=== PATIENT | male | born 1955 | race Caucasian/White ===

== ENCOUNTER 2023-03-28 07:31 | Outpatient (OUT) | payer MEDICARE, OTHER, SELFPAY ==
[2023-03-28 08:01] LABS: Basophils Absolute Auto 0.2 10^3/uL (0.0-0.1); Basophils Percent Auto 1.6 % (0.2-2.0); Eosinophils Absolute Auto 0.5 10^3/uL (0.0-0.7); Eosinophils Percent Auto 5.4 % (0.9-7.0); Hematocrit 43.1 % (42.0-54.0); Hemoglobin 14.4 g/dL (14.0-18.0); Immature Granulocytes Abs Auto 0.14 10^3/uL (0.00-0.03); Immature Granulocytes Pct Auto 1.5 % (0.0-0.5); Lymphocytes Absolute Auto 2.5 10^3/uL (1.2-3.8); Lymphocytes Percent Auto 26.8 % (20.5-60.0); Mean Corpuscular HGB Conc 33.4 g/dL (29.9-35.2); Mean Corpuscular Hemoglobin 29.8 pg (25.9-34.0); Mean Platelet Volume 9.2 fL (9.5-13.5); Monocytes Percent Auto 10.4 % (1.7-12.0); Neutrophils Absolute Auto 5.1 10^3/uL (1.4-6.5); Neutrophils Percent Auto 54.3 % (43.0-75.0); Platelet Count 283 10^3/uL (150-450); Red Blood Count 4.84 10^6/uL (4.70-6.10); Red Cell Distribution Width 12.6 % (11.0-15.0); White Blood Count 9.5 10^3/uL (4.0-11.0)
[2023-03-28 08:12] LABS: Bilirubin Urine NEGATIVE (NEGATIVE); Blood Urine NEGATIVE (NEGATIVE); Clarity Urine CLEAR (CLEAR); Color Urine YELLOW (YELLOW); Glucose Urine UA NEGATIVE (NEGATIVE); Ketones Urine NEGATIVE (NEGATIVE); Leukocyte Esterase Urine NEGATIVE (NEGATIVE); Nitrite Urine NEGATIVE (NEGATIVE); Protein Urine NEGATIVE (NEG/TRACE); Specific Gravity Urine 1.025 (1.005-1.025); Urobilinogen Urine 0.2 EU/dL (0.2-1.0)
[2023-03-28 08:19] LABS: Estimated Average Glucose 120 mg/dL; Glycohemoglobin A1C 5.8 % (4.5-6.2)
[2023-03-28 08:20] LABS: Alanine Aminotransferase 36 U/L (16-63); Albumin Level 3.8 g/dL (3.4-5.0); Alkaline Phosphatase 62 U/L (46-116); Anion Gap 13.5; Aspartate Amino Transferase 19 U/L (15-37); BUN Creatinine Ratio 17.8; Bilirubin Total 0.4 mg/dL (0.2-1.0); Calcium 9.1 mg/dL (8.5-10.1); Carbon Dioxide 28.8 mmol/L (21.0-32.0); Chloride 103 mmol/L (98-107); Chol HDL Ratio 3.6; Cholesterol 135 mg/dL (<=200); Estimated GFR (African America >60 (>=60); Estimated GFR (Non-African Ame >60 (>=60); Globulin 3.8 g/dL; Glucose 112 mg/dL (74-106); HDL Cholesterol 38 mg/dL (40-60); Potassium 4.3 mmol/L (3.5-5.1); Sodium 141 mmol/L (136-145); Total Protein 7.6 g/dL (6.4-8.2); Triglycerides 142 mg/dL (<=150); Uric Acid 8.3 mg/dL (3.5-7.2); VLDL CHOLESTEROL 28.4 mg/dL
[2023-03-28 08:23] LABS: Microalbumin Urine Random 6.5 mg/dL (<=30.0)
[2023-03-28 08:37] LABS: Bacteria Urine TRACE #/HPF (NONE SEEN); Crystals Seen? None Seen #/HPF (None Seen); Mucus Urine NONE SEEN (NONE SEEN); RBC Urine 0-2 #/HPF (0-2); Squamous Epithelial Cell Urine RARE #/LPF (NONE/RARE); WBC Urine 0-2 #/HPF (NONE SEEN)
[2023-03-28 08:38] LABS: Cast Seen? NONE SEEN #/LPF (NONE SEEN); Urine Culture Indicated NO
== END 2023-03-28 07:32 | disposition home or self-care (01) ==
LOC: LAB 07:36
PROVIDERS: PCP Nurse Practitioner; Visit Provider Nurse Practitioner
DX: M10.9 Gout, unspecified (principal); R73.03 Prediabetes; E78.5 Hyperlipidemia, unspecified
CPT/HCPCS: 36415; 80053; 80061; 81001; 82043; 83036; 84550; 85025

== ENCOUNTER 2023-04-26 12:24 | Outpatient (OUT) | payer MEDICARE, OTHER, SELFPAY ==
[2023-04-26 13:29] LABS: Prostate Specific Antigen Dx 1.11 ng/mL (<=4.00)
== END 2023-04-26 12:25 | disposition home or self-care (01) ==
LOC: LAB 12:27
PROVIDERS: PCP Nurse Practitioner; Visit Provider Radiology Radiation Oncology
DX: Z85.46 Personal history of malignant neoplasm of prostate (principal)
CPT/HCPCS: 36415; 84153

== ENCOUNTER 2023-08-29 09:50 | Outpatient (OUT) | payer MEDICARE, OTHER, SELFPAY ==
--- NOTE | 2023-08-29 10:00 | CA_ITS ---
Patient Name: MARK ALARCON MR#: [id number] : 1955 Exam Date: 08/29/2023 Ordering Doctor: DR LESLIE CARRANZA M.D. ECHOCARDIOGRAM REPORT PROCEDURE: CA ECHO DOPPLER COMPLETE INDICATIONS: Hypertension COMPARISON: None. DESCRIPTION: COMPLETE ECHOCARDIOGRAM Real-time transthoracic echocardiography with 2D, M-mode, spectral and color flow Doppler performed. QUALITY: Technical quality was good. 68 , 227#, BSA 2.16 m2 LEFT VENTRICLE: Normal chamber size. Thickened septal wall. Mild concentric hypertrophy. Normal systolic function. LV EF: Normal left ventricular ejection fraction, (>55%). DIASTOLIC: Diastolic function is indeterminate. ATRIAL SEPTUM: Visually appears intact. LEFT ATRIUM: Normal chamber size. RIGHT ATRIUM: Normal chamber size. RIGHT VENTRICLE: Normal chamber size. Normal right ventricular systolic function. TRICUSPID VALVE: Normal mobility and thickness. No stenosis with no regurgitation. Unable to assess right-sided pressures due to lack of measurable tricuspid regurgitation. MITRAL VALVE: Normal mobility and thickness. No evidence of mitral valve stenosis. There is no mitral annular calcification. Trivial mitral regurgitation. AORTIC VALVE: Normal trileaflet appearance. No visible sclerosis. Normal leaflet mobility. No evidence of aortic valve stenosis. No aortic regurgitation. AORTIC ROOT: Normal diameter and appearance. PULMONIC VALVE: Normal thickness and mobility. No stenosis. Trivial regurgitation. PERICARDIUM: No evidence of pericardial effusion. IVC: Collapses with inspirations. PLEURA: CONCLUSION: 1. Left ventricle exhibits mild concentric hypertrophy with normal systolic function. LVEF is estimated at 60 to 65%. 2. Normal right ventricular size and systolic function. 3. No significant valvular dysfunction. 4. Unable to assess right-sided pressures due to lack of measurable tricuspid regurgitation. Adult Echocardiography Procedure Report Left Ventricle LVEDD (3.7 - 5.6 cm): 4.20 cm LVESD (2.2 - 4.0 cm): 3.11 cm LVIVS thickness (0.6 - 1.2 cm): 1.33 cm LVPW thickness (0.5 - 1.0 cm): 0.95 cm e': 0.06 m/s E - e': 7.73 LVOT Max Gradient: 2.75 mm[Hg] LVOT Area (cm2): 0.83 m/s Peak Velocity (LVOT): 0.83 m/s Mean Velocity (LVOT): 0.59 m/s LVOT Diameter 2.34 cm Left Atrium LA Volume Index (2D A2C): 22.29 ml/m2 Left Atrium Systolic Dimension: 3.30 cm Mitral Valve MV E to A Ratio: 0.62, 0.59 Mitral Valve A-Wave Peak Velocity: 0.79 m/s Mitral Valve E-Wave Peak Velocity: 0.48 m/s Right Ventricle Aorta AO Root Diam: 4.00 cm Ascending Ao Diam: 2.95 cm Aortic Valve AoV Area (Peak Zeke): 3.58 cm2, 3.58 cm2 AoV Area (VTI): 4.54 cm2, 4.54 cm2 Peak Velocity(Antegrade Flow): 0.99 m/s Peak Gradient(Antegrade Flow): 3.94 mm[Hg] Mean Velocity(Antegrade Flow): 0.71 m/s Mean Gradient(Antegrade Flow): 2.26 mm[Hg] Velocity Time Integral: 18.05 cm Tricuspid Valve Pulmonic Valve Peak Velocity: 0.82 m/s Peak Gradient: 2.60 mm[Hg], 2.72 mm[Hg] Right Atrium Right Atrium Systolic Pressure: 55.11 ml, 55.11 ml Dictated by: Rickey Stubbs M.D. on 08/29/2023 at 16:50 Approved by: Rickey Stubbs M.D. on 08/29/2023 at 16:53
--- OUTSIDE RECORDS SUMMARY | 2023-08-29 10:07 | XMS_ITS | CCD ---
Author Name Unknown Address [address] [place] [address] Organization [facility] Care Team Providers Care Game Programmer Name Role Phone No, Physician Primary Care Provider Unavailabl e NO, PHYSICIAN Primary Care Unavailable BREE LESLIE Attending Unavailabl e BREE LESLIE Admitting Unavailabl e SELF, REFERRED Primary Care Unavailable SELF, REFERRED Referring Unavailable MUKUND SCHULER Admitting Unavailable MUKUND SCHULER Attending Unavailable AichholEllen daniels CNP Primary Care Provider Imtiaz Freed Jr. Unavailable NICK BARRERAA Edward Primary Care Physician AicEllen munguia CNP Primary Care Provider Imtiaz Freed Jr. Unavailable YUNI NORTH Attending Unavailable CLAIRE ELLEN SIERRA Primary Care Unavailable CHAI PALMA Referring Unavailable AichholEllen daniels CNP Primary Care Provider Imtiaz Freed Jr. Unavailable DR NESTOR CATALAN Admitting Unavailable KAPLAN ., DR BAEZ Attending Unavailable AICHHOLZ, ROAD ROLLER OPERATOR ELLEN Primary Care Unavailable KAPLAN ., DR BAEZ Consulting Unavailable AICHHOLZ, ROAD ROLLER OPERATOR ELLEN Admitting Unavailable AICHHOLZ, ROAD ROLLER OPERATOR ELLEN Attending Unavailable AICHHOLZ, ROAD ROLLER OPERATOR ELLEN Primary Care Unavailable AICHHOLZ, ROAD ROLLER OPERATOR ELLEN Consulting Unavailable KAPLAN ., DR BAEZ Admitting Unavailable KAPLAN ., DR BAEZ Attending Unavailable AICHHOLZ, ROAD ROLLER OPERATOR ELLEN Primary Care Unavailable KAPLAN ., DR BAEZ Consulting Unavailable SREE FRASER Consulting Unavailable BRAD FOSS Consulting Unavailable NILL ., DR SALTER Admitting Unavailable NILL ., DR SALTER Attending Unavailable AICHHOLZ, ROAD ROLLER OPERATOR ELLEN Primary Care Unavailable NILL ., DR SALTER Consulting Unavailable UMA VILLA Consulting Unavailable VIDYA LUNDBERG Consulting Unavailable KAPLAN ., DR BAEZ Admitting Unavailable KAPLAN ., DR BAEZ Attending Unavailable AICHHOLZ, ROAD ROLLER OPERATOR ELLEN Primary Care Unavailable KAPLAN ., DR BAEZ Consulting Unavailable ELISA PENA Consulting Unavailable KAPLAN ., DR BAEZ Admitting Unavailable KAPLAN ., DR BAEZ Attending Unavailable AICHHOLZ, ROAD ROLLER OPERATOR ELLEN Primary Care Unavailable KAPLAN ., DR BAEZ Consulting Unavailable COLTON, DR CHAI Gilman Consulting Unavailable AICHHOLZ, ROAD ROLLER OPERATOR ELLEN Admitting Unavailable AICHHOLZ, ROAD ROLLER OPERATOR ELLEN Attending Unavailable AICHHOLZ, ROAD ROLLER OPERATOR ELLEN Primary Care Unavailable AICHHOLZ, ROAD ROLLER OPERATOR ELLEN Consulting Unavailable KAPLAN ., DR BAEZ Admitting Unavailable KAPLAN ., DR BAEZ Attending Unavailable AICHHOLZ, ROAD ROLLER OPERATOR ELLEN Primary Care Unavailable KAPLAN ., DR BAEZ Consulting Unavailable ZIEBER, DR JAMIE Veras Consulting Unavailable KAPLAN ., DR BAEZ Admitting Unavailable KAPLAN ., DR BAEZ Attending Unavailable AICHHOLZ, ROAD ROLLER OPERATOR ELLEN Primary Care Unavailable KAPLAN ., DR BAZE Consulting Unavailable KAPLAN ., DR BAEZ Admitting Unavailable KAPLAN ., DR BAEZ Attending Unavailable AICHHOLZ, ROAD ROLLER OPERATOR ELLEN Primary Care Unavailable KAPLAN ., DR BAEZ Consulting Unavailable AICHHOLZ, ROAD ROLLER OPERATOR ELLEN Admitting Unavailable AICHHOLZ, ROAD ROLLER OPERATOR ELLEN Attending Unavailable AICHHOLZ, ROAD ROLLER OPERATOR ELLEN Primary Care Unavailable AICHHOLZ, ROAD ROLLER OPERATOR ELLEN Consulting Unavailable KAPLAN ., DR BAEZ Admitting Unavailable KAPLAN ., DR BAEZ Attending Unavailable AICHHOLZ, ROAD ROLLER OPERATOR ELLEN Primary Care Unavailable KAPLAN ., DR BAEZ Consulting Unavailable ZIEBER, DR JAMIE Veras Consulting Unavailable AICHHOLZ, ROAD ROLLER OPERATOR ELLEN Admitting Unavailable AICHHOLZ, ROAD ROLLER OPERATOR ELLEN Attending Unavailable AICHHOLZ, ROAD ROLLER OPERATOR ELLEN Primary Care Unavailable AICHHOLZ, ROAD ROLLER OPERATOR ELLEN Consulting Unavailable GANGA, MUKUND Admitting Unavailable GANGAMUKUND Attending Unavailable AICHHOLZ, ROAD ROLLER OPERATOR ELLEN Primary Care Unavailable GANGA, MUKUND Consulting Unavailable AICHHOLZ, ROAD ROLLER OPERATOR ELLEN Admitting Unavailable AICHHOLZ, ROAD ROLLER OPERATOR ELLEN Attending Unavailable AICHHOLZ, ROAD ROLLER OPERATOR ELLEN Primary Care Unavailable AICHHOLZ, ROAD ROLLER OPERATOR ELLEN Consulting Unavailable NILL ., DR SALTER Admitting Unavailable NILL ., DR SALTER Attending Unavailable AICHHOLZ, ROAD ROLLER OPERATOR ELLEN Primary Care Unavailable NILL ., DR SALTER Consulting Unavailable KAPLAN ., DR BAEZ Admitting Unavailable KAPLAN ., DR BAEZ Attending Unavailable AICHHOLZ, ROAD ROLLER OPERATOR ELLEN Primary Care Unavailable KAPLAN ., DR BAEZ Consulting Unavailable PENA, ELISA Consulting Unavailable KAPLAN ., DR BAEZ Admitting Unavailable KAPLAN ., DR BAEZ Attending Unavailable AICHHOLZ, ROAD ROLLER OPERATOR ELLEN Primary Care Unavailable KAPLAN ., DR BAEZ Consulting Unavailable KAPLAN ., DR BAEZ Admitting Unavailable KAPLAN ., DR BAEZ Attending Unavailable AICHHOLZ, ROAD ROLLER OPERATOR ELLEN Primary Care Unavailable KAPLAN ., DR BAEZ Consulting Unavailable WEST, DR CHAI Gilman Consulting Unavailable TOBIAS, DELORIS LORENZO Consulting Unava ilable GEMBUS, SREE Consulting Unavailable KAPLAN ., DR BAEZ Admitting Unavailable KAPLAN ., DR BAEZ Attending Unavailable AICHHOLZ, ROAD ROLLER OPERATOR ELLEN Primary Care Unavailable KAPLAN ., DR BAEZ Consulting Unavailable AICHHOLZ, ROAD ROLLER OPERATOR ELLEN Admitting Unavailable AICHHOLZ, ROAD ROLLER OPERATOR ELLEN Attending Unavailable AICHHOLZ, ROAD ROLLER OPERATOR ELLEN Primary Care Unavailable WEST, DR CHAI Gilman Consulting Unavailable AICHHOLZ, ROAD ROLLER OPERATOR ELLEN Consulting Unavailable MUKUND SCHULER Attending Unavailable Nestor MCKENZIE Attending Unavailable Nestor MCKENZIE Referring Unavailable AICHHOLZ, ELLEN SIERRA Primary Care Unavailable Nestor MCKENZIE Attending Unavailable Nestor MCKENZIE Referring Unavailable AICHHOLZ, ELLEN SIERRA Primary Care Unavailable Nestor KAPLAN Attending Unavailable KAE SANDERS Attending Unavailab Nestor Moura Attending Unavailable Nestor KAPLAN Attending Unavailable KAE SANDERS Attending Unavailab le Medications Current Medications Medication Drug Class(es) Dates Sig (Normalized) Sig (Original) aspirin 81 mg chewable tablet (15 sources) Platelet Aggregation Inhibitor, Nonsteroidal Anti-inflammatory Drug Start: 02-13-2022 aspirin 81 mg Chew Tab 81 mg = 1 tab(s), Chewed, Daily, Refills(s) 0 Start Date: 02/13/22 Status: Ordered take 1 tablet by mouth once ita y aspirin, enteric coated (ASPIRIN, ENTERIC COATED) 81 mg EC tablet aspirin 81 mg tablet,delayed release TAKE 1 TABLET BY MOUTH EVERY DAY 0 Active Comment on above: aspirin 81 mg tablet ,delayed release TAKE 1 TABLET BY MOUTH EVERY DAY atorvastatin 80 mg oral tablet (15 sources) HMG-CoA Reductase Inhibitor Start: 02-14-20 take 1 tablet by mouth once daily atorvastatin 80 mg Tab 80 mg = 1 tab(s), Oral, Daily, Refills(s) 0 Start Date: 02/13/22 Status: Ordered Start: 09-24-2020 take 1 tablet by asha once daily at bedtime atorvastatin (LIPITOR) 20 mg tablet Take 20 mg by mouth daily at bedtime. 0 09/24/2020 Active Comment on above: Take 20 mg by mouth daily at bedtime. carvedilol 6.25 mg oral tablet (15 sources) alpha-Adrenergic Alistair, beta-Adrenergic Alistair Start: 02-21-2022 take 1 tablet by mouth twice daily carvedilol 6.25 mg Tab 6.25 mg = 1 tab(s), Oral, BID, Refills(s) 0 Start Date: 02/21/22 Status: Ordered Comment on above: carvedilol 6.25 mg t ablet TAKE 1 TABLET BY MOUTH TWICE A DAY sertraline 50 mg oral tablet (12 sources) Serotonin Reuptake Inhibitor Start: 02-13-2022 take 1 tablet by mouth once daily sertraline 50 mg Tab 50 mg = 1 tab(s), Oral, Daily, Refills(s) 0 Start Date: 02/13/22 Status: Ordered Comment on above: Take 50 mg by mouth once daily. Completed/Discontinued Medications Medication Drug Class(es) Dates Sig (Normalized) Sig (Original) allopurinol 100 mg oral tablet (15 sources) Xanthine Oxidase Inhibitor Start: 03-04-2020 take 1 tablet by mouth once daily allopurinol 100 mg Tab 100 mg = 1 tab(s), Oral, Daily, TAKE 1 TABLET BY MOUTH EVERY DAY Start Date: 03/04/20 Status: Ordered Comment on above: Take 100 mg by mouth once daily. potassium citrate 15 meq extended release oral tablet (3 sources) Start: 03-03-2023 take 2 tablets by mouth every twelve hours Potassium Citrate 15 mEq TbER Take 2 tablets by mouth every 12 hours. 0 03/03/2023 Active Start: 10-31-2022 take 2 tablets by mo [facility] twice daily potassium citrate 15 mEq oral tablet, extended release 30 mEq = 2 tab(s), Oral, BID, # 120 tab(s), Refills(s) 11, [id number], cm, 10/31/22 8:58:00 EDT, Height/Length Dosing, 99, kg, 10/31/22 8:58:00 EDT, Weight Dosing Start Date: 10/31/22 Status: Ordered Comment on above: Take 2 tablets by [facility] every 12 hours. tamsulosin hydrochloride 0.4 mg oral capsule (13 sources) alpha-Adrenergic Alistair Start: 03-25-2021 tamsulosin (FLOMAX) 0.4 mg 0.4 mg once daily. 0 03/25/2021 Active Start: 03-25-2021 take 1 capsule by [facility] twice daily tamsulosin 0.4 mg Cap 0.4 mg = 1 cap(s), Oral, BID, # 60 cap(s), Refills(s) 11, [id number] 173, cm, 07/11/21 10:47:00 EST, Height/Length Dosing, 104.1, kg, 07/11/21 10:47:00 EST, Weight Dosing Start Date: 08/19/21 Status: Ordered Comment on above: 0.4 mg twice daily. 0.4 mg once daily. Problems Active Problems Problem Classification Problem Date Documented Da te Episodic/Chronic Calculus of urinary tract (18 sources) Kidney stone; Translations: [Calculus of kidney] Onset: 04-24-2022 Episodic Cancer of prostate (20 sources) Malignant tumor of prostate; Translations: [Malignant neoplasm of prostate] Onset: 10-27-2021 Chronic Cancer of prostate (3 sources) History of malignant neoplasm of prostate; Translations: [Personal history of malignant neoplasm of prostate] Onset: 04-08-2022 Episodic Coronary atherosclerosis and other heart disease (20 sources) Coronary arteriosclerosis; Translations: [Coronary atherosclerosis] Onset: 04-28-2021 02-13-2022 Chronic Diabetes mellitus without complication (6 sources) Prediabetes; Translations: [Prediabetes] Onset: 07-18-2022 02-13-2022 Episodic Disorders of lipid metabolism (15 sources) Hyperlipidemia; Translations: [Hyperlipidemia, unspecified] Onset: 03-12-2021 02-13-2022 Chronic Diverticulosis and diverticulitis (6 sources) Diverticula of intestine; Translations: [Diverticulosis of large intestine without perforation or abscess without bleeding] Onset: 03-20-2022 Chronic Essential hypertension (15 sources) Hypertensive disorder; Translations: [Essential hypertension] Onset: 03-12-2021 03-04-2020 Chronic Genitourinary symptoms and ill-defined conditions (4 sources) Encounter for fitting and adjustment of urinary device; Translations: [END FITTING AND ADJUST URINARY DEVICE] Onset: 07-31-2022 Chronic Genitourinary symptoms and ill-defined conditions (7 sources) Retention of urine; Translations: [Abnormal urinary product] Onset: 07-18-2022 03-24-2021 Episodic Gout and other crystal arthropathies (6 sources) Gout; Translations: [Gout, unspecified] Onset: 07-18-2022 03-04-2020 Chronic Hyperplasia of prostate (9 sources) Benign prostatic hypertrophy with outflow obstruction; Translations: [Benign prostatic hyperplasia with lower urinary tract symptoms] Onset: 04-24-2022 05-18-2020 Chronic Other and unspecified benign neoplasm (1 source) Benign neoplasm of colon; Translations: [Benign neoplasm of colon, unspecified] Onset: 03-28-2022 Episodic Other and unspecified benign neoplasm (1 source) Adenomatous polyp of colon 03-28-2022 Episodic Other and unspecified benign neoplasm (4 sources) History of polyp of colon 02-27-2022 Episodic Other diseases of bladder and urethra (1 source) Other specified disorders of bladder; Translations: [OTHER SPECIFIED DISORDERS BLADDER] Onset: 08-01-2022 Chronic Other gastrointestinal disorders (1 source) Other specified diseases of intestine; Translations: [Mass of colon] Onset: 04-25-2022 Episodic Other gastrointestinal disorders (1 source) Mass of colon; Translations: [Other specified diseases of intestine] 04-25-2022 Episodic Other injuries and conditions due to external causes (4 sources) History of fall 02-27-2022 Episodic Other non-epithelial cancer of skin (5 sources) History of malignant basal cell neoplasm of skin 02-13-2022 Episodic Other nutritional; endocrine; and metabolic disorders (5 sources) Body mass index 30+ - obesity 02-21-2022 Chronic Other nutritional; endocrine; and metabolic disorders (4 sources) Obese class I; Translations: [Obesity, unspecified] Onset: 11-03-2022 Chronic Other nutritional; endocrine; and metabolic disorders (4 sources) Unintentional weight loss 02-27-2022 Episodic Other screening for suspected conditions (not mental disorders or infectious disease) (16 sources) Abnormal renal function; Translations: [Raised prostate specific antigen] Onset: 02-08-2022 02-13-2022 Episodic Residual codes; unclassified (14 sources) Obstructive sleep apnea syndrome; Translations: [Obstructive sleep apnea (adult) (pediatric)] Onset: 02-07-2021 02-13-2022 Chronic Residual codes; unclassified (1 source) Obstructive sleep apnea (adult) (pediatric); Translations: [OBSTRUCTIVE SLEEP APNEA] Onset: 07-18-2022 Chronic Residual codes; unclassified (1 source) Sleep apnea, unspecified; Translations: [SLEEP APNEA UNSPECIFIED] Onset: 06-04-2022 Chronic Unclassified (1 source) COVID-19; Translations: [COVID-19] Unclassified (4 sources) CONTACT W/AND (SUSP) EXPOS COVID-19; Translations: [CONTACT W/AND (SUSP) EXPOS COVID-19] Onset: 02-23-2022 Unclassified (1 source) ESOPHAGITIS UNSPEC WITHOUT BLEEDING; Translations: [ESOPHAGITIS UNSPEC WITHOUT BLEEDING] Onset: 03-20-2022 Past or Other Problems Problem Classification Problem Date Documented Date Episodic/Chronic Gastritis and duodenitis (1 source) Other gastritis without bleeding; Translations: [OTHER GASTRITIS WITHOUT BLEEDING] Onset: 03-20-2022 Episodic Other aftercare (1 source) [facility] (current) use of anticoagulants; Translations: [FOOD PRODUCTION ASSOCIATE CURRNT USE ANTICOAGULANTS] Onset: 07-18-2022 Episodic Other aftercare (1 source) remote computer terminal operator (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) use of aspirin; Translations: [CARE HOME 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] Onset: 07-18-2022 Episodic Other aftercare (1 source) Other adjunct faculty for medical terminology (current) drug therapy; Translations: [OTH FOOD PRODUCTION ASSOCIATE CURRENT DRUG THERAPY] Onset: 07-18-2022 Episodic Other and unspecified benign neoplasm (1 source) Personal history of colonic polyps; Translations: [PERSONAL HISTORY OF COLONIC POLYPS] Onset: 03-20-2022 Episodic Other and unspecified benign neoplasm (1 source) Benign neoplasm of sigmoid colon; Translations: [BENIGN NEOPLASM OF SIGMOID COLON] Onset: 03-20-2022 Episodic Other diseases of kidney and ureters (1 source) Crossing vessel and stricture of ureter without hydronephrosis; Translations: [CROSSING VES STRICT URETER W/O HN] Onset: 06-04-2022 Episodic Other diseases of kidney and ureters (1 source) Disorder of kidney and ureter, unspecified; Translations: [DISORDER KIDNEY AND URETER UNS] Onset: 03-14-2022 Episodic Other hematologic conditions (5 sources) Elevated erythrocyte sedimentation rate; Translations: [ELEVATED ERYTHROCYTE SED RATE] Onset: 02-16-2022 Episodic Other nutritional; endocrine; and metabolic disorders (5 sources) Abnormal weight loss; Translations: [ABNORMAL WEIGHT LOSS] Onset: 02-09-2022 Episodic Other nutritional; endocrine; and metabolic disorders (1 source) Anorexia; Translations: [ANOREXIA] Onset: 03-20-2022 Episodic Screening and history of mental health and substance abuse codes (1 source) Personal history of nicotine dependence; Translations: [PERSONAL HISTORY OF NICOTINE DEPEND] Onset: 06-04-2022 Episodic Unclassified (1 source) CONTACT W/AND (SUSP) EXPOS COVID-19; Translations: [CONTACT W/AND (SUSP) EXPOS COVID-19] Onset: 02-22-2022 Urinary tract infections (4 sources) Urinary tract infection, site not specified; Translations: [UTI SITE NOT SPECIFIED] Onset: 12-15-2021 Episodic Results Test Name Value Interpretation Reference Range Facility Consultation Noteon 06-12-20 Consultation Note [id number]#1.00TIFF [facility] 06-12-2023 Lab Reports [id number]#1.00TIFF [facility] 05-15-2023 Forms [id number]#1.00TIFF [facility] CNOVon 05-03-2023 CNOV Office Visit (RADTSA ) ----- MARK DOUGLAS ([id number]) 1955 M Date Time Provider Department 05/03/23 2:30 PM Nestor MCKENZIE During your visit today, we recorded the following information about you: Temperature Pulse Respiration Blood pressure 97.6 degrees 78/minute 16/minute 131/70 Weight 104.3 kg Nafisa Chacon LPN 05/03/2023 2:23 PM Signed AUA= 1 Nestor Mckenzie MD 05/08/2023 3:15 PM Signed Radiation Oncology - Follow Up Note PATIENT NAME: Mark Douglas PATIENT DIAGNOSIS: Prostate adenocarcinoma, initial PSA 5.4, biopsy Geraldine score 3 + 4 = 7 (grade group 2), clinical stage T1c, N0, M0, stage IIB [T1-T2, N0, M0, PSA <20, GG 2] (AJCC 8th ed.), s/p TRUS Random biopsy. RADIATION SUMMARY:Prostate brachytherapy 03/10/2021, I-125, 145 Brennan, 85 sources, 32.30 mCi INTERVAL HISTORY: Doing well no new problems or concerns. 04/27/22:Patient's earlier this year. Patient has had a 40 pound weight loss although this is stabilized and starting to gain weight again. He does have family around for support. Otherwise feeling fairly good. 10/27/21:Patient doing well denies significant new problems. Urinary function good without obstructive complaints. 04/21/22: Still with obstructive issues. Self cathetize twice daily. Patient feels however this is improving for him. He has restarted Flomax which he thinks is helping and he has less residual with self cath. PSA HISTORY: PSA (ng/mL) Date Value 10/26/2021 0.41 01/11/2021 1.80 PSA. (no units) Date Value 04/26/2023 1.11 10/13/2022 1.03 04/06/2022 1.60 04/18/2021 1.96 ALLERGIES No Known Allergies Potassium Citrate 15 mEq TbER Take 2 tablets by mouth every 12 hours. sertraline (ZOLOFT) 50 mg tablet Take 50 mg by mouth once daily. carvedilol (COREG) 6.25 mg tablet carvedilol 6.25 mg tablet TAKE 1 TABLET BY MOUTH TWICE A DAY aspirin, enteric coated (ASPIRIN, ENTERIC COATED) 81 mg EC tablet aspirin 81 mg tablet,delayed release TAKE 1 TABLET BY MOUTH EVERY DAY tamsulosin (FLOMAX) 0.4 mg 0.4 mg once daily. atorvastatin (LIPITOR) 20 mg tablet Take 20 mg by mouth daily at bedtime. allopurinol (ZYLOPRIM) 100 mg tablet Take 100 mg by mouth once daily. REVIEW OF SYSTEMS: See HPI - Total AUA Score: 1 Bowel movement frequency: 1-2/day Bowel movement quality: normal Blood per rectum: none PHYSICAL EXAM: BP 131/70 Pulse 78 Temp 36.4 ?C (97.6 ?F) Resp 16 Wt 104.3 kg (230 lb) SpO2 95% BMI 34.97 kg/m? KPS: 100 General appearance: Alert and oriented. No acute distress. Rectal exam def Extremities: No deformities, edema, skin discoloration, clubbing or cyanosis. ASSESSMENT/PLAN: Prostate adenocarcinoma, initial PSA 5.4, biopsy Corunna score 3 + 4 = 7 (grade group 2), clinical stage T1c, N0, M0, stage IIB [T1-T2, N0, M0, PSA <20, GG 2] (AJCC 8th ed.), status post prostate brachytherapy 03/10/2021 Overall doing well. PSA stable. Recommend continued PSA surveillance. Plan to see patient back in 6 months. Patient has continued urologic follow-up with Dr. Kaplan. Signed by: Nestor Mckenzie MD cc: Ellen Barrera, ROAD ROLLER OPERATOR (Dr) [address] [place] [address] Referring Provider: Nestor MCKENZIE [[id number]] Allergies As of Date: 05/03/2023 (No Known Allergies) Date Reviewed: 05/03/2023 Reviewed by: Nafisa Chacon LPN - Fully Assessed Reason for Visit: Prostate Cancer [590] Primary Visit Diagnosis:Prostate cancer (HCC) [C61] Order(s):PSA (OUTSIDE) [4203853] Order #: [id number] PSA/PROSTSPECAG DIAG [SQPSA] Order #: [id number] FUTURE Prescriptions as of 05/08/2023 - Potassium Citrate 15 mEq TbER Take 2 tablets by mouth every 12 hours. - sertraline (ZOLOFT) 50 mg tablet Take 50 mg by mouth once daily. - carvedilol (COREG) 6.25 mg tablet carvedilol 6.25 mg tablet TAKE 1 TABLET BY MOUTH TWICE A DAY - aspirin, enteric coated (ASPIRIN, ENTERIC COATED) 81 mg EC tablet aspirin 81 mg tablet,delayed release TAKE 1 TABLET BY MOUTH EVERY DAY - tamsulosin (FLOMAX) 0.4 mg 0.4 mg once daily. - atorvastatin (LIPITOR) 20 mg tablet Take 20 mg by mouth daily at bedtime. - allopurinol (ZYLOPRIM) 100 mg tablet Take 100 mg by mouth once daily. Problem List As Of Date 05/03/2023 Noted Resolved Prostate cancer (HCC) [C61] 10/27/2021 Obstructive sleep apnea [G47.33] 02/07/2021 Hyperlipidemia, unspecified [E78.5] 03/12/2021 Essential (primary) hypertension [I10] 03/12/2021 Athscl heart disease of [place] coronary artery *04/28/2021 Obesity, Class I, BMI 30-34.9 [E66.9] 11/03/2022 Visit Notes: >> Nafisa Chacon LPN Maria De Jesus May 03, 2023 2:12 PM Status: Signed AUA= 1 Disposition: Return in about 6 months (around 11/01/2023). Follow-up and Disposition History for Encounter Date Provider Department Center 05/03/2023 [id number], G PH (more content not included)... Normal [facility] Kimmy 04-25-2023 KAUSHAL Telephone (RADTSA) ----- MARK DOUGLAS ([id number]) 1955 M Date Time Provider Department 11/1/23 Nestor MCKENZIE During your visit today, we recorded the following information about you: Nafisa Chacon LPN 04/25/2023 10:39 AM Signed Please sign pended PSA order for upcoming appt. Fax order to [facility] per patient request. Nafisa Chacon RN Allergies As of Date: 04/25/2023 (No Known Allergies) Date Reviewed: 10/26/2022 Reviewed by: Elisa Frederick RN - Fully Assessed Reason for Visit: Orders [681] Primary Visit Diagnosis:History of prostate cancer [Z85.46] Order(s):PSA/PROSTSPECAG DIAG [SQPSA] Order #: [id number] FUTURE Prescriptions as of 04/25/2023 - sertraline (ZOLOFT) 50 mg tablet Take 50 mg by mouth once daily. - carvedilol (COREG) 6.25 mg tablet carvedilol 6.25 mg tablet TAKE 1 TABLET BY MOUTH TWICE A DAY - aspirin, enteric coated (ASPIRIN, ENTERIC COATED) 81 mg EC tablet aspirin 81 mg tablet,delayed release TAKE 1 TABLET BY MOUTH EVERY DAY - tamsulosin (FLOMAX) 0.4 mg 0.4 mg once daily. - atorvastatin (LIPITOR) 20 mg tablet Take 20 mg by mouth daily at bedtime. - allopurinol (ZYLOPRIM) 100 mg tablet Take 100 mg by mouth once daily. Problem List As Of Date 04/25/2023 Noted Resolved Prostate cancer (HCC) [C61] 10/27/2021 Obstructive sleep apnea [G47.33] 02/07/2021 Hyperlipidemia, unspecified [E78.5] 03/12/2021 Essential (primary) hypertension [I10] 03/12/2021 Athscl heart disease of [place] coronary artery *04/28/2021 Obesity, Class I, BMI 30-34.9 [E66.9] 11/03/2022 Encounter Status:Closed by Nestor MCKENZIE on 04/25/23 [facility] 36on 11-27-2022 36 Okay from cardiology standpoint. Just need to make sure if he has SL nitroglycerin that he does not take both the same day. Normal [facility] 36 Ellen Barrera CNP (patient's PCP) called wanting to make sure it was ok from a cardiac standpoint that she start him on something for ED, like Cialis or Viagra. Please advise. Thanks. Normal [facility] Ambulatory Visit Summaryon 0 10-31-2022 Ambulatory Visit Summary MARK DOUGLAS :1955 Visit Date:10/31/2022 Ambulatory Visit Instructions Your Diagnosis Prostate cancer Kidney stones Hypocitraturia BPH with urinary obstruction Tests Performed Urnls Dip Stick Auto w/o Microscopy POC [id number] KUB -- Results Pending -- Please visit your patient portal for your results or contact your primary care physician. Your Care Team Attending Physician - JERI SANDERS PA-C Primary Care Physician - ELLEN BARRERA CNP This Is Your Medications List potassium citrate (potassium citrate 15 mEq oral tablet, extended release) Contact prescribing physician if questions or concerns allopurinol (allopurinol 100 mg Tab) aspirin (aspirin 81 mg Chew Tab) atorvastatin (atorvastatin 80 mg Tab) carvedilol (carvedilol 6.25 mg Tab) sertraline (sertraline 50 mg Tab) [Image Removed: STOP]Stop taking these medications tamsulosin (tamsulosin 0.4 mg Cap) Procedures Performed Cystoscopic removal of ureteric stent (07/31/2022), Cystoscopic laser lithotripsy of ureteric calculus (07/13/2022), ESWL of kidney (05/25/2022), Colonoscopy (03/15/2022), EGD - Esophagogastroduodenoscop y (03/15/2022), Catheterization of left heart (2020), Transrectal biopsy of prostate using ultrasound (US) guidance (03/15/2020), Colonoscopy (10/17/2013), Appendectomy, Fracture of bone of right hand, Repair of tendon of hand, Repair of umbilical hernia. Discharge Vitals Heart Rate (Peripheral) 68 Respiratory Rate 16 Blood Pressure 132/76 Height 173 cm Height 68 in Weight 99 kg Weight 217.8 lb BMI 33.08 What to do next Scheduled Follow-Up Appointments Sunday 10:00 AM EST With: JERI SANDERS PA-C Where: [facility] Pratibha Normal [facility] Patient Educationon 11-01-19 Patient Education Urology Kidney Stones Kidney stones are rock-like masses that form inside of the kidneys. Kidneys are organs that make pee (urine). A kidney stone may move into other parts of the urinary tract, including: ? The tubes that connect the kidneys to the bladder (ureters). ? The bladder. ? The tube that carries urine out of the body (urethra). Kidney stones can cause very bad pain and can block the flow of pee. The stone usually leaves your body (passes) through your pee. You may need to have a doctor take out the stone. What are the causes? Kidney stones may be caused by: ? A condition in which certain glands make too much parathyroid hormone (primary hyperparathyroidism). ? A buildup of a type of crystals in the bladder made of a chemical called uric acid. The body makes uric acid when you eat certain foods. ? Narrowing (stricture) of one or both of the ureters. ? A kidney blockage that you were born with. ? Past surgery on the kidney or the ureters, such as gastric bypass surgery. What increases the risk? You are more likely to develop this condition if: ? You have had a kidney stone in the past. ? You have a family history of kidney stones. ? You do not drink enough water. ? You eat a diet that is high in protein, salt (sodium), or sugar. ? You are overweight or very overweight (obese). What are the signs or symptoms? Symptoms of a kidney stone may include: ? Pain in the side of the belly, right below the ribs (flank pain). Pain usually spreads (radiates) to the groin. ? Needing to pee often or right away (urgently). ? Pain when going pee (urinating). ? Blood in your pee (hematuria). ? Feeling like you may vomit (nauseous). ? Vomiting. ? Fever and chills. How is this treated? Treatment depends on the size, location, and makeup of the kidney stones. The stones will often pass out of the body through peeing. You may need to: ? Drink more fluid to help pass the stone. In some cases, you may be given fluids through an IV tube put into one of your veins at the hospital. ? Take medicine for pain. ? Make changes in your diet to help keep kidney stones from coming back. Sometimes, medical procedures are needed to remove a kidney stone. This may involve: ? A procedure to break up kidney stones using a beam of light (laser) or shock waves. ? Surgery to remove the kidney stones. Follow these instructions at home: Medicines ? Take muyk-kvm-mykwxwj and prescription medicines only as told by your doctor. ? Ask your doctor if the medicine prescribed to you requires you to avoid driving or using heavy machinery. Eating and drinking ? Drink enough fluid to keep your pee pale yellow. You may be told to drink at least 8?10 glasses of water each day. This will help you pass the stone. ? If told by your doctor, change your diet. This may include: ? Limiting how much salt you eat. ? Eating more fruits and vegetables. ? Limiting how much meat, poultry, fish, and eggs you eat. ? Follow instructions from your doctor about eating or drinking restrictions. General instructions ? Collect pee samples as told by your doctor. You may need to collect a pee sample: ? 24 hours after a stone comes out. ? 8?12 weeks after a stone comes out, and every 6?12 months after that. ? Strain your pee every time you pee (urinate), for as long as told. Use the strainer that your doctor recommends. ? Do not throw out the stone. Keep it so that it can be tested by your doctor. ? Keep all follow-up visits as told by your doctor. This is important. You may need follow-up tests. How is this prevented? To prevent another kidney stone: ? Drink enough fluid to keep your pee pale yellow. This is the best way to prevent kidney stones. ? Eat healthy foods. ? Avoid certain foods as told by your doctor. You may be told to eat less protein. ? Stay at a healthy weight. Where to find more information ? National Kidney Foundation (NKF): www.kidney.org ? [employer] (UCF): www.urologyhealth.org Contact a doctor if: ? You have pain that gets worse or does not get better with medicine. Get help right away if: ? You have a fever or chills. ? You get very bad pain. ? You get new pain in your belly (abdomen). ? You pass out (faint). ? You cannot pee. Summary ? Kidney stones are rock-like masses that form inside of the kidneys. ? Kidney stones can cause very bad pain and can block the flow of pee. ? The stones will often pass out of the body through peeing. ? Drink enough fluid to keep your pee pale yellow. This information is not intended to replace advice given to you by your health care provider. Make sure you discuss any questions you have with your health care provider. Document Revised: 02/13/2022 Document Reviewed: 02/13/2022 [employer] Patient Education ? 2022 [employer]. Chaim Chiu [facility] Urology Office/Clinic Noteon 10-31-2022 Urology Office/Clinic Note Chief Complaint 6m PSA/Metabolic Work up HPI Staff PRW pt here today to review metabolic work up & PSA. S/P Lt ESWL/Lt stent placement done 05/25/22 & LT Holmium Laser & Lt stent change & Lt Stent Removal done 07/31/22 Metabolic Work Up done 09/15/22 & KUB done 09/13/22 DX: Prostate Cancer, Kidney Stone & BPH. S/P Brachytherapy 03/10/21 *Flomax 0.4mg QD therapy. PSA done 10/13/22- 1.03 IPSS 2 Denies all urinary complaints at this time. Denies flank pain. Denies any concerns at this time. History of Present Illness staff HPI reviewed and agree. Review of Systems PHQ Score Initial Depression Screen Score: 0 no fever, chills, malaise, myalgia. no rash/lesions. no chest pain, palpitations, or SOB. no abdominal pain, nausea, vomiting. no unilateral calf swelling, redness, pain Physical Exam Vitals & Measurements HR: 68(Peripheral) RR: 16 BP: 132/76 HT: 68 in HT: 173 cm WT: 99 kg WT: 217.8 lb BMI: 33.08 General: nontoxic, NAD Mouth: moist mucosa Lungs: normal respiratory effort Cardio: regular rate, good distal perfusion Abdomen: nondistended, no suprapubic distention or tenderness, no CVA tenderness Neurologic: Grossly normal Skin: No rashes or suspicious lesions Assessment/Plan UA completed in office today shows no microhematuria or signs of infection. 1. Prostate cancer (C61: Malignant neoplasm of prostate) S/p Brachytherapy 03-10-2021, G7 (3+4) x2 dx'd Mar 2020 last Lupron 11/16/2020 (postponed brachy initially due to insurance issues, had a couple doses of ADT while waiting for brachy). most recent PSA done PSA done 10/13/22- 1.03 which is down a bit from last time repeat PSA in 6 mos Ordered: potassium citrate, 30 mEq = 2 tab(s), Oral, BID, # 120 tab(s), Refills(s) 11, Pharmacy: [id number], 173, cm, 10/31/22 8:58:00 EDT, Height/Length Dosing, 99, kg, 10/31/22 8:58:00 EDT, Weight Dosing E&M of Est. Patient Moderate 30-39 Min 13024 Urnls Dip Stick Auto w/o Microscopy POC 15931 2. Kidney stones (N20.0: Calculus of kidney) S/P Lt ESWL/Lt stent placement done 05/25/22 & LT Holmium Laser & Lt stent change & Lt Stent Removal done 07/31/22 - 1.5cm stone metabolic work-up shows low volume (1.7L), mildly elevated serum uric acid (7.4) & mildly elevated urine 24h sodium (128) which both should normalize w increased fluids, markedly decreased 24h urine citric acid (138) recommended increase fluids, goal of double what he's ingesting now. avoid dark daisy, coffee, tea. discussed starting potassium citrate, risks/benefits/side effects. pt amenable. current KUB 09/13/22 negative. repeat KUB in 6 mos Ordered: potassium citrate, 30 mEq = 2 tab(s), Oral, BID, # 120 tab(s), Refills(s) 11, Pharmacy: [facility] #[id number], 173, cm, 10/31/22 8:58:00 EDT, Height/Length Dosing, 99, kg, 10/31/22 8:58:00 EDT, Weight Dosing E&M of Est. Patient Moderate 30-39 Min 21807 XR Abdomen 1 View 3. 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 started supplement. repeat metabolic work-up in 6 mos Ordered: potassium citrate, 30 mEq = 2 tab(s), Oral, BID, # 120 tab(s), Refills(s) 11, [id number], 173, cm, 10/31/22 8:58:00 EDT, Height/Length Dosing, 99, kg, 10/31/22 8:58:00 EDT, Weight Dosing E&M of Est. Patient Moderate 30-39 Min 31486 4. BPH with urinary obstruction (N40.1: Benign prostatic hyperplasia with lower urinary tract symptoms) IPSS 2 QOL 0 currently on Flomax. has been on for many years. noticed he missed a few doses recently and didn't notice any worsening LUTS. discussed pros/cons of trying to stop it. pt would like to try. will dc med now. if sx markedly worsen he will resume it and contact office to let me know. Ordered: potassium citrate, 30 mEq = 2 tab(s), Oral, BID, # 120 tab(s), Refills(s) 11, [id number], 173, cm, 10/31/22 8:58:00 EDT, Height/Length Dosing, 99, kg, 10/31/22 8:58:00 EDT, Weight Dosing E&M of Est. Patient Moderate 30-39 Min 02862 Orders: cephalexin, 500 mg = 1 cap(s), Oral, Daily, # 30 cap(s), Refills(s) 0, Pharmacy: [facility] #[id number], 173, cm, 04/24/22 12:06:00 EDT, Height/Length Dosing, 104, kg, 04/24/22 12:06:00 EDT, Weight Dosing f/u 6 mos w repeat metabolic workup, KUB, and PSA. Follow-up With When Contact Information JERI SANDERS PA-C, URL Within 6 months [address] [address] Business (1) Additional Instructions: Patient Education Kidney Stones, Wuku-vw-Xsor Problem List/Past Medical History Ongoing Abnormal kidney function BMI 30.0-30.9,adult BPH with urinary obstruction CAD (coronary artery disease) Diverticulosis of large intestine Elevated PSA Gout History of basal cell carcinoma Hyperlipidemia Hypertension Kidney stones HUNTER (obstructive sleep apnea) Personal history of colonic polyps Personal history of fall Pre-diabetes Prostate cancer Urinary retention Weight loss, unintentional Historical No qualifying data Procedure/Surgic (more content not included)... Normal [facility] Comment on above: Result Comment: Elec tronically Signed By: JERI SANDERS PA-C\Date and Time Signed: 10/31/22 09:50 EDT CNOVon 10-26-2022 CNOV Office Visit (RADTSA ) ----- MARK DOUGLAS ([id number]) 1955 M Date Time Provider Department 10/26/22 10:30 AM Nestor MCKENZIE During your visit today, we recorded the following information about you: Temperature Pulse Respiration Blood pressure 97.4 degrees 63/minute 18/minute 144/86 Weight 98.9 kg G Mark Mckenzie MD 11/03/2022 9:40 AM Signed Radiation Oncology - Follow Up Note PATIENT NAME: Mark Douglas PATIENT DIAGNOSIS: Prostate adenocarcinoma, initial PSA 5.4, biopsy Corunna score 3 + 4 = 7 (grade group 2), clinical stage T1c, N0, M0, stage IIB [T1-T2, N0, M0, PSA <20, GG 2] (AJCC 8th ed.), s/p TRUS Random biopsy. RADIATION SUMMARY:Prostate brachytherapy 03/10/2021, I-125, 145 Brennan, 85 sources, 32.30 mCi INTERVAL HISTORY: Doing well no new problems or concerns. 04/27/22:Patient's earlier this year. Patient has had a 40 pound weight loss although this is stabilized and starting to gain weight again. He does have family around for support. Otherwise feeling fairly good. 10/27/21:Patient doing well denies significant new problems. Urinary function good without obstructive complaints. 04/21/22: Still with obstructive issues. Self cathetize twice daily. Patient feels however this is improving for him. He has restarted Flomax which he thinks is helping and he has less residual with self cath. PSA HISTORY: PSA (ng/mL) Date Value 10/26/2021 0.41 01/11/2021 1.80 PSA. (no units) Date Value 10/13/2022 1.03 04/06/2022 1.60 04/18/2021 1.96 ALLERGIES No Known Allergies sertraline (ZOLOFT) 50 mg tablet Take 50 mg by mouth once daily. carvedilol (COREG) 6.25 mg tablet carvedilol 6.25 mg tablet TAKE 1 TABLET BY MOUTH TWICE A DAY aspirin, enteric coated (ASPIRIN, ENTERIC COATED) 81 mg EC tablet aspirin 81 mg tablet,delayed release TAKE 1 TABLET BY MOUTH EVERY DAY tamsulosin (FLOMAX) 0.4 mg 0.4 mg once daily. atorvastatin (LIPITOR) 20 mg tablet Take 20 mg by mouth daily at bedtime. allopurinol (ZYLOPRIM) 100 mg tablet Take 100 mg by mouth once daily. REVIEW OF SYSTEMS: See HPI - Total AUA Score: 2 Bowel movement frequency: 1-2/day Bowel movement quality: normal Blood per rectum: none PHYSICAL EXAM: BP 144/86 Pulse 63 Temp 36.3 ?C (97.4 ?F) Resp 18 Wt 98.9 kg (218 lb) SpO2 97% BMI 33.15 kg/m? KPS: 100 General appearance: Alert and oriented. No acute distress. Abdomen: Normal abdominal exam, Abdomen soft, non-tender. No masses, organomegaly. Rectal exam def Extremities: No deformities, edema, skin discoloration, clubbing or cyanosis. Lymph Nodes: No cervical lymphadenopathy, No supraclavicular lymphadenopathy, No axillary lymphadenopathy. Skin: Skin color, texture, turgor normal, no suspicious rashes or lesions. ASSESSMENT/PLAN: Prostate adenocarcinoma, initial PSA 5.4, biopsy Corunna score 3 + 4 = 7 (grade group 2), clinical stage T1c, N0, M0, stage IIB [T1-T2, N0, M0, PSA <20, GG 2] (AJCC 8th ed.), status post prostate brachytherapy 03/10/2021 Overall doing well. PSA declining and low. He has continued close follow-up and surveillance with Dr. Kaplan. Plan to see patient back in 6 months for further postradiation follow-up. Signed by: Nestor Mckenzie MD cc: Ellen Barrera, ROAD ROLLER OPERATOR ([facility]) [address] [place] [address] Elisa Frederick RN 10/26/2022 11:38 AM Addendum AUA 2 Elisa Frederick RN Referring Provider: Nestor MCKENZIE [[id number]] Allergies As of Date: 10/26/2022 (No Known Allergies) Date Reviewed: 10/26/2022 Reviewed by: Elisa Frederick RN - Fully Assessed Reason for Visit: Prostate Cancer [590] Primary Visit Diagnosis:History of prostate cancer [Z85.46] Other Visit Diagnosis:Obesity, Class I, BMI 30-34.9 [E66.9] Order(s):PSA (OUTSIDE) [[id number]] Order #: [id number] Prescriptions as of 11/03/2022 - sertraline (ZOLOFT) 50 mg tablet Take 50 mg by mouth once daily. - carvedilol (COREG) 6.25 mg tablet carvedilol 6.25 mg tablet TAKE 1 TABLET BY MOUTH TWICE A DAY - aspirin, enteric coated (ASPIRIN, ENTERIC COATED) 81 mg EC tablet aspirin 81 mg tablet,delayed release TAKE 1 TABLET BY MOUTH EVERY DAY - tamsulosin (FLOMAX) 0.4 mg 0.4 mg once daily. - atorvastatin (LIPITOR) 20 mg tablet Take 20 mg by mouth daily at bedtime. - allopurinol (ZYLOPRIM) 100 mg tablet Take 100 mg by mouth once daily. Problem List As Of Date 10/26/2022 Noted Resolved Prostate cancer (HCC) [C61] 10/27/2021 Obstructive sleep apnea [G47.33] 02/07/2021 Hyperlipidemia, unspecified [E78.5] 03/12/2021 Essential (primary) hypertension [I10] 03/12/2021 Athscl heart disease of [place] coronary artery *04/28/2021 Visit Notes: >> Elisa Frederick RN [facility] October 26, 2022 10:45 AM Status: Addendum AUA 2 Elisa Frederick RN Disposition: Return in about 6 months (around 04/28/2023). (more content not included)... Normal [facility] Reportson 10-16-2022 Lab Reports [id number]:12 7 Normal [facility] Reportson 10-09-2022 Lab Reports [id number]:12 7 Normal [facility] RAD - MISCon 09-19-2022 RAD - MISC [id number]:12 7 Normal [facility] CITRATE URINE 24HRon 023 Citric Acid, U, 24hr 138 mg/24 hr Critically low 320-1240 [facility] Comment on above: Result Comment: This test was developed and its performance characteristics determined by [employer]. It has not been cleared or approved by the Food and Drug Administration. Performed By: #### C [id number] #### [facility] [address] [place] [address] Dr. Aaron Gloria Citric Acid, Urine 80 mg/L Normal Undefined [facility] Comment on above: Performed By: #### C ALC24U #### [facility] [address] [place] [address] Dr. Aaron Gloria OXALATE 24HR URINEon 023 Oxalates, Urine 19 mg/L Normal Undefined [facility] Comment on above: Performed By: #### O X24HR #### [facility] [address] [place] [address] Dr. Aaron Gloria Oxalates, Urine 24hr 33 mg/24 hr Normal 7-44 [facility] Comment on above: Performed By: #### O X24HR #### [facility] [address] [place] [address] Dr. Aaron Gloria MAGNESIUM 24HR URINEon 09-16 Magnesium 24hr Urine 122.5 mg/24 hr Normal 12.0-293.0 [facility] Comment on above: Performed By: #### M AG24 #### [facility] [address] [address] [address] Aaron Gloria Magnesium UR 7.1 mg/dL Normal Not Estab. [facility] Comment on above: Performed By: #### M AG24 #### [facility] [address] [address] [address] Aaron Gloria PHOSPHORUS 24HR URINEon 08-24 Phosphorus, Urine 66.7 mg/dL Normal Not Estab. [facility] Comment on above: Performed By: #### M AG24 #### [facility] [address] [address] [address] Aaron Glorai Phosphorus, Urine 24hr 1151 mg/24 hr Normal 390-1425 [facility] Comment on above: Performed By: #### M AG24 #### [facility] [address] [place] [address] Dr. Aaron Gloria PTH INTACTon 09-16-2022 PTH, Intact 35 pg/mL Normal 15-65 [facility] Comment on above: Performed By: #### P THINT #### [facility] [address] [place] [address] Dr. Aaron Gloria URIC ACID 24 HR URINEon 08-24 Uric Acid, Urine 39.5 mg/dL Normal Not Estab. [facility] Comment on above: Performed By: #### U ZELDA 24 #### [facility] [address] [place] [address] Dr. Aaron Gloria Uric Acid, Urine 24hr 681.4 mg/24 hr Normal 182.4-936.8 [facility] Comment on above: Performed By: #### U ZELDA 24 #### [facility] [address] [address] [address] Aaron Gloria BUNon 09-15-2022 Urea nitrogen [Mass/Vol] 18.0 mg/dL Normal 7.0-18.0 [facility] Comment on above: Performed By: #### U ZELDA 24 #### [facility] [address] [place] [address] Dr. Aaron Gloria CALCIUMon 03-24-2023 Calcium [Mass/Vol] 9.0 mg/dL Normal 8.5-10.1 [facility] Comment on above: Performed By: #### C BC #### [facility] [address] [place] [address] Dr. Aaron Gloria CALCIUM 24 HR URINEon 2022 CALC, 24 HR UR 131.1 mg/24 hr Normal 100.0-300.0 [facility] Comment on above: Performed By: #### C ALC24U #### [facility] [address] [place] [address] Dr. Aaron Gloria UR CALCIUM 7.6 mg/dL Normal 5.1-21.0 [facility] Comment on above: Performed By: #### C ALC24U #### [facility] [address] [place] [address] Dr. Aaron Gloria UR TOT VOL 1725 ml/24 HR Normal [facility] Comment on above: Performed By: #### C ALC24U #### [facility] [address] [place] [address] Dr. Aaron Gloria Performed By: #### M AG24 #### [facility] [address] [place] [address] Dr. Aaron Gloria CHLORIDEon 09-15-2022 Chloride [Moles/Vol] 104 mmol/L Normal 98-107 [facility] Comment on above: Performed By: #### U ZELDA 24 #### [facility] [address] [place] [address] Dr. Aaron Gloria CO2on 09-15-2022 CO2 [Moles/Vol] 26.9 mmol/L Normal 21.0-32.0 [facility] Comment on above: Performed By: #### U ZELDA 24 #### [facility] [address] [place] [address] Dr. Aaron Gloria CREA 24 HR URINEon CREA, 24 HR UR 1749.67 mg/24 hr Normal 1,000.00- 2,0 00.00 [facility] Comment on above: Performed By: #### M AG24 #### [facility] [address] [address] [address] Aaron Gloria URINE CREAT 101.43 mg/dL Normal 20.00-300.00 [facility] Comment on above: Performed By: #### M AG24 #### [facility] [address] [place] [address] Dr. Aaron Gloria CREATININEon 09-15-2022 Creatinine [Mass/Vol] 1.08 mg/dL Normal 0.70-1.30 [facility] Comment on above: Performed By: #### U ZELDA 24 #### [facility] [address] [place] [address] Dr. Aaron Gloria EGFR-AF ARGENTINE >60 Normal >=60 [facility] Comment on above: Performed By: #### U ZELDA 24 #### [facility] [address] [place] [address] Dr. Aaron Gloria EGFR-NON AF ARGENTINE >60 Normal >=60 [facility] Comment on above: Performed By: #### U ZELDA 24 #### [facility] [address] [place] [address] Dr. Aaron Gloria NAon 09-15-2022 Sodium [Moles/Vol] 138 mmol/L Normal 136-145 [facility] Comment on above: Performed By: #### C BC #### [facility] [address] [place] [address] Dr. Aaron Gloria POTASSIUMon 09-15-2022 Potassium [Moles/Vol] 4.4 mmol/L Normal 3.5-5.1 [facility] Comment on above: Performed By: #### U ZELDA 24 #### [facility] [address] [place] [address] Dr. Aaron Gloria SODIUM 24 HR URINEon 023 NA, 24 HR UR 217 mmol/24 hr Normal 40-220 [facility] Comment on above: Performed By: #### M AG24 #### [facility] [address] [place] [address] Dr. Aaron Gloria Sodium (U) [Moles/Vol] 126 mmol/L Critically high 30-90 [facility] Comment on above: Performed By: #### M AG24 #### [facility] [address] [address] [address] Aaron Gloria URIC ACID SERUMon 09-15-2022 Urate [Mass/Vol] 7.4 mg/dL Critically high 3.5-7.2 [facility] Comment on above: Performed By: #### C BC #### [facility] [address] [place] [address] Dr. Aaron Gloria LIPID PROFILEon 09-13-2022 CHOL-HDL RATIO NORM SEE BELOW Normal [facility] Comment on above: Result Comment: 3.3 - 4.4 LOW RISK 4.4 - 7.1 AVERAGE RISK 7.1 - 11.0 MODERATE RISK >11.0 HIGH RISK Performed By: #### C ALC24U #### [facility] [address] [place] [address] Dr. Aaron Gloria Cholesterol [Mass/Vol] 149 mg/dL Normal <=200 [facility] Comment on above: Performed By: #### C ALC24U #### [facility] [address] [place] [address] Dr. Aaron Gloria Cholesterol in HDL [Mass/Vol] 44 mg/dL Normal 40-60 [facility] Comment on above: Performed By: #### C ALC24U #### [facility] [address] [place] [address] Dr. Aaron Gloria Cholesterol in LDL [Mass/Vol] 71.8 mg/dL Normal [facility] Comment on above: Performed By: #### C ALC24U #### [facility] [address] [address] [address] Aaron Gloria Cholesterol.total/C holesterol in HDL [Mass ratio] 3.4 {ratio} Normal [facility] Comment on above: Performed By: #### C ALC24U #### [facility] [address] [place] [address] Dr. Aaron Gloria HDL NORMAL > or = 60 mg/dl - LO W CARDIOVASCULAR RISK <40 mg/dl - HIGH CARDIOVASCULAR RISK Normal [facility] Comment on above: Performed By: #### C [id number] #### [facility] [address] [address] [address] Aaron Gloria LDL CALC NORMAL SEE BELOW Normal [facility] Comment on above: Result Comment: <100 mg/dl OPTIMAL 100 - 129 mg/dl NEAR OR ABOVE OPTIMAL 130 - 159 mg/dl BORDERLINE HIGH 160 - 189 mg/dl HIGH >190 mg/dl VERY HIGH Performed By: #### C [id number] #### [facility] [address] [address] [address] Aaron Gloria Triglyceride [Mass/Vol] 166 mg/dL Critically high <=150 [facility] Comment on above: Performed By: #### C [id number] #### [facility] [address] [address] [address] Aaron Gloria VLDL CALC 33.2 mg/dL Normal [facility] Comment on above: Performed By: #### C [id number] #### [facility] [address] [place] [address] Dr. Aaron Gloria PROF 14(COMP METB)on 023 Albumin [Mass/Vol] 3.8 g/dL Normal 3.4-5.0 [facility] Comment on above: Performed By: #### C [id number] #### [facility] [address] [place] [address] Dr. Aaron Gloria Albumin/Globulin [Mass ratio] 1.0 {ratio} Normal [facility] Comment on above: Performed By: #### C ALC24U #### [facility] [address] [address] [address] Aaron Gloria ALP [Catalytic activity/Vol] 65 U/L Normal 46-116 [facility] Comment on above: Performed By: #### C ALC24U #### [facility] [address] [address] [address] Aaron Gloria ALT [Catalytic activity/Vol] 26 U/L Normal 16-63 [facility] Comment on above: Performed By: #### C [id number] #### [facility] [address] [place] [address] Dr. Aaron Gloria Anion gap [Moles/Vol] 14.0 mmol/L Normal [facility] Comment on above: Performed By: #### C ALC24U #### [facility] [address] [address] [address] Aaron Gloria AST [Catalytic activity/Vol] 16 U/L Normal 15-37 [facility] Comment on above: Performed By: #### C ALC24U #### [facility] [address] [address] [address] Aaron Gloria Bilirubin [Mass/Vol] 0.4 mg/dL Normal 0.2-1.0 [facility] Comment on above: Performed By: #### C ALC24U #### [facility] [address] [address] [address] Aaron Gloria Calcium [Mass/Vol] 9.0 mg/dL Normal 8.5-10.1 [facility] Comment on above: Performed By: #### C ALC24U #### [facility] [address] [address] [address] Aaron Gloria Chloride [Moles/Vol] 104 mmol/L Normal 98-107 [facility] Comment on above: Performed By: #### C ALC24U #### [facility] [address] [address] [address] Aaron Gloria CO2 [Moles/Vol] 27.1 mmol/L Normal 21.0-32.0 [facility] Comment on above: Performed By: #### C ALC24U #### [facility] [address] [address] [address] Aaron Gloria Creatinine [Mass/Vol] 1.08 mg/dL Normal 0.70-1.30 [facility] Comment on above: Performed By: #### C ALC24U #### [facility] [address] [address] [address] Aaorn Gloria EGFR-AF ARGENTINE >60 Normal >=60 [facility] Comment on above: Performed By: #### C ALC24U #### [facility] [address] [place] [address] Dr. Aaron Gloria EGFR-NON AF ARGENTINE >60 Normal >=60 [facility] Comment on above: Performed By: #### C ALC24U #### [facility] [address] [address] [address] Aaron Gloria Globulin (S) [Mass/Vol] 3.7 g/dL Normal [facility] Comment on above: Performed By: #### C ALC24U #### [facility] [address] [address] [address] Aaron Gloria Glucose [Mass/Vol] 121 mg/dL Critically high 74-106 [facility] Comment on above: Performed By: #### C ALC24U #### [facility] [address] [place] [address] Dr. Aaron Gloria Potassium [Moles/Vol] 4.1 mmol/L Normal 3.5-5.1 [facility] Comment on above: Performed By: #### C ALC24U #### [facility] [address] [place] [address] Dr. Aaron Gloria Protein [Mass/Vol] 7.5 g/dL Normal 6.4-8.2 [facility] Comment on above: Performed By: #### C ALC24U #### [facility] [address] [place] [address] Dr. Aaron Gloria Sodium [Moles/Vol] 141 mmol/L Normal 136-145 [facility] Comment on above: Performed By: #### C [id number] #### [facility] [address] [place] [address] Dr. Aaron Gloria Urea nitrogen [Mass/Vol] 17.0 mg/dL Normal 7.0-18.0 [facility] Comment on above: Performed By: #### C ALC24U #### [facility] [address] [place] [address] Dr. Aaron Gloria Urea nitrogen/Creatinine [Mass ratio] 15.7 mg/mg Normal [facility] Comment on above: Performed By: #### C ALC24U #### [facility] [address] [place] [address] Dr. Aaron Gloria XR KUB 1 VIEWon 09-13-2022 XR KUB 1 VIEW EXAMINATION: XR KUB 1 VIEW HISTORY: Kidney stone COMPARISON: No relevant comparison available. FINDINGS: KIDNEY/URETER - RIGHT: No visible renal or ureteral calcifications. KIDNEY/URETER - LEFT: No visible renal or ureteral calcifications. PELVIS: No visible ureteral stones. BOWEL: No abnormal dilation or deviation. BONES: No acute abnormality. OTHER: Prior radioactive seeding of the prostate. IMPRESSION: 1. No visible urinary tract calculi. 2. Left ureteral stent has been removed. Electronically authenticated by: JAMIE TAN Date: 2022-09-13 09:06 Normal [facility] Operative Reporton Operative Report [id number]:12 7 Normal [facility] Office Visiton 08-15-2022 Follow-up visit [id number] Harman Douglas 1955 M Date Provider Department Center 08/15/2022 MUKUND NUNEZ [facility] Family History Problem Relation Age of Onset Heart attack Mother 37 Coronary artery disease Mother Coronary artery disease Father 65 Coronary artery disease Brother Family Status - Relation Status Age at Mother Father Brother Level of Service:53215 [place] OFFICE/OUTPATIENT ESTABLISHED LOW MDM 20-29 MIN Reason for Visit and Comments: Coronary Artery Disease [187] Hypertension [048220] Hyperlipidemia [182] Normal [facility] RAD - MISCon 08-08-2022 RAD - MISC [id number]:12 7 Normal [facility] Consent for Procedure/Surger yon 07-31-2022 Consent for Procedure/Surgery [id number]:12 7 Normal [facility] XR KUB 1 VIEWon 07-25-2022 XR KUB 1 VIEW EXAMINATION: XR KUB 1 VIEW HISTORY: Kidney stone COMPARISON: XR KUB 05/25/2022 FINDINGS: KIDNEY/URETER - RIGHT: No visible renal or ureteral calcifications. KIDNEY/URETER - LEFT: Left ureteral stent and interval removal of large calcification. Small 2 mm calcification projecting over lower pole of kidney. PELVIS: No visible ureteral stones. Prior radioactive seeding of the prostate. BOWEL: No abnormal dilation or deviation. BONES: No acute abnormality. OTHER: Negative. No abnormal gaseous collections. IMPRESSION: 1. Left ureteral stent placement and removal of previously seen large calcification. Electronically authenticated by: JAMIE TAN Date: 2022-07-25 08:21 Normal [facility] Reminderson 07-20-2022 Reminders - From: Padma Dunlap To: LAYO Church PA - Results; Sent: 07/20/2022 12:53:49 EST Show up: 07/26/2022 12:53:00 EST Subject: Reminder Message Reminder Message Please Remember to:_ PATIENT RELATED REMINDER:_ ( ) Call Patient ( ) Ask Patient to ( ) Call Relative ( ) Schedule Patient ( X ) Follow up on Results Pt will be having KUB [facility] sometime between 07/20/2022 and 07/27/2022 ( ) Other: PROVIDER RELATED REMINDER:_ ( ) [employer] ( ) Call Pharmacy ( ) Call Lab ( ) Other: Special Instructions:_ Comments:_ Normal [facility] CALCULI, URINARYon 3 2,8 Dihydroxyadenine Normal [facility] Comment on above: Performed By: #### P THINT #### [facility] [address] [place] [address] Dr. Aaron Gloria Ammonium Acid Urate Normal [facility] Comment on above: Performed By: #### P THINT #### [facility] [address] [address] [address] Aaron Gloria Bilirubin Ql (U) Normal [facility] Comment on above: Performed By: #### P THINT #### [facility] [address] [address] [address] Aaron Gloria Ca Oxalate Dihydrate Normal [facility] Comment on above: Performed By: #### P THINT #### [facility] [address] [place] [address] Dr. Aaron Gloria CaHPO4 (Brushite) Normal [facility] Comment on above: Performed By: #### P THINT #### [facility] [address] [address] [address] Aaron Gloria Calcium Bilirubinate Normal [facility] Comment on above: Performed By: #### P THINT #### [facility] [address] [address] [address] Aaron Gloria Calcium Carbonate [facility] Comment on above: Performed By: #### P THINT #### [facility] [address] [address] [address] Aaron Gloria Calcium Oxalate Monohydrate 60 % [facility] Comment on above: Performed By: #### P THINT #### [facility] [address] [address] [address] Aaron Gloria Calcium Palmitate [facility] Comment on above: Performed By: #### P THINT #### [facility] [address] [address] [address] Aaron Gloria Calcium Phosphate [facility] Comment on above: Performed By: #### P THINT #### [facility] [address] [address] [address] Aaron Gloria Calcium Stearate [facility] Comment on above: Performed By: #### P THINT #### [facility] [address] [address] [address] Aaron Gloria Carbonate Apatite [facility] Comment on above: Performed By: #### P THINT #### [facility] [address] [address] [address] Aaron Gloria Cellular Material [facility] Comment on above: Performed By: #### P THINT #### [facility] [address] [address] [address] Aaron Gloria Cholesterol [facility] Comment on above: Performed By: #### P THINT #### [facility] [address] [address] [address] Aaron Gloria Color (U) Brown [facility] Comment on above: Performed By: #### P THINT #### [facility] [address] [address] [address] Aaron Gloria Comment [facility] Comment on above: Performed By: #### P THINT #### [facility] [address] [place] [address] Dr. Aaron Gloria Comment Comment Normal [facility] Comment on above: Result Comment: Calc ulus received wet. Wet calculi must be dried before analysis, which delays reporting of results. Leaving calculi wet (such as water, saline, blood, urine) may lead to changes in composition. Performed By: #### P THINT #### [facility] [address] [address] [address] Aaron Gloria Comment: Comment Normal [facility] Comment on above: Result Comment: Zurdo castellanos questions regarding Calculi Analysis [facility] at: [phone]. Performed By: #### P THINT #### [facility] [address] [place] [address] Dr. Aaron Gloria Composition Comment Normal [facility] Comment on above: Result Comment: Perc entage (Represents the % composition) Performed By: #### P THINT #### [facility] [address] [place] [address] Dr. Aaron Gloria Cystine [facility] Comment on above: Performed By: #### P THINT #### [facility] [address] [place] [address] Dr. Aaron Gloria Disclaimer: Comment Normal [facility] Comment on above: Result Comment: This test was developed and its performance characteristics determined by [facility]. It has not been cleared or approved by the Food and Drug Administration. Performed By: #### P THINT #### [facility] [address] [place] [address] Dr. Aaron Gloria Dried Blood Normal [facility] Comment on above: Performed By: #### P THINT #### [facility] [address] [place] [address] Dr. Aaron Gloria Drug or Metabolite Normal [facility] Comment on above: Performed By: #### P THINT #### [facility] [address] [place] [address] Dr. [address] Hydro[address] [facility] Comment on above: Performed By: #### P THINT #### [facility] [address] [address] [address] Aaron Gloria Mg NH4 PO4 (Struvite) [facility] Comment on above: Performed By: #### P THINT #### [facility] [address] [address] [address] Aaron Gloria MgHPO4 (Newberyite) Normal [facility] Comment on above: Performed By: #### P THINT #### [facility] [address] [address] [address] Aaron Gloria Other component(s) Normal [facility] Comment on above: Performed By: #### P THINT #### [facility] [address] [address] [address] Aaron Gloria PDF . Normal [facility] Comment on above: Performed By: #### P THINT #### [facility] [address] [address] [address] Aaron Gloria Photo Comment [facility] Comment on above: Result Comment: Phot ograph will follow under a separate cover Performed By: #### P THINT #### [facility] [address] [address] [address] Aaron Gloria Please note: Comment [facility] Comment on above: Result Comment: Calc jeffery report will follow via computer, mail or safety and skill based pay manager delivery. Performed By: #### P THINT #### [facility] [address] [address] [address] Aaron Gloria Size 3x4 Normal [facility] Comment on above: Result Comment: Mult iple pieces received. Dimensions of the largest piece reported. Performed By: #### P THINT #### [facility] [address] [address] [address] Aaron Gloria Sodium Acid Urate Normal [facility] Comment on above: Performed By: #### P THINT #### [facility] [address] [address] [address] Aaron Gloria Source Comment Normal [facility] Comment on above: Result Comment: Left Ureter Performed By: #### P THINT #### [facility] [address] [address] [address] Aaron Gloria Triamterene Normal [facility] Comment on above: Performed By: #### P THINT #### [facility] [address] [place] [address] Dr. Aaron Gloria Uric Acid 40 % [facility] Comment on above: Performed By: #### P THINT #### [facility] [address] [place] [address] Dr. Aaron Gloria Uric Acid Dihydrate Normal [facility] Comment on above: Performed By: #### P THINT #### [facility] [address] [address] [address] Aaron Gloria Weight 44 mg [facility] Comment on above: Performed By: #### P THINT #### [facility] [address] [place] [address] Dr. Aaron Gloria Xanthine [facility] Comment on above: Performed By: #### P THINT #### [facility] [address] [place] [address] Dr. Aaron Gloria Operative Reporton Operative Report [id number]:12 7 Normal [facility] Lab Reportson 07-13-2022 Lab Reports [id number]:12 7 Normal [facility] Covid-19 PCR (CVDTBH)on 06-25 SARS-CoV-2 (COVID-19) RNA LAKISHA+probe Ql (Unsp spec) Not detected Normal NOT DETECTED [facility] Comment on above: Result Comment: This test is not yet approved or cleared by the [place] FDA. When there are no FDA-approved or cleared tests available, and other criteria are met, FDA can make tests available under an emergency access mechanism called an Emergency Use Authorization (EUA). The EUA for this test is supported by the [place] of Health and Human Service's (HHS's) declaration that circumstances exist to justify the emergency use of in vitro diagnostics for the detection and/or diagnosis of the virus that causes COVID-19. This EUA will remain in effect (meaning this test can be used) for the duration of the COVID-19 declaration justifying emergency of IVDs, unless it is terminated or revoked by FDA (after which the test may no longer be used). When diagnostic testing is negative, the possibility of a false negative should be considered in the context of a patient's recent exposures and the presence of clinical signs and symptoms consistent with SARS-CoV-2. Performed By: #### C VDTB #### [facility] [address] [place] [address] Dr. Aaron Gloria Lab Reportson 07-10-2022 Lab Reports [id number]:12 7 Normal [facility] CBC AUTO DIFFon 07-03-2022 BASO # 0.1 103/ul Normal 0.0-0.1 [facility] Comment on above: Performed By: #### P THINT #### [facility] [address] [place] [address] Dr. Aaron Gloria Basophils/100 WBC (Bld) 1.2 % Normal 0.2-2.0 [facility] Comment on above: Performed By: #### P THINT #### [facility] [address] [place] [address] Dr. Aaron Gloria EO # 0.2 103/ul Normal 0.0-0.7 [facility] Comment on above: Performed By: #### P THINT #### [facility] [address] [place] [address] Dr. Aaron Gloria Eosinophils/100 WBC (Bld) 1.7 % Normal 0.9-7.0 [facility] Comment on above: Performed By: #### P THINT #### [facility] [address] [place] [address] Dr. Aaron Gloria Erythrocyte distribution width (RBC) [Ratio] 13.5 % Normal 11.0-15.0 [facility] Comment on above: Performed By: #### P THINT #### [facility] [address] [address] [address] Aaron Gloria Hematocrit (Bld) [Volume fraction] 39.7 % Critically low 42.0-54.0 [facility] Comment on above: Performed By: #### P THINT #### [facility] [address] [address] [address] Aaron Gloria Hemoglobin (Bld) [Mass/Vol] 13.8 g/dL Critically low 14.0-18.0 [facility] Comment on above: Performed By: #### P THINT #### [facility] [address] [address] [address] Aaron Gloria IG # 0.22 10e3/ul Critically high 0.00-0.03 [facility] Comment on above: Performed By: #### P THINT #### [facility] [address] [place] [address] Dr. Aaron Gloria IG % 1.9 % Critically high 0.0-0.[address] [facility] Comment on above: Performed By: #### P THINT #### [facility] [address] [place] [address] Dr. Aaron Gloria LYMPH # 2.8 103/ul Normal 1.2-3.8 [facility] Comment on above: Performed By: #### P THINT #### [facility] [address] [place] [address] Dr. Aaron Gloria Lymphocytes/100 WBC (Bld) 24.4 % Normal 20.5-60.0 [facility] Comment on above: Performed By: #### P THINT #### [facility] [address] [place] [address] Dr. Aaron Gloria MANUAL DIFF REQ NO Normal [facility] Comment on above: Performed By: #### P THINT #### [facility] [address] [place] [address] Dr. Aaron Gloria MCH (RBC) [Entitic mass] 28.4 pg Normal 25.9-34.0 [facility] Comment on above: Performed By: #### P THINT #### [facility] [address] [address] [address] Aaron Gloria MCHC (RBC) [Mass/Vol] 34.8 g/dL Normal 29.9-35.2 [facility] Comment on above: Performed By: #### P THINT #### [facility] [address] [address] [address] Aaron Gloria MCV (RBC) [Entitic vol] 81.7 fL Normal 80.0-94.0 [facility] Comment on above: Performed By: #### P THINT #### [facility] [address] [address] [address] Aaron Gloria MONO # 0.7 103/ul Normal 0.3-0.8 [facility] Comment on above: Performed By: #### P THINT #### [facility] [address] [place] [address] Dr. Aaron Gloria Monocytes/100 WBC (Bld) 6.2 % Normal 1.7-12.0 [facility] Comment on above: Performed By: #### P THINT #### [facility] [address] [address] [address] Aaron Gloria NEUT # 7.5 103/ul Critically high 1.4-6.[address] [facility] Comment on above: Performed By: #### P THINT #### [facility] [address] [place] [address] Dr. Aaron Gloria Neutrophils/100 WBC (Bld) 64.6 % Normal 43.0-75.0 [facility] Comment on above: Performed By: #### P THINT #### [facility] [address] [address] [address] Aaron Gloria Platelet mean volume (Bld) [Entitic vol] 8.4 fL Critically low 9.5-13.5 [facility] Comment on above: Performed By: #### P THINT #### [facility] [address] [address] [address] Aaron Gloria PLT 565 103/ul Critically high 150-450 [facility] Comment on above: Performed By: #### P THINT #### [facility] [address] [place] [address] Dr. Aaron Gloria RBC 4.86 106/ul Normal 4.70-6.10 [facility] Comment on above: Performed By: #### P THINT #### [facility] [address] [place] [address] Dr. Aaron Gloria WBC 11.6 103/ul Critically high 4.0-11.0 [facility] Comment on above: Performed By: #### P THINT #### [facility] [address] [place] [address] Dr. Aaron Gloria PROF CHEM 8 (BAS METB)on Anion gap [Moles/Vol] 10.8 mmol/L Normal [facility] Comment on above: Performed By: #### C BC #### [facility] [address] [place] [address] Dr. Aaron Gloria Calcium [Mass/Vol] 9.5 mg/dL Normal 8.5-10.1 [facility] Comment on above: Performed By: #### C BC #### [facility] [address] [place] [address] Dr. Aaron Gloria Chloride [Moles/Vol] 102 mmol/L Normal 98-107 [facility] Comment on above: Performed By: #### C BC #### [facility] [address] [place] [address] Dr. Aaron Gloria CO2 [Moles/Vol] 30.9 mmol/L Normal 21.0-32.0 [facility] Comment on above: Performed By: #### C BC #### [facility] [address] [place] [address] Dr. Aaron Gloria Creatinine [Mass/Vol] 1.26 mg/dL Normal 0.70-1.30 [facility] Comment on above: Performed By: #### C BC #### [facility] [address] [place] [address] Dr. Aaron Gloria EGFR-AF ARGENTINE >60 Normal >=60 [facility] Comment on above: Performed By: #### C BC #### [facility] [address] [address] [address] Aaron Gloria EGFR-NON AF ARGENTINE 57 mL/min/1.73m2 Critically low >=60 [facility] Comment on above: Performed By: #### C BC #### [facility] [address] [address] [address] Aaron Gloria Glucose [Mass/Vol] 116 mg/dL Critically high 74-106 [facility] Comment on above: Performed By: #### C BC #### [facility] [address] [address] [address] Aaron Gloria Potassium [Moles/Vol] 4.7 mmol/L Normal 3.5-5.1 [facility] Comment on above: Performed By: #### C BC #### [facility] [address] [address] [address] Aaron Gloria Sodium [Moles/Vol] 139 mmol/L Normal 136-145 [facility] Comment on above: Performed By: #### C BC #### [facility] [address] [address] [address] Aaron Gloria Urea nitrogen [Mass/Vol] 14.0 mg/dL Normal 7.0-18.0 [facility] Comment on above: Performed By: #### C BC #### [facility] [address] [address] [address] Aaron Gloria Urea nitrogen/Creatinine [Mass ratio] 11.1 mg/mg Normal [facility] Comment on above: Performed By: #### C BC #### [facility] [address] [address] [address] Aaron Gloria PROTIMEon 07-03-2022 INR Coag (PPP) [Relative time] 1.01 {INR} Normal [facility] Comment on above: Performed By: #### U ZELDA 24 #### [facility] [address] [address] [address] Aaron Gloria INR GUIDELINES SEE BELOW Normal [facility] Comment on above: Result Comment: JIGAR RED INR: 2.0 - 3.0 CONDITIONS NOT LISTED BELOW 2.5 - 3.5 FOR PROSTHETIC HEART VALVE REPLACEMENT 2.5 - 3.5 RECURRENT THROMBOSIS Performed By: #### U ZELDA 24 #### [facility] [address] [address] [address] Aaron Gloria PT Coag (PPP) [Time] 10.9 s Normal 9.0-11.6 [facility] Comment on above: Performed By: #### U ZELDA 24 #### [facility] [address] [address] [address] Aaron Gloria PTTon 07-03-2022 aPTT Coag (Bld) [Time] 28.5 s Normal 22.3-36.2 [facility] Comment on above: Performed By: #### U ZELDA 24 #### [facility] [address] [address] [address] Aaron Gloria Consent for Procedure/Surger yon 06-14-2022 Consent for Procedure/Surgery [id number] Normal [facility] XR KUB 1 VIEWon 05-25-2022 XR KUB 1 VIEW EXAMINATION: XR KUB 1 VIEW HISTORY: Urolithiasis COMPARISON: 04/06/2022 FINDINGS: KIDNEY/URETER - RIGHT: No visible renal or ureteral calcifications. KIDNEY/URETER - LEFT: r no change in position of a left-sided calcification which measures 2.3 x 1.3 cm likely now within the ureter PELVIS: No visible ureteral calcifications. Any visible calcifications favor phleboliths. BOWEL: No abnormal dilation or deviation. BONES: No acute abnormality. OTHER: Prostate brachytherapy seeds. No abnormal gaseous collections. IMPRESSION: Previously identified left nephrolith is likely within the left ureter Electronically authenticated by: CHAI BRAMBILA Date: 2022-05-25 08:22 Normal [facility] Covid-19 PCR (CVDTBH)on 04-26 SARS-CoV-2 (COVID-19) RNA LAKISHA+probe Ql (Unsp spec) Not detected Normal NOT DETECTED [facility] Comment on above: Result Comment: This test is not yet approved or cleared by the [place] FDA. When there are no FDA-approved or cleared tests available, and other criteria are met, FDA can make tests available under an emergency access mechanism called an Emergency Use Authorization (EUA). The EUA for this test is supported by the [place] of Health and Human Service's (HHS's) declaration that circumstances exist to justify the emergency use of in vitro diagnostics for the detection and/or diagnosis of the virus that causes COVID-19. This EUA will remain in effect (meaning this test can be used) for the duration of the COVID-19 declaration justifying emergency of IVDs, unless it is terminated or revoked by FDA (after which the test may no longer be used). When diagnostic testing is negative, the possibility of a false negative should be considered in the context of a patient's recent exposures and the presence of clinical signs and symptoms consistent with SARS-CoV-2. Performed By: #### C [id number] #### [facility] [address] [place] [address] Dr. Aaron Gloria CBC AUTO DIFFon 05-15-2022 BASO # 0.1 103/ul Normal 0.0-0.1 [facility] Comment on above: Performed By: #### C BC #### [facility] [address] [place] [address] Dr. Aaron Gloria Basophils/100 WBC (Bld) 1.3 % Normal 0.2-2.0 [facility] Comment on above: Performed By: #### C BC #### [facility] [address] [place] [address] Dr. Aaron Gloria EO # 0.3 103/ul Normal 0.0-0.7 [facility] Comment on above: Performed By: #### C BC #### [facility] [address] [place] [address] Dr. Aaron Gloria Eosinophils/100 WBC (Bld) 3.0 % Normal 0.9-7.0 [facility] Comment on above: Performed By: #### C BC #### [facility] [address] [place] [address] Dr. Aaron Gloria Erythrocyte distribution width (RBC) [Ratio] 14.6 % Normal 11.0-15.0 [facility] Comment on above: Performed By: #### C BC #### [facility] [address] [place] [address] Dr. Aaron Gloria Hematocrit (Bld) [Volume fraction] 41.3 % Critically low 42.0-54.0 [facility] Comment on above: Performed By: #### C BC #### [facility] [address] [place] [address] Dr. Aaron Gloria Hemoglobin (Bld) [Mass/Vol] 13.7 g/dL Critically low 14.0-18.0 [facility] Comment on above: Performed By: #### C BC #### [facility] [address] [place] [address] Dr. Aaron Gloria IG # 0.16 10e3/ul Critically high 0.00-0.03 [facility] Comment on above: Performed By: #### C BC #### [facility] [address] [place] [address] Dr. Aaron Gloria IG % 1.5 % Critically high 0.0-0.[address] [facility] Comment on above: Performed By: #### C BC #### [facility] [address] [place] [address] Dr. Aaron Gloria LYMPH # 2.3 103/ul Normal 1.2-3.8 [facility] Comment on above: Performed By: #### C BC #### [facility] [address] [place] [address] Dr. Aaron Gloria Lymphocytes/100 WBC (Bld) 21.7 % Normal 20.5-60.0 [facility] Comment on above: Performed By: #### C BC #### [facility] [address] [place] [address] Dr. Aaron Gloria MANUAL DIFF REQ NO Normal [facility] Comment on above: Performed By: #### C BC #### [facility] [address] [place] [address] Dr. Aaron Gloria MCH (RBC) [Entitic mass] 28.0 pg Normal 25.9-34.0 [facility] Comment on above: Performed By: #### C BC #### [facility] [address] [place] [address] Dr. Aaron Gloria MCHC (RBC) [Mass/Vol] 33.2 g/dL Normal 29.9-35.2 [facility] Comment on above: Performed By: #### C BC #### [facility] [address] [address] [address] Aaron Gloria MCV (RBC) [Entitic vol] 84.3 fL Normal 80.0-94.0 [facility] Comment on above: Performed By: #### C BC #### [facility] [address] [place] [address] Dr. Aaron Gloria MONO # 0.9 103/ul Critically high 0.3-0.8 [facility] Comment on above: Performed By: #### C BC #### [facility] [address] [place] [address] Dr. Aaron Gloria Monocytes/100 WBC (Bld) 8.4 % Normal 1.7-12.0 [facility] Comment on above: Performed By: #### C BC #### [facility] [address] [place] [address] Dr. Aaron Gloria NEUT # 6.7 103/ul Critically high 1.4-6.5 [facility] Comment on above: Performed By: #### C BC #### [facility] [address] [place] [address] Dr. Aaron Gloria Neutrophils/100 WBC (Bld) 64.1 % Normal 43.0-75.0 [facility] Comment on above: Performed By: #### C BC #### [facility] [address] [place] [address] Dr. Aaron Gloria Platelet mean volume (Bld) [Entitic vol] 9.2 fL Critically low 9.5-13.5 [facility] Comment on above: Performed By: #### C BC #### [facility] [address] [place] [address] Dr. Aaron Gloria PLT 423 103/ul Normal 150-450 [facility] Comment on above: Performed By: #### C BC #### [facility] [address] [place] [address] Dr. Aaron Gloria RBC 4.90 106/ul Normal 4.70-6.10 [facility] Comment on above: Performed By: #### C BC #### [facility] [address] [place] [address] Dr. Aaron Gloria WBC 10.4 103/ul Normal 4.0-11.0 [facility] Comment on above: Performed By: #### C BC #### [facility] [address] [place] [address] Dr. Aaron Gloria PROF CHEM 8 (BAS METB)on Anion gap [Moles/Vol] 11.3 mmol/L Normal [facility] Comment on above: Performed By: #### B MP #### [facility] [address] [place] [address] Dr. Aaron Gloria Calcium [Mass/Vol] 9.2 mg/dL Normal 8.5-10.1 [facility] Comment on above: Performed By: #### B MP #### [facility] [address] [place] [address] Dr. Aaron Gloria Chloride [Moles/Vol] 104 mmol/L Normal 98-107 [facility] Comment on above: Performed By: #### B MP #### [facility] [address] [place] [address] Dr. Aaron Gloria CO2 [Moles/Vol] 27.9 mmol/L Normal 21.0-32.0 [facility] Comment on above: Performed By: #### B MP #### [facility] [address] [place] [address] Dr. Aaron Gloria Creatinine [Mass/Vol] 1.31 mg/dL Critically high 0.70-1.30 [facility] Comment on above: Performed By: #### B MP #### [facility] [address] [place] [address] Dr. Aaron Gloria EGFR-AF ARGENTINE >60 Normal >=60 [facility] Comment on above: Performed By: #### B MP #### [facility] [address] [place] [address] Dr. Aaron Gloria EGFR-NON AF ARGENTINE 55 mL/min/1.73m2 Critically low >=60 [facility] Comment on above: Performed By: #### B MP #### [facility] [address] [address] [address] Aaron Gloria Glucose [Mass/Vol] 111 mg/dL Critically high 74-106 [facility] Comment on above: Performed By: #### B MP #### [facility] [address] [address] [address] Aaron Gloria Potassium [Moles/Vol] 4.2 mmol/L Normal 3.5-5.1 [facility] Comment on above: Performed By: #### B MP #### [facility] [address] [address] [address] Aaron Gloria Sodium [Moles/Vol] 139 mmol/L Normal 136-145 [facility] Comment on above: Performed By: #### B MP #### [facility] [address] [address] [address] Aaron Gloria Urea nitrogen [Mass/Vol] 15.0 mg/dL Normal 7.0-18.0 [facility] Comment on above: Performed By: #### B MP #### [facility] [address] [address] [address] Aaron Gloria Urea nitrogen/Creatinine [Mass ratio] 11.5 mg/mg Normal [facility] Comment on above: Performed By: #### B MP #### [facility] [address] [address] [address] Aaron Gloria PROTIMEon 05-15-2022 INR Coag (PPP) [Relative time] 1.03 {INR} Normal [facility] Comment on above: Performed By: #### M AG24 #### [facility] [address] [address] [address] Aaron Gloria INR GUIDELINES SEE BELOW Normal [facility] Comment on above: Result Comment: JIGAR RED INR: 2.0 - 3.0 CONDITIONS NOT LISTED BELOW 2.5 - 3.5 FOR PROSTHETIC HEART VALVE REPLACEMENT 2.5 - 3.5 RECURRENT THROMBOSIS Performed By: #### M AG24 #### [facility] [id number] Aaron Gloria PT Coag (PPP) [Time] 11.1 s Normal 9.0-11.6 [facility] Comment on above: Performed By: #### M AG24 #### [facility] [id number] Aaron Gloria PTTon 05-15-2022 aPTT Coag (Bld) [Time] 27.5 s Normal 22.3-36.2 [facility] Comment on above: Performed By: #### M AG24 #### [facility] [address] [address] [address] Aaron Gloria SURGICAL PATHOLOGYon Case Report Surgical Pathology R eport Case: [id number] Authorizing Provider: Chai Palma MD Collected: 04/25/2022 03:25 PM Ordering Location: Procedures Received: 04/25/2022 04:06 PM Pathologist: Sree Shanks MD Specimen: SIGMOID COLON POLYP [facility] FINAL DIAGNOSIS Sigmoid colon, polypectomy: - Tubular adenoma. [facility] Gross Description A. SIGMOID COLON CLIFTON YP Received in formalin is an irregular segment of simeon-red polypoid tissue measuring 1.8 x 1.5 x 0.9 cm. A stalk is present measuring 0.6 cm in length. The specimen is bisected. Totally submitted in one cassette. [place] [address] FFS 04/25/2022 9:02 PM [facility] Performing Lab Diagnostic interpret ation performed at [facility], [address] [place] [address] CLIA# [id number] Customs Compliance Specialist: Brain Blank M.D. [facility] ANES POSTPROC EVALon ANES POSTPROC EVAL HNO ID: [id number] Author: Eric Jameson MD Service: ? Author Type: Physician Type: Anesthesia Postprocedure Evaluation Filed: 04/25/2022 4:30 PM Note Text: POST ANESTHESIA EVALUATION NOTE : 1955 Procedure Summary Date: 04/25/22 Room / Location: Procedures Anesthesia Start: 1517 Anesthesia Stop: 1549 Procedure: COLONOSCOPY SCREENING Diagnosis: Mass of colon (Therapy of known colon adenoma) Scheduled Providers: Chai Palma MD; Eric Jameson MD; Lima Green, ANNA; Yuni North APRN.[employer] MANUFACTURING ENGINEER Responsible Provider: Eric Jameson MD Anesthesia Type: MAC ASA Status: 2 Anesthesia Type: MAC Last Vitals Vitals Value Taken Time BP 154/91 04/25/22 1610 Temp 36.1 ?C (97 ?F) 04/25/22 1548 HR SpO2 70 04/25/22 1548 Resp 14 04/25/22 1616 SpO2 99 % 04/25/22 1616 Vitals shown include unvalidated device data. Post Anesthesia Patient Status Patient Evaluation: PACU. PACU/ICU Patient Condition: stable. Anticipated Disposition: phase 2 then home. Neurological Status: aware and responsive. Pulmonary Status: breathing comfortably on room air Airway Control: returned to baseline unsupported. Cardiovascular Status: stable. Pain Management: clinically adequate - multimodal analgesia pain management approach Postoperative Hydration: acceptable. Intraoperative Events: no significant anesthesia events Recommendation: continue current plan of care. Anesthesia Observations No Documentation SIGNATURE: Eric Jameson MD PATIENT NAME: Mark Douglas DATE: April 25, 2022 TIME: 4:29 PM CSN: [id number] [facility] ANES PRE-OPon 04-25-2022 ANES PRE-OP HNO ID: [id number] Author: Eric Jameson MD Service: ? Author Type: Physician Type: Anesthesia Preprocedure Evaluation Filed: 04/25/2022 2:28 PM Note Text: ANESTHESIOLOGY DAY OF SURGERY NOTE : 1955 Procedure Information Date/Time: 04/25/22 1445 Scheduled providers: Chai Palma MD; Eric Jameson MD; Lima Green RN; Yuni North APRN.[employer] MANUFACTURING ENGINEER Procedure: COLONOSCOPY SCREENING Location: Procedures Estimated body mass index is 32.69 kg/m? as calculated from the following: Height as of 04/14/22: 172.7 cm (5' 8 ). Weight as of this encounter: 97.5 kg (215 lb). 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 Tracheostomy tube not present Mallampati: II. TM distance: >3 FB. Neck ROM: full ROM without neurological symptoms. Mouth opening: adequate. Short neck: no. Thick neck: no DENTAL Normal dental observations. Dental findings: teeth intact. Additional exam findings: no II - ANESTHESIA PLAN ASA Score: 2 Anesthetic Plan: MAC NPO Status: adequate Monitoring plan: Standard ASA. Postoperative analgesic plan: parenteral or oral opioids and multimodal analgesia. Informed Consent Anesthetic risks, benefits, alternatives, personnel and consent discussed: yes. Patient / Responsible Libertarian agrees to proceed: yes Patient / Surrogate agrees to blood products: blood products not planned DNR status not reviewed with patient and/or family prior to surgery. Significant changes in the patient condition since the History and Physical, not otherwise documented in primary service progress note: no. Potential Anesthesia issues that may suggest increased risk of complications or contraindication to planned procedure: none. Vitals Value Taken Time BP 119/75 04/25/22 1427 Pulse 82 04/25/22 1427 Resp 18 04/25/22 1427 Temp 36.9 ?C (98.4 ?F) 04/25/22 1427 SpO2 98 % 04/25/22 1427 Outpatient Medications as of 04/25/2022 Medication Sig - sertraline (ZOLOFT) 50 mg tablet Take 50 mg by mouth once daily. - carvedilol (COREG) 6.25 mg tablet carvedilol 6.25 mg tablet TAKE 1 TABLET BY MOUTH TWICE A DAY - aspirin, enteric coated (ASPIRIN, ENTERIC COATED) 81 mg EC tablet aspirin 81 mg tablet,delayed release TAKE 1 TABLET BY MOUTH EVERY DAY - tamsulosin (FLOMAX) 0.4 mg 0.4 mg twice daily. - atorvastatin (LIPITOR) 20 mg tablet Take 20 mg by mouth daily at bedtime. - allopurinol (ZYLOPRIM) 100 mg tablet Take 100 mg by mouth once daily. No current facility-administered medications on file as of 04/25/2022. I have interviewed and examined the patient. I have reviewed the medical record and/or the pre-anesthesia evaluation, pertinent labs, and test results. This contains updated information obtained within 48 hours of Surgery/Procedure. SIGNATURE: Eric Jameson MD PATIENT NAME: Mark Douglas DATE: April 25, 2022 TIME: 2:27 PM CSN: [id number] Normal [facility] COLONOSCOPY SCREENINGon [facility] Colonoscopyon 04-25-2022 Colonoscopy [facility] Gastrointestinal Endoscopy Patient Name: Mark Douglas Procedure Date: 04/25/2022 3:13 PM Date of : 1955 Admit Type: Outpatient Age: 66 Room: [address] [place] [address] Gender: Male Note Status: Finalized Attending MD: Chai Palma MD Procedure: Colonoscopy Indications: Therapeutic procedure for known colon adenoma Providers: Chai Palma MD Patient Profile: This is a 66 year old male. Refer to note in patient chart for documentation of history and physical. Last Colonoscopy: within the past 3 months. Referring Physician: Chai Palma MD (Referring MD) Medicines: Monitored Anesthesia Care Complications: No immediate complications. Requesting Provider: Procedure: Pre-Anesthesia Assessment: - Prior to the procedure, a History and Physical was performed, and patient medications and allergies were reviewed. The patient is competent. The risks and benefits of the procedure and the sedation options and risks were discussed with the patient. All questions were answered and informed consent was obtained. Patient identification and proposed procedure were verified by the physician and the nurse in the pre-procedure area in the endoscopy suite. Mental Status Examination: alert and oriented. Airway Examination: normal oropharyngeal airway and neck mobility. ASA Grade Assessment: II - A patient with mild systemic disease. After reviewing the risks and benefits, the patient was deemed in satisfactory condition to undergo the procedure. The anesthesia plan was to use monitored anesthesia care (MAC). Immediately prior to administration of medications, the patient was re-assessed for adequacy to receive sedatives. The heart rate, respiratory rate, oxygen saturations, blood pressure, adequacy of pulmonary ventilation, and response to care were monitored throughout the procedure. The physical status of the patient was re-assessed after the procedure. After I obtained informed consent, the scope was passed under direct vision. Throughout the procedure, the patient's blood pressure, pulse, and oxygen saturations were monitored continuously. The Colonoscope was introduced through the anus and advanced to the sigmoid colon to examine a mass. This was the intended extent. The colonoscopy was performed without difficulty. The patient tolerated the procedure well. The quality of the bowel preparation was good. The rectum was photographed. Moderate Sedation: MAC anesthesia was administered by the anesthesia team. Total Procedure Duration: 0 hours 19 minutes 36 seconds Findings: The perianal and digital rectal examinations were normal. A 30 mm polyp was found in the sigmoid colon. The polyp was pedunculated. The polyp was removed with a hot snare. Resection and retrieval were complete. Area was tattooed with an injection of Spot (carbon black). This was at 45 cm The exam was otherwise without abnormality on direct and retroflexion views. Impression: - One 30 mm polyp in the sigmoid colon, removed with a hot snare. Resected and retrieved. Tattooed. - The examination was otherwise normal on direct and retroflexion views. Recommendation: - Discharge patient to home. - Resume previous diet. - Continue present medications. - Await pathology results. - Repeat colonoscopy in 1 year for surveillance. - Patient has a contact number available for emergencies. The signs and symptoms of potential delayed complications were discussed with the patient. Return to normal activities tomorrow. Written discharge instructions were provided to the patient. Procedure Code(s): --- Professional --- 42721, 52, Colonoscopy, flexible; with removal of tumor(s), polyp(s), or other lesion(s) by snare technique 11664, 52, Colonoscopy, flexible; with directed submucosal injection(s), any substance CPT copyright 2020 [employer]. All rights reserved. The codes documented in this report are preliminary and upon tin tie machine operator automatic review may be revised to meet current compliance requirements. Attending Participation: I personally performed the entire procedure. Scope In: 3:22:00 PM Scope Out: 3:41:36 PM MD Chai Sargent MD 04/25/2022 3:45:50 PM This report has been signed electronically by Chai Palma MD Number of Addenda: 0 Note Initiated On: 04/25/2022 3:13 PM Estimated Blood Loss: Estimated blood loss was minimal. Normal [facility] HISTORY PHYSICALon HISTORY PHYSICAL HNO ID: [id number] Author: Chai Palma MD Service: Colorectal Author Type: Physician Type: HANDP Filed: 04/25/2022 2:45 PM Note Text: COLORECTAL SURGERY April 13, 2022 Mark Douglas 66 year old This consult was requested by Dr. Lujan and my final recommendations will be communicated to the requesting health care provider by way of the shared medical record for internal providers or letter via the [employer] for external providers. Chief Complaint: colon mass History of Present Illness: Mark Douglas is a 66 year old male presents today for evaluation of colon mass. Colonoscopy 03/15/22 - Dr. Lujan - Severe diverticulosis throughout the entire colon, more severe in the left descending and sigmoid colon. - At approximately 45 cm, there was noted to be a 3 mm polypoid mass around the fold with multiple large diverticula around the area. Multiple biopsies were obtained. Pathology Final Diagnosis SIGMOID COLON POLYP MASS, BIOPSY: TUBULOVILLOUS ADENOMA CT C/A/P 02/13/22 - [facility] LUNGS: No visible pulmonary disease LIVER: No enlargement, atrophy, abnormal density, or significant focal lesion BOWEL/MESENTERY: Extensive colonic diverticulosis. Mild thickening of the sigmoid colon wall likely related to underlying diverticulosis. No evidence of acute diverticulitis. Nonobstructive bowel gas pattern. RETROPERITONEUM: No mass or adenopathy. 66-year-old male underwent a colonoscopy and found to have a sigmoid colon mass. Biopsy showed tubulovillous adenoma. He is here for further management PAST MEDICAL HISTORY PAST MEDICAL HISTORY Diagnosis Date Gout of multiple sites Hypercholesteremia PAST SURGICAL HISTORY PAST SURGICAL HISTORY Procedure Laterality Date APPENDECTOMY PAST SURGICAL HISTORY OF Right Finger surgery REPAIR UMBILICAL JOE,5+Y/O,REDUC CURRENT MEDICATIONS Current Outpatient Medications Medication Sig Dispense Refill carvedilol (COREG) 6.25 mg tablet carvedilol 6.25 mg tablet TAKE 1 TABLET BY MOUTH TWICE A DAY aspirin, enteric coated (ASPIRIN, ENTERIC COATED) 81 mg EC tablet aspirin 81 mg tablet,delayed release TAKE 1 TABLET BY MOUTH EVERY DAY tamsulosin (FLOMAX) 0.4 mg 0.4 mg twice daily. atorvastatin (LIPITOR) 20 mg tablet Take 20 mg by mouth daily at bedtime. allopurinol (ZYLOPRIM) 100 mg tablet Take 100 mg by mouth once daily. No current facility-administered medications for this visit. ALLERGIES ALLERGIES No Known Allergies FAMILY HISTORY FAMILY HISTORY Problem Relation Age of Onset Prostate Cancer Brother Lung Cancer Brother SOCIAL HISTORY Social History Tobacco Use Smoking status: Never Smokeless tobacco: Never Substance Use Topics Alcohol use: Yes Comment: Social Drug use: Never Physical Exam: BP 142/65 (BP Site: Left Arm, BP Position: Sitting, BP Cuff Size: Regular Adult) Pulse 64 SpO2 97% General Appearance: Well appearing, alert, in no acute distress, well-hydrated, well nourished. 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 I will plan for repeat colonoscopy to allow me to tattoo the lesion and also assess if I can perform EMR to remove it. If it is not endoscopically resectable but I will plan for laparoscopic segmental colectomy. CT abdomen/pelvis report from the outside hospital does not note the mass. Of note he has a history of prostate cancer treated with brachytherapy Medical Decision Making: Data Reviewed: Tests AND Documents Reviewed/ordered: Review of prior notes from Dr. Lujan Review of Pathology Review of Procedures / Tests: Colonoscopy Additional testing or imaging to be ordered: Colonoscopy Imaging review: CT Abdomen/pelvis Risk of morbidity, mortality and/or complications of treatment plan: high Chai Palma MD Colorectal Surgery Above clinic note reviewed. No changes. Cardiac: regular rate Resp: unlabored respirations Proceed with colonoscopy Chai Palma MD April 25, 2022 2:45 PM [facility] SURGICAL PATHOLOGYon 022 CASE REPORT [facility] Comment on above: Order Comment: Speci men Type: TISSUE SPECIMEN Ordering Facility: [facility] Address: [address] [place], [place] [id number] Result Comment: Surg [facility] Pathology Report Case: [id number] Authorizing Provider: Chai Palma MD Collected: 04/25/2022 03:25 PM Ordering Location: Procedures Received: 04/25/2022 04:06 PM Pathologist: Sree Shanks MD Specimen: SIGMOID COLON POLYP Performed By: #### S #### [facility] CLIA [id number] [facility] [place] [place] [address] [place] FINAL DIAGNOSIS Normal [facility] Comment on above: Order Comment: Speci men Type: TISSUE SPECIMEN Ordering Facility: [facility] Address: [address] [address] Result Comment: Sigm oid colon, polypectomy: - Tubular adenoma. Performed By: #### S #### [facility] CLIA [id number] [address] [place] [address] OF [facility] FINAL PERFORMING LAB Normal [facility] Comment on above: Order Comment: Speci men Type: TISSUE SPECIMEN Ordering Facility: [facility] Address: [address] [address] Result Comment: Diag nostic interpretation performed at [facility], [address] [place] [address] CLIA# [id number] Customs Compliance Specialist: Brain Blank M.D. Performed By: #### S #### [facility] CLIA [id number] [address] [place] [address] GROSS DESCRIPTION Normal [facility] Comment on above: Order Comment: Speci men Type: TISSUE SPECIMEN Ordering Facility: [facility] Address: [address] [place] [address] Result Comment: A. S IGMOID COLON POLYP Received in formalin is an irregular segment of simeon-red polypoid tissue measuring 1.8 x 1.5 x 0.9 cm. A stalk is present measuring 0.6 cm in length. The specimen is bisected. Totally submitted in one cassette. Gross examination performed at [facility], [address] [place] [address] FFS 04/25/2022 9:02 PM Performed By: #### S #### [facility] CLIA [id number] [address] [place] [address] OF [place]ZZY XR KUB 1 VIEWon 04-06-2022 XR KUB 1 VIEW EXAMINATION: XR KUB 1 VIEW HISTORY: Kidney stone COMPARISON: No relevant comparison available. FINDINGS: KIDNEY/URETER - RIGHT: No visible renal or ureteral calcifications. KIDNEY/URETER - LEFT: 2 cm left lower pole nephrolith PELVIS: No visible ureteral calcifications. Any visible calcifications favor phleboliths. BOWEL: No abnormal dilation or deviation. BONES: Degenerative changes OTHER: Negative. No abnormal gaseous collections. IMPRESSION: 2 cm left nephrolith Electronically authenticated by: CHAI BRAMBILA Date: 2022-04-06 19:12 Normal [facility] CRPon 03-13-2022 CRP [Mass/Vol] mg/L Normal <=1.0 [facility] Comment on above: Performed By: #### U ZELDA 24 #### [facility] [address] [address] [address] Aaron Gloria PROF CHEM 8 (BAS METB)on Anion gap [Moles/Vol] 11.9 mmol/L Normal [facility] Comment on above: Performed By: #### P THINT #### [facility] [address] [address] [address] aAron Gloria Calcium [Mass/Vol] 8.9 mg/dL Normal 8.5-10.1 [facility] Comment on above: Performed By: #### P THINT #### [facility] [address] [address] [address] Aaron Gloria Chloride [Moles/Vol] 103 mmol/L Normal 98-107 [facility] Comment on above: Performed By: #### P THINT #### [facility] [address] [address] [address] Aaron Gloria CO2 [Moles/Vol] 28.1 mmol/L Normal 21.0-32.0 [facility] Comment on above: Performed By: #### P THINT #### [facility] [address] [address] [address] Aaron Gloria Creatinine [Mass/Vol] 0.95 mg/dL Normal 0.70-1.30 [facility] Comment on above: Performed By: #### P THINT #### [facility] [address] [address] [address] Aaron Gloria EGFR-AF ARGENTINE >60 Normal >=60 [facility] Comment on above: Performed By: #### P THINT #### [facility] [address] [place] [address] Dr. Aaron Gloria EGFR-NON AF ARGENTINE >60 Normal >=60 [facility] Comment on above: Performed By: #### P THINT #### [facility] [address] [address] [address] Aaron Gloria Glucose [Mass/Vol] 117 mg/dL Critically high 74-106 [facility] Comment on above: Performed By: #### P THINT #### [facility] [address] [address] [address] Aaron Gloria Potassium [Moles/Vol] 4.0 mmol/L Normal 3.5-5.1 [facility] Comment on above: Performed By: #### P THINT #### [facility] [address] [place] [address] Dr. Aaron Gloria Sodium [Moles/Vol] 139 mmol/L Normal 136-145 [facility] Comment on above: Performed By: #### P THINT #### [facility] [address] [place] [address] Dr. Aaron Gloria Urea nitrogen [Mass/Vol] 9.0 mg/dL Normal 7.0-18.0 [facility] Comment on above: Performed By: #### P THINT #### [facility] [address] [place] [address] Dr. Aaron Gloria Urea nitrogen/Creatinine [Mass ratio] 9.5 mg/mg Normal [facility] Comment on above: Performed By: #### P THINT #### [facility] [address] [place] [address] Dr. Aaron Gloria SED RATE [facility] 2021 SED RATE 12 mm/hr Normal <=20 [facility] Comment on above: Performed By: #### S EDR #### [facility] [address] [place] [address] Dr. Aaron Gloria [facility]on 02-23 SARS-CoV-2 (COVID-19) RNA LAKISHA+probe Ql (Unsp spec) Not detected Normal NOT DETECTED [facility] Comment on above: Result Comment: This test is not yet approved or cleared by the [place] FDA. When there are no FDA-approved or cleared tests available, and other criteria are met, FDA can make tests available under an emergency access mechanism called an Emergency Use Authorization (EUA). The EUA for this test is supported by the [place] of Health and Human Service's (HHS's) declaration that circumstances exist to justify the emergency use of in vitro diagnostics for the detection and/or diagnosis of the virus that causes COVID-19. This EUA will remain in effect (meaning this test can be used) for the duration of the COVID-19 declaration justifying emergency of IVDs, unless it is terminated or revoked by FDA (after which the test may no longer be used). When diagnostic testing is negative, the possibility of a false negative should be considered in the context of a patient's recent exposures and the presence of clinical signs and symptoms consistent with SARS-CoV-2. Performed By: #### P THINT #### [facility] [address] [place] [address] Dr. Aaron Gloria Covid-19 PCR ([facility]on 01-25 SARS-CoV-2 (COVID-19) RNA LAKISHA+probe Ql (Unsp spec) Not detected Normal NOT DETECTED [facility] Comment on above: Result Comment: This test is not yet approved or cleared by the [place] FDA. When there are no FDA-approved or cleared tests available, and other criteria are met, FDA can make tests available under an emergency access mechanism called an Emergency Use Authorization (EUA). The EUA for this test is supported by the [place] of Health and Human Service's (HHS's) declaration that circumstances exist to justify the emergency use of in vitro diagnostics for the detection and/or diagnosis of the virus that causes COVID-19. This EUA will remain in effect (meaning this test can be used) for the duration of the COVID-19 declaration justifying emergency of IVDs, unless it is terminated or revoked by FDA (after which the test may no longer be used). When diagnostic testing is negative, the possibility of a false negative should be considered in the context of a patient's recent exposures and the presence of clinical signs and symptoms consistent with SARS-CoV-2. Performed By: #### C BC #### [facility] [address] [address] [address] CHEST W CONon 02-14-2022 CT CHEST W CON EXAMINATION: CT ABD/ PELV W CON, CT CHEST W CON HISTORY: Abnormal weight loss COMPARISON: No relevant comparison available. TECHNIQUE: Axial, Coronal, and Sagittal CT images were obtained without and with IV contrast. Dose reduction techniques were achieved by using automated exposure control and/or adjustment of mA and/or kV according to patient size and/or use of iterative reconstruction technique. FINDINGS: LUNGS: No visible pulmonary disease. PLEURA: No mass or effusion. VASCULATURE: No visible pulmonary arterial thrombus or attenuation. RAFFY: Small bilateral calcified hilar lymph nodes MEDIASTINUM: No mass or adenopathy. CARDIAC: No enlargement, pericardial thickening, or pericardial effusion. CHEST WALL: No mass or axillary adenopathy. LIVER: No enlargement, atrophy, abnormal density, or significant focal lesion. BILIARY: No dilatation or calcification. PANCREAS: No lesion, fluid collection, ductal dilatation, or atrophy. SPLEEN: No enlargement or focal lesion. ADRENALS: No mass or enlargement. KIDNEYS: Asymmetric enhancement of the left kidney with minimal perinephric stranding. Mild hydronephrosis with thickening of the renal pelvis and proximal ureteral wall. Nonobstructing lower pole 1.4 cm nephrolith axial image 46 BOWEL/MESENTERY: Extensive colonic diverticulosis. Mild thickening of the sigmoid colon wall likely related to underlying diverticulosis. No evidence of acute diverticulitis. Nonobstructive bowel gas pattern. AORTA/VASCULAR: No aortic aneurysm. Mild atherosclerosis. RETROPERITONEUM: No mass or adenopathy. ABDOMINAL WALL: Small right apical hernia containing fat without strangulation BONES: No bony lesion or fracture. OTHER: Prostate radiation seed implants. Enlarged prostate gland. Thickening of the urinary bladder wall measures up to 8 mm. IMPRESSION: Asymmetric decreased enhancement of the left renal cortex with inflammatory changes of the collecting system. Consider pyeloureteronephritis. Thickened urinary bladder wall, consider cystitis Extensive colonic diverticulosis without evidence of acute diverticulitis Electronically authenticated by: CHAI BRAMBILA Date: 2022-02-14 12:30 Normal [facility] THYROID ANTIBODIESon 022 Thyroglobulin Antibody <1.0 Normal 0.0-0.9 [facility] Comment on above: Result Comment: Thyr oglobulin Antibody measured by Kendra Nia Methodology Performed By: #### C [id number] #### [facility] [address] [place] [address] Dr. Aaron Gloria Thyroid Peroxidase (TPO) Ab <8 Normal 0-34 [facility] Comment on above: Performed By: #### C [id number] #### [facility] [address] [place] [address] Dr. Aaron Gloria Covid-19 PCR ([facility])on 01-23 SARS-CoV-2 (COVID-19) RNA LAKISHA+probe Ql (Unsp spec) Not detected Normal NOT DETECTED [facility] Comment on above: Result Comment: This test is not yet approved or cleared by the [place] FDA. When there are no FDA-approved or cleared tests available, and other criteria are met, FDA can make tests available under an emergency access mechanism called an Emergency Use Authorization (EUA). The EUA for this test is supported by the [employer] of Health and Human Service's (HHS's) declaration that circumstances exist to justify the emergency use of in vitro diagnostics for the detection and/or diagnosis of the virus that causes COVID-19. This EUA will remain in effect (meaning this test can be used) for the duration of the COVID-19 declaration justifying emergency of IVDs, unless it is terminated or revoked by FDA (after which the test may no longer be used). When diagnostic testing is negative, the possibility of a false negative should be considered in the context of a patient's recent exposures and the presence of clinical signs and symptoms consistent with SARS-CoV-2. Performed By: #### U ZELDA 24 #### [facility] [address] [place] [address] Dr. Aaron Gloria CBC AUTO DIFFon 02-08-2022 BASO # 0.1 103/ul Normal 0.0-0.1 [facility] Comment on above: Performed By: #### P THINT #### [facility] [address] [place] [address] Dr. Aaron Gloria Basophils/100 WBC (Bld) 0.7 % Normal 0.2-2.0 [facility] Comment on above: Performed By: #### P THINT #### [facility] [address] [address] [address] Aaron Gloria EO # 0.3 103/ul Normal 0.0-0.7 [facility] Comment on above: Performed By: #### P THINT #### [facility] [address] [address] [address] Aaron Gloria Eosinophils/100 WBC (Bld) 1.9 % Normal 0.9-7.0 [facility] Comment on above: Performed By: #### P THINT #### [facility] [address] [place] [address] Dr. Aaron Gloria Erythrocyte distribution width (RBC) [Ratio] 12.9 % Normal 11.0-15.0 [facility] Comment on above: Performed By: #### P THINT #### [facility] [address] [place] [address] Dr. Aaron Gloria Hematocrit (Bld) [Volume fraction] 39.7 % Critically low 42.0-54.0 [facility] Comment on above: Performed By: #### P THINT #### [facility] [address] [place] [address] Dr. Aaron Gloria Hemoglobin (Bld) [Mass/Vol] 13.1 g/dL Critically low 14.0-18.0 [facility] Comment on above: Performed By: #### P THINT #### [facility] [address] [place] [address] Dr. Aaron Gloria IG # 0.14 10e3/ul Critically high 0.00-0.03 [facility] Comment on above: Performed By: #### P THINT #### [facility] [address] [place] [address] Dr. Aaron Gloria IG % 1.1 % Critically high 0.0-0.[address] [facility] Comment on above: Performed By: #### P THINT #### [facility] [address] [place] [address] Dr. Aaron Gloria LYMPH # 1.5 103/ul Normal 1.2-3.8 [facility] Comment on above: Performed By: #### P THINT #### [facility] [address] [address] [address] Aaron Gloria Lymphocytes/100 WBC (Bld) 11.8 % Critically low 20.5-60.0 [facility] Comment on above: Performed By: #### P THINT #### [facility] [address] [address] [address] Aaron Gloria MANUAL DIFF REQ NO Normal [facility] Comment on above: Performed By: #### P THINT #### [facility] [address] [address] [address] Aaron Gloria MCH (RBC) [Entitic mass] 28.5 pg Normal 25.9-34.0 [facility] Comment on above: Performed By: #### P THINT #### [facility] [address] [place] [address] Dr. Aaron Gloria MCHC (RBC) [Mass/Vol] 33.0 g/dL Normal 29.9-35.2 [facility] Comment on above: Performed By: #### P THINT #### [facility] [address] [address] [address] Aaron Gloria MCV (RBC) [Entitic vol] 86.3 fL Normal 80.0-94.0 [facility] Comment on above: Performed By: #### P THINT #### [facility] [address] [address] [address] Aaron Gloria MONO # 1.4 103/ul Critically high 0.3-0.[address] [facility] Comment on above: Performed By: #### P THINT #### [facility] [address] [address] [address] Aaron Gloria Monocytes/100 WBC (Bld) 10.5 % Normal 1.7-12.0 [facility] Comment on above: Performed By: #### P THINT #### [facility] [address] [address] [address] Aaron Gloria NEUT # 9.6 103/ul Critically high 1.4-6.[address] [facility] Comment on above: Performed By: #### P THINT #### [facility] [address] [address] [address] Aaron Gloria Neutrophils/100 WBC (Bld) 74.0 % Normal 43.0-75.0 [facility] Comment on above: Performed By: #### P THINT #### [facility] [address] [address] [address] Aaron Gloria Platelet mean volume (Bld) [Entitic vol] 9.7 fL Normal 9.5-13.5 [facility] Comment on above: Performed By: #### P THINT #### [facility] [address] [address] [address] Aaron Gloria PLT 496 103/ul Critically high 150-[address] [facility] Comment on above: Performed By: #### P THINT #### [facility] [address] [address] [address] Aaron Gloria RBC 4.60 106/ul Critically low 4.70-6.[address] [facility] Comment on above: Performed By: #### P THINT #### [facility] [address] [address] [address] Aaron Gloria WBC 13.0 103/ul Critically high 4.0-11.0 [facility] Comment on above: Performed By: #### P THINT #### [facility] [address] [address] [address] Aaron Gloria CRPon 02-08-2022 CRP [Mass/Vol] mg/L Critically high <=1.0 [facility] Comment on above: Performed By: #### P THINT #### [facility] [address] [address] [address] Aaron Gloria FREE T3on 02-08-2022 FREE T3 1.72 pg/mlL Critically low 2.18-3.[address] [facility] Comment on above: Performed By: #### P THINT #### [facility] [address] [address] [address] Aaron Gloira FREE T4on 02-08-2022 Free T4 [Mass/Vol] 1.59 ng/dL Critically high 0.76-1.46 [facility] Comment on above: Performed By: #### M AG24 #### [facility] [address] [place] [address] Dr. Aaron Gloria PROF 14(COMP METB)on 022 Albumin [Mass/Vol] 3.0 g/dL Critically low 3.4-5.0 [facility] Comment on above: Performed By: #### M AG24 #### [facility] [address] [place] [address] Dr. Aaron Gloria Albumin/Globulin [Mass ratio] 0.6 {ratio} Normal [facility] Comment on above: Performed By: #### M AG24 #### [facility] [address] [place] [address] Dr. Aaron Gloria ALP [Catalytic activity/Vol] 117 U/L Critically high 46-116 [facility] Comment on above: Performed By: #### M AG24 #### [facility] [address] [place] [address] Dr. Aaron Gloria ALT [Catalytic activity/Vol] 23 U/L Normal 16-63 [facility] Comment on above: Performed By: #### M AG24 #### [facility] [address] [place] [address] Dr. Aaron Gloria Anion gap [Moles/Vol] 12.9 mmol/L Normal [facility] Comment on above: Performed By: #### M AG24 #### [facility] [address] [place] [address] Dr. Aaron Gloria AST [Catalytic activity/Vol] 23 U/L Normal 15-37 [facility] Comment on above: Performed By: #### M AG24 #### [facility] [address] [place] [address] Dr. Aaron Gloria Bilirubin [Mass/Vol] 0.9 mg/dL Normal 0.2-1.0 [facility] Comment on above: Performed By: #### M AG24 #### [facility] [address] [place] [address] Dr. Aaron Gloria Calcium [Mass/Vol] 9.5 mg/dL Normal 8.5-10.1 [facility] Comment on above: Performed By: #### M AG24 #### [facility] [address] [place] [address] Dr. Aaron Gloria Chloride [Moles/Vol] 99 mmol/L Normal 98-107 [facility] Comment on above: Performed By: #### M AG24 #### [facility] [address] [address] [address] Aaron Gloria CO2 [Moles/Vol] 28.2 mmol/L Normal 21.0-32.0 [facility] Comment on above: Performed By: #### M AG24 #### [facility] [address] [place] [address] Dr. Aaron Gloria Creatinine [Mass/Vol] 1.65 mg/dL Critically high 0.70-1.30 [facility] Comment on above: Performed By: #### M AG24 #### [facility] [address] [place] [address] Dr. Aaron Gloria EGFR-AF ARGENTINE 51 mL/min/1.73m2 Critically low >=60 [facility] Comment on above: Performed By: #### M AG24 #### [facility] [address] [place] [address] Dr. Aaron Gloria EGFR-NON AF ARGENTINE 42 mL/min/1.73m2 Critically low >=60 [facility] Comment on above: Performed By: #### M AG24 #### [facility] [address] [place] [address] Dr. Aaron Gloria Globulin (S) [Mass/Vol] 5.0 g/dL Normal [facility] Comment on above: Performed By: #### M AG24 #### [facility] [address] [place] [address] Dr. Aaron Gloria Glucose [Mass/Vol] 123 mg/dL Critically high 74-106 [facility] Comment on above: Performed By: #### M AG24 #### [facility] [address] [place] [address] Dr. Aaron Gloria Potassium [Moles/Vol] 4.1 mmol/L Normal 3.5-5.1 [facility] Comment on above: Performed By: #### M AG24 #### [facility] [address] [address] [address] Aaron Gloria Protein [Mass/Vol] 8.0 g/dL Normal 6.4-8.2 [facility] Comment on above: Performed By: #### M AG24 #### [facility] [address] [address] [address] Aaron Gloria Sodium [Moles/Vol] 136 mmol/L Normal 136-145 [facility] Comment on above: Performed By: #### M AG24 #### [facility] [address] [place] [address] Dr. Aaron Gloria Urea nitrogen [Mass/Vol] 17.0 mg/dL Normal 7.0-18.0 [facility] Comment on above: Performed By: #### M AG24 #### [facility] [address] [place] [address] Dr. Aaron Gloria Urea nitrogen/Creatinine [Mass ratio] 10.3 mg/mg Normal [facility] Comment on above: Performed By: #### M AG24 #### [facility] [address] [place] [address] Dr. Aaron Gloria SED RATE [facility] 2021 SED RATE 96 mm/hr Critically high <=20 [facility] Comment on above: Performed By: #### C BC #### [facility] [address] [place] [address] Dr. Aaron Gloria TSHon 02-08-2022 TSH 1.004 uIU/mL Normal 0.358-3.740 [facility] Comment on above: Performed By: #### P THINT #### [facility] [address] [place] [address] Dr. Aaron Gloria UA RANDOM W/MICROSCOPICon BACTERIA NONE SEEN Normal NONE SEEN [facility] Comment on above: Performed By: #### C BC #### [facility] [address] [place] [address] Dr. Aaron Gloria Bilirubin Ql (U) SMALL Abnormal NEGATIVE [facility] Comment on above: Performed By: #### C BC #### [facility] [address] [place] [address] Dr. Aaron Gloria CAST NONE SEEN Normal NONE SEEN [facility] Comment on above: Performed By: #### C BC #### [facility] [address] [place] [address] Dr. Aaron Gloria Clarity (U) TURBID Abnormal CLEAR [facility] Comment on above: Performed By: #### C BC #### [facility] [address] [place] [address] Dr. Aaron Gloria Color (U) YELLOW Normal YELLOW [facility] Comment on above: Performed By: #### C BC #### [facility] [address] [place] [address] Dr. Aaron Gloria Crystals LM Nom (Urine sed) NONE SEEN Normal NONE SEEN [facility] Comment on above: Performed By: #### C BC #### [facility] [address] [place] [address] Dr. Aaron Gloria Epithelial cells LM Ql (Urine sed) RARE Normal NONE SEEN /RARE [facility] Comment on above: Performed By: #### C BC #### [facility] [address] [place] [address] Dr. Aaron Gloria Glucose Ql (U) Negative Normal NEGATIVE [facility] Comment on above: Performed By: #### C BC #### [facility] [address] [place] [address] Dr. Aaron Gloria Hemoglobin Ql (U) Negative Normal NEGATIVE [facility] Comment on above: Performed By: #### C BC #### [facility] [address] [place] [address] Dr. Aaron Gloria Ketones Ql (U) Negative Normal NEGATIVE [facility] Comment on above: Performed By: #### C BC #### [facility] [address] [place] [address] Dr. Aaron Gloria LEUKOCYTES Negative Normal NEGATIVE [facility] Comment on above: Performed By: #### C BC #### [facility] [address] [place] [address] Dr. Aaron Gloria MUCOUS NONE SEEN Normal NONE SEEN [facility] Comment on above: Performed By: #### C BC #### [facility] [address] [place] [address] Dr. Aaron Gloria Nitrite Ql (U) Negative Normal NEGATIVE [facility] Comment on above: Performed By: #### C BC #### [facility] [address] [place] [address] Dr. Aaron Gloria pH (U) 6.0 [pH] Normal 5-9 [facility] Comment on above: Performed By: #### C BC #### [facility] [address] [place] [address] Dr. Aaron Gloria RBC NONE SEEN Abnormal 0-2 [facility] Comment on above: Performed By: #### C BC #### [facility] [address] [place] [address] Dr. Aaron Gloria SPEC GRAVITY 1.020 Normal 1.005-<=1.02 5 [facility] Comment on above: Performed By: #### C BC #### [facility] [address] [place] [address] Dr. Aaron Gloria UA PROTEIN 30 mg/dl Abnormal NEGATIVE/ TRACE [facility] Comment on above: Performed By: #### C BC #### [facility] [address] [place] [address] Dr. Aaron Gloria Urobilinogen Qn (U) 2.0 {Cain'U}/dL Abnormal 0.2 - 1. 0 [facility] Comment on above: Performed By: #### C BC #### [facility] [address] [place] [address] Dr. Aaron Gloria WBC NONE SEEN Normal NONE SEEN [facility] Comment on above: Performed By: #### C BC #### [facility] [address] [place] [address] Dr. Aaron Gloria CBC AUTO DIFFon 12-15-2021 BASO # 0.1 103/ul Normal 0.0-0.1 [facility] Comment on above: Performed By: #### U ZELDA 24 #### [facility] [address] [address] [address] Aaron Gloria Basophils/100 WBC (Bld) 0.8 % Normal 0.2-2.0 [facility] Comment on above: Performed By: #### U ZELDA 24 #### [facility] [address] [address] [address] Aaron Gloria EO # 0.3 103/ul Normal 0.0-0.7 [facility] Comment on above: Performed By: #### U ZELDA 24 #### [facility] [address] [place] [address] Dr. Aaron Gloria Eosinophils/100 WBC (Bld) 3.1 % Normal 0.9-7.0 [facility] Comment on above: Performed By: #### U ZELDA 24 #### [facility] [address] [place] [address] Dr. Aaron Gloria Erythrocyte distribution width (RBC) [Ratio] 13.2 % Normal 11.0-15.0 [facility] Comment on above: Performed By: #### U ZELDA 24 #### [facility] [address] [place] [address] Dr. Aaron Gloria Hematocrit (Bld) [Volume fraction] 45.6 % Normal 42.0-54.0 [facility] Comment on above: Performed By: #### U ZELDA 24 #### [facility] [address] [place] [address] Dr. Aaron Gloria Hemoglobin (Bld) [Mass/Vol] 15.2 g/dL Normal 14.0-18.0 [facility] Comment on above: Performed By: #### U ZELDA 24 #### [facility] [address] [place] [address] Dr. Aaron Gloria IG # 0.05 10e3/ul Critically high 0.00-0.03 [facility] Comment on above: Performed By: #### U ZELDA 24 #### [facility] [address] [place] [address] Dr. Aaron Gloria IG % 0.5 % Normal 0.0-0.5 [facility] Comment on above: Performed By: #### U ZELDA 24 #### [facility] [address] [address] [address] Aaron Gloria LYMPH # 2.3 103/ul Normal 1.2-3.8 [facility] Comment on above: Performed By: #### U ZELDA 24 #### [facility] [address] [address] [address] Aaron Gloria Lymphocytes/100 WBC (Bld) 25.2 % Normal 20.5-60.0 [facility] Comment on above: Performed By: #### U ZELDA 24 #### [facility] [address] [place] [address] Dr. Aaron Gloria MANUAL DIFF REQ NO Normal [facility] Comment on above: Performed By: #### U ZELDA 24 #### [facility] [address] [place] [address] Dr. Aaron Gloria MCH (RBC) [Entitic mass] 29.1 pg Normal 25.9-34.0 [facility] Comment on above: Performed By: #### U ZELDA 24 #### [facility] [address] [place] [address] Dr. Aaron Gloria MCHC (RBC) [Mass/Vol] 33.3 g/dL Normal 29.9-35.2 [facility] Comment on above: Performed By: #### U ZELDA 24 #### [facility] [address] [place] [address] Dr. Aaron Gloria MCV (RBC) [Entitic vol] 87.2 fL Normal 80.0-94.0 [facility] Comment on above: Performed By: #### U ZELDA 24 #### [facility] [address] [place] [address] Dr. Aaron Gloria MONO # 0.8 103/ul Normal 0.3-0.8 [facility] Comment on above: Performed By: #### U ZELDA 24 #### [facility] [address] [place] [address] Dr. Aaron Glorai Monocytes/100 WBC (Bld) 8.4 % Normal 1.7-12.0 [facility] Comment on above: Performed By: #### U ZELDA 24 #### [facility] [address] [place] [address] Dr. Aaron Gloria NEUT # 5.7 103/ul Normal 1.4-6.5 [facility] Comment on above: Performed By: #### U ZELDA 24 #### [facility] [address] [place] [address] Dr. Aaron Gloria Neutrophils/100 WBC (Bld) 62.0 % Normal 43.0-75.0 [facility] Comment on above: Performed By: #### U ZELDA 24 #### [facility] [address] [place] [address] Dr. Aaron Gloria Platelet mean volume (Bld) [Entitic vol] 9.0 fL Critically low 9.5-13.5 [facility] Comment on above: Performed By: #### U ZELDA 24 #### [facility] [address] [place] [address] Dr. Aaron Gloria PLT 303 103/ul Normal 150-450 [facility] Comment on above: Performed By: #### U ZELDA 24 #### [facility] [address] [place] [address] Dr. Aaron Gloria RBC 5.23 106/ul Normal 4.70-6.10 [facility] Comment on above: Performed By: #### U ZELDA 24 #### [facility] [address] [place] [address] Dr. Aaron Gloria WBC 9.1 103/ul Normal 4.0-11.0 [facility] Comment on above: Performed By: #### U ZELDA 24 #### [facility] [address] [place] [address] Dr. Aaron Gloria CULTURE URINEon 12-15-2021 CULTURE URINE Culture Observations : HEAVY GROWTH OF MIXED SKIN KERWIN. NO POTENTIAL PATHOGENS SEEN. Culture Observations: PLEASE RESUBMIT CLEAN CATCH MID-STREAM URINE IF CLINICALLY INDICATED. Normal [facility] Comment on above: Performed By: #### C [id number] #### [facility] [address] [place] [address] Dr. Aaron Gloria GLYCOHEMOGLOBIN A1Con 2021 ADA RECOMMENDATION SEE BELOW Normal [facility] Comment on above: Result Comment: ADA RECOMMENDED LIMIT 4.0 - 6.0 ADA THERAPEUTIC TARGET < 7.0 ACTION SUGGESTED > 7.0 Performed By: #### P THINT #### [facility] [address] [address] [address] Aaron Gloria Glucose [Mass/Vol] 134 mg/dL Normal [facility] Comment on above: Performed By: #### P THINT #### [facility] [address] [address] [address] Aaron Gloria HbA1c (Bld) [Mass fraction] 6.3 % Critically high 4.5-6.2 [facility] Comment on above: Performed By: #### P THINT #### [facility] [address] [place] [address] Dr. Aaron Gloria LIPID PROFILEon 12-15-2021 CHOL-HDL RATIO NORM SEE BELOW Normal [facility] Comment on above: Result Comment: 3.3 - 4.4 LOW RISK 4.4 - 7.1 AVERAGE RISK 7.1 - 11.0 MODERATE RISK >11.0 HIGH RISK Performed By: #### M AG24 #### [facility] [address] [place] [address] Dr. Aaron Gloria Cholesterol [Mass/Vol] 152 mg/dL Normal <=200 [facility] Comment on above: Performed By: #### M AG24 #### [facility] [address] [address] [address] Aaron Gloria Cholesterol in HDL [Mass/Vol] 35 mg/dL Critically low 40-60 [facility] Comment on above: Performed By: #### M AG24 #### [facility] [address] [address] [address] Aaron Gloria Cholesterol in LDL [Mass/Vol] 83.0 mg/dL Normal [facility] Comment on above: Performed By: #### M AG24 #### [facility] [address] [place] [address] Dr. Aaron Gloria Cholesterol.total/C holesterol in HDL [Mass ratio] 4.3 {ratio} Normal [facility] Comment on above: Performed By: #### M AG24 #### [facility] [address] [address] [address] Aaron Gloria HDL NORMAL > or = 60 mg/dl - LO W CARDIOVASCULAR RISK <40 mg/dl - HIGH CARDIOVASCULAR RISK Normal [facility] Comment on above: Performed By: #### M AG24 #### [facility] [address] [place] [address] Dr. Aaron Gloria LDL CALC NORMAL SEE BELOW Normal [facility] Comment on above: Result Comment: <100 mg/dl OPTIMAL 100 - 129 mg/dl NEAR OR ABOVE OPTIMAL 130 - 159 mg/dl BORDERLINE HIGH 160 - 189 mg/dl HIGH >190 mg/dl VERY HIGH Performed By: #### M AG24 #### [facility] [address] [place] [address] Dr. Aaron Gloria Triglyceride [Mass/Vol] 170 mg/dL Critically high <=150 [facility] Comment on above: Performed By: #### M AG24 #### [facility] [address] [place] [address] Dr. Aaron Gloria VLDL CALC 34.0 mg/dL Normal [facility] Comment on above: Performed By: #### M AG24 #### [facility] [address] [place] [address] Dr. Aaron Gloria PROF 14(COMP METB)on 022 Albumin [Mass/Vol] 4.1 g/dL Normal 3.4-5.0 [facility] Comment on above: Performed By: #### C [id number] #### [facility] [address] [place] [address] Dr. Aaron Gloria Albumin/Globulin [Mass ratio] 1.1 {ratio} Normal [facility] Comment on above: Performed By: #### C [id number] #### [facility] [address] [place] [address] Dr. Aaron Gloria ALP [Catalytic activity/Vol] 61 U/L Normal 46-116 [facility] Comment on above: Performed By: #### C ALC24U #### [facility] [address] [address] [address] Aaron Gloria ALT [Catalytic activity/Vol] 46 U/L Normal 16-63 [facility] Comment on above: Performed By: #### C ALC24U #### [facility] [address] [place] [address] Dr. Aaron Gloria Anion gap [Moles/Vol] 13.2 mmol/L Normal [facility] Comment on above: Performed By: #### C ALC24U #### [facility] [address] [place] [address] Dr. Aaron Gloria AST [Catalytic activity/Vol] 26 U/L Normal 15-37 [facility] Comment on above: Performed By: #### C ALC24U #### [facility] [address] [place] [address] Dr. Aaron Gloria Bilirubin [Mass/Vol] 0.4 mg/dL Normal 0.2-1.0 [facility] Comment on above: Performed By: #### C ALC24U #### [facility] [address] [place] [address] Dr. Aaron Gloria Calcium [Mass/Vol] 9.0 mg/dL Normal 8.5-10.1 [facility] Comment on above: Performed By: #### C [id number] #### [facility] [address] [place] [address] Dr. Aaron Gloria Chloride [Moles/Vol] 105 mmol/L Normal 98-107 [facility] Comment on above: Performed By: #### C ALC24U #### [facility] [address] [place] [address] Dr. Aaron Gloria CO2 [Moles/Vol] 28.0 mmol/L Normal 21.0-32.0 [facility] Comment on above: Performed By: #### C ALC24U #### [facility] [address] [place] [address] Dr. Aaron Gloria Creatinine [Mass/Vol] 1.04 mg/dL Normal 0.70-1.30 [facility] Comment on above: Performed By: #### C ALC24U #### [facility] [address] [place] [address] Dr. Aaron Gloria EGFR-AF ARGENTINE >60 Normal >=60 [facility] Comment on above: Performed By: #### C ALC24U #### [facility] [address] [place] [address] Dr. Aaron Gloria EGFR-NON AF ARGENTINE >60 Normal >=60 [facility] Comment on above: Performed By: #### C ALC24U #### [facility] [address] [address] [address] Aaron Gloria Globulin (S) [Mass/Vol] 3.6 g/dL Normal [facility] Comment on above: Performed By: #### C ALC24U #### [facility] [address] [place] [address] Dr. Aaron Gloria Glucose [Mass/Vol] 124 mg/dL Critically high 74-106 [facility] Comment on above: Performed By: #### C ALC24U #### [facility] [address] [place] [address] Dr. Aaron Gloria Potassium [Moles/Vol] 4.2 mmol/L Normal 3.5-5.1 [facility] Comment on above: Performed By: #### C ALC24U #### [facility] [address] [place] [address] Dr. Aaron Gloria Protein [Mass/Vol] 7.7 g/dL Normal 6.4-8.2 [facility] Comment on above: Performed By: #### C ALC24U #### [facility] [address] [place] [address] Dr. Aaron Gloria Sodium [Moles/Vol] 142 mmol/L Normal 136-145 [facility] Comment on above: Performed By: #### C ALC24U #### [facility] [address] [place] [address] Dr. Aaron Gloria Urea nitrogen [Mass/Vol] 9.0 mg/dL Normal 7.0-18.0 [facility] Comment on above: Performed By: #### C ALC24U #### [facility] [address] [place] [address] Dr. Aaron Gloria Urea nitrogen/Creatinine [Mass ratio] 8.7 mg/mg Normal [facility] Comment on above: Performed By: #### C [id number] #### [facility] [address] [place] [address] Dr. Aaron Gloria UA RANDOM W/MICROSCOPICon BACTERIA TRACE Abnormal NONE SEEN [facility] Comment on above: Performed By: #### M AG24 #### [facility] [address] [place] [address] Dr. Aaron Gloria Bilirubin Ql (U) Negative Normal NEGATIVE [facility] Comment on above: Performed By: #### M AG24 #### [facility] [address] [place] [address] Dr. Aaron Gloria CAST NONE SEEN Normal NONE SEEN [facility] Comment on above: Performed By: #### M AG24 #### [facility] [address] [place] [address] Dr. Aaron Gloria Clarity (U) CLEAR Normal CLEAR [facility] Comment on above: Performed By: #### M AG24 #### [facility] [address] [place] [address] Dr. Aaron Gloria Color (U) LT. YELLOW Normal YELLOW [facility] Comment on above: Performed By: #### M AG24 #### [facility] [address] [place] [address] Dr. Aaron Gloria Crystals LM Nom (Urine sed) NONE SEEN Normal NONE SEEN [facility] Comment on above: Performed By: #### M AG24 #### [facility] [address] [place] [address] Dr. Aaron Gloria Epithelial cells LM Ql (Urine sed) RARE Normal NONE SEEN /RARE [facility] Comment on above: Performed By: #### M AG24 #### [facility] [address] [place] [address] Dr. Aaron Gloria Glucose Ql (U) Negative Normal NEGATIVE [facility] Comment on above: Performed By: #### M AG24 #### [facility] [address] [place] [address] Dr. Aaron Gloria Hemoglobin Ql (U) Negative Normal NEGATIVE [facility] Comment on above: Performed By: #### M AG24 #### [facility] [address] [place] [address] Dr. Aaron Gloria Ketones Ql (U) Negative Normal NEGATIVE [facility] Comment on above: Performed By: #### M AG24 #### [facility] [address] [place] [address] Dr. Aaron Gloria LEUKOCYTES Negative Normal NEGATIVE [facility] Comment on above: Performed By: #### M AG24 #### [facility] [address] [place] [address] Dr. Aaron Gloria MUCOUS NONE SEEN Normal NONE SEEN [facility] Comment on above: Performed By: #### M AG24 #### [facility] [address] [place] [address] Dr. Aaron Gloria Nitrite Ql (U) Positive Abnormal NEGATIVE [facility] Comment on above: Performed By: #### M AG24 #### [facility] [address] [place] [address] Dr. Aaron Gloria pH (U) 6.0 [pH] Normal 5-9 [facility] Comment on above: Performed By: #### M AG24 #### [facility] [address] [place] [address] Dr. Aaron Gloria RBC 0-2 Normal 0-2 [facility] Comment on above: Performed By: #### M AG24 #### [facility] [address] [place] [address] Dr. Aaron Gloria SPEC GRAVITY 1.030 Abnormal 1.005-<=1.02 5 [facility] Comment on above: Performed By: #### M AG24 #### [facility] [address] [place] [address] Dr. Aaron Gloria UA PROTEIN TRACE Normal NEGATIVE/ TRACE [facility] Comment on above: Performed By: #### M AG24 #### [facility] [address] [place] [address] Dr. Aaron Gloria Urobilinogen Qn (U) 0.2 {Cain'U}/dL Normal 0.2 - 1. 0 [facility] Comment on above: Performed By: #### M AG24 #### [facility] [address] [place], [place] [address] Dr. Aaron Gloria WBC 5-10 Abnormal NONE SEEN [facility] Comment on above: Performed By: #### M AG24 #### [facility] [address] [place], [place] [address] Dr. Aaron Gloria URIC ACID SERUMon 12-15-2021 Urate [Mass/Vol] 6.7 mg/dL Normal 3.5-7.2 [facility] Comment on above: Performed By: #### M AG24 #### [facility] [address] [place], [place] [address] Dr. Aaron Gloria Cardiovascular Lab Reporton 04-29-2021 Cardiovascular Lab Report [facility] Patient Name: [facility] MR #: [id number] Physician: Jes Hoang, Department of M.D. Medicine Service Date: 04/28/2021 Division of Birthdate: 1955 Cardiology Room #: Adult Cardiovascular Services [place] [address] Cardiovascular Laboratory Report FINAL IMPRESSIONS: 1. [id number] 2-vessel coronary artery disease. 2. Normal global left ventricular systolic function by noninvasive imaging. 3. [id number] systemic hypertension. RECOMMENDATIONS: 1. Aggressive cardiovascular risk factor modification. 2. Optimization medical management; aspirin, high-intensity statin therapy, and beta-alistair are recommended. 3. Will increase his Lipitor to 80 mg a day and add Coreg 6.25 mg b.i.d. 4. A fasting lipid profile and liver function tests should be checked in 6-8 weeks. 5. Follow up with Ellen Barrera CNP in the next 3-4 weeks. 6. Follow up with Cardiology as needed. PROCEDURES: Ultrasound-guided access of the left radial artery, bilateral selective coronary angiography via left radial approach. METHODS: After risks, benefits, and alternatives were explained, written informed consent was obtained. The patient was prepped and draped in usual sterile fashion over the left wrist and left groin. Using 1% lidocaine solution, local infiltration anesthesia was achieved. Using a modified Seldinger technique, a micropuncture kit, and on the ultrasound guidance, access to the left radial artery was obtained. A 6-Mongolian glide sheath was inserted without difficulty. Bilateral selective coronary angiography was performed using 3DRC and JL4 catheters. After reviewing the images, it was elected to conclude the procedure. All catheters were removed. The radial sheath was removed with application of a TR band per protocol achieving optimal hemostasis. Overall, the patient tolerated the procedure well. There were no overt complications. He was to be transferred to the holding area in stable condition. FINDINGS: Hemodynamics: AO is 155/87. LEFT VENTRICULOGRAPHY: This was not performed. Ejection fraction is normal by noninvasive imaging. CORONARY ARTERIES: Left main coronary artery: This arises from the left coronary cusp. It is a short vessel that rapidly bifurcates into the left anterior descending and left circumflex coronary artery. It is free of significant stenosis. Left anterior descending coronary artery: This shows diffuse tapering in the proximal to midportion of the vessel. There is lumen reduction distally. No focal stenosis is seen. Left circumflex coronary artery: This shows an ostial 40% stenosis and is otherwise nonobstructive. Right coronary artery: This shows a proximal 40% stenosis. It is a dominant vessel giving rise to the posterior descending and posterolateral branches. INDICATIONS: Abnormal stress test. Electronically Signed by: Jes Hoang M.D. 05/10/2021 09:07 A Jes Hoang M.D. Date Dict: 04/28/2021/12:03 P/Jes Hoang M.D. Date Trans: 04/29/2021 05:18 A/tarsha [id number] Normal [facility] COVID-19/INFLUENZA A,B BOAZ Morrissey 06-17-2020 COVID-19/INFLUENZA A,B MOLECULAR SARS-COV-2 (SWAPNA): Detected INFLUENZA A (SWAPNA): Not Detected INFLUENZA B (SWAPNA): Not Detected Normal Not Detected [facility] Comment on above: Order Comment: This test was performed under the FDA's Emergency Use Authorization (EUA). Testing was performed using the Ratna maurisio SARS-CoV-2 AND Influenza A/B Nucleic Acid Test on the maurisio Swapna System. This test has not been approved for use in asymptomatic patients and its performance in this patient population has not been evaluated. Negative results do not rule out the presence of SARS-CoV-2, influenza A, and/or influenza B. Fact sheets for the EUA can be found at the following links: For Healthcare Providers: https://www.fda.gov/media/506186/download For Patients: https://www.fda.gov/media/734917/download Performed By: #### L [id number] #### [facility] [place] [address] Laura Pichardo M.D. [id number] COVID-19/Influenza A,B [facility] 06-17-2020 Influenza A Not Detected Not [facility] Influ[facility] B Not Detected Not Detected [facility] Interpretation and review of laboratory results Abnormal [facility] SARS-CoV-2 Detected Abnormal Not Detected [facility] This test was perfor med under the FDA's Emergency Use Authorization (EUA). Testing was performed using the Ratna maurisio SARS-CoV-2 & Influenza A/B Nucleic Acid Test on the maurisio Swapna System. This test has not been approved for use in asymptomatic patients and its performance in this patient population has not been evaluated. Negative results do not rule out the presence of SARS-CoV-2, influenza A, and/or influenza B. Fact sheets for the EUA can be found at the following links: For Healthcare Providers: https://www.fda.gov/media /559003/download For Patients: https://www.fda.gov/media /170990/download [facility] Vital Signs Date Time Vital Sign Value Performing Clinician Facility 05-03-2023 14:11050 Body temperature 97.59 [degF] SOPHIA Mckenzie MD Work Phone: [facility] 05-03-2023 14:11050 Body weight 104.33 kg SOPHIA Mckenzie MD Work Phone: [facility] 05-03-2023 14:11-0500 Diastolic blood pressure 70 mm[Hg] SOPHIA Mckenzie MD Work Phone: [facility] 05-03-2023 14:11-0500 Heart rate 78 /min SOPHIA Mckenzie MD Work Phone: [facility] 05-03-2023 14:11-0500 Respiratory rate 16 /min SOPHIA Mckenzie MD Work Phone: [facility] 05-03-2023 14:11-0500 SaO2% (BldA) [Mass fraction] 95 % SOPHIA Mckenzie MD Work Phone: [facility] 05-03-2023 14:11-0500 Systolic blood pressure 131 mm[Hg] SOPHIA Mckenzie MD Work Phone: [facility] 10-31-2022 08:56-0400 Blood Pressure Location JERI SANDERS [facility] 10-31-2022 08:56-0400 Diastolic blood pressure 76 mm[Hg] JERI MARILYN [facility] 10-31-2022 08:56-0400 Heart rate 68 /min JERI MARILYN [facility] 10-31-2022 08:56-0400 Respiratory rate 16 /min JERI MARILYN [facility] 10-31-2022 08:56-0400 Systolic blood pressure 132 mm[Hg] JERI MARILYN [facility] 10-26-2022 10:43-0400 Body temperature 97.39 [degF] SOPHIA Mckenzie MD Work Phone: [facility] 10-26-2022 10:43-0400 Body weight 98.88 kg SOPHIA Mckenzie MD Work Phone: [facility] 10-26-2022 10:43-0400 Diastolic blood pressure 86 mm[Hg] SOPHIA Mckenzie MD Work Phone: [facility] 10-26-2022 10:43-0400 Heart rate 63 /min SOPHIA Mckenzie MD Work Phone: [facility] 10-26-2022 10:43-0400 Respiratory rate 18 /min SOPHIA Mckenzie MD Work Phone: [facility] 10-26-2022 10:43-0400 SaO2% (BldA) [Mass fraction] 97 % SOPHIA Mckenzie MD Work Phone: [facility] 10-26-2022 10:43-0400 Systolic blood pressure 144 mm[Hg] SOPHIA Mckenzie MD Work Phone: [facility] 04-27-2022 10:20-0400 Body temperature 96.91 [degF] SOPHIA Mckenzie MD Work Phone: [facility] 04-27-2022 10:20-0400 Body weight 97.52 kg SOPHIA Mckenzie MD Work Phone: [facility] 04-27-2022 10:20-0400 Diastolic blood pressure 78 mm[Hg] SOPHIA Mckenzie MD Work Phone: [facility] 04-27-2022 10:20-0400 Heart rate 63 /min SOPHIA Mckenzie MD Work Phone: [facility] 04-27-2022 10:20-0400 Respiratory rate 16 /min SOPHIA Mckenzie MD Work Phone: [facility] 04-27-2022 10:20-0400 SaO2% (BldA) [Mass fraction] 99 % SOPHIA Mckenzie MD Work Phone: [facility] 04-27-2022 10:20-0400 Systolic blood pressure 130 mm[Hg] SOPHIA Mckenzie MD Work Phone: [facility] 04-25-2022 16:10-0400 Diastolic blood pressure 91 mm[Hg] Chai Palma MD Work Phone: [facility] 04-25-2022 16:10-0400 Heart rate 72 /min Chai Palma MD Work Phone: [facility] 04-25-2022 16:10-0400 Respiratory rate 21 /min Chai Palma MD Work Phone: [facility] 04-25-2022 16:10-0400 SaO2% (BldA) [Mass fraction] 99 % Chai Palma MD Work Phone: [facility] 04-25-2022 16:10-0400 Systolic blood pressure 154 mm[Hg] Chai Palma MD Work Phone: [facility] 04-25-2022 15:48-0400 Body temperature 97 [degF] Chai Palma MD Work Phone: [facility] 04-25-2022 14:27-0400 Body weight 97.52 kg Chai Palma MD Work Phone: [facility] 04-24-2022 12:04-0400 Blood Pressure Location Nestor KAPLAN [facility] 04-24-2022 12:04-0400 Diastolic blood pressure 78 mm[Hg] Nestor KAPLAN [facility] 04-24-2022 12:04-0400 Heart rate 76 /min Nestor KAPLAN [facility] 04-24-2022 12:04-0400 Respiratory rate 16 /min Nestor KAPLAN [facility] 04-24-2022 12:04-0400 Systolic blood pressure 136 mm[Hg] Nestor KAPLAN [facility] 04-14-2022 13:57-0400 Body height 172.7 cm Pac 2 Work Phone: [facility] 04-14-2022 13:57-0400 Body temperature 97 [degF] Pacc 2 Work Phone: [facility] 04-14-2022 13:57-0400 Body weight 96.62 kg Pacc 2 Work Phone: [facility] 04-14-2022 13:57-0400 Diastolic blood pressure 68 mm[Hg] Pacc 2 Work Phone: [facility] 04-14-2022 13:57-0400 Heart rate 77 /min Pacc 2 Work Phone: [facility] 04-14-2022 13:57-0400 Respiratory rate 16 /min Pacc 2 Work Phone: [facility] 04-14-2022 13:57-0400 SaO2% (BldA) [Mass fraction] 98 % Pacc 2 Work Phone: [facility] 04-14-2022 13:57-0400 Systolic blood pressure 120 mm[Hg] Pacc 2 Work Phone: [facility] 02-21-2022 14:19-0400 Blood Pressure Location Gaetano LUJNA [facility] [place] 02-21-2022 14:19-0400 Diastolic blood pressure 66 mm[Hg] Gaetano LUJAN [facility] [place] 02-21-2022 14:19-0400 Heart rate 72 /min Gaetano LUJAN [facility] [place] 02-21-2022 14:19-0400 Respiratory rate 16 /min Gaetano LUJAN [facility] [place] 02-21-2022 14:19-0400 Systolic blood pressure 118 mm[Hg] Gaetano LUJAN [facility] [place] 10-27-2021 10:35-0400 Body temperature 97.7 [degF] SOPHIA Mckenzie MD Work Phone: [facility] 10-27-2021 10:35-0400 Body weight 109.77 kg SOPHIA Mckenzie MD Work Phone: [facility] 10-27-2021 10:35-0400 Diastolic blood pressure 90 mm[Hg] SOPHIA Mckenzie MD Work Phone: [facility] 10-27-2021 10:35-0400 Heart rate 71 /min SOPHIA Mckenzie MD Work Phone: [facility] 10-27-2021 10:35-0400 Respiratory rate 20 /min SOPHIA Mckenzie MD Work Phone: [facility] 10-27-2021 10:35-0400 SaO2% (BldA) [Mass fraction] 96 % SOPHIA Mckenzie MD Work Phone: [facility] 10-27-2021 10:35-0400 Systolic blood pressure 151 mm[Hg] SOPHIA Mckenzie MD Work Phone: [facility] 06-17-2020 17:20-0500 BMI (Body Mass Index) 34.19 kg/m2 [facility] 06-17-2020 17:20-0500 Body Temperature 98.91 [degF] [facility] 06-17-2020 17:20-0500 Body weight 102 kg [facility] 06-17-2020 17:20-0500 BP Diastolic 84 mm[Hg] [facility] 06-17-2020 17:20-0500 BP Systolic 147 mm[Hg] [facility] 06-17-2020 17:20-0500 Height 172.7 cm [facility] 06-17-2020 17:20-0500 Pulse (Heart Rate) 85 /min [facility] 06-17-2020 17:20-0500 Pulse Oximetry 94 % [facility] 06-17-2020 17:20-0500 Respiratory Rate 16 /min [facility] Encounters Encounter Date Encounter Type Care Provider Facility Start: 06-12-2023 ambulatory PA-C JERI SANDERS Facility:[facility] Start: 06-12-2023 End: 06-12-2023 Patient encounter procedure JERI SANDERS [facility] Start: 05-03-2023 End: 05-03-2023 ambulatory Nestor MCKENZIE Facility:[facility] Start: 05-03-2023 End: 05-03-2023 Patient encounter procedure Nestor Mckenzie MD Work Phone: Radiation Oncology Comment on above: Prostate cancer (HCC ) (Primary Dx) Start: 04-25-2023 Telephone encounter Nestor Mckenzie MD Work Phone: Radiation Oncology Comment on above: Orders Start: 10-31-2022 End: 11-01-2022 ambulatory KAE SANDERS Facility:[facility] Start: 10-31-2022 End: 10-31-2022 Patient encounter procedure JERI SANDERS [facility] Start: 10-26-2022 End: 10-26-2022 ambulatory Nestor MCKENZIE Facility:[facility] Start: 10-26-2022 End: 10-26-2022 Patient encounter procedure Nestor Mckenzie MD Work Phone: Radiation Oncology Comment on above: History of prostate cancer (Primary Dx); Obesity, Class I, BMI 30-34.9 Start: 10-16-2022 ambulatory Nestor Layne ty:LAYO Mckinnon Start: 10-13-2022 End: 10-14-[address] NESTOR KAPLAN . Facility:[facility] Start: 09-15-2022 End: 09-16-[address] NESTOR KAPLAN . Facility:[facility] Start: 09-13-2022 End: 09-14-[address] NESTOR KAPLAN . Facility:[facility] Start: 08-15-2022 End: 08-15-2022 ambulatory [facility] Start: 07-31-2022 End: 08-01-[address] NETSOR KALPAN . Facility:[facility] Start: 07-25-2022 End: 07-26-[address] NESTOR KAPLAN . Facility:[facility] Start: 07-15-2022 Encounter for preprocedural laboratory examination DR NESTOR KAPLAN . [facility] Start: 07-13-2022 End: 07-14-[address] NESTOR KAPLAN . Facility:[facility] Start: 07-10-2022 End: 07-11-[address] NESTOR KAPLAN . Facility:[facility] Start: 07-10-2022 End: 07-11-2022 Encounter for preprocedural laboratory examination DR NESTOR KAPLAN . Facility:[facility] Start: 07-03-2022 End: 07-04-[address] NESTOR KAPLAN . Facility:[facility] Start: 05-25-2022 End: 05-25-[address] NESTOR KAPLAN . Facility:[facility] Start: 05-22-2022 End: 05-23-[address] NESTOR KAPLAN . Facility: Start: 05-17-2022 Encounter for other preprocedural examination DR NESTOR KAPLAN . [facility] Start: 05-17-2022 Encounter for preprocedural cardiovascular examination DR NESTOR KAPLAN . [facility] Start: 05-15-2022 End: 05-16-[address] NESTOR KAPLAN . Facility: Start: 04-27-2022 End: 04-27-2022 Patient encounter procedure Nestor Mckenzie MD Work Phone: Radiation Oncology Comment on above: Malignant neoplasm o f prostate (HCC) (Primary Dx) Start: 04-25-2022 ambulatory [facility] ty:[facility] Start: 04-25-2022 End: 04-25-2022 Subsequent hospital visit by physician Chai Palma MD Work Phone: Procedures Comment on above: Mass of colon [K63.8 9] Start: 04-24-2022 End: 04-24-2022 Patient encounter procedure Nestor KAPLAN [facility] Start: 04-18-2022 Telephone encounter Chai paula MD Work Phone: Colorectal Surgery Comment on above: Medical Aide - O ther Start: 04-14-2022 End: 04-14-2022 Admission to establishment [facility] [place] 2 Work Phone: [facility] Start: 04-14-2022 End: 04-14-20[facility] Work Phone: Pre Anest[facility] Comment on above: Preop examination (P rimary Dx); Essential (primary) hypertension; Hyperlipidemia, unspecified hyperlipidemia type; Athscl heart disease of [place] coronary artery w/o ang pctrs; Obstructive sleep apnea; Prostate cancer (HCC) Start: 04-14-2022 End: 04-14-2022 [facility] Work Phone: Pre Anesthesia Start: 04-14-2022 Telephone encounter Chai paula MD Work Phone: Colorectal Surgery Comment on above: Medical Aide - O ther Start: 04-06-2022 End: 04-07-[address] NESTOR KAPLAN . Facility:[facility] Start: 03-28-2022 End: 03-28-2022 Patient encounter procedure Gaetano LUJAN General Surgery [facility] Start: 03-15-2022 End: 03-15-[address] GAETANO LUJAN . Facility:[facility] Start: 03-13-2022 End: 03-14-2022 ambulatory RODRICK BARRERA Facility:[facility] Start: 03-09-2022 End: 03-10-[address] GAETANO LUJAN . Facility:[facility] Start: 02-22-2022 End: 02-22-2022 ambulatory RODRICK BARRERA Facility:[facility] Start: 02-21-2022 End: 02-21-2022 Patient encounter procedure Gaetano LUJAN General Surgery [place]/S[facility] [place] Start: 02-13-2022 End: 02-14-2022 ambulatory RODRICK ROMEROA DIAKeriMARILU Facility:[facility] Start: 02-09-2022 End: 02-09-[address] ROLLER OPERATOR ELLEN CLAIRE Facility:[facility] Start: 02-08-2022 End: 02-09-[address] ROLLER OPERATOR ELLEN WANGHOLZ Facility:[facility] Start: 12-15-2021 End: 12-16-[address] ROLLER OPERATOR ELLEN BARRERA Facility:[facility] Start: 10-27-2021 End: 10-27-2021 ambulatory Sindy Regan JAYLON.ROAD ROLLER OPERATOR Work Phone: Hematology/Oncology Comment on above: Malignant neoplasm o f prostate (HCC) (Primary Dx); Prostate cancer (HCC) Start: 10-27-2021 End: 10-27-2021 Patient encounter procedure Sindy Jass IYER.ROAD ROLLER OPERATOR Work Phone: [facility] Comment on above: Malignant neoplasm o f prostate (HCC) (Primary Dx) Start: 04-19-2021 End: 04-24-2021 ambulatory REFERRED SELF Facility:[facility] Start: 06-17-2020 End: 06-17-2020 Emergency department patient visit PHYSICIAN NO [facility] Start: 06-17-2020 End: 06-17-2020 Emergency department patient visit Bree Elisha Leslie Work Phone: [facility] Emergency Department Comment on above: COVID-19 (Primary Dx ) Procedures Date Procedure Procedure Detail Performing Clinician Start: 04-26-2023 PSA screening [facility] Provider Start: 10-13-2022 End: 10-13-2022 PSA screening [facility] Provider Comment on above: Performed By: #### PTHINT #### [facility] [address] [place] [address] Dr. Aaorn Gloria Start: 07-31-2022 Cystoscopic removal of ureteric stent JERI SANDERS Start: 07-13-2022 Cystoscopic laser lithotripsy of ureteric calculus JERI SANDERS Start: 05-25-2022 Extracorporeal shockwave lithotripsy of calculus of kidney JERI SANDERS Start: 04-25-2022 Level iv surg pathology gross&microscopic exam Chai Palma MD Work Phone: Start: 04-25-2022 Colonoscopy flx dx w/collj spec when pfrmd Chai Palma MD Work Phone: Start: 04-25-2022 Colonoscopy SOPHIA Mckenzie MD Work Phone: Start: 04-06-2022 End: 04-06-2022 PSA screening [facility] Provider Comment on above: Performed By: #### [id number] #### [facility] [address] [address] [address] Aaron Gloria Start: 03-15-2022 Colonoscopy Gaetano LE Start: 03-15-2022 Esophagogastroduodenoscopy Gaetano LUJAN Start: 10-27-2021 Adult depression screening assessment Sindy Regan APRN.CNP Work Phone: Start: 03-10-2021 Brachytherapy JERIFELICIA DIAZRY Start: 06-25-2020 Catheterization of left heart Gaetano ELIAS Start: 06-17-2020 COVID-19/INFLUENZA A,B MOLECULAR Bree C [place] [facility] Work Phone: Start: 03-15-2020 Transrectal biopsy of prostate using ultrasound guidance Gaetano LUJAN Start: 10-17-2013 Colonoscopy Gaetano LUJAN Appendectomy Gaetano LUJAN Fracture of bone of right hand Gaetano LUJAN Repair of tendon of hand John hael LE Repair of umbilical hernia M maria victoria LE Plan of Treatment Date Care Activity Detail Author Start: 04-26-2028 Prostate Cancer Screening Discussion Prostate Cancer Screening Discussion [facility] Start: 10-14-2027 PROSTATE CANCER SCREENING DISCUSSION PROSTATE CANCER SCREENING DISCUSSION [facility] Start: 04-06-2027 PROSTATE CANCER SCREENING DISCUSSION PROSTATE CANCER SCREENING DISCUSSION [facility] Start: 10-26-2026 PROSTATE CANCER SCREENING DISCUSSION PROSTATE CANCER SCREENING DISCUSSION [facility] Start: 11-01-2023 End: 01-31-2024 Prostate specific Ag [Mass/volume] in Serum or Plasma PSA/PROSTSPECAG DIAG Lab Routine Prostate cancer (HCC) Expected: 11/01/2023, Expires: 01/31/2024 [facility] Work Phone: Comment on above: Expected: 11/01/2023 , Expires: 01/31/2024 Start: 04-25-2023 Colonoscopy COLONOSCOPY [facility] Start: 04-25-2023 COLORECTAL CANCER SCREENING COLORECTAL CANCER SCREENING [facility] Start: 04-25-2023 End: 07-25-2023 Prostate specific Ag [Mass/volume] in Serum or Plasma PSA/PROSTSPECAG DIAG Lab Routine History of prostate cancer Expected: 04/25/2023, Expires: 07/25/2023 [facility] Work Phone: Comment on above: Expected: 04/25/2023 , Expires: 07/25/2023 Start: 04-14-2023 BP CONTROLLED (<130/80) BP CONTROLLE D (<130/80) [facility] Start: 02-23-2023 Covid-19 Vaccine ( season) Covid-19 Vaccine ( season) [facility] Start: 02-23-2023 Covid-19 Vaccine ( season) Covid-19 Vaccine ( season) [facility] Start: 02-23-2023 Influenza vaccination C [facility] Start: 10-27-2022 Adult depression screening assessment DEPRESSION SCREENING [facility] Start: 10-25-2022 End: 12-25-2022 Prostate specific Ag [Mass/volume] in Serum or Plasma PSA/PROSTSPECAG DIAG Lab Routine Malignant neoplasm of prostate (HCC) Expected: 10/25/2022, Expires: 12/25/2022 [facility] Work Phone: Comment on above: Expected: 10/25/2022 , Expires: 12/25/2022 Start: 06-25-2022 ADVANCE DIRECTIVE DISCUSSION ADVANCE DIRECTIVE DISCUSSION [facility] Start: 06-25-2022 DEPRESSION ASSESSMENT DEPRESSION ASS ESSMENT [facility] Start: 02-23-2022 Influenza vaccination C [facility] Start: 06-25-2021 ADVANCE DIRECTIVE DISCUSSION ADVANCE DIRECTIVE DISCUSSION [facility] Start: 06-25-2021 DEPRESSION ASSESSMENT DEPRESSION ASS ESSMENT [facility] Start: 11-24-2020 COVID-19 VACCINE (3 - Booster) COVID-19 VACCINE (3 - Booster) [facility] Start: 09-25-2020 Pneumococcal Vaccine : 65+ (1 - PCV) Pneumococcal Vaccine: 65+ (1 - PCV) [facility] Start: 09-25-2020 PNEUMOCOCCAL: 65+ (1 - PCV) PNEUMOCOCCAL: 65+ (1 - PCV) [facility] Start: 09-25-2020 PNEUMOVAX AGE 65 AND OVER WITH 5YR LOOKBACK (#1) PNEUMOVAX AGE 65 AND OVER WITH 5YR LOOKBACK (#1) [facility] Start: 2015 RSV Vaccine (1 - 1-d ose 60+ series) RSV Vaccine (1 - 1-dose 60+ series) [facility] Start: 09-25-2005 SHINGRIX VACCINE (1 of 2) SHINGRIX VACCINE (1 of 2) [facility] Start: 09-25-2000 COLOGUARD (FIT-DNA) COLOGUARD (FIT-D NA) [facility] Start: 09-25-2000 Colonoscopy COLONOSCOPY [facility] Start: 09-25-2000 COLORECTAL CANCER SCREENING COLORECTAL CANCER SCREENING [facility] Start: 09-25-[address] COLONOGRAPHY [facility] Start: 09-25-2000 DIABETES SCREEN DIABETES SCREEN [facility] Start: 09-25-2000 Diabetes Screening Diabetes Screenin g [facility] Start: 09-25-2000 FECAL OCCULT BLOOD FECAL OCCULT BLOO D [facility] Start: 09-25-2000 SIGMOIDOSCOPY SIGMOIDOSCOPY [facility] Start: 09-25-1990 Lipid 1996 panel - S earlene or Plasma Lipid Screening [facility] Start: 09-25-1990 LIPID SCREEN LIPID SCREEN [facility] Start: 09-25-1974 Urine microalbumin profile [facility] Start: 09-25-1973 ANNUAL PCP TEAM 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 RICKEY DISEASE VISIT ANNUAL PCP TEAM CHRONIC DISEASE VISIT [facility] Start: 09-25-1973 BP CONTROLLED (<130/80) BP CONTROLLE D (<130/80) [facility] Start: 09-25-1973 Hepatitis B surface antibody level LDL CHOLESTEROL [facility] Start: 09-25-1973 HEPATITIS C SCREENING HEPATITIS C SC REENING [facility] Start: 09-25-1960 COVID-19 VACCINE (#1) COVID-19 VACCI NE (#1) [facility] Start: 09-25-1960 COVID-19 VACCINE (1) COVID-19 VACCIN E (1) [facility] Start: 03-27-1956 COVID-19 VACCINE (#1) COVID-19 VACCI NE (#1) [facility] Start: 1955 ABDOMINAL AORTIC ANEURYSM SCREENING ABDOMINAL AORTIC ANEURYSM SCREENING [facility] Immunizations Immunization Date Immunization Notes Care Provider Fa cility 09-29-2020 SARS-CoV-2 (COVID-19 ) mRNA-1273 vaccine Gaetano NILLeah [facility] 09-28-2020 SARS-CoV-2 (COVID-19 ) mRNA BNT-162b2 vax JERI SANDERS [facility] 09-07-2020 SARS-CoV-2 (COVID-19 ) mRNA-1273 vaccine Gaetano LE [facility] 09-06-2020 SARS-CoV-2 (COVID-19 ) mRNA BNT-162b2 vax JERI SANDESR [facility] Payers Date Payer Category Payer Medicare MEDICARE MEDICAR E A AND B [id number] 2020-Present [phone] [place] [address] Medicare [id number] 2020 Medicare MEDICARE MEDICAR E A AND B [id number] 2020-Present [phone] [place] [address] Medicare [id number] 2020 Unknown [employer] [place] [employer] [place]IC[place] SUPPLE[place] [id number] 2020-Present [phone] [address] [place] [address] Indemnity [id number] 2020 Unknown [employer] [place] [employer] [place] MEDIC[place] SUPPLE[place] [id number] 2020-Present [phone] [address] [place] [address] Indemnity [id number] 2020 Unknown [id number] 1959 Medicare [id number] 1959 Unknown [id number] 1955 Unknown [id number] 2.16.840.1.818631.3.579.2.90 2 1955 Unknown [id number] 2.16.840.1.747433.3.579.2.64 7 1955 Unknown [id number] 2.16.840.1.787460.3.579.2.59 3 1955 Unknown [id number] 2.16.840.1.740795.3.579.2.59 3 1955 Unknown [id number] 2.16.840.1.034813.3.579.2.59 3 1955 Unknown [id number] 2.16.840.1.245183.3.579.2.59 3 1955 Unknown [id number] 2.16.840.1.722192.3.579.2.59 3 1955 Unknown [id number] 2.16.840.1.721695.3.579.2.59 3 1955 Unknown [id number] 2.16.840.1.897262.3.579.2.59 3 1955 Unknown [id number] 2.16.840.1.429878.3.579.2.59 3 1955 Unknown [id number] 2.16.840.1.785028.3.579.2.59 3 1955 Unknown [id number] 2.16.840.1.556952.3.579.2.59 3 1955 Unknown [id number] 2.16.840.1.546330.3.579.2.59 3 1955 Unknown [id number] 2.16.840.1.602448.3.579.2.59 3 1955 Unknown [id number] 2.16.840.1.883692.3.579.2.59 3 1955 Unknown [id number] 2.16.840.1.849963.3.579.2.59 3 1955 Unknown [id number] 2.16.840.1.147311.3.579.2.59 3 1955 Unknown [id number] 2.16.840.1.892298.3.579.2.59 3 1955 Unknown [id number] 2.16.840.1.598995.3.579.2.59 3 1955 Unknown [id number] 2.16.840.1.013664.3.579.2.59 3 1955 Unknown [id number] 2.16.840.1.476089.3.579.2.59 3 1955 Unknown [id number] 2.16.840.1.138888.3.579.2.59 3 1955 Unknown [id number] 2.16.840.1.868071.3.579.2.59 3 1955 Unknown [id number] 2.16.840.1.873629.3.579.2.72 7 1955 Unknown [id number] 2.16.840.1.576550.3.579.2.72 7 1955 Unknown [id number] 2.16.840.1.749592.3.579.2.72 7 1955 Unknown [id number] 2.16.840.1.546842.3.579.2.72 7 1955 Unknown [id number] 2.16.840.1.356906.3.579.2.72 7 Unknown [employer]ERCIAL [employer]ME RCIAL MISCELLANEOUS [id number] Effective for all dates [id number]. [id number] Unknown [id number] Social History Date Type Detail Facility Start: 06-17-2020 End: 01-11-2021 Tobacco smoking status NHIS Never smoker [facility] Start: 06-17-2020 End: 04-14-2022 Tobacco use and exposure Never used [facility] Start: 06-17-2020 Alcohol intake Lifetime non-d minna (finding) [facility] Start: 06-17-2020 History SDOH Alcohol Frequency 1 [facility] Start: 1955 Sex Assigned At Not on file [facility] Start: 10-16-2021 End: 04-27-2022 Exposure to SARS-CoV-2 (event) Not sure [facility] Start: 01-11-2021 End: 05-03-2023 Alcohol intake Current drinker of alcohol (finding) [facility] Start: 01-11-2021 History SDOH Alcohol Comment Social [facility] Start: 02-21-2022 End: 04-24-2022 Tobacco smoking status Occasional tobacco smoker (finding) [facility] Tobacco smoking status Former sm okeless tobacco user, quit more than 30 days ago [facility] Start: 04-27-2022 End: 10-26-2022 Sex Assigned At Male [facility] Start: 04-14-2022 End: 10-31-2022 Tobacco smoking status NHIS Ex-smoker [facility] Start: 06-25-2011 End: 06-25-2015 History of tobacco use Current smoker [facility] Start: 06-25-2011 End: 06-25-2015 History of tobacco use Cigar Smoker [facility] Start: 04-14-2022 Alcohol Comment Very rare [facility] Start: 04-27-2022 End: 10-26-2022 History of Social function [facility] Functional Status Date Assessment Result Facility 10-31-2022 Functional Status N/A [facility] 04-24-2022 Functional Status N/A [facility] 02-21-2022 Functional Status N/A [facility] Clinical Notes 10-27-2021 to 05-03-2023 Nestor Mckenzie MD - 05/03/2023 2:30 PM Nafisa Abrams FARM OPERATIONS TECHNICAL DIRECTOR - 05/03/2023 2:12 PM ESTTelephone Encounter - Nafisa Chacon FARM OPERATIONS TECHNICAL DIRECTOR - 04/25/2023 10:38 AM Elis Frederick RN - 10/26/2022 10:45 AM EDT Note Date & Type Note Facility 05-03-2023 Note HNO ID: [id number] Author: Nestor Mckenzie MD Service: ? Author Type: Physician Type: Progress Notes Filed: 05/08/2023 3:15 PM Note Text: Radiation Oncology - Follow Up Note PATIENT NAME: Mark Douglas PATIENT DIAGNOSIS: Prostate adenocarcinoma, initial PSA 5.4, biopsy Geraldine score 3 + 4 = 7 (grade group 2), clinical stage T1c, N0, M0, stage IIB [T1-T2, N0, M0, PSA <20, GG 2] (AJCC 8th ed.), s/p TRUS Random biopsy. RADIATION SUMMARY:Prostate brachytherapy 03/10/2021, I-125, 145 Brennan, 85 sources, 32.30 mCi INTERVAL HISTORY: Doing well no new problems or concerns. 04/27/22:Patient's earlier this year. Patient has had a 40 pound weight loss although this is stabilized and starting to gain weight again. He does have family around for support. Otherwise feeling fairly good. 10/27/21:Patient doing well denies significant new problems. Urinary function good without obstructive complaints. 04/21/22: Still with obstructive issues. Self cathetize twice daily. Patient feels however this is improving for him. He has restarted Flomax which he thinks is helping and he has less residual with self cath. PSA HISTORY: PSA (ng/mL) Date Value 10/26/2021 0.41 01/11/2021 1.80 PSA. (no units) Date Value 04/26/2023 1.11 10/13/2022 1.03 04/06/2022 1.60 04/18/2021 1.96 ALLERGIES No Known Allergies Potassium Citrate 15 mEq TbER Take 2 tablets by mouth every 12 hours. sertraline (ZOLOFT) 50 mg tablet Take 50 mg by mouth once daily. carvedilol (COREG) 6.25 mg tablet carvedilol 6.25 mg tablet TAKE 1 TABLET BY MOUTH TWICE A DAY aspirin, enteric coated (ASPIRIN, ENTERIC COATED) 81 mg EC tablet aspirin 81 mg tablet,delayed release TAKE 1 TABLET BY MOUTH EVERY DAY tamsulosin (FLOMAX) 0.4 mg 0.4 mg once daily. atorvastatin (LIPITOR) 20 mg tablet Take 20 mg by mouth daily at bedtime. allopurinol (ZYLOPRIM) 100 mg tablet Take 100 mg by mouth once daily. REVIEW OF SYSTEMS: See HPI - Total AUA Score: 1 Bowel movement frequency: 1-2/day Bowel movement quality: normal Blood per rectum: none PHYSICAL EXAM: BP 131/70 Pulse 78 Temp 36.4 ?C (97.6 ?F) Resp 16 Wt 104.3 kg (230 lb) SpO2 95% BMI 34.97 kg/m? KPS: 100 General appearance: Alert and oriented. No acute distress. Rectal exam def Extremities: No deformities, edema, skin discoloration, clubbing or cyanosis. ASSESSMENT/PLAN: Prostate adenocarcinoma, initial PSA 5.4, biopsy Geraldine score 3 + 4 = 7 (grade group 2), clinical stage T1c, N0, M0, stage IIB [T1-T2, N0, M0, PSA <20, GG 2] (AJCC 8th ed.), status post prostate brachytherapy 03/10/2021 Overall doing well. PSA stable. Recommend continued PSA surveillance. Plan to see patient back in 6 months. Patient has continued urologic follow-up with Dr. Kaplan. Signed by: Nestor Mckenzie MD cc: Ellen Barrera, ROAD ROLLER OPERATOR ([facility]) [address] [place] [address] [facility] 05-03-2023 History of Presen t illness Narrative Radiation Oncology - Follow Up Note PATIENT NAME: Mark Douglas PATIENT DIAGNOSIS: Prostate adenocarcinoma, initial PSA 5.4, biopsy Geraldine score 3 + 4 = 7 (grade group 2), clinical stage T1c, N0, M0, stage IIB [T1-T2, N0, M0, PSA <20, GG 2] (AJCC 8th ed.), s/p TRUS Random biopsy. RADIATION SUMMARY:Prostate brachytherapy 03/10/2021, I-125, 145 Brennan, 85 sources, 32.30 mCi INTERVAL HISTORY: Doing well no new problems or concerns. 04/27/22:Patient's earlier this year. Patient has had a 40 pound weight loss although this is stabilized and starting to gain weight again. He does have family around for support. Otherwise feeling fairly good. 10/27/21:Patient doing well denies significant new problems. Urinary function good without obstructive complaints. 04/21/22: Still with obstructive issues. Self cathetize twice daily. Patient feels however this is improving for him. He has restarted Flomax which he thinks is helping and he has less residual with self cath. PSA HISTORY: PSA (ng/mL) Date Value 10/26/2021 0.41 01/11/2021 1.80 PSA. (no units) Date Value 04/26/2023 1.11 10/13/2022 1.03 04/06/2022 1.60 04/18/2021 1.96 ALLERGIES No Known Allergies Potassium Citrate 15 mEq TbER Take 2 tablets by mouth every 12 hours. sertraline (ZOLOFT) 50 mg tablet Take 50 mg by mouth once daily. carvedilol (COREG) 6.25 mg tablet carvedilol 6.25 mg tablet TAKE 1 TABLET BY MOUTH TWICE A DAY aspirin, enteric coated (ASPIRIN, ENTERIC COATED) 81 mg EC tablet aspirin 81 mg tablet,delayed release TAKE 1 TABLET BY MOUTH EVERY DAY tamsulosin (FLOMAX) 0.4 mg 0.4 mg once daily. atorvastatin (LIPITOR) 20 mg tablet Take 20 mg by mouth daily at bedtime. allopurinol (ZYLOPRIM) 100 mg tablet Take 100 mg by mouth once daily. REVIEW OF SYSTEMS: See HPI - Total AUA Score: 1 Bowel movement frequency: 1-2/day Bowel movement quality: normal Blood per rectum: none PHYSICAL EXAM: BP 131/70 Pulse 78 Temp 36.4 C (97.6 F) Resp 16 Wt 104.3 kg (230 lb) SpO2 95% BMI 34.97 kg/m KPS: 100 General appearance: Alert and oriented. No acute distress. Rectal exam def Extremities: No deformities, edema, skin discoloration, clubbing or cyanosis. ASSESSMENT/PLAN: Prostate adenocarcinoma, initial PSA 5.4, biopsy Geraldine score 3 + 4 = 7 (grade group 2), clinical stage T1c, N0, M0, stage IIB [T1-T2, N0, M0, PSA <20, GG 2] (AJCC 8th ed.), status post prostate brachytherapy 03/10/2021 Overall doing well. PSA stable. Recommend continued PSA surveillance. Plan to see patient back in 6 months. Patient has continued urologic follow-up with Dr. Kaplan. Signed by: Nestor Mckenzie MD cc: Ellen Barrera, ROAD ROLLER OPERATOR ([facility]) [address] [place] [address] documented in this encounter [facility] 05-03-2023 Nurse Note AUA= 1 documented in this encounter [facility] 04-25-2023 Miscellaneous Notes Please sign pended PSA order for upcoming appt. Fax order to [facility] per patient request. Nafisa Chacon RN documented in this encounter [facility] 10-31-2022 Hospital Discharg e instructions Patient Education 10/31/2022 09:50:06 Kidney Stones, Ovkx-uh-Xnrf Kidney Stones Kidney stones are rock-like masses that form inside of the kidneys. Kidneys are organs that make pee (urine). A kidney stone may move into other parts of the urinary tract, including: The tubes that connect the kidneys to the bladder (ureters). The bladder. The tube that carries urine out of the body (urethra). Kidney stones can cause very bad pain and can block the flow of pee. The stone usually leaves your body (passes) through your pee. You may need to have a doctor take out the stone. What are the causes? Kidney stones may be caused by: A condition in which certain glands make too much parathyroid hormone (primary hyperparathyroidism). A buildup of a type of crystals in the bladder made of a chemical called uric acid. The body makes uric acid when you eat certain foods. Narrowing (stricture) of one or both of the ureters. A kidney blockage that you were born with. Past surgery on the kidney or the ureters, such as gastric bypass surgery. What increases the risk? You are more likely to develop this condition if: You have had a kidney stone in the past. You have a family history of kidney stones. You do not drink enough water. You eat a diet that is high in protein, salt (sodium), or sugar. You are overweight or very overweight (obese). What are the signs or symptoms? Symptoms of a kidney stone may include: Pain in the side of the belly, right below the ribs (flank pain). Pain usually spreads (radiates) to the groin. Needing to pee often or right away (urgently). Pain when going pee (urinating). Blood in your pee (hematuria). Feeling like you may vomit (nauseous). Vomiting. Fever and chills. How is this treated? Treatment depends on the size, location, and makeup of the kidney stones. The stones will often pass out of the body through peeing. You may need to: Drink more fluid to help pass the stone. In some cases, you may be given fluids through an IV tube put into one of your veins at the hospital. Take medicine for pain. Make changes in your diet to help keep kidney stones from coming back. Sometimes, medical procedures are needed to remove a kidney stone. This may involve: A procedure to break up kidney stones using a beam of light (laser) or shock waves. Surgery to remove the kidney stones. Follow these instructions at home: Medicines Take rrzw-xvo-ingqxlw and prescription medicines only as told by your doctor. Ask your doctor if the medicine prescribed to you requires you to avoid driving or using heavy machinery. Eating and drinking Drink enough fluid to keep your pee pale yellow. You may be told to drink at least 8 10 glasses of water each day. This will help you pass the stone. If told by your doctor, change your diet. This may include: ?Limiting how much salt you eat. ?Eating more fruits and vegetables. ?Limiting how much meat, poultry, fish, and eggs you eat. Follow instructions from your doctor about eating or drinking restrictions. General instructions Collect pee samples as told by your doctor. You may need to collect a pee sample: ?24 hours after a stone comes out. ?8 12 weeks after a stone comes out, and every 6 12 months after that. Strain your pee every time you pee (urinate), for as long as told. Use the strainer that your doctor recommends. Do not throw out the stone. Keep it so that it can be tested by your doctor. Keep all follow-up visits as told by your doctor. This is important. You may need follow-up tests. How is this prevented? To prevent another kidney stone: Drink enough fluid to keep your pee pale yellow. This is the best way to prevent kidney stones. Eat healthy foods. Avoid certain foods as told by your doctor. You may be told to eat less protein. Stay at a healthy weight. Where to find more information National Kidney Foundation (NKF): www.kidney.org [facility] [facility] (UCF): www.urologyhealth.org Contact a doctor if: You have pain that gets worse or does not get better with medicine. Get help right away if: You have a fever or chills. You get very bad pain. You get new pain in your belly (abdomen). You pass out (faint). You cannot pee. Summary Kidney stones are rock-like masses that form inside of the kidneys. Kidney stones can cause very bad pain and can block the flow of pee. The stones will often pass out of the body through peeing. Drink enough fluid to keep your pee pale yellow. This information is not intended to replace advice given to you by your health care provider. Make sure you discuss any questions you have with your health care provider. Document Revised: 02/13/2022 Document Reviewed: 02/13/2022 [employer] Patient Education 2022 [employer]. Follow Up Care 10/11/2022 10:56:16 With:JERI SANDERS PA-C, URL Address: [address] [place] [place] [address] Business (1) When:6 months [facility] 10-31-2022 Hospital Discharg e instructions Follow Up Care 10/31/2022 09:35:35 With:JERI SANDERS PA-C, URL Address: [address] [place] [address] [phone] When: Unknown [facility] 10-26-2022 Note HNO ID: [id number] Author: Nestor Mckenzie MD Service: ? Author Type: Physician Type: Progress Notes Filed: 11/03/2022 9:40 AM Note Text: Radiation Oncology - Follow Up Note PATIENT NAME: Mark Douglas PATIENT DIAGNOSIS: Prostate adenocarcinoma, initial PSA 5.4, biopsy Geraldine score 3 + 4 = 7 (grade group 2), clinical stage T1c, N0, M0, stage IIB [T1-T2, N0, M0, PSA <20, GG 2] (AJCC 8th ed.), s/p TRUS Random biopsy. RADIATION SUMMARY:Prostate brachytherapy 03/10/2021, I-125, 145 Brennan, 85 sources, 32.30 mCi INTERVAL HISTORY: Doing well no new problems or concerns. 04/27/22:Patient's earlier this year. Patient has had a 40 pound weight loss although this is stabilized and starting to gain weight again. He does have family around for support. Otherwise feeling fairly good. 10/27/21:Patient doing well denies significant new problems. Urinary function good without obstructive complaints. 04/21/22: Still with obstructive issues. Self cathetize twice daily. Patient feels however this is improving for him. He has restarted Flomax which he thinks is helping and he has less residual with self cath. PSA HISTORY: PSA (ng/mL) Date Value 10/26/2021 0.41 01/11/2021 1.80 PSA. (no units) Date Value 10/13/2022 1.03 04/06/2022 1.60 04/18/2021 1.96 ALLERGIES No Known Allergies sertraline (ZOLOFT) 50 mg tablet Take 50 mg by mouth once daily. carvedilol (COREG) 6.25 mg tablet carvedilol 6.25 mg tablet TAKE 1 TABLET BY MOUTH TWICE A DAY aspirin, enteric coated (ASPIRIN, ENTERIC COATED) 81 mg EC tablet aspirin 81 mg tablet,delayed release TAKE 1 TABLET BY MOUTH EVERY DAY tamsulosin (FLOMAX) 0.4 mg 0.4 mg once daily. atorvastatin (LIPITOR) 20 mg tablet Take 20 mg by mouth daily at bedtime. allopurinol (ZYLOPRIM) 100 mg tablet Take 100 mg by mouth once daily. REVIEW OF SYSTEMS: See HPI - Total AUA Score: 2 Bowel movement frequency: 1-2/day Bowel movement quality: normal Blood per rectum: none PHYSICAL EXAM: BP 144/86 Pulse 63 Temp 36.3 ?C (97.4 ?F) Resp 18 Wt 98.9 kg (218 lb) SpO2 97% BMI 33.15 kg/m? KPS: 100 General appearance: Alert and oriented. No acute distress. Abdomen: Normal abdominal exam, Abdomen soft, non-tender. No masses, organomegaly. Rectal exam def Extremities: No deformities, edema, skin discoloration, clubbing or cyanosis. Lymph Nodes: No cervical lymphadenopathy, No supraclavicular lymphadenopathy, No axillary lymphadenopathy. Skin: Skin color, texture, turgor normal, no suspicious rashes or lesions. ASSESSMENT/PLAN: Prostate adenocarcinoma, initial PSA 5.4, biopsy Geraldine score 3 + 4 = 7 (grade group 2), clinical stage T1c, N0, M0, stage IIB [T1-T2, N0, M0, PSA <20, GG 2] (AJCC 8th ed.), status post prostate brachytherapy 03/10/2021 Overall doing well. PSA declining and low. He has continued close follow-up and surveillance with Dr. Kaplan. Plan to see patient back in 6 months for further postradiation follow-up. Signed by: Nestor Mckenzie MD cc: Ellen Barrera, ROAD ROLLER OPERATOR ([facility]) [address] [place] [address] [facility] 10-26-2022 Nurse Note AUA 2 Elisa Frederick RN documented in this encounter [facility] 10-26-2022 History of Presen t illness Narrative Radiation Oncology - Follow Up Note PATIENT NAME: Mark Douglas PATIENT DIAGNOSIS: Prostate adenocarcinoma, initial PSA 5.4, biopsy Geraldine score 3 + 4 = 7 (grade group 2), clinical stage T1c, N0, M0, stage IIB [T1-T2, N0, M0, PSA <20, GG 2] (AJCC 8th ed.), s/p TRUS Random biopsy. RADIATION SUMMARY:Prostate brachytherapy 03/10/2021, I-125, 145 Brennan, 85 sources, 32.30 mCi INTERVAL HISTORY: Doing well no new problems or concerns. 04/27/22:Patient's earlier this year. Patient has had a 40 pound weight loss although this is stabilized and starting to gain weight again. He does have family around for support. Otherwise feeling fairly good. 10/27/21:Patient doing well denies significant new problems. Urinary function good without obstructive complaints. 04/21/22: Still with obstructive issues. Self cathetize twice daily. Patient feels however this is improving for him. He has restarted Flomax which he thinks is helping and he has less residual with self cath. PSA HISTORY: PSA (ng/mL) Date Value 10/26/2021 0.41 01/11/2021 1.80 PSA. (no units) Date Value 10/13/2022 1.03 04/06/2022 1.60 04/18/2021 1.96 ALLERGIES No Known Allergies sertraline (ZOLOFT) 50 mg tablet Take 50 mg by mouth once daily. carvedilol (COREG) 6.25 mg tablet carvedilol 6.25 mg tablet TAKE 1 TABLET BY MOUTH TWICE A DAY aspirin, enteric coated (ASPIRIN, ENTERIC COATED) 81 mg EC tablet aspirin 81 mg tablet,delayed release TAKE 1 TABLET BY MOUTH EVERY DAY tamsulosin (FLOMAX) 0.4 mg 0.4 mg once daily. atorvastatin (LIPITOR) 20 mg tablet Take 20 mg by mouth daily at bedtime. allopurinol (ZYLOPRIM) 100 mg tablet Take 100 mg by mouth once daily. REVIEW OF SYSTEMS: See HPI - Total AUA Score: 2 Bowel movement frequency: 1-2/day Bowel movement quality: normal Blood per rectum: none PHYSICAL EXAM: BP 144/86 Pulse 63 Temp 36.3 C (97.4 F) Resp 18 Wt 98.9 kg (218 lb) SpO2 97% BMI 33.15 kg/m KPS: 100 General appearance: Alert and oriented. No acute distress. Abdomen: Normal abdominal exam, Abdomen soft, non-tender. No masses, organomegaly. Rectal exam def Extremities: No deformities, edema, skin discoloration, clubbing or cyanosis. Lymph Nodes: No cervical lymphadenopathy, No supraclavicular lymphadenopathy, No axillary lymphadenopathy. Skin: Skin color, texture, turgor normal, no suspicious rashes or lesions. ASSESSMENT/PLAN: Prostate adenocarcinoma, initial PSA 5.4, biopsy Geraldine score 3 + 4 = 7 (grade group 2), clinical stage T1c, N0, M0, stage IIB [T1-T2, N0, M0, PSA <20, GG 2] (AJCC 8th ed.), status post prostate brachytherapy 03/10/2021 Overall doing well. PSA declining and low. He has continued close follow-up and surveillance with Dr. Kaplan. Plan to see patient back in 6 months for further postradiation follow-up. Signed by: Nestor Mckenzie MD cc: Ellen Barrera, ROAD ROLLER OPERATOR ([facility]) [address] [place] [address] documented in this encounter [facility] 08-15-2022 Note Patient here for 1 y ear follow up CAD, hypertension, and hyperlipidemia. Had labs in Jun 2022, and lipid panel in November 2021. His this past Feb 2022. Denies chest pain and SOB. Says he feels good. Review of Systems HENT: Positive for hearing loss. All other systems reviewed and are negative. [facility] 08-15-2022 Note Cardiovascular Medic [facility] SUBJECTIVE Chief Complaint Patient presents with Coronary Artery Disease Hypertension Hyperlipidemia Mark Douglas is a 66 y.o. male here for follow-up. HPI PMHx: HUNTER (just received CPAP machine), basal cell skin carcinoma, pre-diabetes, HLD, family hx CAD, prostate CA, elevated BP readings 08/15/2022 He denies any changes since last seen. Unfortunately he lost his last fall. He had a hard time after this, lost weight and he has since gained some back now that he is eating better. He recently adopted his 12 year old granddaughter. He is staying active and eating heart healthy diet. Patient Active Problem List Diagnosis [place] heart disease of [place] coronary artery w/o ang pctrs Carcinoma of prostate (CMS/HCC) Essential (primary) hypertension Gout Hyperlipidemia, unspecified Obstructive sleep apnea Prostate cancer (CMS/HCC) Past Medical History: Diagnosis Date CAD (coronary artery disease) Gout Hyperlipidemia Hypertension HUNTER (obstructive sleep apnea) Prostate cancer (CMS/HCC) Family History Problem Relation Name Age of Onset Heart attack Mother 37 Coronary artery disease Mother Coronary artery disease Father 65 Coronary artery disease Brother Social History Tobacco Use Smoking status: Former Types: Cigarettes Smokeless tobacco: Never Substance Use Topics Alcohol use: Yes Comment: occasional No Known Allergies Review of Systems Constitutional: Negative for chills, fever and malaise/fatigue. Cardiovascular: Negative for chest pain, dyspnea on exertion, irregular heartbeat, leg swelling, near-syncope, orthopnea, palpitations, paroxysmal nocturnal dyspnea and syncope. OBJECTIVE Visit Vitals BP 135/75 (BP Location: Left arm, Patient Position: Sitting) Pulse 61 Ht 1.727 m (5' 8 ) Wt 96.6 kg (213 lb) SpO2 96% BMI 32.39 kg/m??? Smoking Status Former BSA 2.15 m??? Medications: Current Outpatient Medications: allopurinol (Zyloprim) 100 mg tablet, Take 100 mg by mouth in the morning., Disp: , Rfl: aspirin 81 mg EC tablet, Take 81 mg by mouth in the morning., Disp: , Rfl: atorvastatin (Lipitor) 80 mg tablet, Take 1 tablet by mouth at bedtime., Disp: , Rfl: carvedilol (Coreg) 6.25 mg tablet, Take 6.25 mg by mouth in the morning and at bedtime., Disp: , Rfl: sertraline (Zoloft) 50 mg tablet, Take 50 mg by mouth in the morning., Disp: , Rfl: tamsulosin (Flomax) 0.4 mg 24 hr capsule, 0.4 mg in the morning., Disp: , Rfl: Physical Exam Constitutional: Appearance: Normal appearance. HENT: Head: Normocephalic and atraumatic. Right Ear: External ear normal. Left Ear: External ear normal. Eyes: Extraocular Movements: Extraocular movements intact. Pupils: Pupils are equal, round, and reactive to light. Neck: Vascular: No carotid bruit. Cardiovascular: Rate and Rhythm: Normal rate and regular rhythm. Pulses: Normal pulses. Heart sounds: Normal heart sounds. Pulmonary: Effort: Pulmonary effort is normal. Breath sounds: Normal breath sounds. Abdominal: General: Bowel sounds are normal. Palpations: Abdomen is soft. Musculoskeletal: General: Normal range of motion. Cervical back: Neck supple. Right lower leg: No edema. Left lower leg: No edema. Skin: General: Skin is warm and dry. Neurological: General: No focal deficit present. Mental Status: He is alert and oriented to person, place, and time. Psychiatric: Mood and Affect: Mood normal. Behavior: Behavior normal. Thought Content: Thought content normal. Judgment: Judgment normal. Labs/Testing/Procedures: Legacy Encounter on 04/28/2021 Component Date Value Ref Range Status Ventricular Rate 04/28/2021 80 BPM Final Atrial Rate 04/28/2021 80 BPM Final [place] Interval 04/28/2021 162 ms Final QRS DURATION 04/28/2021 90 ms Final QT Interval 04/28/2021 384 ms Final QTC CALCULATION(BAZETT) 04/28/2021 442 ms Final P Riparius 04/28/2021 30 degrees Final R-Riparius 04/28/2021 17 degrees Final T Wave Riparius 04/28/2021 64 degrees Final Diagnosis 04/28/2021 Final Value:Normal sinus rhythm Normal ECG No previous ECGs available Confirmed by Brad Bynum ([id number]) on 04/28/2021 1:08:42 PM Lab 02/08/2022 Hgb 13.1, plt 496 Cr. 1.65, BUN 17, K 4.1, GFR 42, ALT 23, AST 23 TSH: 1.004 Labs (12/15/2021) Hgb 15.2, plt 303 Cr 1.04, BUN 9, K 4.2, Na + 142, GFR >60, ALT 46, AST 26 Chol: 152, HDL 35, trig 170, LDL 83 HgbA1c: 6.3 Labs 07/06/2021: AST and ALT are normal Cholesterol 146, HDL 52, triglycerides 119, LDL 70 Service Date: 04/28/2021 Cardiovascular Laboratory Report FINAL IMPRESSIONS: 1. Fjbl-ed-[id number] 2-vessel coronary artery disease. 2. Normal global left ventricular systolic function by noninvasive imaging. 3. Bftaizxt-bk-[id number] systemic hypertension. RECOMMENDATIONS: 1. Aggressive cardiovascular risk factor modification. 2. Optimization medical management; aspirin, high-intens (more content not included)... [facility] 07-13-2022 Note OP Note OPERATION DATE: 07/13/2022 PREOPERATIVE DIAGNOSIS: Left ureteral calculus, status post left stent placement. POSTOPERATIVE DIAGNOSIS: Left ureteral calculus, status post left stent placement. PROCEDURE: 1. Cystoscopy. 2. Left stent change to 6-Mongolian variable length. 3. Left ureteroscopy. 4. Holmium laser lithotripsy of large left ureteral calculus. 5. Stone basket extraction. 6. Left pyeloscopy. 7. Holmium laser lithotripsy of left renal calculi. ANESTHESIA: General by LMA by Dr. Fraser. COMPLICATIONS: None. INDICATIONS: Mark Douglas is a 66-year-old gentleman with a nearly 2 cm left proximal ureteral calculus for which he was stented several weeks ago. He has ureteral stricture just distal to the stone. He now presents for definitive ureteroscopy, laser and possible stent change or removal. He has signed an informed consent for these procedures, after all the risks were explained to him. PROCEDURE: Patient was brought to the operating room and placed on the operating room table in the supine position. SCDs were placed on his lower extremities and turned on and functioning during the entire case. Timeout was done by all parties in the room. We all agreed upon the patient's identifications and the planned procedures for the patient. General anesthesia was administered via LMA by Dr. Fraser. He was then repositioned into the modified dorsolithotomy position. All pressure points were satisfactorily padded. Genitalia were sterilely prepped and draped in the usual fashion. I started by passing a 22-Mongolian Olympus cystoscope per urethra and into the bladder. The stent was non-encrusted. I then passed the flexible grasping forceps and grasped the end of the stent and brought it out the urethral meatus. I then slid a Glidewire up the stent, into the left kidney, and removed the old stent. I then passed a Navigator 05/07 ureteral access sheath over the wire and up the left ureter to the L5 level. The wire and stylette were then removed. I then passed a flexible Olympus ureteroscope through the sheath and into the ureter and got right up to the stone at L3. I then passed a 270 angstrom holmium laser fiber through the scope and made contact with the stone. I then began doing laser lithotripsy; first at 10 garrett continuously, then up to 15 garrett continuously in the dust mode. The stone was extremely hard. At 15 garrett, I was finally able to start fragmenting and dusting. I was using the laser for a solid hour on this stone. It was very large, but also very hard, and it required multiple pulses. Once we began dusting and fragmenting, a large couple pieces went up in to the kidney. I use the Zero-Tip Nitinol basket and engaged pieces and extracted them down, and these were sent for stone analysis. When the ureter was free of all stone, I then did pyeloscopy and continued lasering in the kidney. There was an incredible amount of laser dust that was created. Eventually, fluoroscopically, we could not appreciate any stone. Endoscopically, there were hundreds of tiny little gravel fragments. I went into several of the calices, chasing stone pieces and dusting them. After using over 18,300 joules of energy, we then began to get a little bit of bleeding and our visibility began to subside. Fortunately, there was no significant stone piece remaining. The scope was then removed. I then passed a Glidewire through the sheath, into the kidney and removed the access sheath. I then passed the cystoscope over the wire and into the bladder, and then slid a 6-Mongolian variable length stent, over the wire, up in to the kidney. The wire was removed, and there were good curls in the kidney and in the bladder. I then used the grasping forceps and grasped a large fragment that was in the base of the bladder, and this was extracted and sent for analysis. The bladder was drained of its contents and the scope was then removed. He was then transferred to a [facility] bed and wheeled to PACU in stable condition. [facility] 05-25-2022 Note OP Note OPERATION DATE: 05/25/2022 PREOPERATIVE DIAGNOSIS: Large left ureteral calculus. POSTOPERATIVE DIAGNOSIS: Large left ureteral calculus. PROCEDURE: 1. Left ESWL. 2. Cystoscopy. 3. Left retrograde pyelogram. 4. Rigid left ureteral dilation. 5. Left ureteroscopy. 6. Placement of 7-Mongolian variable length left ureteral stent. ANESTHESIA: General by LMA FINDINGS: 1. Severe distal left ureteral J-hooking. 2. L4 ureteral stricture. 3. L3 dilated ureter with stone in it. COMPLICATIONS: None. INDICATIONS: Mr. Douglas is a 66-year-old gentleman with a 16 mm left ureteral calculus at the L3 level. He now presents for left ESWL with possible ureteroscopic stone manipulation and stent placement. He has signed and informed consent for these procedures after all the risks were explained to him in great detail. Some of these include bleeding, perinephric hematoma, infection and anesthesia to name a few. PROCEDURE: Patient was brought to the operating room and placed on the operating room table in the supine position. SCDs were placed on his lower extremities and turned on and functioning during the entire case. Timeout was done by all parties in the room. We all agreed upon the patient's identification and the planned procedures for this patient. General anesthesia was then administered via LMA. We then brought the treatment head to his left flank. While using fluoroscopy, we easily identified this large stone that was located at the L3 level on the left. We lined it up into the cross hairs and began applying shocks at power level 2.0 and increased to a maximum of power level 4.0. Intermittent fluoroscopy showed that the stone immediately fractured the distal tip off. This happened within the first 300 shocks. We continued applying shocks to the entire stone. We applied a total of 3000 shocks. We saw internal fragmentation, but there was no spreading out effect. At the end of 3000 shocks, since we had no streaming effect of any of the stony material and I knew he was still potentially obstructed, I decided to do ureteroscopy. He was then repositioned into the modified dorsolithotomy position. All pressure points were satisfactorily padded. Genitalia were sterilely prepped and draped in the usual fashion. I started by passing a 22-Mongolian Olympus cystoscope per urethra and into the bladder. The prostatic urethra was long and obstructing. Cano endoscopy in the bladder showed no evidence of any stones or tumors. I then passed an 8-Mongolian cone tip catheter and did a left retrograde pyelogram. This showed the large filling defect at the L3 level. Contrast did go through the stone also, due to the fractures. The kidney illuminated much more proximally with the contrast. I then passed a Glidewire through the scope and attempted to get it up the left ureter, but due to severe J-hooking of the distal left ureter, I had difficulty. I used a curved tip guide wire and then I used an 8-Mongolian ureteral dilator and still could not get the wire up. I then removed the cystoscope and then passed a semi-rigid ureteroscope through the urethra, into the bladder, and I was able to get the scope into the ureter and up beyond the J-hooking. Through the scope, I then passed a Glidewire and got that up into the kidney and then removed the scope. I then passed a Dornier 10/12-Mongolian ureteral access sheath over the wire and got it right up to the L5 level. The wire and stylette were then removed. I then passed a Dornier disposable flexible ureteroscope through the sheath and got into the ureter. As I ascended up the ureter at the L4 level, I arrived at a stricture. I could see proximally, but I could not get the scope through this stricture safely. Therefore, I was unable to do laser lithotripsy. I then passed a Glidewire through the scope and got it up into the kidney and removed the scope. I then removed the access sheath. I then backloaded the cystoscope over the wire and passed it into the bladder. I then slid a 7-Mongolian variable length ureteral stent over the wire, up into the kidney. The wire was removed and there were good curls in the kidney and in the bladder. The bladder was drained of its contents and the scope was then removed. He was then transferred to a [facility] bed and wheeled to PACU in stable condition. [facility] 04-27-2022 Nurse Note AUA= 3 documented in this encounter [facility] 04-27-2022 History of Presen t illness Narrative Radiation Oncology - Follow Up Note PATIENT NAME: Mark Douglas PATIENT DIAGNOSIS: Prostate adenocarcinoma, initial PSA 5.4, biopsy Geraldine score 3 + 4 = 7 (grade group 2), clinical stage T1c, N0, M0, stage IIB [T1-T2, N0, M0, PSA <20, GG 2] (AJCC 8th ed.), s/p TRUS Random biopsy. RADIATION SUMMARY:Prostate brachytherapy 03/10/2021, I-125, 145 Brennan, 85 sources, 32.30 mCi INTERVAL HISTORY: Patient's earlier this year. Patient has had a 40 pound weight loss although this is stabilized and starting to gain weight again. He does have family around for support. Otherwise feeling fairly good. 10/27/21:Patient doing well denies significant new problems. Urinary function good without obstructive complaints. 04/21/22: Still with obstructive issues. Self cathetize twice daily. Patient feels however this is improving for him. He has restarted Flomax which he thinks is helping and he has less residual with self cath. PSA HISTORY: PSA (ng/mL) Date Value 10/26/2021 0.41 01/11/2021 1.80 PSA. (no units) Date Value 04/06/2022 1.60 04/18/2021 1.96 ALLERGIES No Known Allergies sertraline (ZOLOFT) 50 mg tablet Take 50 mg by mouth once daily. carvedilol (COREG) 6.25 mg tablet carvedilol 6.25 mg tablet TAKE 1 TABLET BY MOUTH TWICE A DAY aspirin, enteric coated (ASPIRIN, ENTERIC COATED) 81 mg EC tablet aspirin 81 mg tablet,delayed release TAKE 1 TABLET BY MOUTH EVERY DAY tamsulosin (FLOMAX) 0.4 mg 0.4 mg twice daily. atorvastatin (LIPITOR) 20 mg tablet Take 20 mg by mouth daily at bedtime. allopurinol (ZYLOPRIM) 100 mg tablet Take 100 mg by mouth once daily. REVIEW OF SYSTEMS: See HPI - Total AUA Score: 2 Bowel movement frequency: 1-2/day Bowel movement quality: normal Blood per rectum: none PHYSICAL EXAM: There were no vitals taken for this visit. KPS: 100 General appearance: Alert and oriented. No acute distress. Abdomen: Normal abdominal exam, Abdomen soft, non-tender. No masses, organomegaly. Rectal exam def Extremities: No deformities, edema, skin discoloration, clubbing or cyanosis. Lymph Nodes: No cervical lymphadenopathy, No supraclavicular lymphadenopathy, No axillary lymphadenopathy. Skin: Skin color, texture, turgor normal, no suspicious rashes or lesions. ASSESSMENT/PLAN: Prostate adenocarcinoma, initial PSA 5.4, biopsy Geraldine score 3 + 4 = 7 (grade group 2), clinical stage T1c, N0, M0, stage IIB [T1-T2, N0, M0, PSA <20, GG 2] (AJCC 8th ed.), status post prostate brachytherapy 03/10/2021 Doing fairly well. No significant post treatment related issues. PSA remains low slight rise may indicate PSA bounce, he has continued close follow-up and surveillance with Dr. Kaplan. He has had some weight loss likely related to issues with his passing care for her prior. He is starting to eat better and gaining weight. Continue monitoring. Signed by: Nestor Mckenzie MD cc: Ellen Barrera, ROAD ROLLER OPERATOR ([facility]) [address] [place] [address] documented in this encounter [facility] 04-25-2022 History and physical note COLORECTAL SURGERY April 13, 2022 Mark Douglas 66 year old This consult was requested by Dr. Lujan and my final recommendations will be communicated to the requesting health care provider by way of the shared medical record for internal providers or letter via the [employer] for external providers. Chief Complaint: colon mass History of Present Illness: Mark Douglas is a 66 year old male presents today for evaluation of colon mass. Colonoscopy 03/15/22 - Dr. Lujan - Severe diverticulosis throughout the entire colon, more severe in the left descending and sigmoid colon. - At approximately 45 cm, there was noted to be a 3 mm polypoid mass around the fold with multiple large diverticula around the area. Multiple biopsies were obtained. Pathology Final Diagnosis SIGMOID COLON POLYP MASS, BIOPSY: TUBULOVILLOUS ADENOMA CT C/A/P 02/13/22 - [facility] LUNGS: No visible pulmonary disease LIVER: No enlargement, atrophy, abnormal density, or significant focal lesion BOWEL/MESENTERY: Extensive colonic diverticulosis. Mild thickening of the sigmoid colon wall likely related to underlying diverticulosis. No evidence of acute diverticulitis. Nonobstructive bowel gas pattern. RETROPERITONEUM: No mass or adenopathy. 66-year-old male underwent a colonoscopy and found to have a sigmoid colon mass. Biopsy showed tubulovillous adenoma. He is here for further management PAST MEDICAL HISTORY PAST MEDICAL HISTORY Diagnosis Date Gout of multiple sites Hypercholesteremia PAST SURGICAL HISTORY PAST SURGICAL HISTORY Procedure Laterality Date APPENDECTOMY PAST SURGICAL HISTORY OF Right Finger surgery REPAIR UMBILICAL JOE,5+Y/O,REDUC CURRENT MEDICATIONS Current Outpatient Medications Medication Sig Dispense Refill carvedilol (COREG) 6.25 mg tablet carvedilol 6.25 mg tablet TAKE 1 TABLET BY MOUTH TWICE A DAY aspirin, enteric coated (ASPIRIN, ENTERIC COATED) 81 mg EC tablet aspirin 81 mg tablet,delayed release TAKE 1 TABLET BY MOUTH EVERY DAY tamsulosin (FLOMAX) 0.4 mg 0.4 mg twice daily. atorvastatin (LIPITOR) 20 mg tablet Take 20 mg by mouth daily at bedtime. allopurinol (ZYLOPRIM) 100 mg tablet Take 100 mg by mouth once daily. No current facility-administered medications for this visit. ALLERGIES ALLERGIES No Known Allergies FAMILY HISTORY FAMILY HISTORY Problem Relation Age of Onset Prostate Cancer Brother Lung Cancer Brother SOCIAL HISTORY Social History Tobacco Use Smoking status: Never Smokeless tobacco: Never Substance Use Topics Alcohol use: Yes Comment: Social Drug use: Never Physical Exam: BP 142/65 (BP Site: Left Arm, BP Position: Sitting, BP Cuff Size: Regular Adult) Pulse 64 SpO2 97% General Appearance: Well appearing, alert, in no acute distress, well-hydrated, well nourished. 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 I will plan for repeat colonoscopy to allow me to tattoo the lesion and also assess if I can perform EMR to remove it. If it is not endoscopically resectable but I will plan for laparoscopic segmental colectomy. CT abdomen/pelvis report from the outside hospital does not note the mass. Of note he has a history of prostate cancer treated with brachytherapy Medical Decision Making: Data Reviewed: Tests & Documents Reviewed/ordered: Review of prior notes from Dr. Lujan Review of Pathology Review of Procedures / Tests: Colonoscopy Additional testing or imaging to be ordered: Colonoscopy Imaging review: CT Abdomen/pelvis Risk of morbidity, mortality and/or complications of treatment plan: high Chai Palma MD Colorectal Surgery Above clinic note reviewed. No changes. Cardiac: regular rate Resp: unlabored respirations Proceed with colonoscopy Chai Palma MD April 25, 2022 2:45 PM documented in this encounter [facility] 04-24-2022 Hospital Discharg e instructions Patient Education 04/24/2022 12:42:44 Kidney Stones, Lnss-so-Xvec Kidney Stones Kidney stones are rock-like masses that form inside of the kidneys. Kidneys are organs that make pee (urine). A kidney stone may move into other parts of the urinary tract, including: The tubes that connect the kidneys to the bladder (ureters). The bladder. The tube that carries urine out of the body (urethra). Kidney stones can cause very bad pain and can block the flow of pee. The stone usually leaves your body (passes) through your pee. You may need to have a doctor take out the stone. What are the causes? Kidney stones may be caused by: A condition in which certain glands make too much parathyroid hormone (primary hyperparathyroidism). A buildup of a type of crystals in the bladder made of a chemical called uric acid. The body makes uric acid when you eat certain foods. Narrowing (stricture) of one or both of the ureters. A kidney blockage that you were born with. Past surgery on the kidney or the ureters, such as gastric bypass surgery. What increases the risk? You are more likely to develop this condition if: You have had a kidney stone in the past. You have a family history of kidney stones. You do not drink enough water. You eat a diet that is high in protein, salt (sodium), or sugar. You are overweight or very overweight (obese). What are the signs or symptoms? Symptoms of a kidney stone may include: Pain in the side of the belly, right below the ribs (flank pain). Pain usually spreads (radiates) to the groin. Needing to pee often or right away (urgently). Pain when going pee (urinating). Blood in your pee (hematuria). Feeling like you may vomit (nauseous). Vomiting. Fever and chills. How is this treated? Treatment depends on the size, location, and makeup of the kidney stones. The stones will often pass out of the body through peeing. You may need to: Drink more fluid to help pass the stone. In some cases, you may be given fluids through an IV tube put into one of your veins at the hospital. Take medicine for pain. Make changes in your diet to help keep kidney stones from coming back. Sometimes, medical procedures are needed to remove a kidney stone. This may involve: A procedure to break up kidney stones using a beam of light (laser) or shock waves. Surgery to remove the kidney stones. Follow these instructions at home: Medicines Take dsge-aop-jkqkicl and prescription medicines only as told by your doctor. Ask your doctor if the medicine prescribed to you requires you to avoid driving or using heavy machinery. Eating and drinking Drink enough fluid to keep your pee pale yellow. You may be told to drink at least 8 10 glasses of water each day. This will help you pass the stone. If told by your doctor, change your diet. This may include: ?Limiting how much salt you eat. ?Eating more fruits and vegetables. ?Limiting how much meat, poultry, fish, and eggs you eat. Follow instructions from your doctor about eating or drinking restrictions. General instructions Collect pee samples as told by your doctor. You may need to collect a pee sample: ?24 hours after a stone comes out. ?8 12 weeks after a stone comes out, and every 6 12 months after that. Strain your pee every time you pee (urinate), for as long as told. Use the strainer that your doctor recommends. Do not throw out the stone. Keep it so that it can be tested by your doctor. Keep all follow-up visits as told by your doctor. This is important. You may need follow-up tests. How is this prevented? To prevent another kidney stone: Drink enough fluid to keep your pee pale yellow. This is the best way to prevent kidney stones. Eat healthy foods. Avoid certain foods as told by your doctor. You may be told to eat less protein. Stay at a healthy weight. Where to find more information National Kidney Foundation (NKF): www.kidney.org [employer] (UCF): www.urologyhealth.org Contact a doctor if: You have pain that gets worse or does not get better with medicine. Get help right away if: You have a fever or chills. You get very bad pain. You get new pain in your belly (abdomen). You pass out (faint). You cannot pee. Summary Kidney stones are rock-like masses that form inside of the kidneys. Kidney stones can cause very bad pain and can block the flow of pee. The stones will often pass out of the body through peeing. Drink enough fluid to keep your pee pale yellow. This information is not intended to replace advice given to you by your health care provider. Make sure you discuss any questions you have with your health care provider. Document Released: 11/27/2008 Document Revised: 10/28/2019 Document Reviewed: 10/28/2019 [employer] Patient Education 2020 [employer]. Follow Up Care 02/08/2022 11:26:01 With:EUSE[employer] CHRISTINE, Nestor Veras, URL Address: [address] Urology [address] , [place] [address] [phone] When:Within 6 Month(s) Comments:w/ mal [facility] 04-18-2022 Miscellaneous Notes Called patient and told him we had to move his colonoscopy from 04/27 to 04/25. Told him currently he is scheduled at 2:45 and he should arrive by 1:45 but they will call him the day before to confirm this. He said he will stop taking his 81 mg aspirin today then. documented in this encounter [facility] 04-14-2022 History and physical note HISTORY AND PHYSICAL EXAMINATION SERVICE DATE: 04/14/2022 SERVICE TIME: 2:09 PM PRIMARY CARE PHYSICIAN: Ellen Barrera, ROAD ROLLER OPERATOR, ROAD ROLLER OPERATOR REASON FOR VISIT: Mark Douglas is a 66 year old male who is scheduled for colonoscopy at the request of Dr. Chai Palma for consultation. My final recommendation will be communicated back to the requesting physician by way of shared medical record or letter. The patient has the following: ACTIVE PROBLEM LIST Prostate Cancer (Hcc) Obstructive Sleep Apnea Hyperlipidemia, Unspecified Essential (Primary) Hypertension Athscl Heart Disease of [place] Coronary Artery W/O Ang Pctrs Subjective CHIEF COMPLAINT: mass in colon HPI: 66 year old male with a 3 mm polypoid mass around the fold with multiple large diverticula around the area and severe diverticulosis throughout the entire colon found on recent colonoscopy 02/13/2022 at [facility]. Biopsy showed tubulovillous adenoma. Scheduled for colonoscopy to allow me to tattoo the lesion and also assess if I can perform EMR and further treatment. PAST MEDICAL HISTORY Diagnosis Date Coronary artery disease Gout of multiple sites Hypercholesteremia Hypertension Sleep apnea PAST SURGICAL HISTORY Procedure Laterality Date APPENDECTOMY COLONOSCOPY 01/2022 LEFT HEART CATH,PERCUTANEOUS PAST SURGICAL HISTORY OF Right Finger surgery REPAIR UMBILICAL JOE,5+Y/O,REDUC FAMILY HISTORY Problem Relation Age of Onset Prostate Cancer Brother Lung Cancer Brother Anesthesia Problems No Family History SOCIAL HISTORY: Social History Tobacco Use Smoking status: Former Types: Cigars Start date: 2011 Quit date: 2016 Years since quittin.8 Smokeless tobacco: Never Substance Use Topics Alcohol use: Yes Comment: Very rare Drug use: Never Comment: denies tx for drug/alcohol abuse in the past. MEDICATIONS: Prior to Admission medications as of 04/14/22 1400 Medication Sig Last Dose Taking sertraline (ZOLOFT) 50 mg tablet Take 50 mg by mouth once daily. Yes carvedilol (COREG) 6.25 mg tablet carvedilol 6.25 mg tablet TAKE 1 TABLET BY MOUTH TWICE A DAY Yes aspirin, enteric coated (ASPIRIN, ENTERIC COATED) 81 mg EC tablet aspirin 81 mg tablet,delayed release TAKE 1 TABLET BY MOUTH EVERY DAY Yes tamsulosin (FLOMAX) 0.4 mg 0.4 mg twice daily. Yes atorvastatin (LIPITOR) 20 mg tablet Take 20 mg by mouth daily at bedtime. Yes allopurinol (ZYLOPRIM) 100 mg tablet Take 100 mg by mouth once daily. Yes No medication comments found. CURRENT ALLERGIES: ALLERGIES No Known Allergies COVID VACCINATION STATUS: Not vaccinated REVIEW OF SYSTEMS: PAIN ASSESSMENT: General: No weight loss, malaise or fevers. Neuro: No history of TIA's, stroke, HOME MAKER tumor, impaired sensorium, hemiplegia, paraplegia or quadraplegia. No neurological symptoms or problems. Respiratory: Positive for HUNTER- not currently using CPAP, Negative for Asthma, COPD, URI < 2 weeks Cardiovascular: Positive for: CAD; mild- nonobstructive , HLD, Hypertension, Negative for Chest Pain, DVT/PE GI: See HPI : hx of prostate CA- s/p brachytherapy Endocrine: No history of diabetes. Has not taken steroids within the past 30 days. No history of endocrinological symptoms or problems. Hematology: Chronic anti-coagulation / platelet meds (Aspirin) Oncology: Hx of prostate CA Psych: Depression Musculoskeletal: Negative for joint pain or swelling, back pain or muscle pain. Hx of allopurinol Skin: Negative for lesions, rash and itching. Objective PHYSICAL EXAM: VITALS: BP 120/68 Pulse 77 Temp (Src) 97 (Temporal Artery) Resp 16 Ht 5' 8 (1.73m) Wt 213 lb (96.6kg) SpO2 98% BMI 32.39 kg/(m^2). General: Alert and oriented, No acute distress Skin: Normal color, no rash, no lesions. HEENT: EOM, pupils equal, round and reactive. Cardiovascular: Normal S1 & S2, no rubs, murmurs or gallops. No JVD. Pulse regular. Lungs: Normal breath sounds, no wheezes or crackles. Abdomen: Soft, non-tender, no rigidity. Extremities: No deformity, no edema or tenderness, no joint swelling or clubbing. Neurological: Normal cognition and motor skills. Pulses: Carotid and radial pulses normal +2. Diagnostic tests reviewed for today's visit: EKG at OSH 04/28/2021 ( in care everywhere) Diagnosis Normal sinus rhythm Normal ECG No previous ECGs available Confirmed by Brad Bynum ([id number]) on 04/28/2021 1:08:42 PM Cardiac cath 05/10/2021 FINDINGS: Hemodynamics: AO is 155/87. LEFT VENTRICULOGRAPHY: This was not performed. Ejection fraction is normal by noninvasive imaging. CORONARY ARTERIES: Left main coronary artery: This arises from the left coronary cusp. It is a short vessel that rapidly bifurcates into the left anterior descending and left circumflex coronary artery. It is free of significant stenosis. Left anterior descending coronary artery: This shows diffuse tapering in the proximal to midportion of the vessel. There is lumen reduction distally. No focal stenosis is seen. Left circumflex coronary artery: This shows an ostial 40% stenosis and is otherwise nonobstructive. Right coronary artery: This shows a proximal 40% stenosis. It is a dominant vessel giving rise to the posterior descending and posterolateral branches. INDICATIONS: Abnormal stress test. Electronically Signed by: Jes Hoang M.D. 05/10/2021 09:07 A FINAL IMPRESSIONS: 1. Xodc-xv-xdawhaix 2-vessel coronary artery disease. 2. Normal global left ventricular systolic function by noninvasive imaging. 3. Htrsvupx-rw-xtpxro systemic hypertension. Assessment/Plan Essential (primary) hypertension Assessment: controlled on Carvedilol BP 120/68 Hyperlipidemia, unspecified Assessment: on statin Athscl heart disease of [place] coronary artery w/o ang pctrs Assessment: mild non obstructive disease per cardiac cath 2020 On ASA Obstructive sleep apnea Assessment:tristantes has not been using CPAP recently Prostate cancer (HCC) Assessment: s/p brachytherapy METS: Climb a flight of stairs or walk up a hill (5.50 METs) Patient denies any chest pain or undue shortness of breath with the above physical activity. ASA Class: 3 ANESTHESIA FINDINGS: Intubation History: No history of difficult intubation Significant Anesthesia Considerations: None Airway Exam: General: Normal appearance Mallampati Score is CLASS III ULBT: Class II - Lower incisors can bite the upper lip below the xin line Neck: Normal appearance and function Mouth: Normal tongue size Dentition: Intact Airway History: No abnormal airway history STOP BANG Score: HUNTER does not use CPAP/BiPAP PLAN This patient is optimally prepared for surgery. CONSULTS: Patient does not require consults for optimization at this time. The Following Tests/Procedures Have Been Initiated: NONE Planned Anesthetic: MAC Instructions Given to Patient: Instructions located in the after visit summary. Patient given verbal and written preop instructions and voices comprehension and compliance. SIGNATURE: Nina Motley APRN.CNP PATIENT NAME: Mark Douglas DATE: April 14, 2022 TIME: 1:51 PM documented in this encounter [facility] 04-14-2022 Instructions Nina Motley APRN.CNP - 04/14/2022 2:10 PM EDT PATIENT PREOPERATIVE INSTRUCTIONS Chai Palma MD has scheduled you for your procedure at this surgery center: [facility]: [phone] --[address] [place] [address]. Please enter through the entrance closest to [facility]. Arrival Time for Surgery: - The Surgery Center or hospital where you are having surgery will call the afternoon before surgery (or Sunday for Sunday surgery) with a scheduled arrival time. - If you have not heard by 3 pm, please contact the surgery center above. Please be aware that emergency situations arise, which may delay or change your surgical time. If this happens, we will notify you as soon as possible and regret any inconvenience. Please read below carefully for your personalized instructions. Dietary Restrictions: - Follow bowel prep instructions: clear liquids need to be stopped 2 hours prior to schedule arrival at facility Medications: Unless instructed differently below, stay on all of your medications until your surgery. Approved medications to take the morning of surgery with a sip of water: Carvedilol, Sertraline, Allopurinol, Flomax, Atorvastatin If you take any medications for erectile dysfunction-Cialis (Tadalafil), Levitra, Staxyn (Vardenafil) Viagra (Sildenenafil please do not take these for 48 hours before surgery. If you start any new medications after today's visit, please contact the surgeon's office. Blood Thinning Medications: - Stop NSAIDS (Ibuprofen, Advil, Aleve, Motrin, Celebrex, Mobic, etc.) 7 days before surgery, as directed by your surgeon. - Stop Aspirin 7 days before surgery, as directed by your surgeon. - Stop Vitamin E, ALL multi-vitamins, herbals and dietary supplements 7 days before surgery. - You may take Tylenol (Acetaminophen) or any of your pain medications that do not contain aspirin or NSAIDS as needed. Important Reminders: - If you are prescribed inhalers for breathing, continue using them. - Candy, mints, and tobacco products are NOT permitted the morning of surgery. - Hearing aids, dentures and glasses may be worn the morning of surgery. - NO jewelry, body piercings, makeup, hairpins or contacts are to be worn the day of surgery. If you develop symptoms such as a fever, cold, or flu, or have other changes to your health within TWO DAYS of scheduled surgery or the morning of surgery, please contact the surgery center above. Personal Belongings: -Please have photo ID and insurance cards. -If you do not have a copy of advance directives on file with us, please bring a copy with you on the day of surgery. - Leave ALL valuables and money at home or with family members. For Outpatient Procedures: - YOU MUST HAVE A RESPONSIBLE RESEARCH NURSE PRACTITIONER TAKE YOU HOME. A ADZ WORKER OR ERP PROGRAMMER CANNOT BE MADE A RESPONSIBLE RESEARCH NURSE PRACTITIONER. - We recommend that a responsible person stays with you overnight to take care of you. - You cannot stay in a hotel alone after outpatient surgery. You will not be permitted to have your surgery, if you do not have someone to take care of you. If you already have an Advance Directive, please fax a copy to [phone] or email to for it to be added to your chart. If you do not have an Advance Directive, you can find the appropriate form and more information at [email or web address]. We recommend that you complete the Advance Directive form found on the website and bring it with you the day of your surgery. It can be witnessed and scanned into your chart that day. documented in this encounter [facility] 04-14-2022 Miscellaneous Notes Spoke with patient. Confirmed date, time and place Called patient as a follow up to his office visit yesterday. Left voice message notifying him that we have him scheduled for a colonoscopy with Dr. Palma on Apr 27 at 8:45 at [facility]. He will need to arrive by 7:45. Asked him to call back to verify that he got this message and is aware of the date, time and place. documented in this encounter [facility] 03-15-2022 Note OPERATIVE NOTE OPERATION DATE: 03/15/2022 PREOPERATIVE DIAGNOSIS: Personal history of colon polyps as well as unexplained weight loss. POSTOPERATIVE DIAGNOSIS: Antral gastritis, small antral polyp, distal esophagitis, severe diverticulosis of the colon, throughout the colon, as well as polypoid mass lesion at 45 cm in the sigmoid colon. PROCEDURE: EGD with biopsy of antral ulceration, biopsy of antral polyp and biopsy of distal esophagus, colonoscopy to cecum with multiple biopsies of polypoid mass at 45 cm. SURGEON: Gaetano Lujan M.D. ANESTHESIA: Monitored anesthesia care. ESTIMATED BLOOD LOSS: Less than 1 mL. INDICATIONS AND CONSENT: Patient is a 66-year-old male with personal history of colon polyps. Last colonoscopy was in 2013. He has also had unexplained 30 pound weight loss. Indications, risks, benefits, alternatives of proceeding with EGD and colonoscopy were explained extensively to the patient, including the risks of bleeding, aspiration, esophageal/gastric/duodenal or colonic perforation or anesthetic complications. All of his questions were answered. Informed consent was obtained. PROCEDURE: Patient brought to the operating room, placed in the left lateral decubitus position. Monitored anesthesia care was provided. Bite block was placed in the patient's mouth. Scope was inserted into the oropharynx. Under direct visualization, it was advanced into the esophagus, past the cricopharyngeus, down to the stomach. The stomach was insufflated with air. The pylorus was traversed down to the descending portion of the duodenum. There was no evidence of duodenitis or ulceration. There was no scarring within the pyloric channel. Scope was pulled back into the stomach. There was noted to be some superficial ulceration within the antrum with some old blood adherent to it. No active bleeding. There was also a 5 mm polypoid mass near the antrum without ulceration or bleeding. Biopsy of this mass, as well as the ulceration, was obtained with good hemostasis. Scope was retroflexed. There was no significant hiatal hernia. GE junction was noted at approximately 40 cm. There was some distal esophagitis which was biopsied with good hemostasis. The remainder of the esophagus was unremarkable. The scope was then withdrawn. Patient was then positioned for colonoscopy. Rectal exam was performed which showed no masses or blood. The scope was inserted into the anal canal. Under direct visualization was advanced. There was a fair prep with some solid stool and brown liquid stool throughout the colon that was partially irrigated clear. The scope was able to be advanced to the cecum where cecal markings were clearly identified. Upon withdrawal of the scope, mucosal surfaces were carefully examined. There was noted to be severe diverticulosis throughout the entire colon, more severe in the left descending and sigmoid colon. At approximately 45 cm, there was noted to be a 3 mm polypoid mass around the fold with multiple large diverticula around the area. No ulceration or bleeding. Multiple biopsies of this polypoid mass were obtained with good hemostasis. No other mass lesions or polyps were noted. The scope was retroflexed in the anal canal. There were noted to be prominent rectal veins as well as some internal hemorrhoids. The scope was then withdrawn. Patient tolerated procedure well, was sent to recovery room in good condition. CC: Patient's family physician [facility] 10-28-2021 History of Presen t illness Narrative Patient was seen and examined by Dr. Mckenzie today. Patient denies any problems with bowel movements. No blood in his stools. Patient denies any problems with urination. No pain, burning or difficulty with urination. Patient was given treatment summary and survivorship care plan for prostate cancer. Sindy Regan APRN.RODRICK documented in this encounter [facility] 10-27-2021 History of Presen t illness Narrative Radiation Oncology - Follow Up Note PATIENT NAME: Mark Douglas PATIENT DIAGNOSIS: Prostate adenocarcinoma, initial PSA 5.4, biopsy [place] score 3 + 4 = 7 (grade group 2), clinical stage T1c, N0, M0, stage IIB [T1-T2, N0, M0, PSA <20, GG 2] (AJCC 8th ed.), s/p TRUS Random biopsy. RADIATION SUMMARY:Prostate brachytherapy 03/10/2021, I-125, 145 Brennan, 85 sources, 32.30 mCi INTERVAL HISTORY: Patient doing well denies significant new problems. Urinary function good without obstructive complaints. 04/21/22: Still with obstructive issues. Self cathetize twice daily. Patient feels however this is improving for him. He has restarted Flomax which he thinks is helping and he has less residual with self cath. PSA HISTORY: PSA (ng/mL) Date Value 10/26/2021 0.41 01/11/2021 1.80 PSA. (no units) Date Value 04/18/2021 1.96 ALLERGIES No Known Allergies carvedilol (COREG) 6.25 mg tablet carvedilol 6.25 mg tablet TAKE 1 TABLET BY MOUTH TWICE A DAY aspirin, enteric coated (ASPIRIN, ENTERIC COATED) 81 mg EC tablet aspirin 81 mg tablet,delayed release TAKE 1 TABLET BY MOUTH EVERY DAY tamsulosin (FLOMAX) 0.4 mg 0.4 mg twice daily. atorvastatin (LIPITOR) 20 mg tablet Take 20 mg by mouth daily at bedtime. allopurinol (ZYLOPRIM) 100 mg tablet Take 100 mg by mouth once daily. REVIEW OF SYSTEMS: See HPI - Total AUA Score: 2 Bowel movement frequency: 1-2/day Bowel movement quality: normal Blood per rectum: none PHYSICAL EXAM: BP 151/90 Pulse 71 Temp 36.5 C (97.7 F) Resp 20 Wt 109.8 kg (242 lb) SpO2 96% BMI 36.00 kg/m KPS: 100 General appearance: Alert and oriented. No acute distress. Abdomen: Normal abdominal exam, Abdomen soft, non-tender. No masses, organomegaly. Rectal exam def Extremities: No deformities, edema, skin discoloration, clubbing or cyanosis. Lymph Nodes: No cervical lymphadenopathy, No supraclavicular lymphadenopathy, No axillary lymphadenopathy. Skin: Skin color, texture, turgor normal, no suspicious rashes or lesions. ASSESSMENT/PLAN: Prostate adenocarcinoma, initial PSA 5.4, biopsy Geraldine score 3 + 4 = 7 (grade group 2), clinical stage T1c, N0, M0, stage IIB [T1-T2, N0, M0, PSA <20, GG 2] (AJCC 8th ed.), status post prostate brachytherapy 03/10/2021 Doing well with excellent PSA response. No significant posttreatment problems. Plan to have patient back in 6 months with repeat PSA. Signed by: Nestor Mckenzie MD cc: Ellen Barrera, ROAD ROLLER OPERATOR ([facility]) [address] [place] [address] documented in this encounter [facility] 10-27-2021 Nurse Note AUA 2 lEisa Frederick RN documented in this encounter [facility] Evaluation + Plan note Future Appointments Appointment Date:04/24/2022 11:45:00 AM Scheduled Provider:Nestor KAPLAN MD Location:[facility] Appointment Type:URO Office Visit General Surgery [place] Evaluation + Plan note Future Appointments Appointment Date:10/16/2022 10:30:00 AM Scheduled Provider:Nestor KAPLAN MD Location:[facility] Appointment Type:URO Office Visit Diagnostic Tests PendingPSA Total 08/23/22 [facility] Evaluation + Plan note Future Appointments Appointment Date:05/08/2023 10:00:00 AM Scheduled Provider:JERI SANDERS PA-C Location:[facility] Appointment Type:URO Office Visit [facility] Evaluation note Diagnosis Malignant neoplasm of prostate (HCC)- Primary Malignant neoplasm of prostate Prostate cancer (HCC) Malignant neoplasm of prostate [facility] Diagnosis Malignant neoplasm of prostate (HCC)- Primary Malignant neoplasm of prostate documented in this encounter [facility] note* Diagnosis Preop examination- Primary Preoperative examination, unspecified Essential (primary) hypertension Unspecified essential hypertension Hyperlipidemia, unspecified hyperlipidemia type Athscl heart disease of [place] coronary artery w/o ang pctrs Obstructive sleep apnea Obstructive sleep apnea (adult) (pediatric) Prostate cancer (HCC) Malignant neoplasm of prostate Polyp of colon, unspecified part of colon, unspecified type documented in this encounter [facility] note* Diagnosis Malignant neoplasm of prostate (HCC)- Primary Malignant neoplasm of prostate documented in this encounter [facility] note* Diagnosis History of prostate cancer- Primary Personal history of malignant neoplasm of prostate Obesity, Class I, BMI 30-34.9 Obesity, unspecified documented in this encounter [facility] note* Diagnosis History of prostate cancer- Primary Personal history of malignant neoplasm of prostate documented in this encounter [facility] note* Diagnosis Mass of colon Other specified disorder of intestines documented in this encounter [facility] note* Diagnosis Prostate cancer (HCC)- Primary Malignant neoplasm of prostate [facility] Narrative No data available for this section General Surgery [facility] Discharge instructions No data available for this section General Surgery [facility] note No data available for this section General Surgery [facility] Reason for referral (narrative) Referred by: LE CHRISTINE, Gaetano Veras General Surgery [place] Reflia for referral (narrative)* Outpatient Procedure (Routine) - Closed Specialty Diagnoses / Procedures Referred By Aminata german Referred To Contact [facility] Diagnoses Mass of colon Procedures COLONOSCOPY SCREENING COLONOSCOPY FLX DX W/[place] [address] [place] [address] [facility] [address] [place] [id number] Referral ID Status Reason Start Date Expiration Date V isits Requested Visits Authorized [id number] Closed Auto-Generate d Referral 04/13/2022 04/13/2023 1 [facility] Outpatient Procedure (Routine) - Closed Specialty Diagnoses / Procedures Referred By Aminata t Referred To Contact [facility] Diagnoses Mass of colon Procedures COLONOSCOPY SCREENING COLONOSCOPY FLX DX W/COLLJ [place] [address] [place] [address] [facility] [address] [place] [address] Referral ID Status Reason Start Date Expiration Date V isits Requested Visits Authorized [id number] Closed Auto-Generate d Referral 04/13/2022 04/13/2023 1 1 [facility] Discharge Instructions * Instructions* Bree Leslie MD - 06/17/2020 Your COVID 19 test today is POSITIVE. Please isolate for 10 days and follow up closely with your family physician regarding this visit. Please return for reevaluation if you have worsening symptoms such as respiratory distress or confusion or other problems or concerns. Please follow up with your family physician or the referral physicians as discussed regarding this emergency department visit. If you do not have a family physician, you may find a provider through the [facility] Physician Referral Service by calling [phone] ([phone]) or by visiting [email or web address]. Return for reevaluation for any worsening of your symptoms or if you have any other problems or concerns. I hope you feel better soon. Thank you for allowing us to be involved in your care today. Appropriate followup is essential in your continued care after today's visit. If you had any diagnostic studies (labs, xrays, CAT scans orultrasounds) done in the emergency department, please review them with your family physician since there may be results that require further follow up or investigation. The physician and staff of the Emergency Department would like to thank you for choosing our facility for your health care needs. Our goal is to provide exceptional service. You may be receiving a survey in the mail following your visit. Because your feedback is very important to us, we hope you will take the time to complete and return the survey. If for any reason, you feel that you cannot rateus VERY GOOD or 5 for the service you received today, please let us know prior to your discharge. We are here 24 hours a day, 7 days a week, and are always here for you. * Attachments The following attachments cannot be sent through Care Everywhere. 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 [employer] Expl anation Advance Directives and Betsy leong Will 06/17/2020 6:45 PM Summary Purpose Family History No Family History Records FoundNo Family History Records FoundNo Family History Records FoundNo Family History Records FoundNo Family History Records FoundNo Family History Records FoundNo Family History Records Found No data available for this section Additional Source Comments Reason for Visit (unrecogniz ed section and content) Reason Comments Covid-19 Screening Reason Comments Prostate Cancer Reason Comments Medical Aide - Other Reason Comments Jeri Adams RN - 06/17/2020 7:06 PM Bree Garcia MD - 06/17/2020 6:38 PM Mili Bennett RN - 06/17/2020 5:31 PM EST ED Notes (unrecognized secti on and content) Patient discharged to home in no apparent distress. Ambulatory to exit with steady gait without complaint after declining wheelchair. Patient is alert and oriented x 4. Respirations even and unlabored. Skin is warm, pink and dry. No additional needs or concerns voiced on departure. ED ATTENDING NOTE [facility] EMERGENCY DEPARTMENT PCP - Physician No Chief Complaint Patient presents with Covid-19 Screening HPI 64-year-old male with a history of gout and hyperlipidemia presents to the emergency department with concern that he may have COVID-19. Patient states that since yesterday he has had a mild headache as well as sore throat. He denies having any cough, fever, chills, shortness of breath, chest pain, loss of sense of taste or smell. He states that he just found out today that his sister who he was around earlier in the week was positive for Covid. He was also around his granddaughter who had been exposed to the same family member who is here being evaluated for similar symptoms. He states that he was concerned because his has stage IV cancer and she is back home about 2 hours away. He is currently in town visiting family members for [employer]. He denies having any other acute complaints. Review of Systems Constitutional: no known fevers, no unexpected weight change Skin: No color changes Eyes: No discharge ENMT: No drooling Respiratory: No stridor Genitourinary: No dysuria Endocrine: No polyphagia Neurologic: No new face asymmetry Psychiatric: No self injury Hematologic/Lymphatic: No new easy bruising Allergic/Immunologic: No urticaria Past Medical History Past Medical History: Diagnosis Date Gout of multiple sites Hyperlipidemia Past Surgical History Past Surgical History: Procedure Laterality Date APPENDECTOMY HAND SURGERY Family History History reviewed. No pertinent family history. Social History Social History Tobacco Use Smoking status: Never Smoker Smokeless tobacco: Never Used Substance Use Topics Alcohol use: Never Frequency: Never Drug use: Never Allergies No Known Allergies Medications There are no discharge medications for this patient. Physical Exam Initial Vital Signs BP 147/84 (Patient Position: Sitting) Pulse 85 Temp 98.9 F (37.2 C) (Oral) Resp 16 Ht 5' 8 Wt 102 kg (224 lb 13.9 oz) SpO2 94% BMI 34.19 kg/m Vital Signs During ED Visit (as charted by nursing) Patient Vitals for the past 24 hrs: BP Temp Temp src Pulse Resp SpO2 Height Weight 06/17/20 1720 147/84 98.9 F (37.2 C) Oral 85 16 94 % 5' 8 102 kg (224 lb 13.9 oz) Physical Exam Vitals signs and nursing note reviewed. Constitutional: General: He is not in acute distress. Appearance: Normal appearance. He is normal weight. He is not ill-appearing or toxic-appearing. HENT: Head: Normocephalic and atraumatic. Mouth/Throat: Mouth: Mucous membranes are moist. Pharynx: Posterior oropharyngeal erythema present. No oropharyngeal exudate or uvula swelling. Tonsils: No tonsillar exudate. Eyes: Pupils: Pupils are equal, round, and reactive to light. Neck: Musculoskeletal: Normal range of motion. Cardiovascular: Rate and Rhythm: Normal rate. Pulses: Normal pulses. Pulmonary: Effort: Pulmonary effort is normal. Breath sounds: Normal breath sounds. Skin: General: Skin is warm. Neurological: General: No focal deficit present. Mental Status: He is alert and oriented to person, place, and time. Psychiatric: Mood and Affect: Mood normal. Behavior: Behavior normal. Labs Reviewed COVID-19/INFLUENZA A,B MOLECULAR - Abnormal; Notable for the following components: Result Value SARS-CoV-2 Detected (*) All other components within normal limits Narrative: This test was performed under the FDA's Emergency Use Authorization (EUA). Testing was performed using the Ratna maurisio SARS-CoV-2 & Influenza A/B Nucleic Acid Test on the maurisio Swapna System. This test has not been approved for use in asymptomatic patients and its performance in this patient population has not been evaluated. Negative results do not rule out the presence of SARS-CoV-2, influenza A, and/or influenza B. Fact sheets for the EUA can be found at the following links: For Healthcare Providers: https://www.fda.gov/media/506535/download For Patients: https://www.fda.gov/media/273289/download Radiographic Imaging (if any) During ED Visit No orders to display Medications Ordered/Given During ED Visit Medications - No data to display Procedures IMPRESSION 1. COVID-19 MEDICAL DECISION MAKING MDM This patient was seen and evaluated in midst of COVID19 epidemic. I wore all appropriate PPE (N95 mask, eye protection, gown and gloves) during all encounters with this patient. Laboratory Results Labs Reviewed COVID-19/INFLUENZA A,B MOLECULAR - Abnormal; Notable for the following components: Result Value SARS-CoV-2 Detected (*) All other components within normal limits Narrative: This test was performed under the FDA's Emergency Use Authorization (EUA). Testing was performed using the Ratna maurisio SARS-CoV-2 & Influenza A/B Nucleic Acid Test on the maurisio Swapna System. This test has not been approved for use in asymptomatic patients and its performance in this patient population has not been evaluated. Negative results do not rule out the presence of SARS-CoV-2, influenza A, and/or influenza B. Fact sheets for the EUA can be found at the following links: For Healthcare Providers: https://www.fda.gov/media/335659/download For Patients: https://www.fda.gov/media/466599/download Imaging Results No orders to display Patient's COVID-19 test is positive. I stressed with him the importance of isolation and quarantine. I have asked that he follow-up with his PCP or return for reevaluation if he has significant worsening of his symptoms or other concerns. At this time he is very well-appearing clinically. He is not tachycardic, tachypneic, or hypoxic. He has no significant clinical symptoms. He is stable for discharge home. DISPOSITION Discharge home. Bree Leslie MD 06/17/201911 Pt to triage stating he was exposed to covid on and he has a sore throat and headache since last night. He denies fever, shortness of breath, loss of taste and smell. documented in this encounter (unrecognized sect ion and content) No Status Records FoundNo Status Records FoundNo Status Records FoundNo Status Records FoundNo Status Records FoundNo Status Records FoundNo Status Records Found INFORMATION SOURCE (unrecogn ized section and content) DATE CREATED AUTHOR 07/09/2020 [facility] DATE CREATED AUTHOR AUTHOR'S ORGANIZ ATION 05/11/2021 [facility] DATE CREATED AUTHOR AUTHOR'S ORGANIZ ATION 04/27/2022 [facility] DATE CREATED AUTHOR AUTHOR'S ORGANIZ ATION 11/04/2022 [facility] DATE CREATED AUTHOR AUTHOR'S ORGANIZ ATION 12/02/2022 [facility] DATE CREATED AUTHOR AUTHOR'S ORGANIZ ATION 05/10/2023 [facility] DATE CREATED AUTHOR AUTHOR'S ORGANIZ ATION 06/12/2023 [facility] Source Comments (unrecognize d section and content) In the event this informatio n is protected by the Federal Confidentiality of Alcohol and Drug Abuse Patient Records regulations: The Federal rules restrict any use of the information to criminally investigate or prosecute any alcohol or drug abuse patient.[facility] the event this information is protected by the Federal Confidentiality of Alcohol and Drug Abuse Patient Records regulations: The Federal rules restrict any use of the information to criminally investigate or prosecute any alcohol or drug abuse patient.[facility] the event this information is protected by the Federal Confidentiality of Alcohol and Drug Abuse Patient Records regulations: The Federal rules restrict any use of the information to criminally investigate or prosecute any alcohol or drug abuse patient.[facility] the event this information is protected by the Federal Confidentiality of Alcohol and Drug Abuse Patient Records regulations: The Federal rules restrict any use of the information to criminally investigate or prosecute any alcohol or drug abuse patient.[facility] the event this information is protected by the Federal Confidentiality of Alcohol and Drug Abuse Patient Records regulations: The Federal rules restrict any use of the information to criminally investigate or prosecute any alcohol or drug abuse patient.[facility] the event this information is protected by the Federal Confidentiality of Alcohol and Drug Abuse Patient Records regulations: The Federal rules restrict any use of the information to criminally investigate or prosecute any alcohol or drug abuse patient.[facility] the event this information is protected by the Federal Confidentiality of Alcohol and Drug Abuse Patient Records regulations: The Federal rules restrict any use of the information to criminally investigate or prosecute any alcohol or drug abuse patient.[facility] the event this information is protected by the Federal Confidentiality of Alcohol and Drug Abuse Patient Records regulations: The Federal rules restrict any use of the information to criminally investigate or prosecute any alcohol or drug abuse patient.[facility] the event this information is protected by the Federal Confidentiality of Alcohol and Drug Abuse Patient Records regulations: The Federal rules restrict any use of the information to criminally investigate or prosecute any alcohol or drug abuse patient.[facility] the event this information is protected by the Federal Confidentiality of Alcohol and Drug Abuse Patient Records regulations: The Federal rules restrict any use of the information to criminally investigate or prosecute any alcohol or drug abuse patient.[facility] Care Teams (unrecognized sec tion and content) Personnel Name: ELLEN BARRERA CNP Address: Address: [address] [place] [address] Game Programmer Relationship Specialty Start Date End Date Ellen Barrera CNP [address] [place] [address] PCP - General Family Practice 11/17/20 Imtiaz Freed Jr. [address] [place] [address] Referring Urology 11/17/20 Game Programmer Relationship Specialty Start Date End Date Ellen Barrera CNP [address] [place] [address] PCP - General Family Practice 11/17/20 Imtiaz Freed Jr. [address] [place] [phone] Referring Urology 11/17/20 Game Programmer Relationship Specialty Start Date End Date DiaEllen sidhu, ROAD ROLLER OPERATOR [address] [place] [address] PCP - General Family Medicine 11/17/20 Imtiaz Freed Jr. [address] [place] [id number] Referring Urology 11/17/20 Game Programmer Relationship Specialty Start Date End Date Ellen Barrera, ROAD ROLLER OPERATOR [address] [place] [address] PCP - General Family Medicine 11/17/20 Imtiaz Freed Jr. [address] [place] [phone] Referring Urology 11/17/20 Game Programmer Relationship Specialty Start Date End Date Ellen Barrera, ROAD ROLLER OPERATOR [address] [place] [address] PCP - General Family Medicine 11/17/20 Imtiaz Freed Jr. [address] [place] [id number] Referring Urology 11/17/20 Game Programmer Relationship Specialty Start Date End Date Ellen Barrera, ROAD ROLLER OPERATOR [address] [place] [address] PCP - General Family Medicine 11/17/20 Imtiaz Freed Jr. [address] [place] [address] Referring Urology 11/17/20 Game Programmer Relationship Specialty Start Date End Date Nick Barreradelmer Esquivel, ROAD ROLLER OPERATOR [address] [place] [address] PCP - General Family Medicine 11/17/20 Imtiaz Freed Jr. [address] [place] [address] Referring Urology 11/17/20 Game Programmer Relationship Specialty Start Date End Date Ellen Barrera Sierra, ROAD ROLLER OPERATOR [address] [place] [address] PCP - General Family Medicine 11/17/20 Imtiaz Freed Jr. [address] [place] [address] Referring Urology 11/17/20 FOR RECORDS PERTAINING TO PATIENTS WHO ARE OR HAVE BEEN ENROLLED IN A CHEMICAL DEPENDENCY/SUBSTANCEABUSE PROGRAM, SOME INFORMATION MAY BE OMITTED. This clinical summary was aggregated from multiple sources. Caution should be exercised in using it in the provision of clinical care. This summary normalizes information from multiple sources, and as a consequence, information in this document may materially change the coding, format and clinical context of patient data. In addition, data may be omitted in some cases. CLINICAL DECISIONS SHOULD BE BASED ON THE PRIMARY CLINICAL RECORDS. [facility] [employer] provides no warranty or guarantee of the accuracy or completeness of information in this document.
== END 2023-08-29 09:51 | disposition home or self-care (01) ==
LOC: CARD 09:51
PROVIDERS: PCP Nurse Practitioner; Visit Provider Internal Medicine Interventional Cardiology
DX: I11.9 Hypertensive heart disease without heart failure (principal); R94.31 Abnormal electrocardiogram [ECG] [EKG]
CPT/HCPCS: 93306

== ENCOUNTER 2023-11-07 07:53 | Outpatient (OUT) | payer MEDICARE, OTHER, SELFPAY ==
--- OUTSIDE RECORDS SUMMARY | 2023-11-07 08:16 | XMS_ITS | CCD ---
Author Organization [facility] Care Team Providers Care Sports Physician Name Role Phone No, Physician Primary Care Provider Unavailabl e NO, PHYSICIAN Primary Care Unavailable BREE LESLIE Attending Unavailabl e KUBEBREELOTTE Admitting Unavailabl e SELF, REFERRED Primary Care Unavailable SELF, REFERRED Referring Unavailable MUKUND SCHULER Admitting Unavailable MUKUND SCHULER Attending Unavailable Aichholz RODRICK, Ellen Esquivel Primary Care Provider Imtiaz Freed Jr. Unavailable VICELLEN MICHEL Primary Care Physician [phone] Aicholz Ellen MENSAH Primary Care Provider Imtiaz Freed Jr. Unavailable YUNI NORTH Attending Unavailable VICMARILU, ELLEN SIDNEY Primary Care Unavailable CHAI PALMA Referring Unavailable Aichholz Ellen MENSAH Primary Care Provider [phone] Imtiaz Freed Jr. Unavailable DR NESTOR CATALAN Admitting Unavailable KAPLAN ., DR BAEZ Attending Unavailable AICHHOLZ, AUTOMOTIVE DESIGN LAYOUT DRAFTER ELLEN Primary Care Unavailable KAPLAN ., DR BAEZ Consulting Unavailable AICHHOLZ, AUTOMOTIVE DESIGN LAYOUT DRAFTER ELLEN Admitting Unavailable AICHHOLZ, AUTOMOTIVE DESIGN LAYOUT DRAFTER ELLEN Attending Unavailable AICHHOLZ, AUTOMOTIVE DESIGN LAYOUT DRAFTER ELLEN Primary Care Unavailable AICHHOLZ, AUTOMOTIVE DESIGN LAYOUT DRAFTER ELLEN Consulting Unavailable KAPLAN ., DR BAEZ Admitting Unavailable KAPLAN ., DR BAEZ Attending Unavailable AICHHOLZ, AUTOMOTIVE DESIGN LAYOUT DRAFTER ELLEN Primary Care Unavailable KAPLAN ., DR BAEZ Consulting Unavailable SREE FRASER Consulting Unavailable BRAD FOSS Consulting Unavailable NILL ., DR SALTER Admitting Unavailable NILL ., DR SALTER Attending Unavailable AICHHOLZ, AUTOMOTIVE DESIGN LAYOUT DRAFTER ELLEN Primary Care Unavailable NILL ., DR SALTER Consulting Unavailable UMA VILLA Consulting Unavailable VIDYA LUNDBERG Consulting Unavailable KAPLAN ., DR BAEZ Admitting Unavailable KAPLAN ., DR BAEZ Attending Unavailable AICHHOLZ, AUTOMOTIVE DESIGN LAYOUT DRAFTER ELLEN Primary Care Unavailable KAPLAN ., DR BAEZ Consulting Unavailable PENA, ELISA Consulting Unavailable KAPLAN ., DR BEAZ Admitting Unavailable KAPLAN ., DR BAEZ Attending Unavailable AICHHOLZ, AUTOMOTIVE DESIGN LAYOUT DRAFTER ELLEN Primary Care Unavailable KAPLAN ., DR BAEZ Consulting Unavailable WEST, DR CHAI Gilman Consulting Unavailable AICHHOLZ, AUTOMOTIVE DESIGN LAYOUT DRAFTER ELLEN Admitting Unavailable AICHHOLZ, AUTOMOTIVE DESIGN LAYOUT DRAFTER ELLEN Attending Unavailable AICHHOLZ, AUTOMOTIVE DESIGN LAYOUT DRAFTER ELLEN Primary Care Unavailable AICHHOLZ, AUTOMOTIVE DESIGN LAYOUT DRAFTER ELLEN Consulting Unavailable KAPLAN ., DR BAEZ Admitting Unavailable KAPLAN ., DR BAEZ Attending Unavailable AICHHOLZ, AUTOMOTIVE DESIGN LAYOUT DRAFTER ELLEN Primary Care Unavailable KAPLAN ., DR BAEZ Consulting Unavailable ZIEBER, DR JAMIE Veras Consulting Unavailable KAPLAN ., DR BAEZ Admitting Unavailable KAPLAN ., DR BAEZ Attending Unavailable AICHHOLZ, AUTOMOTIVE DESIGN LAYOUT DRAFTER ELLEN Primary Care Unavailable KAPLAN ., DR BAEZ Consulting Unavailable KAPLAN ., DR BAEZ Admitting Unavailable KAPLAN ., DR BAEZ Attending Unavailable AICHHOLZ, AUTOMOTIVE DESIGN LAYOUT DRAFTER ELLEN Primary Care Unavailable KAPLAN ., DR BAEZ Consulting Unavailable AICHHOLZ, AUTOMOTIVE DESIGN LAYOUT DRAFTER ELLEN Admitting Unavailable AICHHOLZ, AUTOMOTIVE DESIGN LAYOUT DRAFTER ELLEN Attending Unavailable AICHHOLZ, AUTOMOTIVE DESIGN LAYOUT DRAFTER ELLEN Primary Care Unavailable AICHHOLZ, AUTOMOTIVE DESIGN LAYOUT DRAFTER ELLEN Consulting Unavailable KAPLAN ., DR BAEZ Admitting Unavailable KAPLAN ., DR BAEZ Attending Unavailable AICHHOLZ, AUTOMOTIVE DESIGN LAYOUT DRAFTER ELLEN Primary Care Unavailable KAPLAN ., DR BAEZ Consulting Unavailable ZIEBER, DR JAMIE Veras Consulting Unavailable AICHHOLZ, AUTOMOTIVE DESIGN LAYOUT DRAFTER ELLEN Admitting Unavailable AICHHOLZ, AUTOMOTIVE DESIGN LAYOUT DRAFTER ELLEN Attending Unavailable AICHHOLZ, AUTOMOTIVE DESIGN LAYOUT DRAFTER ELLEN Primary Care Unavailable AICHHOLZ, AUTOMOTIVE DESIGN LAYOUT DRAFTER ELLEN Consulting Unavailable GANGA, MUKUND Admitting Unavailable GANGAMUKUND Attending Unavailable AICHHOLZ, AUTOMOTIVE DESIGN LAYOUT DRAFTER ELLEN Primary Care Unavailable GANGA, MUKUND Consulting Unavailable AICHHOLZ, AUTOMOTIVE DESIGN LAYOUT DRAFTER ELLEN Admitting Unavailable AICHHOLZ, AUTOMOTIVE DESIGN LAYOUT DRAFTER ELLEN Attending Unavailable AICHHOLZ, AUTOMOTIVE DESIGN LAYOUT DRAFTER ELLEN Primary Care Unavailable AICHHOLZ, AUTOMOTIVE DESIGN LAYOUT DRAFTER ELLEN Consulting Unavailable NILL ., DR SALTER Admitting Unavailable NILL ., DR SALTER Attending Unavailable AICHHOLZ, AUTOMOTIVE DESIGN LAYOUT DRAFTER ELLEN Primary Care Unavailable NILL ., DR SALTER Consulting Unavailable KAPLAN ., DR BAEZ Admitting Unavailable KAPLAN ., DR BAEZ Attending Unavailable AICHHOLZ, AUTOMOTIVE DESIGN LAYOUT DRAFTER ELLEN Primary Care Unavailable KAPLAN ., DR BAEZ Consulting Unavailable PENA, ELISA Consulting Unavailable KAPLAN ., DR BAEZ Admitting Unavailable KAPLAN ., DR BAEZ Attending Unavailable AICHHOLZ, AUTOMOTIVE DESIGN LAYOUT DRAFTER ELLEN Primary Care Unavailable KAPLAN ., DR BAEZ Consulting Unavailable KAPLAN ., DR BAEZ Admitting Unavailable KAPLAN ., DR BAEZ Attending Unavailable AICHHOLZ, AUTOMOTIVE DESIGN LAYOUT DRAFTER ELLEN Primary Care Unavailable KAPLAN ., DR BAEZ Consulting Unavailable WEST, DR CHAI Gilman Consulting Unavailable TOBIAS, DELORIS LORENZO Consulting Unava ilable SREE MARKHAM Consulting Unavailable KAPLAN ., DR BAEZ Admitting Unavailable KAPLAN ., DR BAEZ Attending Unavailable AICHHOLZ, AUTOMOTIVE DESIGN LAYOUT DRAFTER ELLEN Primary Care Unavailable KAPLAN ., DR BAEZ Consulting Unavailable AICHHOLZ, AUTOMOTIVE DESIGN LAYOUT DRAFTER ELLEN Admitting Unavailable AICHHOLZ, AUTOMOTIVE DESIGN LAYOUT DRAFTER ELLEN Attending Unavailable AICHHOLZ, AUTOMOTIVE DESIGN LAYOUT DRAFTER ELLEN Primary Care Unavailable CAMERON MILLS, DR CHAI Gilman Consulting Unavailable AICHHOLZ, AUTOMOTIVE DESIGN LAYOUT DRAFTER ELLEN Consulting Unavailable MUKUND SCHULER Attending Unavailable Nestor MCKENZIE Attending Unavailable Nestor MCKENZIE Referring Unavailable AICHHOLZ, ELLEN SIDNEY Primary Care Unavailable Nestor MCKENZIE Attending Unavailable Nestor MCKENZIE Referring Unavailable AICHHOLZ, ELLEN SIDNEY Primary Care Unavailable Nestor KAPLAN Attending Unavailable KAE SANDERS Attending Unavailab Nestor Moura Attending Unavailable Nestor KAPLAN Attending Unavailable KAE SANDERS Attending Unavailab le AICHHOLZ, ELLEN Attending Unavailable Medications Current Medications Medication Drug Class(es) Dates [...] Start: 10-31-2022 take 2 tablets by [facility] twice daily potassium citrate 15 mEq oral tablet, extended release 30 mEq = 2 tab(s), Oral, BID, # 120 tab(s), Refills(s) 11, Pharmacy: [facility]/pharmacy #[id number], 173, cm, 10/31/22 8:58:00 EDT, Height/Length Dosing, 99, kg, 10/31/22 8:58:00 EDT, Weight Dosing Start Date: 10/31/22 Status: Ordered Comment on above: Take 2 tablets by [facility] every 12 hours. tamsulosin hydrochloride 0.4 mg oral capsule (13 sources) alpha-Adrenergic Alistair Start: 03-25-2021 tamsulosin (FLOMAX) 0.4 mg 0.4 mg once daily. 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; Translations: [FPC 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] Onset: 07-18-2022 Episodic Other aftercare (1 source) Other correction (current) drug therapy; Translations: [OTH 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 SPECIALIST CURRENT DRUG THERAPY] Onset: 07-18-2022 Episodic Other [...] Range Facility Consultation Noteon 06-12-20 Consultation Note [id number] [facility] Lab Reportson 06-12-2023 Lab Reports [id number]#[id number] [facility] Formson 05-15-2023 Forms [id number]#[id number] [facility] CNOVon 05-03-2023 CNOV Office Visit (RADTSA ) ----- MARK DOUGLAS ([id number]) 1955 M Date Time Provider Department 05/03/23 [...] DIAGNOSIS: Prostate adenocarcinoma, initial PSA 5.4, biopsy Pease score 3 + 4 = 7 (grade [...] by: Nestor Mckenzie MD cc: Ellen Barrera, AUTOMOTIVE DESIGN LAYOUT DRAFTER (Dr) [address] [place] [address] Referring Provider: Nestor MCKENZIE [[id number]] Allergies As of Date: 05/03/2023 (No Known Allergies) Date Reviewed: 05/03/2023 Reviewed by: Nafisa Chacon LPN - Fully Assessed Reason for Visit: Prostate Cancer [590] Primary Visit Diagnosis:Prostate cancer (HCC) [C61] Order(s):PSA (OUTSIDE) [3852750] Order #: [id number] PSA/PROSTSPECAG DIAG [SQPSA] Order #: [id number] FUTURE Prescriptions as of 05/08/2023 - Potassium [...] hypertension [I10] 03/12/2021 Athscl heart disease of [place] coronary artery *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 Follow-up and Disposition History for Encounter Date Provider Department Center 05/03/2023 [id number], G PH (more content not included)... Normal [facility] Kimmy 04-25-2023 KAUSHAL Telephone (RADTechLiveA) ----- MARK DOUGLAS ([id number]) 1955 M Date Time Provider Department 04/25/23 Nestor MCKENZIE During your visit today, we recorded the following information about you: Nafisa Chacon LPN 04/25/2023 10:39 AM Signed Please sign pended PSA order for upcoming appt. Fax order to [facility] per patient request. 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 Just need to make sure if he has SL nitroglycerin that he does not take both the same day. Normal [facility] 36 Ellen Barrera CNP (patient's PCP) called wanting to make sure it was ok from a cardiac standpoint that she start him on something for ED, like Cialis or Viagra. Please advise. Thanks. [facility] Ambulatory Visit Summaryon 0 10-31-2022 Ambulatory Visit Summary MARK DOUGLAS :1955 Visit Date:10/31/2022 Ambulatory Visit Instructions Your Diagnosis Prostate cancer Kidney stones Hypocitraturia BPH with urinary obstruction Tests Performed Urnls Dip Stick Auto w/o Microscopy POC 64623 KUB -- Results Pending -- Please visit [...] JERI SANDERS PA-C Where: [facility] Patient Educationon 11-01-19 Patient Education Urology Kidney [...] these instructions at home: Medicines ? Take ytai-omp-ibtvthm and prescription medicines only as told by [...] provider. Document Revised: 02/13/2022 Document Reviewed: 02/13/2022 [employer] Patient Education ? 2022 [employer]. [facility] Urology Office/Clinic Noteon 10-31-2022 Urology Office/Clinic Note [...] BID, # 120 tab(s), Refills(s) 11, [id number], 173, cm, 10/31/22 8:58:00 EDT, Height/Length Dosing, 99, kg, 10/31/22 8:58:00 EDT, Weight Dosing E&M of Est. Patient Moderate 30-39 Min 14668 Urnls Dip Stick Auto w/o Microscopy POC 07137 2. Kidney stones (N20.0: Calculus of kidney) [...] BID, # 120 tab(s), Refills(s) 11, Pharmacy: [facility]/pharmacy #[id number], 173, cm, 10/31/22 8:58:00 EDT, Height/Length Dosing, 99, kg, 10/31/22 8:58:00 EDT, Weight Dosing E&M of Est. Patient Moderate 30-39 Min 77356 XR Abdomen 1 View 3. 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 started supplement. repeat metabolic work-up in 6 mos Ordered: potassium citrate, 30 mEq = 2 tab(s), Oral, BID, # 120 tab(s), Refills(s) 11, [id number] 173, cm, 10/31/22 8:58:00 EDT, Height/Length Dosing, 99, kg, 10/31/22 8:58:00 EDT, Weight Dosing E&M of Est. Patient Moderate 30-39 Min 43485 4. BPH with urinary obstruction (N40.1: Benign [...] BID, # 120 tab(s), Refills(s) 11, [id number] 173, cm, 10/31/22 8:58:00 EDT, Height/Length Dosing, 99, kg, 10/31/22 8:58:00 EDT, Weight Dosing E&M of Est. Patient Moderate 30-39 Min 90235 Orders: cephalexin, 500 mg = 1 cap(s), Oral, Daily, # 30 cap(s), Refills(s) 0, [id number] 173, cm, 04/24/22 12:06:00 EDT, Height/Length Dosing, 104, kg, 04/24/22 12:06:00 EDT, Weight Dosing f/u 6 mos w repeat metabolic workup, KUB, and PSA. Follow-up With When Contact Information JERI SANDERS PA-C, URL Within 6 months [address] [place] [address] Business (1) Additional Instructions: Patient Education Kidney Stones, Pivh-ds-Brdj Problem List/Past Medical History Ongoing Abnormal kidney [...] data Procedure/Surgic (more content not included)... [facility] Comment on above: Result Comment: Elec tronically Signed By: JERI SANDERS PA-C\Date and Time Signed: 10/31/22 09:50 EDT CNOVon 10-26-2022 CNOV Office Visit (RADTSA ) ----- MARK DOUGLAS ([id number]) 1955 M Date Time Provider Department 10/26/22 [...] by: Nestor Mckenzie MD cc: Ellen Barrera, AUTOMOTIVE DESIGN LAYOUT DRAFTER ([facility]) [address] [place] [address] Elisa Frederick RN 10/26/2022 11:38 AM Addendum AUA 2 Elisa Frederick RN Referring Provider: Nestor MCKENZIE [[id number]] Allergies As of Date: 10/26/2022 (No Known Allergies) Date Reviewed: 10/26/2022 Reviewed by: Elisa Frederick RN - Fully Assessed Reason for Visit: Prostate Cancer [590] Primary Visit Diagnosis:History of prostate cancer [Z85.46] Other Visit Diagnosis:Obesity, Class I, BMI 30-34.9 [E66.9] Order(s):PSA (OUTSIDE) [4495757] Order #: [id number] Prescriptions as of 11/03/2022 - sertraline (ZOLOFT) [...] hypertension [I10] 03/12/2021 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 (more content not included)... Normal [facility] Lab Reportson 10-16-2022 Lab Reports [id number]#1.00CD:12 7 [facility] Lab Reportson 10-09-2022 Lab Reports [id number]#1.00CD:12 7 [facility] RAD - MISCon 09-19-2022 RAD - MISC [id number]#1.00CD:12 7 [facility] CITRATE URINE 24HRon 023 Citric Acid, U, 24hr 138 mg/24 hr Critically low 320-1240 [facility] Comment on above: Result Comment: This test was developed and its performance characteristics determined by [employer]. It has not been cleared or approved by the Food and Drug Administration. Performed By: #### C ALC24U #### [facility] [address] [place] [address] Dr. Aaron Gloria Citric Acid, Urine 80 mg/L Normal Undefined [facility] Comment on above: Performed By: #### C ALC24U #### [facility] [address] [place] [address] Dr. Aaron Gloria OXALATE 24HR URINEon 023 Oxalates, Urine 19 mg/L Normal Undefined [facility] Comment on above: Performed By: #### O X24HR #### [facility] [address] [place] [address] Dr. Aaron Gloria Oxalates, Urine 24hr 33 mg/24 hr Normal 7-44 [facility] Comment on above: Performed By: #### O X24HR #### [facility] [address] [place] [address] Dr. Aaron Gloria MAGNESIUM 24HR URINEon 09-16 Magnesium 24hr Urine 122.5 mg/24 hr Normal 12.0-293.0 [facility] Comment on above: Performed By: #### M AG24 #### [facility] [address] [address] [address] Aaron Gloria Magnesium UR 7.1 mg/dL Normal Not Estab. [facility] Comment on above: Performed By: #### M AG24 #### [facility] [address] [place] [address] Dr. Aaron Gloria PHOSPHORUS 24HR URINEon 08-24 Phosphorus, Urine 66.7 mg/dL Normal Not Estab. [facility] Comment on above: Performed By: #### M AG24 #### [facility] [address] [place] [address] Dr. Aaron Gloria Phosphorus, Urine 24hr 1151 mg/24 hr Normal 390-1425 [facility] Comment on above: Performed By: #### M AG24 #### [facility] [address] [place] [address] Dr. Aaron Gloria PTH INTACTon 09-16-2022 PTH, Intact 35 pg/mL Normal 15-65 [facility] Comment on above: Performed By: #### P THINT #### [facility] [address] [place] [address] Dr. Aaron Gloria URIC ACID 24 HR URINEon 08-24 Uric Acid, Urine 39.5 mg/dL Normal Not Estab. The [facility] Comment on above: Performed By: #### U ZELDA 24 #### [facility] [address] [place] [address] Dr. Aaron Gloria Uric Acid, Urine 24hr 681.4 mg/24 hr Normal 182.4-936.8 [facility] Comment on above: Performed By: #### U ZELDA 24 #### [facility] [address] [place] [address] Dr. Aaron Gloria BUNon 09-15-2022 Urea nitrogen [Mass/Vol] 18.0 mg/dL Normal 7.0-18.0 [facility] Comment on above: Performed By: #### U ZELDA 24 #### [facility] [address] [place] [address] Dr. Aaron Gloria CALCIUMon 09-15-2022 Calcium [Mass/Vol] 9.0 mg/dL Normal 8.5-10.1 [facility] Comment on above: Performed By: #### C BC #### [facility] [address] [place] [address] Dr. Aaron Gloria CALCIUM 24 HR URINEon 2022 CALC, 24 HR UR 131.1 mg/24 hr Normal 100.0-300.0 [facility] Comment on above: Performed By: #### C ALC24U #### [facility] [address] [place] [address] Dr. Aaron Gloria UR CALCIUM 7.6 mg/dL Normal 5.1-21.0 [facility] Comment on above: Performed By: #### C ALC24U #### [facility] [address] [place] [address] Dr. Aaron Gloria UR TOT VOL 1725 ml/24 HR Normal [facility] Comment on above: Performed By: #### C ALC24U #### [facility] [address] [place] [address] Dr. Aaron Gloria Performed By: #### M AG24 #### [facility] [address] [place] [address] Dr. Aaron Gloria CHLORIDEon 09-15-2022 Chloride [Moles/Vol] 104 mmol/L Normal 98-107 [facility] Comment on above: Performed By: #### U ZELDA 24 #### [facility] [address] [place] [address] Dr. Aaron Gloria CO2on 09-15-2022 CO2 [Moles/Vol] 26.9 mmol/L Normal 21.0-32.0 [facility] Comment on above: Performed By: #### U ZELDA 24 #### [facility] [address] [place] [address] Dr. Aaron Gloria CREA 24 HR URINEon 3 CREA, 24 HR UR 1749.67 mg/24 hr Normal 1,000.00- 2,0 00.00 [facility] Comment on above: Performed By: #### M AG24 #### [facility] [address] [place] [address] Dr. Aaron Gloria URINE CREAT 101.43 mg/dL Normal 20.00-300.00 [facility] Comment on above: Performed By: #### M AG24 #### [facility] [address] [place] [address] Dr. Aaron Gloria CREATININEon 09-15-2022 Creatinine [Mass/Vol] 1.08 mg/dL Normal 0.70-1.30 [facility] Comment on above: Performed By: #### U ZELDA 24 #### [facility] [address] [place] [address] Dr. Aaron Gloria EGFR-AF SAMOAN >60 Normal >=60 [facility] Comment on above: Performed By: #### U ZELDA 24 #### [facility] [address] [place] [address] Dr. Aaron Gloria EGFR-NON AF SAMOAN >60 Normal >=60 [facility] Comment on above: Performed By: #### U ZELDA 24 #### [facility] [address] [place] [address] Dr. Aaron Gloria NAon 09-15-2022 Sodium [Moles/Vol] 138 mmol/L Normal 136-145 [facility] Comment on above: Performed By: #### C BC #### [facility] [address] [place] [address] Dr. Aaron Gloria POTASSIUMon 09-15-2022 Potassium [Moles/Vol] 4.4 mmol/L Normal 3.5-5.1 [facility] Comment on above: Performed By: #### U ZELDA 24 #### [facility] [address] [place] [address] Dr. Aaron Gloria SODIUM 24 HR URINEon 023 NA, 24 HR UR 217 mmol/24 hr Normal 40-220 [facility] Comment on above: Performed By: #### M AG24 #### [facility] [address] [place] [address] Dr. Aaron Gloria Sodium (U) [Moles/Vol] 126 mmol/L Critically high 30-90 [facility] Comment on above: Performed By: #### M AG24 #### [facility] [address] [address] [address] Aaron Gloria URIC ACID SERUMon 09-15-2022 Urate [Mass/Vol] 7.4 mg/dL Critically high 3.5-7.2 [facility] Comment on above: Performed By: #### C BC #### [facility] [address] [place] [address] Dr. Aaron Gloria LIPID PROFILEon 09-13-2022 CHOL-HDL RATIO NORM SEE BELOW Normal [facility] Comment on above: Result Comment: 3.3 - 4.4 LOW RISK 4.4 - 7.1 AVERAGE RISK 7.1 - 11.0 MODERATE RISK >11.0 HIGH RISK Performed By: #### C ALC24U #### [facility] [address] [place] [address] Dr. Aaron Gloria Cholesterol [Mass/Vol] 149 mg/dL Normal <=200 [facility] Comment on above: Performed By: #### C ALC24U #### [facility] [address] [place] [address] Dr. Aaron Gloria Cholesterol in HDL [Mass/Vol] 44 mg/dL Normal 40-60 [facility] Comment on above: Performed By: #### C ALC24U #### [facility] [address] [place] [address] Dr. Aaron Gloria Cholesterol in LDL [Mass/Vol] 71.8 mg/dL Normal [facility] Comment on above: Performed By: #### C ALC24U #### [facility] [address] [address] [address] Aaron Gloria Cholesterol.total/C holesterol in HDL [Mass ratio] 3.4 {ratio} Normal [facility] Comment on above: Performed By: #### C ALC24U #### [facility] [address] [place] [address] Dr. Aaron Gloria HDL NORMAL > or = 60 mg/dl - LO W CARDIOVASCULAR RISK <40 mg/dl - HIGH CARDIOVASCULAR RISK Normal [facility] Comment on above: Performed By: #### C ALC24U #### [facility] [address] [place] [address] Dr. Aaron Gloria LDL CALC NORMAL SEE BELOW Normal [facility] Comment on above: Result Comment: <100 mg/dl OPTIMAL 100 - 129 mg/dl NEAR OR ABOVE OPTIMAL 130 - 159 mg/dl BORDERLINE HIGH 160 - 189 mg/dl HIGH >190 mg/dl VERY HIGH Performed By: #### C ALC24U #### [facility] [address] [address] [address] Aaron Gloria Triglyceride [Mass/Vol] 166 mg/dL Critically high <=150 [facility] Comment on above: Performed By: #### C ALC24U #### [facility] [address] [address] [address] Aaron Gloria VLDL CALC 33.2 mg/dL Normal [facility] Comment on above: Performed By: #### C [id number] #### [facility] [address] [place] [address] Dr. Aaron Gloria PROF 14(COMP METB)on 023 Albumin [Mass/Vol] 3.8 g/dL Normal 3.4-5.0 [facility] Comment on above: Performed By: #### C ALC24U #### [facility] [address] [address] [address] Aaron Gloria Albumin/Globulin [Mass ratio] 1.0 {ratio} Normal [facility] Comment on above: Performed By: #### C ALC24U #### [facility] [address] [address] [address] Aaron Gloria ALP [Catalytic activity/Vol] 65 U/L Normal 46-116 [facility] Comment on above: Performed By: #### C ALC24U #### [facility] [address] [address] [address] Aaron Gloria ALT [Catalytic activity/Vol] 26 U/L Normal 16-63 [facility] Comment on above: Performed By: #### C ALC24U #### [facility] [address] [address] [address] Aaron Gloria Anion gap [Moles/Vol] 14.0 mmol/L Normal [facility] Comment on above: Performed By: #### C ALC24U #### [facility] [address] [address] [address] Aaron Gloria AST [Catalytic activity/Vol] 16 U/L Normal 15-37 [facility] Comment on above: Performed By: #### C ALC24U #### [facility] [address] [address] [address] Aaron Gloria Bilirubin [Mass/Vol] 0.4 mg/dL Normal 0.2-1.0 [facility] Comment on above: Performed By: #### C ALC24U #### [facility] [address] [address] [address] Aaron Gloria Calcium [Mass/Vol] 9.0 mg/dL Normal 8.5-10.1 [facility] Comment on above: Performed By: #### C ALC24U #### [facility] [address] [place] [address] Dr. Aaron Gloria Chloride [Moles/Vol] 104 mmol/L Normal 98-107 [facility] Comment on above: Performed By: #### C ALC24U #### [facility] [address] [place] [address] Dr. Aaron Gloria CO2 [Moles/Vol] 27.1 mmol/L Normal 21.0-32.0 [facility] Comment on above: Performed By: #### C ALC24U #### [facility] [address] [place] [address] Dr. Aaron Gloria Creatinine [Mass/Vol] 1.08 mg/dL Normal 0.70-1.30 [facility] Comment on above: Performed By: #### C ALC24U #### [facility] [address] [place] [address] Dr. Aaron Gloria EGFR-AF SAMOAN >60 Normal >=60 [facility] Comment on above: Performed By: #### C ALC24U #### [facility] [address] [place] [address] Dr. Aaron Gloria EGFR-NON AF SAMOAN >60 Normal >=60 [facility] Comment on above: Performed By: #### C ALC24U #### [facility] [address] [address] [address] Aaron Gloria Globulin (S) [Mass/Vol] 3.7 g/dL Normal [facility] Comment on above: Performed By: #### C ALC24U #### [facility] [address] [address] [address] Aaron Gloria Glucose [Mass/Vol] 121 mg/dL Critically high 74-106 [facility] Comment on above: Performed By: #### C ALC24U #### [facility] [address] [place] [address] Dr. Aaron Gloria Potassium [Moles/Vol] 4.1 mmol/L Normal 3.5-5.1 [facility] Comment on above: Performed By: #### C ALC24U #### [facility] [address] [place] [address] Dr. Aaron Gloria Protein [Mass/Vol] 7.5 g/dL Normal 6.4-8.2 [facility] Comment on above: Performed By: #### C ALC24U #### [facility] [address] [place] [address] Dr. Aaron Gloria Sodium [Moles/Vol] 141 mmol/L Normal 136-145 [facility] Comment on above: Performed By: #### C ALC24U #### [facility] [address] [place] [address] Dr. Aaron Gloria Urea nitrogen [Mass/Vol] 17.0 mg/dL Normal 7.0-18.0 [facility] Comment on above: Performed By: #### C ALC24U #### [facility] [address] [place] [address] Dr. Aaron Gloria Urea nitrogen/Creatinine [Mass ratio] 15.7 mg/mg Normal [facility] Comment on above: Performed By: #### C ALC24U #### [facility] [address] [place] [address] Dr. Aaron Gloria XR KUB 1 VIEWon [...] by: JAMIE TAN Date: 2022-09-13 09:06 Normal [facility] Operative Reporton 3 Operative Report [id number]:12 7 Normal [facility] Office Visiton 08-15-2022 Follow-up visit [id number] Harman Douglas 1955 M Date Provider Department Center 08/15/2022 MUKUND NUNEZ [facility] Family History Problem Relation Age of Onset Heart attack Mother 37 Coronary artery disease Mother Coronary artery disease Father 65 Coronary artery disease Brother Family Status - Relation Status Age at Mother Father Brother Level of Service:07728 [place] OFFICE/OUTPATIENT ESTABLISHED LOW MDM 20-29 MIN Reason for Visit and Comments: Coronary Artery Disease [187] Hypertension [431835] Hyperlipidemia [182] Normal [facility] RAD - MISCon 08-08-2022 RAD - MISC [id number]:12 7 Normal [facility] Consent for Procedure/Surger yon 07-31-2022 Consent for Procedure/Surgery [id number]:12 7 Normal [facility] XR KUB 1 VIEWon 07-25-2022 XR KUB [...] by: JAMIE TAN Date: 2022-07-25 08:21 Normal [facility] Reminderson 07-20-2022 Reminders - From: Padma Dunlap To: LAYO Church PA - Results; Sent: 07/20/2022 12:53:49 EST Show up: 07/26/2022 12:53:00 EST Subject: Reminder Message Reminder Message Please Remember to:_ PATIENT RELATED REMINDER:_ ( ) Call Patient ( ) Ask Patient to ( ) Call Relative ( ) Schedule Patient ( X ) Follow up on Results Pt will be having KUB @ [facility] sometime between 07/20/2022 and 07/27/2022 ( ) Other: PROVIDER RELATED REMINDER:_ ( ) [facility] ( ) Call Pharmacy ( ) Call Lab ( ) Other: Special Instructions:_ Comments:_ Normal [facility] CALCULI, URINARYon 3 2,8 Dihydroxyadenine Normal [facility] Comment on above: Performed By: #### P THINT #### [facility] [address] [address] [address] Aaron Gloria Ammonium Acid Urate Normal [facility] Comment on above: Performed By: #### P THINT #### [facility] [address] [address] [address] Aaron Gloria Bilirubin Ql (U) Normal [facility] Comment on above: Performed By: #### P THINT #### [facility] [address] [address] [address] Aaron Gloria Ca Oxalate Dihydrate Normal [facility] Comment on above: Performed By: #### P THINT #### [facility] [address] [address] [address] Aaron Gloria CaHPO4 (Brushite) Normal [facility] Comment on above: Performed By: #### P THINT #### [facility] [address] [address] [address] Aaron Gloria Calcium Bilirubinate Normal [facility] Comment on above: Performed By: #### P THINT #### [facility] [address] [address] [address] Aaron Gloria Calcium Carbonate Normal [facility] Comment on above: Performed By: #### P THINT #### [facility] [address] [address] [address] Aaron Gloria Calcium Oxalate Monohydrate 60 % [facility] Comment on above: Performed By: #### P THINT #### [facility] [address] [address] [address] Aaron Gloria Calcium Palmitate [facility] Comment on above: Performed By: #### P THINT #### [facility] [address] [address] [address] Aaron Gloria Calcium Phosphate [facility] Comment on above: Performed By: #### P THINT #### [facility] [address] [address] [address] Aaron Gloria Calcium Stearate [facility] Comment on above: Performed By: #### P THINT #### [facility] [address] [address] [address] Aaron Gloria Carbonate Apatite [facility] Comment on above: Performed By: #### P THINT #### [facility] [address] [address] [address] Aaron Gloria Cellular Material [facility] Comment on above: Performed By: #### P THINT #### [facility] [address] [address] [address] Aaron Gloria Cholesterol [facility] Comment on above: Performed By: #### P THINT #### [facility] [address] [address] [address] Aaron Gloria Color (U) Brown Normal [facility] Comment on above: Performed By: #### P THINT #### [facility] [address] [address] [address] Aaron Gloria Comment Welch [facility] Comment on above: Performed By: #### P THINT #### [facility] [address] [address] [address] Aaron Gloria Comment Comment Normal [facility] Comment on above: Result Comment: Calc ulus received wet. Wet calculi must be dried before analysis, which delays reporting of results. Leaving calculi wet (such as water, saline, blood, urine) may lead to changes in composition. Performed By: #### P THINT #### [facility] [address] [address] [address] Aaron Gloria Comment: Comment Normal [facility] Comment on above: Result Comment: Phys guerlinean questions regarding Calculi Analysis [facility] at: [phone]. Performed By: #### P THINT #### [facility] [address] [place] [address] Dr. Aaron Gloria Composition Comment Normal [facility] Comment on above: Result Comment: Perc entage (Represents the % composition) Performed By: #### P THINT #### [facility] [address] [place] [address] Dr. Aaron Gloria Cystine Normal [facility] Comment on above: Performed By: #### P THINT #### [facility] [address] [place] [address] Dr. Aaron Gloria Disclaimer: Comment Normal [facility] Comment on above: Result Comment: This test was developed and its performance characteristics determined by [facility]. It has not been cleared or approved by the Food and Drug Administration. Performed By: #### P THINT #### [facility] [address] [place] [address] Dr. Aaron Gloria Dried Blood Normal [facility] Comment on above: Performed By: #### P THINT #### [facility] [address] [place] [address] Dr. Aaron Gloria Drug or Metabolite Normal [facility] Comment on above: Performed By: #### P THINT #### [facility] [address] [place] [address] Dr. Aaron Gloria Hydroxyapatite Normal [facility] Comment on above: Performed By: #### P THINT #### [facility] [address] [address] [address] Aaron Gloria Mg NH4 PO4 (Struvite) [facility] Comment on above: Performed By: #### P THINT #### [facility] [address] [address] [address] Aaron Gloria MgHPO4 (Newberyite) Normal [facility] Comment on above: Performed By: #### P THINT #### [facility] [address] [address] [address] Aaron Gloria Other component(s) Normal [facility] Comment on above: Performed By: #### P THINT #### [facility] [address] [address] [address] Aaron Gloria PDF . Normal [facility] Comment on above: Performed By: #### P THINT #### [facility] [address] [address] [address] Aaron Gloria Photo Comment [facility] Comment on above: Result Comment: Phot ograph will follow under a separate cover Performed By: #### P THINT #### [facility] [address] [address] [address] Aaron Gloria Please note: Comment Normal [facility] Comment on above: Result Comment: Calc jeffery report will follow via computer, mail or relay technician delivery. Performed By: #### P THINT #### [facility] [address] [address] [address] Aaron Gloria Size 3x4 Normal [facility] Comment on above: Result Comment: Mult iple pieces received. Dimensions of the largest piece reported. Performed By: #### P THINT #### [facility] [address] [address] [address] Aaron Gloria Sodium Acid Urate Normal [facility] Comment on above: Performed By: #### P THINT #### [facility] [address] [address] [address] Aaron Gloria Source Comment [facility] Comment on above: Result Comment: Left Ureter Performed By: #### P THINT #### [facility] [address] [address] [address] Aaron Gloria Triamterene Normal [facility] Comment on above: Performed By: #### P THINT #### [facility] [address] [address] [address] Aaron Gloria Uric Acid 40 % Normal [facility] Comment on above: Performed By: #### P THINT #### [facility] [address] [place] [address] Dr. Aaron Gloria Uric Acid Dihydrate Normal [facility] Comment on above: Performed By: #### P THINT #### [facility] [address] [place] [address] Dr. Aaron Gloria Weight 44 mg [facility] Comment on above: Performed By: #### P THINT #### [facility] [address] [place] [address] Dr. Aaron Gloria Xanthine [facility] Comment on above: Performed By: #### P THINT #### [facility] [address] [place] [address] Dr. Aaron Gloria Operative Reporton Operative Report [id number]:12 7 Normal [facility] Lab Reportson 07-13-2022 Lab Reports [id number]:12 7 Normal [facility] Covid-19 PCR (CVDTB)on 06-25 SARS-CoV-2 (COVID-19) RNA LAKISHA+probe Ql (Unsp spec) Not detected Normal NOT DETECTED [facility] Comment on above: Result Comment: This test is not yet approved or cleared by the [place] FDA. When there are no FDA-approved or cleared tests available, and other criteria are met, FDA can make tests available under an emergency access mechanism called an Emergency Use Authorization (EUA). The EUA for this test is supported by the [place] of Health and Human Service's (HHS's) declaration [...] SARS-CoV-2. Performed By: #### C VDTB #### [facility] [address] [place] [address] Dr. Aaron Gloria Lab Reportson 07-10-2022 Lab Reports [id number]:12 7 Normal [facility] CBC AUTO DIFFon 07-03-2022 BASO # 0.1 103/ul Normal 0.0-0.1 [facility] Comment on above: Performed By: #### P THINT #### [facility] [address] [place] [address] Dr. Aaron Gloria Basophils/100 WBC (Bld) 1.2 % Normal 0.2-2.0 [facility] Comment on above: Performed By: #### P THINT #### [facility] [address] [place] [address] Dr. Aaron Gloria EO # 0.2 103/ul Normal 0.0-0.7 [facility] Comment on above: Performed By: #### P THINT #### [facility] [address] [place] [address] Dr. Aaron Gloria Eosinophils/100 WBC (Bld) 1.7 % Normal 0.9-7.0 [facility] Comment on above: Performed By: #### P THINT #### [facility] [address] [place] [address] Dr. Aaron Gloria Erythrocyte distribution width (RBC) [Ratio] 13.5 % Normal 11.0-15.0 [facility] Comment on above: Performed By: #### P THINT #### [facility] [address] [place], [place] [id number] Dr. Aaron Gloria Hematocrit (Bld) [Volume fraction] 39.7 % Critically low 42.0-54.0 [facility] Comment on above: Performed By: #### P THINT #### [facility] [address] [place] [address] Dr. Aaron Gloria Hemoglobin (Bld) [Mass/Vol] 13.8 g/dL Critically low 14.0-18.0 [facility] Comment on above: Performed By: #### P THINT #### [facility] [address] [place] [address] Dr. Aaron Gloria IG # 0.22 10e3/ul Critically high 0.00-0.03 [facility] Comment on above: Performed By: #### P THINT #### [facility] [address] [place] [address] Dr. Aaron Gloria IG % 1.9 % Critically high 0.0-0.5 [facility] Comment on above: Performed By: #### P THINT #### [facility] [address] [place] [address] Dr. Aaron Gloria LYMPH # 2.8 103/ul Normal 1.2-3.8 [facility] Comment on above: Performed By: #### P THINT #### [facility] [address] [place] [address] Dr. Aaron Gloria Lymphocytes/100 WBC (Bld) 24.4 % Normal 20.5-60.0 [facility] Comment on above: Performed By: #### P THINT #### [facility] [address] [place] [address] Dr. Aaron Gloria MANUAL DIFF REQ NO Normal [facility] Comment on above: Performed By: #### P THINT #### [facility] [address] [place] [address] Dr. Aaron Gloria MCH (RBC) [Entitic mass] 28.4 pg Normal 25.9-34.0 [facility] Comment on above: Performed By: #### P THINT #### [facility] [address] [place] [address] Dr. Aaron Gloria MCHC (RBC) [Mass/Vol] 34.8 g/dL Normal 29.9-35.2 [facility] Comment on above: Performed By: #### P THINT #### [facility] [address] [address] [address] Aaron Gloria MCV (RBC) [Entitic vol] 81.7 fL Normal 80.0-94.0 [facility] Comment on above: Performed By: #### P THINT #### [facility] [address] [address] [address] Aaron Gloria MONO # 0.7 103/ul Normal 0.3-0.8 [facility] Comment on above: Performed By: #### P THINT #### [facility] [address] [place] [address] Dr. Aaron Gloria Monocytes/100 WBC (Bld) 6.2 % Normal 1.7-12.0 [facility] Comment on above: Performed By: #### P THINT #### [facility] [address] [address] [address] Aaron Gloria NEUT # 7.5 103/ul Critically high 1.4-6.5 [facility] Comment on above: Performed By: #### P THINT #### [facility] [address] [place] [address] Dr. Aaron Gloria Neutrophils/100 WBC (Bld) 64.6 % Normal 43.0-75.0 [facility] Comment on above: Performed By: #### P THINT #### [facility] [address] [address] [address] Aaron Gloria Platelet mean volume (Bld) [Entitic vol] 8.4 fL Critically low 9.5-13.5 [facility] Comment on above: Performed By: #### P THINT #### [facility] [address] [address] [address] Aaron Gloria PLT 565 103/ul Critically high 150-450 [facility] Comment on above: Performed By: #### P THINT #### [facility] [address] [place] [address] Dr. Aaron Gloria RBC 4.86 106/ul Normal 4.70-6.10 [facility] Comment on above: Performed By: #### P THINT #### [facility] [address] [place] [address] Dr. Aaron Gloria WBC 11.6 103/ul Critically high 4.0-11.0 [facility] Comment on above: Performed By: #### P THINT #### [facility] [address] [place] [address] Dr. Aaron Gloria PROF CHEM 8 (BAS METB)on Anion gap [Moles/Vol] 10.8 mmol/L Normal [facility] Comment on above: Performed By: #### C BC #### [facility] [address] [place] [address] Dr. Aaron Gloria Calcium [Mass/Vol] 9.5 mg/dL Normal 8.5-10.1 [facility] Comment on above: Performed By: #### C BC #### [facility] [address] [place] [address] Dr. Aaron Gloria Chloride [Moles/Vol] 102 mmol/L Normal 98-107 [facility] Comment on above: Performed By: #### C BC #### [facility] [address] [place] [address] Dr. Aaron Gloria CO2 [Moles/Vol] 30.9 mmol/L Normal 21.0-32.0 [facility] Comment on above: Performed By: #### C BC #### [facility] [address] [place] [address] Dr. Aaron Gloria Creatinine [Mass/Vol] 1.26 mg/dL Normal 0.70-1.30 [facility] Comment on above: Performed By: #### C BC #### [facility] [address] [place] [address] Dr. Aaron Gloria EGFR-AF SAMOAN >60 Normal >=60 [facility] Comment on above: Performed By: #### C BC #### [facility] [address] [place] [address] Dr. Aaron Gloria EGFR-NON AF SAMOAN 57 mL/min/1.73m2 Critically low >=60 [facility] Comment on above: Performed By: #### C BC #### [facility] [address] [address] [address] Aaron Gloria Glucose [Mass/Vol] 116 mg/dL Critically high 74-106 [facility] Comment on above: Performed By: #### C BC #### [facility] [address] [address] [address] Aaron Gloria Potassium [Moles/Vol] 4.7 mmol/L Normal 3.5-5.1 [facility] Comment on above: Performed By: #### C BC #### [facility] [address] [address] [address] Aaron Gloria Sodium [Moles/Vol] 139 mmol/L Normal 136-145 [facility] Comment on above: Performed By: #### C BC #### [facility] [address] [address] [address] Aaron Gloria Urea nitrogen [Mass/Vol] 14.0 mg/dL Normal 7.0-18.0 [facility] Comment on above: Performed By: #### C BC #### [facility] [address] [address] [address] Aaron Gloria Urea nitrogen/Creatinine [Mass ratio] 11.1 mg/mg Normal [facility] Comment on above: Performed By: #### C BC #### [facility] [address] [address] [address] Aaron Gloria PROTIMEon 07-03-2022 INR Coag (PPP) [Relative time] 1.01 {INR} Normal [facility] Comment on above: Performed By: #### U ZELDA 24 #### [facility] [address] [address] [address] Aaron Gloria INR GUIDELINES SEE BELOW Normal [facility] Comment on above: Result Comment: JIGAR RED INR: 2.0 - 3.0 CONDITIONS NOT LISTED BELOW 2.5 - 3.5 FOR PROSTHETIC HEART VALVE REPLACEMENT 2.5 - 3.5 RECURRENT THROMBOSIS Performed By: #### U ZELDA 24 #### [facility] [address] [place], [place] [address] Dr. Aaron Gloria PT Coag (PPP) [Time] 10.9 s Normal 9.0-11.6 [facility] Comment on above: Performed By: #### U ZELDA 24 #### [facility] [address] [place], [place] [address] Dr. Aaron Gloria PTTon 07-03-2022 aPTT Coag (Bld) [Time] 28.5 s Normal 22.3-36.2 [facility] Comment on above: Performed By: #### U ZELDA 24 #### [facility] [address] [address] [address] Aaron Gloria Consent for Procedure/Surger yon 06-14-2022 Consent for Procedure/Surgery [id number]:12 7 Normal [facility] XR KUB 1 VIEWon 05-25-2022 XR KUB [...] CHAI BRAMBILA Date: 2022-05-25 08:22 Normal [facility] Covid-19 PCR (CVDTBH)on 04-26 SARS-CoV-2 (COVID-19) RNA LAKISHA+probe Ql (Unsp spec) Not detected Normal NOT DETECTED [facility] Comment on above: Result Comment: This test is not yet approved or cleared by the [place] FDA. When there are no FDA-approved or cleared tests available, and other criteria are met, FDA can make tests available under an emergency access mechanism called an Emergency Use Authorization (EUA). The EUA for this test is supported by the [place] of Health and Human Service's (HHS's) declaration [...] SARS-CoV-2. Performed By: #### C [id number] #### [facility] [address] [place] [address] Dr. Aaron Gloria CBC AUTO DIFFon 05-15-2022 BASO # 0.1 103/ul Normal 0.0-0.1 [facility] Comment on above: Performed By: #### C BC #### [facility] [address] [place] [address] Dr. Aaron Gloria Basophils/100 WBC (Bld) 1.3 % Normal 0.2-2.0 [facility] Comment on above: Performed By: #### C BC #### [facility] [address] [place] [address] Dr. Aaron Gloria EO # 0.3 103/ul Normal 0.0-0.7 [facility] Comment on above: Performed By: #### C BC #### [facility] [address] [place] [address] Dr. Aaron Gloria Eosinophils/100 WBC (Bld) 3.0 % Normal 0.9-7.0 [facility] Comment on above: Performed By: #### C BC #### [facility] [address] [place] [address] Dr. Aaron Gloria Erythrocyte distribution width (RBC) [Ratio] 14.6 % Normal 11.0-15.0 [facility] Comment on above: Performed By: #### C BC #### [facility] [address] [place] [address] Dr. Aaron Gloria Hematocrit (Bld) [Volume fraction] 41.3 % Critically low 42.0-54.0 [facility] Comment on above: Performed By: #### C BC #### [facility] [address] [place] [address] Dr. Aaron Gloria Hemoglobin (Bld) [Mass/Vol] 13.7 g/dL Critically low 14.0-18.0 [facility] Comment on above: Performed By: #### C BC #### [facility] [address] [place] [address] Dr. Aaron Gloria IG # 0.16 10e3/ul Critically high 0.00-0.03 [facility] Comment on above: Performed By: #### C BC #### [facility] [address] [place] [address] Dr. Aaron Gloria IG % 1.5 % Critically high 0.0-0.5 [facility] Comment on above: Performed By: #### C BC #### [facility] [address] [place] [address] Dr. Aaron Gloria LYMPH # 2.3 103/ul Normal 1.2-3.8 [facility] Comment on above: Performed By: #### C BC #### [facility] [address] [place] [address] Dr. Aaron Gloria Lymphocytes/100 WBC (Bld) 21.7 % Normal 20.5-60.0 [facility] Comment on above: Performed By: #### C BC #### [facility] [address] [place] [address] Dr. Aaron Gloria MANUAL DIFF REQ NO Normal [facility] Comment on above: Performed By: #### C BC #### [facility] [address] [place] [address] Dr. Aaron Gloria MCH (RBC) [Entitic mass] 28.0 pg Normal 25.9-34.0 [facility] Comment on above: Performed By: #### C BC #### [facility] [address] [place] [address] Dr. Aaron Gloria MCHC (RBC) [Mass/Vol] 33.2 g/dL Normal 29.9-35.2 [facility] Comment on above: Performed By: #### C BC #### [facility] [address] [place] [address] Dr. Aaron Gloria MCV (RBC) [Entitic vol] 84.3 fL Normal 80.0-94.0 [facility] Comment on above: Performed By: #### C BC #### [facility] [address] [address] [address] Aaron Gloria MONO # 0.9 103/ul Critically high 0.3-0.8 [facility] Comment on above: Performed By: #### C BC #### [facility] [address] [place] [address] Dr. Aaron Gloria Monocytes/100 WBC (Bld) 8.4 % Normal 1.7-12.0 [facility] Comment on above: Performed By: #### C BC #### [facility] [address] [place] [address] Dr. Aaron Gloria NEUT # 6.7 103/ul Critically high 1.4-6.5 [facility] Comment on above: Performed By: #### C BC #### [facility] [address] [place] [address] Dr. Aaron Gloria Neutrophils/100 WBC (Bld) 64.1 % Normal 43.0-75.0 [facility] Comment on above: Performed By: #### C BC #### [facility] [address] [place] [address] Dr. Aaron Gloria Platelet mean volume (Bld) [Entitic vol] 9.2 fL Critically low 9.5-13.5 [facility] Comment on above: Performed By: #### C BC #### [facility] [address] [place] [address] Dr. Aaron Gloria PLT 423 103/ul Normal 150-450 [facility] Comment on above: Performed By: #### C BC #### [facility] [address] [place] [address] Dr. Aaron Gloria RBC 4.90 106/ul Normal 4.70-6.10 [facility] Comment on above: Performed By: #### C BC #### [facility] [address] [place] [address] Dr. Aaron Gloria WBC 10.4 103/ul Normal 4.0-11.0 [facility] Comment on above: Performed By: #### C BC #### [facility] [address] [place] [address] Dr. Aaron Gloria PROF CHEM 8 (BAS METB)on Anion gap [Moles/Vol] 11.3 mmol/L Normal [facility] Comment on above: Performed By: #### B MP #### [facility] [address] [place] [address] Dr. Aaron Gloria Calcium [Mass/Vol] 9.2 mg/dL Normal 8.5-10.1 [facility] Comment on above: Performed By: #### B MP #### [facility] [address] [place] [address] Dr. Aaron Gloria Chloride [Moles/Vol] 104 mmol/L Normal 98-107 [facility] Comment on above: Performed By: #### B MP #### [facility] [address] [place] [address] Dr. Aaron Gloria CO2 [Moles/Vol] 27.9 mmol/L Normal 21.0-32.0 [facility] Comment on above: Performed By: #### B MP #### [facility] [address] [place] [address] Dr. Aaron Gloria Creatinine [Mass/Vol] 1.31 mg/dL Critically high 0.70-1.30 [facility] Comment on above: Performed By: #### B MP #### [facility] [address] [place] [address] Dr. Aaron Gloria EGFR-AF SAMOAN >60 Normal >=60 [facility] Comment on above: Performed By: #### B MP #### [facility] [address] [place] [address] Dr. Aaron Gloria EGFR-NON AF SAMOAN 55 mL/min/1.73m2 Critically low >=60 [facility] Comment on above: Performed By: #### B MP #### [facility] [address] [address] [address] Aaron Gloria Glucose [Mass/Vol] 111 mg/dL Critically high 74-106 [facility] Comment on above: Performed By: #### B MP #### [facility] [address] [address] [address] Aaron Gloria Potassium [Moles/Vol] 4.2 mmol/L Normal 3.5-5.1 [facility] Comment on above: Performed By: #### B MP #### [facility] [address] [address] [address] Aaron Gloria Sodium [Moles/Vol] 139 mmol/L Normal 136-145 [facility] Comment on above: Performed By: #### B MP #### [facility] [address] [address] [address] Aaron Gloria Urea nitrogen [Mass/Vol] 15.0 mg/dL Normal 7.0-18.0 [facility] Comment on above: Performed By: #### B MP #### [facility] [address] [address] [address] Aaron Gloria Urea nitrogen/Creatinine [Mass ratio] 11.5 mg/mg Normal [facility] Comment on above: Performed By: #### B MP #### [facility] [address] [address] [address] Aaron Gloria PROTIMEon 05-15-2022 INR Coag (PPP) [Relative time] 1.03 {INR} Normal [facility] Comment on above: Performed By: #### M AG24 #### [facility] [address] [address] [address] Aaron Gloria INR GUIDELINES SEE BELOW Normal [facility] Comment on above: Result Comment: JIGAR RED INR: 2.0 - 3.0 CONDITIONS NOT LISTED BELOW 2.5 - 3.5 FOR PROSTHETIC HEART VALVE REPLACEMENT 2.5 - 3.5 RECURRENT THROMBOSIS Performed By: #### M AG24 #### [facility] [address] [address] [address] Aaron Gloria PT Coag (PPP) [Time] 11.1 s Normal 9.0-11.6 [facility] Comment on above: Performed By: #### M AG24 #### [facility] [address] [place] [address] Dr. Aaron Gloria PTTon 05-15-2022 aPTT Coag (Bld) [Time] 27.5 s Normal 22.3-36.2 [facility] Comment on above: Performed By: #### M AG24 #### [facility] [address] [place] [address] Dr. Aaron Gloria SURGICAL PATHOLOGYon 022 Case Report Surgical Pathology R eport Case: [id number] Authorizing Provider: Chai Palma MD Collected: 04/25/2022 03:25 PM Ordering Location: Procedures Received: 04/25/2022 04:06 PM Pathologist: Sree Shanks MD Specimen: SIGMOID COLON POLYP [facility] FINAL DIAGNOSIS Sigmoid colon, polypectomy: - Tubular adenoma. [facility] Gross Description A. SIGMOID COLON CLIFTON YP Received in formalin is an irregular segment of simeon-red polypoid tissue measuring 1.8 x 1.5 x 0.9 cm. A stalk is present measuring 0.6 cm in length. The specimen is bisected. Totally submitted in one cassette. Gross examination performed at [facility], [address] [place] [address] FFS 04/25/2022 9:02 PM [facility] Performing Lab Diagnostic interpret ation performed at [facility], [address] [place] [address] CLIA# [id number] [employer]: Brain Blank M.D. [facility] ANES POSTPROC EVALon 022 ANES POSTPROC EVAL HNO ID: [id number] Author: Eric Jameson MD Service: ? Author Type: Physician Type: Anesthesia Postprocedure Evaluation Filed: 04/25/2022 4:30 PM Note Text: POST ANESTHESIA EVALUATION NOTE : 1955 Procedure Summary Date: 04/25/22 Room / Location: Procedures Anesthesia Start: 1517 Anesthesia Stop: 1549 Procedure: COLONOSCOPY SCREENING Diagnosis: Mass of colon (Therapy of known colon adenoma) Scheduled Providers: Chai Palma MD; Eric Jameson MD; Lima Green, RN; Yuni Notrh APRN.[employer] Responsible Provider: Eric Jameson MD Anesthesia Type: [...] April 25, 2022 TIME: 4:29 PM CSN: [id number] [facility] ANES PRE-OPon 04-25-2022 ANES PRE-OP HNO ID: [id number] Author: Eric Jameson MD Service: ? Author Type: Physician Type: Anesthesia Preprocedure Evaluation Filed: 04/25/2022 2:28 PM Note Text: ANESTHESIOLOGY DAY OF SURGERY NOTE : 1955 Procedure Information Date/Time: 04/25/22 1445 Scheduled providers: Chai Palma MD; Eric Jameson MD; Lima Green RN; Yuni North APRN.[employer] Procedure: COLONOSCOPY SCREENING Location: Procedures Estimated body mass index is 32.69 kg/m? as calculated from the following: Height as of 04/14/22: 172.7 cm (5' 8 ). Weight as of this encounter: 97.5 kg (215 lb). 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 Patient / Responsible [place] Party agrees to proceed: yes Patient / Surrogate [...] April 25, 2022 TIME: 2:27 PM CSN: [id number] Normal [facility] COLONOSCOPY SCREENINGon 11-0 [facility] Colonoscopyon 04-25-2022 Colonoscopy [facility] Gastrointestinal Endoscopy Patient Name: Mark Douglas Procedure Date: 04/25/2022 3:13 PM Date of : 1955 Admit Type: Outpatient Age: 66 Room: [place] [address] Gender: Male Note Status: Finalized Attending MD: [...] the patient. Procedure Code(s): --- Professional --- 23720, 52, Colonoscopy, flexible; with removal of tumor(s), polyp(s), or other lesion(s) by snare technique 14071, 52, Colonoscopy, flexible; with directed submucosal injection(s), any substance CPT copyright 1 [employer]. All rights reserved. The codes documented in this report are preliminary and upon solar technician review may be revised to meet current compliance requirements. Attending Participation: I personally performed the entire procedure. Scope In: 3:22:00 PM Scope Out: 3:41:36 PM MD Chai Sargent MD 04/25/2022 3:45:50 PM This report has been signed electronically by Chai Palma MD Number of Addenda: 0 Note Initiated On: 04/25/2022 3:13 PM Estimated Blood Loss: Estimated blood loss was minimal. Normal [facility] HISTORY PHYSICALon HISTORY PHYSICAL HNO ID: [id number] Author: Chai Palma MD Service: Colorectal Author Type: Physician Type: HANDP Filed: 04/25/2022 2:45 PM Note Text: COLORECTAL SURGERY April 13, 2022 Mark Dogulas 66 year old This consult was requested by Dr. Lujan and my final recommendations will be communicated to the requesting health care provider by way of the shared medical record for internal providers or letter via the [employer] for external providers. Chief Complaint: [...] BIOPSY: TUBULOVILLOUS ADENOMA CT C/A/P 02/13/22 - [facility] LUNGS: No visible pulmonary disease LIVER: No [...] morbidity, mortality and/or complications of treatment plan: [facility] Chai Palma MD Colorectal Surgery Above clinic note reviewed. No changes. Cardiac: regular rate Resp: unlabored respirations Proceed with colonoscopy Chai Palma MD April 25, 2022 2:45 PM [facility] SURGICAL PATHOLOGYon 022 CASE REPORT [facility] Comment on above: Order Comment: Speci men Type: TISSUE SPECIMEN Ordering Facility: [facility] Address: [address] [place] [id number] Result Comment: [facility] Pathology Report Case: [id number] Authorizing Provider: Chai Palma MD Collected: 04/25/2022 03:25 PM Ordering Location: Procedures Received: 04/25/2022 04:06 PM Pathologist: Sree Shanks MD Specimen: SIGMOID COLON POLYP Performed By: #### S #### [facility] CLIA [id number] [facility] [place] [address] [place] FINAL DIAGNOSIS Normal [facility] Comment on above: Order Comment: Speci men Type: TISSUE SPECIMEN Ordering Facility: [facility] Address: [address] [place] [address] Result Comment: Sigm oid colon, polypectomy: - Tubular adenoma. Performed By: #### S #### [facility] CLIA [id number] [address] [place] [address] OF [place] FINAL PERFORMING LAB Normal [facility] Comment on above: Order Comment: Speci men Type: TISSUE SPECIMEN Ordering Facility: [facility] Address: [address] [address] Result Comment: Diag nostic interpretation performed at [place] [address] CLIA# [id number] [employer]: Brain Blank M.D. Performed By: #### S #### [facility] CLIA [id number] [address] [place] [address] GROSS DESCRIPTION Normal [facility] Comment on above: Order Comment: Speci men Type: TISSUE SPECIMEN Ordering Facility: [facility] Address: [address] [address] Result Comment: A. S IGMOID COLON POLYP Received in formalin is an irregular segment of simeon-red polypoid tissue measuring 1.8 x 1.5 x 0.9 cm. A stalk is present measuring 0.6 cm in length. The specimen is bisected. Totally submitted in one cassette. Gross examination performed at [facility], [address] [place] [address] FFS 04/25/2022 9:02 PM Performed By: #### S #### [facility] CLIA [id number] [address] [place] [address] OF [place] XR KUB 1 VIEWon 04-06-2022 [...] by: CHAI BRAMBILA Date: 2022-04-06 19:12 Normal [facility] CRPon 03-13-2022 CRP [Mass/Vol] mg/L Normal <=1.0 [facility] Comment on above: Performed By: #### U ZELDA 24 #### [facility] [address] [address] [address] Aaron Gloria PROF CHEM 8 (BAS METB)on Anion gap [Moles/Vol] 11.9 mmol/L Normal [facility] Comment on above: Performed By: #### P THINT #### [facility] [address] [place] [address] Dr. Aaron Gloria Calcium [Mass/Vol] 8.9 mg/dL Normal 8.5-10.1 [facility] Comment on above: Performed By: #### P THINT #### [facility] [address] [place] [address] Dr. Aaron Gloria Chloride [Moles/Vol] 103 mmol/L Normal 98-107 [facility] Comment on above: Performed By: #### P THINT #### [facility] [address] [place] [address] Dr. Aaron Gloria CO2 [Moles/Vol] 28.1 mmol/L Normal 21.0-32.0 [facility] Comment on above: Performed By: #### P THINT #### [facility] [address] [place] [address] Dr. Aaron Gloria Creatinine [Mass/Vol] 0.95 mg/dL Normal 0.70-1.30 [facility] Comment on above: Performed By: #### P THINT #### [facility] [address] [place] [address] Dr. Aaron Gloria EGFR-AF SAMOAN >60 Normal >=60 [facility] Comment on above: Performed By: #### P THINT #### [facility] [address] [address] [address] Aaron Gloria EGFR-NON AF SAMOAN >60 Normal >=60 [facility] Comment on above: Performed By: #### P THINT #### [facility] [address] [place] [address] Dr. Aaron Gloria Glucose [Mass/Vol] 117 mg/dL Critically high 74-106 [facility] Comment on above: Performed By: #### P THINT #### [facility] [address] [address] [address] Aaron Gloria Potassium [Moles/Vol] 4.0 mmol/L Normal 3.5-5.1 [facility] Comment on above: Performed By: #### P THINT #### [facility] [address] [place] [address] Dr. Aaron Gloria Sodium [Moles/Vol] 139 mmol/L Normal 136-145 [facility] Comment on above: Performed By: #### P THINT #### [facility] [address] [place] [address] Dr. Aaron Gloria Urea nitrogen [Mass/Vol] 9.0 mg/dL Normal 7.0-18.0 [facility] Comment on above: Performed By: #### P THINT #### [facility] [address] [place] [address] Dr. Aaron Gloria Urea nitrogen/Creatinine [Mass ratio] 9.5 mg/mg Normal [facility] Comment on above: Performed By: #### P THINT #### [facility] [address] [place] [address] Dr. Aaron Gloria SED RATE [facility] 2021 SED RATE 12 mm/hr Normal <=20 [facility] Comment on above: Performed By: #### S EDR #### [facility] [address] [place] [address] Dr. Aaron Gloria [facility] SARS-CoV-2 (COVID-19) RNA LAKISHA+probe Ql (Unsp spec) Not detected Normal NOT DETECTED [facility] Comment on above: Result Comment: This test is not yet approved or cleared by the [place] FDA. When there are no FDA-approved or cleared tests available, and other criteria are met, FDA can make tests available under an emergency access mechanism called an Emergency Use Authorization (EUA). The EUA for this test is supported by the [place] of Health and Human Service's (HHS's) declaration [...] SARS-CoV-2. Performed By: #### P THINT #### [facility] [address] [place] [address] Dr. Aaron Gloria [facility]25 SARS-CoV-2 (COVID-19) RNA LAKISHA+probe Ql (Unsp spec) Not detected Normal NOT DETECTED [facility] Comment on above: Result Comment: This test is not yet approved or cleared by the [place] FDA. When there are no FDA-approved or cleared tests available, and other criteria are met, FDA can make tests available under an emergency access mechanism called an Emergency Use Authorization (EUA). The EUA for this test is supported by the [place] of Health and Human Service's (HHS's) declaration [...] SARS-CoV-2. Performed By: #### C BC #### [facility] [id number] Aaron Gloria CT CHEST W CONon [...] by: CHAI BRAMBILA Date: 2022-02-14 12:30 Normal [facility] THYROID ANTIBODIESon 022 Thyroglobulin Antibody <1.0 Normal 0.0-0.9 [facility] Comment on above: Result Comment: Thyr oglobulin Antibody measured by Kendra Nia Methodology Performed By: #### C [id number] #### [facility] [address] [place] [address] Dr. Aaron Gloria Thyroid Peroxidase (TPO) Ab <8 Normal 0-34 [facility] Comment on above: Performed By: #### C ALC24U #### [facility] [address] [place] [address] Dr. Aaron Gloria Covid-19 PCR ([facility])on 01-23 SARS-CoV-2 (COVID-19) RNA LAKISHA+probe Ql (Unsp spec) Not detected Normal NOT DETECTED [facility] Comment on above: Result Comment: This test is not yet approved or cleared by the [place] FDA. When there are no FDA-approved or cleared tests available, and other criteria are met, FDA can make tests available under an emergency access mechanism called an Emergency Use Authorization (EUA). The EUA for this test is supported by the [place] of Health and Human Service's (HHS's) declaration [...] Performed By: #### U ZELDA 24 #### [facility] [address] [place] [address] Dr. Aaron Gloria CBC AUTO DIFFon 02-08-2022 BASO # 0.1 103/ul Normal 0.0-0.1 [facility] Comment on above: Performed By: #### P THINT #### [facility] [address] [place] [address] Dr. Aaron Gloria Basophils/100 WBC (Bld) 0.7 % Normal 0.2-2.0 [facility] Comment on above: Performed By: #### P THINT #### [facility] [address] [address] [address] Aaron Gloria EO # 0.3 103/ul Normal 0.0-0.7 [facility] Comment on above: Performed By: #### P THINT #### [facility] [address] [address] [address] Aaron Gloria Eosinophils/100 WBC (Bld) 1.9 % Normal 0.9-7.0 [facility] Comment on above: Performed By: #### P THINT #### [facility] [address] [place] [address] Dr. Aaron Gloria Erythrocyte distribution width (RBC) [Ratio] 12.9 % Normal 11.0-15.0 [facility] Comment on above: Performed By: #### P THINT #### [facility] [address] [place] [address] Dr. Aaron Gloria Hematocrit (Bld) [Volume fraction] 39.7 % Critically low 42.0-54.0 [facility] Comment on above: Performed By: #### P THINT #### [facility] [address] [place] [address] Dr. Aaron Gloria Hemoglobin (Bld) [Mass/Vol] 13.1 g/dL Critically low 14.0-18.0 [facility] Comment on above: Performed By: #### P THINT #### [facility] [address] [place] [address] Dr. Aaron Gloria IG # 0.14 10e3/ul Critically high 0.00-0.03 [facility] Comment on above: Performed By: #### P THINT #### [facility] [address] [place] [address] Dr. Aaron Gloria IG % 1.1 % Critically high 0.0-0.5 [facility] Comment on above: Performed By: #### P THINT #### [facility] [address] [place] [address] Dr. Aaron Gloria LYMPH # 1.5 103/ul Normal 1.2-3.8 [facility] Comment on above: Performed By: #### P THINT #### [facility] [address] [place] [address] Dr. Aaron Gloria Lymphocytes/100 WBC (Bld) 11.8 % Critically low 20.5-60.0 [facility] Comment on above: Performed By: #### P THINT #### [facility] Laboratory [address] [place] [address] Dr. Aaron Gloria MANUAL DIFF REQ NO Normal [facility] Comment on above: Performed By: #### P THINT #### [facility] [address] [place] [address] Dr. Aaron Gloria MCH (RBC) [Entitic mass] 28.5 pg Normal 25.9-34.0 [facility] Comment on above: Performed By: #### P THINT #### [facility] [address] [place] [address] Dr. Aaron Gloria MCHC (RBC) [Mass/Vol] 33.0 g/dL Normal 29.9-35.2 [facility] Comment on above: Performed By: #### P THINT #### [facility] [address] [place] [address] Dr. Aaron Gloria MCV (RBC) [Entitic vol] 86.3 fL Normal 80.0-94.0 [facility] Comment on above: Performed By: #### P THINT #### [facility] [address] [place] [address] Dr. Aaron Gloria MONO # 1.4 103/ul Critically high 0.3-0.8 [facility] Comment on above: Performed By: #### P THINT #### [facility] [address] [place] [address] Dr. Aaron Gloria Monocytes/100 WBC (Bld) 10.5 % Normal 1.7-12.0 [facility] Comment on above: Performed By: #### P THINT #### [facility] [address] [place] [address] Dr. Aaron Gloria NEUT # 9.6 103/ul Critically high 1.4-6.5 [facility] Comment on above: Performed By: #### P THINT #### [facility] [address] [address] [address] Aaron Gloria Neutrophils/100 WBC (Bld) 74.0 % Normal 43.0-75.0 [facility] Comment on above: Performed By: #### P THINT #### [facility] [address] [address] [address] Aaron Gloria Platelet mean volume (Bld) [Entitic vol] 9.7 fL Normal 9.5-13.5 [facility] Comment on above: Performed By: #### P THINT #### [facility] [address] [address] [address] Aaron Gloria PLT 496 103/ul Critically high 150-450 [facility] Comment on above: Performed By: #### P THINT #### [facility] [address] [address] [address] Aaron Gloria RBC 4.60 106/ul Critically low 4.70-6.10 [facility] Comment on above: Performed By: #### P THINT #### [facility] [address] [address] [address] Aaron Gloria WBC 13.0 103/ul Critically high 4.0-11.0 [facility] Comment on above: Performed By: #### P THINT #### [facility] [address] [address] [address] Aaron Gloria CRPon 02-08-2022 CRP [Mass/Vol] mg/L Critically high <=1.0 [facility] Comment on above: Performed By: #### P THINT #### [facility] [address] [address] [address] Aaron Gloria FREE T3on 02-08-2022 FREE T3 1.72 pg/mlL Critically low 2.18-3.98 [facility] Comment on above: Performed By: #### P THINT #### [facility] [address] [address] [address] Aaron Gloria FREE T4on 02-08-2022 Free T4 [Mass/Vol] 1.59 ng/dL Critically high 0.76-1.46 [facility] Comment on above: Performed By: #### M AG24 #### [facility] [address] [place] [address] Dr. Aaron Gloria PROF 14(COMP METB)on 022 Albumin [Mass/Vol] 3.0 g/dL Critically low 3.4-5.0 Th [facility] Comment on above: Performed By: #### M AG24 #### [facility] [address] [place] [address] Dr. Aaron Gloria Albumin/Globulin [Mass ratio] 0.6 {ratio} Normal [facility] Comment on above: Performed By: #### M AG24 #### [facility] [address] [place] [address] Dr. Aaron Gloria ALP [Catalytic activity/Vol] 117 U/L Critically high 46-116 [facility] Comment on above: Performed By: #### M AG24 #### [facility] [address] [place] [address] Dr. Aaron Gloria ALT [Catalytic activity/Vol] 23 U/L Normal 16-63 [facility] Comment on above: Performed By: #### M AG24 #### [facility] [address] [place] [address] Dr. Aaron Gloria Anion gap [Moles/Vol] 12.9 mmol/L Normal [facility] Comment on above: Performed By: #### M AG24 #### [facility] [address] [place] [address] Dr. Aaron Gloria AST [Catalytic activity/Vol] 23 U/L Normal 15-37 [facility] Comment on above: Performed By: #### M AG24 #### [facility] [address] [place] [address] Dr. Aaron Gloria Bilirubin [Mass/Vol] 0.9 mg/dL Normal 0.2-1.0 [facility] Comment on above: Performed By: #### M AG24 #### [facility] [address] [place] [address] Dr. Aaron Gloria Calcium [Mass/Vol] 9.5 mg/dL Normal 8.5-10.1 [facility] Comment on above: Performed By: #### M AG24 #### [facility] [address] [place] [address] Dr. Aaron Gloria Chloride [Moles/Vol] 99 mmol/L Normal 98-107 [facility] Comment on above: Performed By: #### M AG24 #### [facility] [address] [place] [address] Dr. Aaron Gloria CO2 [Moles/Vol] 28.2 mmol/L Normal 21.0-32.0 [facility] Comment on above: Performed By: #### M AG24 #### [facility] [address] [place] [address] Dr. Aaron Gloria Creatinine [Mass/Vol] 1.65 mg/dL Critically high 0.70-1.30 [facility] Comment on above: Performed By: #### M AG24 #### [facility] [address] [place] [address] Dr. Aaron Gloria EGFR-AF SAMOAN 51 mL/min/1.73m2 Critically low >=60 [facility] Comment on above: Performed By: #### M AG24 #### [facility] [address] [place] [address] Dr. Aaron Gloria EGFR-NON AF SAMOAN 42 mL/min/1.73m2 Critically low >=60 [facility] Comment on above: Performed By: #### M AG24 #### [facility] [address] [place] [address] Dr. Aaron Gloria Globulin (S) [Mass/Vol] 5.0 g/dL Normal [facility] Comment on above: Performed By: #### M AG24 #### [facility] [address] [place] [address] Dr. Aaron Gloria Glucose [Mass/Vol] 123 mg/dL Critically high 74-106 [facility] Comment on above: Performed By: #### M AG24 #### [facility] [address] [place] [address] Dr. Aaron Gloria Potassium [Moles/Vol] 4.1 mmol/L Normal 3.5-5.1 [facility] Comment on above: Performed By: #### M AG24 #### [facility] [address] [place] [address] Dr. Aaron Gloria Protein [Mass/Vol] 8.0 g/dL Normal 6.4-8.2 [facility] Comment on above: Performed By: #### M AG24 #### [facility] [address] [place] [address] Dr. Aaron Gloria Sodium [Moles/Vol] 136 mmol/L Normal 136-145 [facility] Comment on above: Performed By: #### M AG24 #### [facility] [address] [place] [address] Dr. Aaron Gloria Urea nitrogen [Mass/Vol] 17.0 mg/dL Normal 7.0-18.0 [facility] Comment on above: Performed By: #### M AG24 #### [facility] [address] [place] [address] Dr. Aaron Gloria Urea nitrogen/Creatinine [Mass ratio] 10.3 mg/mg Normal [facility] Comment on above: Performed By: #### M AG24 #### [facility] [address] [place] [address] Dr. Aaron Gloria SED RATE [facility] 2021 SED RATE 96 mm/hr Critically high <=20 [facility] Comment on above: Performed By: #### C BC #### [facility] [address] [place] [address] Dr. Aaron Gloria TSHon 02-08-2022 TSH 1.004 uIU/mL Normal 0.358-3.740 [facility] Comment on above: Performed By: #### P THINT #### [facility] [address] [place] [address] Dr. Aaron Gloria UA RANDOM W/MICROSCOPICon BACTERIA NONE SEEN Normal NONE SEEN [facility] Comment on above: Performed By: #### C BC #### [facility] [address] [place] [address] Dr. Aaron Gloria Bilirubin Ql (U) SMALL Abnormal NEGATIVE [facility] Comment on above: Performed By: #### C BC #### [facility] [address] [place] [address] Dr. Aaron Gloria CAST NONE SEEN Normal NONE SEEN [facility] Comment on above: Performed By: #### C BC #### [facility] [address] [place] [address] Dr. Aaron Gloria Clarity (U) TURBID Abnormal CLEAR [facility] Comment on above: Performed By: #### C BC #### [facility] [address] [place] [address] Dr. Aaron Gloria Color (U) YELLOW Normal YELLOW [facility] Comment on above: Performed By: #### C BC #### [facility] [address] [place] [address] Dr. Aaron Gloria Crystals LM Nom (Urine sed) NONE SEEN Normal NONE SEEN [facility] Comment on above: Performed By: #### C BC #### [facility] [address] [place] [address] Dr. Aaron Gloria Epithelial cells LM Ql (Urine sed) RARE Normal NONE SEEN /RARE [facility] Comment on above: Performed By: #### C BC #### [facility] [address] [place] [address] Dr. Aaron Gloria Glucose Ql (U) Negative Normal NEGATIVE [facility] Comment on above: Performed By: #### C BC #### [facility] [address] [place] [address] Dr. Aaron Gloria Hemoglobin Ql (U) Negative Normal NEGATIVE [facility] Comment on above: Performed By: #### C BC #### [facility] [address] [place] [address] Dr. Aaron Gloria Ketones Ql (U) Negative Normal NEGATIVE [facility] Comment on above: Performed By: #### C BC #### [facility] [address] [place] [address] Dr. Aaron Gloria LEUKOCYTES Negative Normal NEGATIVE [facility] Comment on above: Performed By: #### C BC #### [facility] [address] [place] [address] Dr. Aaron Gloria MUCOUS NONE SEEN Normal NONE SEEN [facility] Comment on above: Performed By: #### C BC #### [facility] [address] [place] [address] Dr. Aaron Gloria Nitrite Ql (U) Negative Normal NEGATIVE [facility] Comment on above: Performed By: #### C BC #### [facility] [address] [place] [address] Dr. Aaron Gloria pH (U) 6.0 [pH] Normal 5-9 [facility] Comment on above: Performed By: #### C BC #### [facility] [address] [place] [address] Dr. Aaron Gloria RBC NONE SEEN Abnormal 0-2 [facility] Comment on above: Performed By: #### C BC #### [facility] [address] [place] [address] Dr. Aaron Gloria SPEC GRAVITY 1.020 Normal 1.005-<=1.02 5 [facility] Comment on above: Performed By: #### C BC #### [facility] [address] [place] [address] Dr. Aaron Gloria UA PROTEIN 30 mg/dl Abnormal NEGATIVE/ TRACE [facility] Comment on above: Performed By: #### C BC #### [facility] [address] [place] [address] Dr. Aaron Gloria Urobilinogen Qn (U) 2.0 {Cain'U}/dL Abnormal 0.2 - 1. 0 [facility] Comment on above: Performed By: #### C BC #### [facility] [address] [place] [address] Dr. Aaron Gloria WBC NONE SEEN Normal NONE SEEN [facility] Comment on above: Performed By: #### C BC #### [facility] [address] [place] [address] Dr. Aaron Gloria CBC AUTO DIFFon 12-15-2021 BASO # 0.1 103/ul Normal 0.0-0.1 [facility] Comment on above: Performed By: #### U ZELDA 24 #### [facility] [address] [address] [address] Aaron Gloria Basophils/100 WBC (Bld) 0.8 % Normal 0.2-2.0 [facility] Comment on above: Performed By: #### U ZELDA 24 #### [facility] [address] [address] [address] Aaron Gloria EO # 0.3 103/ul Normal 0.0-0.7 [facility] Comment on above: Performed By: #### U ZELDA 24 #### [facility] [address] [address] [address] Aaron Gloria Eosinophils/100 WBC (Bld) 3.1 % Normal 0.9-7.0 [facility] Comment on above: Performed By: #### U ZELDA 24 #### [facility] [address] [place] [address] Dr. Aaron Gloria Erythrocyte distribution width (RBC) [Ratio] 13.2 % Normal 11.0-15.0 [facility] Comment on above: Performed By: #### U ZELDA 24 #### [facility] [address] [place] [address] Dr. Aaron Gloria Hematocrit (Bld) [Volume fraction] 45.6 % Normal 42.0-54.0 [facility] Comment on above: Performed By: #### U ZELDA 24 #### [facility] [address] [place] [address] Dr. Aaron Gloria Hemoglobin (Bld) [Mass/Vol] 15.2 g/dL Normal 14.0-18.0 [facility] Comment on above: Performed By: #### U ZELDA 24 #### [facility] [address] [place] [address] Dr. Aaron Gloria IG # 0.05 10e3/ul Critically high 0.00-0.03 [facility] Comment on above: Performed By: #### U ZELDA 24 #### [facility] [address] [place] [address] Dr. Aaron Gloria IG % 0.5 % Normal 0.0-0.5 [facility] Comment on above: Performed By: #### U ZELDA 24 #### [facility] [address] [place] [address] Dr. Aaron Gloria LYMPH # 2.3 103/ul Normal 1.2-3.8 [facility] Comment on above: Performed By: #### U ZELDA 24 #### [facility] [address] [place] [address] Dr. Aaron Gloria Lymphocytes/100 WBC (Bld) 25.2 % Normal 20.5-60.0 [facility] Comment on above: Performed By: #### U ZELDA 24 #### [facility] [address] [place] [address] Dr. Aaron Gloria MANUAL DIFF REQ NO Normal [facility] Comment on above: Performed By: #### U ZELDA 24 #### [facility] [address] [place] [address] Dr. Aaron Gloria MCH (RBC) [Entitic mass] 29.1 pg Normal 25.9-34.0 [facility] Comment on above: Performed By: #### U ZELDA 24 #### [facility] [address] [place] [address] Dr. Aaron Gloria MCHC (RBC) [Mass/Vol] 33.3 g/dL Normal 29.9-35.2 [facility] Comment on above: Performed By: #### U ZELDA 24 #### [facility] [address] [place] [address] Dr. Aaron Gloria MCV (RBC) [Entitic vol] 87.2 fL Normal 80.0-94.0 [facility] Comment on above: Performed By: #### U ZELDA 24 #### [facility] [address] [place] [address] Dr. Aaron Gloria MONO # 0.8 103/ul Normal 0.3-0.8 [facility] Comment on above: Performed By: #### U ZELDA 24 #### [facility] [address] [place] [address] Dr. Aaron Gloria Monocytes/100 WBC (Bld) 8.4 % Normal 1.7-12.0 [facility] Comment on above: Performed By: #### U ZELDA 24 #### [facility] [address] [address] [address] Aaron Gloria NEUT # 5.7 103/ul Normal 1.4-6.5 [facility] Comment on above: Performed By: #### U ZELDA 24 #### [facility] [address] [address] [address] Aaron Gloria Neutrophils/100 WBC (Bld) 62.0 % Normal 43.0-75.0 [facility] Comment on above: Performed By: #### U ZELDA 24 #### [facility] [address] [place] [address] Dr. Aaron Gloria Platelet mean volume (Bld) [Entitic vol] 9.0 fL Critically low 9.5-13.5 [facility] Comment on above: Performed By: #### U ZELDA 24 #### [facility] [address] [place] [address] Dr. Aaron Gloria PLT 303 103/ul Normal 150-450 [facility] Comment on above: Performed By: #### U ZELDA 24 #### [facility] [address] [place] [address] Dr. Aaron Gloria RBC 5.23 106/ul Normal 4.70-6.10 [facility] Comment on above: Performed By: #### U ZELDA 24 #### [facility] [address] [place] [address] Dr. Aaron Gloria WBC 9.1 103/ul Normal 4.0-11.0 [facility] Comment on above: Performed By: #### U ZELDA 24 #### [facility] [address] [place] [address] Dr. Aaron Gloria CULTURE URINEon 12-15-2021 CULTURE URINE Culture Observations : HEAVY GROWTH OF MIXED SKIN KERWIN. NO POTENTIAL PATHOGENS SEEN. Culture Observations: PLEASE RESUBMIT CLEAN CATCH MID-STREAM URINE IF CLINICALLY INDICATED. Normal [facility] Comment on above: Performed By: #### C [id number] #### [facility] [address] [place] [address] Dr. Aaron Gloria GLYCOHEMOGLOBIN A1Con 2021 ADA RECOMMENDATION SEE BELOW Normal [facility] Comment on above: Result Comment: ADA RECOMMENDED LIMIT 4.0 - 6.0 ADA THERAPEUTIC TARGET < 7.0 ACTION SUGGESTED > 7.0 Performed By: #### P THINT #### [facility] [address] [place] [address] Dr. Aaron Gloria Glucose [Mass/Vol] 134 mg/dL Normal [facility] Comment on above: Performed By: #### P THINT #### [facility] [address] [address] [address] Aaron Gloria HbA1c (Bld) [Mass fraction] 6.3 % Critically high 4.5-6.2 [facility] Comment on above: Performed By: #### P THINT #### [facility] [address] [place] [address] Dr. Aaron Gloria LIPID PROFILEon 12-15-2021 CHOL-HDL RATIO NORM SEE BELOW Normal [facility] Comment on above: Result Comment: 3.3 - 4.4 LOW RISK 4.4 - 7.1 AVERAGE RISK 7.1 - 11.0 MODERATE RISK >11.0 HIGH RISK Performed By: #### M AG24 #### [facility] [address] [place] [address] Dr. Aaron Gloria Cholesterol [Mass/Vol] 152 mg/dL Normal <=200 [facility] Comment on above: Performed By: #### M AG24 #### [facility] [address] [place] [address] Dr. Aaron Gloria Cholesterol in HDL [Mass/Vol] 35 mg/dL Critically low 40-60 [facility] Comment on above: Performed By: #### M AG24 #### [facility] [address] [address] [address] Aaron Gloria Cholesterol in LDL [Mass/Vol] 83.0 mg/dL Normal [facility] Comment on above: Performed By: #### M AG24 #### [facility] [address] [place] [address] Dr. Aaron Gloria Cholesterol.total/C holesterol in HDL [Mass ratio] 4.3 {ratio} Normal [facility] Comment on above: Performed By: #### M AG24 #### [facility] [address] [address] [address] Aaron Gloria HDL NORMAL > or = 60 mg/dl - LO W CARDIOVASCULAR RISK <40 mg/dl - HIGH CARDIOVASCULAR RISK Normal [facility] Comment on above: Performed By: #### M AG24 #### [facility] [address] [address] [address] Aaron Gloria LDL CALC NORMAL SEE BELOW Normal [facility] Comment on above: Result Comment: <100 mg/dl OPTIMAL 100 - 129 mg/dl NEAR OR ABOVE OPTIMAL 130 - 159 mg/dl BORDERLINE HIGH 160 - 189 mg/dl HIGH >190 mg/dl VERY HIGH Performed By: #### M AG24 #### [facility] [address] [place] [address] Dr. Aaron Gloria Triglyceride [Mass/Vol] 170 mg/dL Critically high <=150 [facility] Comment on above: Performed By: #### M AG24 #### [facility] [address] [place] [address] Dr. Aaron Gloria VLDL CALC 34.0 mg/dL Normal [facility] Comment on above: Performed By: #### M AG24 #### [facility] [address] [address] [address] Aaron Gloria PROF 14(COMP METB)on 022 Albumin [Mass/Vol] 4.1 g/dL Normal 3.4-5.0 [facility] Comment on above: Performed By: #### C ALC24U #### [facility] [address] [place] [address] Dr. Aaron Gloria Albumin/Globulin [Mass ratio] 1.1 {ratio} Normal [facility] Comment on above: Performed By: #### C ALC24U #### [facility] [address] [place] [address] Dr. Aaron Gloria ALP [Catalytic activity/Vol] 61 U/L Normal 46-116 [facility] Comment on above: Performed By: #### C ALC24U #### [facility] [address] [place] [address] Dr. Aaron Gloria ALT [Catalytic activity/Vol] 46 U/L Normal 16-63 [facility] Comment on above: Performed By: #### C ALC24U #### [facility] [address] [place] [address] Dr. Aaron Gloria Anion gap [Moles/Vol] 13.2 mmol/L Normal [facility] Comment on above: Performed By: #### C ALC24U #### [facility] [address] [address] [address] Aaron Gloria AST [Catalytic activity/Vol] 26 U/L Normal 15-37 [facility] Comment on above: Performed By: #### C ALC24U #### [facility] [address] [place] [address] Dr. Aaron Gloria Bilirubin [Mass/Vol] 0.4 mg/dL Normal 0.2-1.0 [facility] Comment on above: Performed By: #### C ALC24U #### [facility] [address] [place] [address] Dr. Aaron Gloria Calcium [Mass/Vol] 9.0 mg/dL Normal 8.5-10.1 [facility] Comment on above: Performed By: #### C ALC24U #### [facility] [address] [place] [address] Dr. Aaron Gloria Chloride [Moles/Vol] 105 mmol/L Normal 98-107 [facility] Comment on above: Performed By: #### C ALC24U #### [facility] [address] [place] [address] Dr. Aaron Gloria CO2 [Moles/Vol] 28.0 mmol/L Normal 21.0-32.0 [facility] Comment on above: Performed By: #### C ALC24U #### [facility] [address] [place] [address] Dr. Aaron Gloria Creatinine [Mass/Vol] 1.04 mg/dL Normal 0.70-1.30 [facility] Comment on above: Performed By: #### C ALC24U #### [facility] [address] [address] [address] Aaron Gloria EGFR-AF SAMOAN >60 Normal >=60 [facility] Comment on above: Performed By: #### C ALC24U #### [facility] [address] [place] [address] Dr. Aaron Gloria EGFR-NON AF SAMOAN >60 Normal >=60 [facility] Comment on above: Performed By: #### C ALC24U #### [facility] [address] [place] [address] Dr. Aaron Gloria Globulin (S) [Mass/Vol] 3.6 g/dL Normal [facility] Comment on above: Performed By: #### C ALC24U #### [facility] [address] [place] [address] Dr. Aaron Gloria Glucose [Mass/Vol] 124 mg/dL Critically high 74-106 [facility] Comment on above: Performed By: #### C ALC24U #### [facility] [address] [place] [address] Dr. Aaron Gloria Potassium [Moles/Vol] 4.2 mmol/L Normal 3.5-5.1 [facility] Comment on above: Performed By: #### C ALC24U #### [facility] [address] [place] [address] Dr. Aaron Gloria Protein [Mass/Vol] 7.7 g/dL Normal 6.4-8.2 [facility] Comment on above: Performed By: #### C ALC24U #### [facility] [address] [place] [address] Dr. Aaron Gloria Sodium [Moles/Vol] 142 mmol/L Normal 136-145 [facility] Comment on above: Performed By: #### C [id number] #### [facility] [address] [place] [address] Dr. Aaron Gloria Urea nitrogen [Mass/Vol] 9.0 mg/dL Normal 7.0-18.0 [facility] Comment on above: Performed By: #### C [id number] #### [facility] [address] [place] [address] Dr. Aaron Glorai Urea nitrogen/Creatinine [Mass ratio] 8.7 mg/mg Normal [facility] Comment on above: Performed By: #### C [id number] #### [facility] [address] [place] [address] Dr. Aaron Gloria UA RANDOM W/MICROSCOPICon BACTERIA TRACE Abnormal NONE SEEN [facility] Comment on above: Performed By: #### M AG24 #### [facility] [address] [place] [address] Dr. Aaron Gloria Bilirubin Ql (U) Negative Normal NEGATIVE [facility] Comment on above: Performed By: #### M AG24 #### [facility] [address] [place] [address] Dr. Aaron Gloria CAST NONE SEEN Normal NONE SEEN [facility] Comment on above: Performed By: #### M AG24 #### [facility] [address] [place] [address] Dr. Aaron Gloria Clarity (U) CLEAR Normal CLEAR [facility] Comment on above: Performed By: #### M AG24 #### [facility] [address] [place] [address] Dr. Aaron Gloria Color (U) LT. YELLOW Normal YELLOW [facility] Comment on above: Performed By: #### M AG24 #### [facility] [address] [place] [address] Dr. Aaron Gloria Crystals LM Nom (Urine sed) NONE SEEN Normal NONE SEEN [facility] Comment on above: Performed By: #### M AG24 #### [facility] [address] [place] [address] Dr. Aaron Gloria Epithelial cells LM Ql (Urine sed) RARE Normal NONE SEEN /RARE [facility] Comment on above: Performed By: #### M AG24 #### [facility] [address] [place] [address] Dr. Aaron Gloria Glucose Ql (U) Negative Normal NEGATIVE [facility] Comment on above: Performed By: #### M AG24 #### [facility] [address] [place] [address] Dr. Aaron Gloria Hemoglobin Ql (U) Negative Normal NEGATIVE [facility] Comment on above: Performed By: #### M AG24 #### [facility] [address] [place] [address] Dr. Aaron Gloria Ketones Ql (U) Negative Normal NEGATIVE [facility] Comment on above: Performed By: #### M AG24 #### [facility] [address] [place] [address] Dr. Aaron Gloria LEUKOCYTES Negative Normal NEGATIVE [facility] Comment on above: Performed By: #### M AG24 #### [facility] [address] [place] [address] Dr. Aaron Gloria MUCOUS NONE SEEN Normal NONE SEEN [facility] Comment on above: Performed By: #### M AG24 #### [facility] [address] [place] [address] Dr. Aaron Gloria Nitrite Ql (U) Positive Abnormal NEGATIVE [facility] Comment on above: Performed By: #### M AG24 #### [facility] [address] [place] [address] Dr. Aaron Gloria pH (U) 6.0 [pH] Normal 5-9 [facility] Comment on above: Performed By: #### M AG24 #### [facility] [address] [place] [address] Dr. Aaron Gloria RBC 0-2 Normal 0-2 [facility] Comment on above: Performed By: #### M AG24 #### [facility] [address] [place] [address] Dr. Aaron Gloria SPEC GRAVITY 1.030 Abnormal 1.005-<=1.02 5 [facility] Comment on above: Performed By: #### M AG24 #### [facility] [address] [place] [address] Dr. Aaron Gloria UA PROTEIN TRACE Normal NEGATIVE/ TRACE [facility] Comment on above: Performed By: #### M AG24 #### [facility] [address] [place] [address] Dr. Aaron Gloria Urobilinogen Qn (U) 0.2 {Cain'U}/dL Normal 0.2 - 1. 0 [facility] Comment on above: Performed By: #### M AG24 #### [facility] [address] [place], [place] [address] Dr. Aaron Gloria WBC 5-10 Abnormal NONE SEEN [facility] Comment on above: Performed By: #### M AG24 #### [facility] [address] [place], [place] [address] Dr. Aaron Gloria URIC ACID SERUMon 12-15-2021 Urate [Mass/Vol] 6.7 mg/dL Normal 3.5-7.2 [facility] Comment on above: Performed By: #### M AG24 #### [facility] [address] [place] [address] [address] Aaron Gloria Cardiovascular Lab Reporton 04-29-2021 Cardiovascular Lab Report [facility] Patient Name: [facility] MR #: [id number] Physician: Jes Hoang Department of M.D. Medicine Service Date: 04/28/2021 Division of Birthdate: 1955 Cardiology Room #: Adult Cardiovascular Services [place] [address] Cardiovascular Laboratory Report FINAL IMPRESSIONS: 1. Nnzl-am-grlnfrej 2-vessel coronary artery disease. 2. Normal global left ventricular systolic function by noninvasive imaging. 3. Dhvutfws-cn-behamo systemic hypertension. RECOMMENDATIONS: 1. Aggressive cardiovascular risk [...] the left radial artery was obtained. A 6-Maltese glide sheath was inserted without difficulty. Bilateral [...] Hoang M.D. Date Trans: 04/29/2021 05:18 A/tarsha [id number] Normal [facility] COVID-19/INFLUENZA A,B BOAZ Morrissey 06-17-2020 COVID-19/INFLUENZA A,B MOLECULAR SARS-COV-2 (SWAPNA): Detected INFLUENZA A (SWAPNA): Not Detected INFLUENZA B (SWAPNA): Not Detected Normal Not Detected [facility] Comment on above: Order Comment: This [...] at the following links: For Healthcare Providers: https://www.fda.gov/media/063546/download For Patients: https://www.fda.gov/media/731685/download Performed By: #### L [id number] #### [facility] [place] [address] Laura Pichardo M.D. [id number] COVID-19/Influenza A,B [facility] 06-17-2020 Influenza A Not Detected [facility] Not Detected [facility] Interpretation and review of laboratory results Abnormal [facility] SARS-CoV-2 Detected Abnormal Not Detected [facility] This test was perfor med [...] the following links: For Healthcare Providers: https://www.fda.gov/media /571346/download For Patients: https://www.fda.gov/media /186581/download [facility] Vital Signs Date Time Vital Sign Value Performing Clinician Facility 05-03-2023 14:050 Body temperature 97.59 [degF] SOPHIA Mckenzie MD Work Phone: [facility] 05-03-2023 14:11-050 Body weight 104.33 kg SOPHIA Mckenzie MD Work Phone: [facility] 05-03-2023 14:11-0500 Diastolic blood pressure 70 mm[Hg] SOPHIA Mckenzie MD Work Phone: [facility] 05-03-2023 14:11-0500 Heart rate 78 /min SOPHIA Mckenzie MD Work Phone: [facility] 05-03-2023 14:11-0500 Respiratory rate 16 /min SOPHIA Mckenzie MD Work Phone: [facility] 05-03-2023 14:11-0500 SaO2% (BldA) [Mass fraction] 95 % SOPHIA Mckenzie MD Work Phone: [facility] 05-03-2023 14:11-0500 Systolic blood pressure 131 mm[Hg] SOPHIA Mckenzie MD Work Phone: [facility] 10-31-2022 08:56-0400 Blood Pressure Location JERI SANDERS [facility] 10-31-2022 08:56-0400 Diastolic blood pressure 76 mm[Hg] JERI MARILYN [facility] 10-31-2022 08:56-0400 Heart rate 68 /min JERI MARILYN [facility] 10-31-2022 08:56-0400 Respiratory rate 16 /min JERI MARILYN [facility] 10-31-2022 08:56-0400 Systolic blood pressure 132 mm[Hg] JERI MARILYN [facility] 10-26-2022 10:43-0400 Body temperature 97.39 [degF] SOPHIA Mckenzie MD Work Phone: [facility] 10-26-2022 10:43-0400 Body weight 98.88 kg SOPHIA Mckenzie MD Work Phone: [facility] 10-26-2022 10:43-0400 Diastolic blood pressure 86 mm[Hg] SOPHIA Mckenzie MD Work Phone: [facility] 10-26-2022 10:43-0400 Heart rate 63 /min SOPHIA Mckenzie MD Work Phone: [facility] 10-26-2022 10:43-0400 Respiratory rate 18 /min SOPHIA Mckenzie MD Work Phone: [facility] 10-26-2022 10:43-0400 SaO2% (BldA) [Mass fraction] 97 % SOPHIA Mckenzie MD Work Phone: [facility] 10-26-2022 10:43-0400 Systolic blood pressure 144 mm[Hg] SOPHIA Mckenzie MD Work Phone: [facility] 04-27-2022 10:20-0400 Body temperature 96.91 [degF] SOPHIA Mckenzie MD Work Phone: [facility] 04-27-2022 10:20-0400 Body weight 97.52 kg SOPHIA Mckenzie MD Work Phone: [facility] 04-27-2022 10:20-0400 Diastolic blood pressure 78 mm[Hg] SOPHIA Mckenzie MD Work Phone: [facility] 04-27-2022 10:20-0400 Heart rate 63 /min SOPHIA Mckenzie MD Work Phone: [facility] 04-27-2022 10:20-0400 Respiratory rate 16 /min SOPHIA Mckenzie MD Work Phone: [facility] 04-27-2022 10:20-0400 SaO2% (BldA) [Mass fraction] 99 % SOPHIA Mckeznie MD Work Phone: [facility] 04-27-2022 10:20-0400 Systolic blood pressure 130 mm[Hg] SOPHIA Mckenzie MD Work Phone: [facility] 04-25-2022 16:10-0400 Diastolic blood pressure 91 mm[Hg] Chai Palma MD Work Phone: [facility] 04-25-2022 16:10-0400 Heart rate 72 /min Chai Palma MD Work Phone: [facility] 04-25-2022 16:10-0400 Respiratory rate 21 /min Chai Palma MD Work Phone: [facility] 04-25-2022 16:10-0400 SaO2% (BldA) [Mass fraction] 99 % Chai Palma MD Work Phone: [facility] 04-25-2022 16:10-0400 Systolic blood pressure 154 mm[Hg] Chai Palma MD Work Phone: [facility] 04-25-2022 15:48-0400 Body temperature 97 [degF] Chai Palma MD Work Phone: [facility] 04-25-2022 14:27-0400 Body weight 97.52 kg Chai Palma MD Work Phone: [facility] 04-24-2022 12:04-0400 Blood Pressure Location Nestor KAPLAN [facility] 04-24-2022 12:04-0400 Diastolic blood pressure 78 mm[Hg] Nestor KAPLAN [facility] 04-24-2022 12:04-0400 Heart rate 76 /min Nestor KAPLAN [facility] 04-24-2022 12:04-0400 Respiratory rate 16 /min Nestor KAPLAN [facility] 04-24-2022 12:04-0400 Systolic blood pressure 136 mm[Hg] Nestor KAPLAN [facility] 04-14-2022 13:57-0400 Body height 172.7 cm Pac 2 Work Phone: [facility] 04-14-2022 13:57-0400 Body temperature 97 [degF] Pacc 2 Work Phone: [facility] 04-14-2022 13:57-0400 Body weight 96.62 kg Pacc 2 Work Phone: [facility] 04-14-2022 13:57-0400 Diastolic blood pressure 68 mm[Hg] Pacc 2 Work Phone: [facility] 04-14-2022 13:57-0400 Heart rate 77 /min Pacc 2 Work Phone: [facility] 04-14-2022 13:57-0400 Respiratory rate 16 /min Pacc 2 Work Phone: [facility] 04-14-2022 13:57-0400 SaO2% (BldA) [Mass fraction] 98 % Pacc 2 Work Phone: [facility] 04-14-2022 13:57-0400 Systolic blood pressure 120 mm[Hg] Pacc 2 Work Phone: [facility] 02-21-2022 14:19-0400 Blood Pressure Location Gaetano LUJAN [facility] [place] 02-21-2022 14:19-0400 Diastolic blood pressure 66 mm[Hg] Gaetano LUJAN [facility] [place] 02-21-2022 14:19-0400 Heart rate 72 /min Gaetano LUJAN [facility] [place] 02-21-2022 14:19-0400 Respiratory rate 16 /min Gaetano LUJAN [facility] [place] 02-21-2022 14:19-0400 Systolic blood pressure 118 mm[Hg] Gaetano LUJAN [facility] [place] 10-27-2021 10:35-0400 Body temperature 97.7 [degF] SOPHIA Mckenzie MD Work Phone: [facility] 10-27-2021 10:35-0400 Body weight 109.77 kg SOPHIA Mckenzie MD Work Phone: [facility] 10-27-2021 10:35-0400 Diastolic blood pressure 90 mm[Hg] SOPHIA Mckenzie MD Work Phone: [facility] 10-27-2021 10:35-0400 Heart rate 71 /min SOPHIA Mckenzie MD Work Phone: [facility] 10-27-2021 10:35-0400 Respiratory rate 20 /min SOPHIA Mckenzie MD Work Phone: [facility] 10-27-2021 10:35-0400 SaO2% (BldA) [Mass fraction] 96 % SOPHIA Mckenzie MD Work Phone: [facility] 10-27-2021 10:35-0400 Systolic blood pressure 151 mm[Hg] SOPHIA Mckenzie MD Work Phone: [facility] 06-17-2020 17:20-0500 BMI (Body Mass Index) 34.19 kg/m2 [facility] 06-17-2020 17:20-0500 Body Temperature 98.91 [degF] [facility] 06-17-2020 17:20-0500 Body weight 102 kg [facility] 06-17-2020 17:20-0500 BP Diastolic 84 mm[Hg] [facility] 06-17-2020 17:20-0500 BP Systolic 147 mm[Hg] [facility] 06-17-2020 17:20-0500 Height 172.7 cm [facility] 06-17-2020 17:20-0500 Pulse (Heart Rate) 85 /min [facility] 06-17-2020 17:20-0500 Pulse Oximetry 94 % [facility] 06-17-2020 17:20-0500 Respiratory Rate 16 /min [facility] Encounters Encounter Date Encounter Type Care Provider Facility Start: 09-18-2023 End: 09-18-2023 ambulatory ELLEN BARRERA Not Available Start: 06-12-2023 ambulatory PA-C JERI SANDERS [facility] Start: 06-12-2023 End: 06-12-2023 Patient encounter procedure JERI SANDERS [facility] Start: 05-03-2023 End: 05-03-2023 ambulatory Nestor MCKENZIE Facility:[facility] Start: 05-03-2023 End: 05-03-2023 Patient encounter procedure Nestor Mckenzie MD Work Phone: Radiation Oncology Comment on above: Prostate cancer (HCC ) (Primary Dx) Start: 04-25-2023 Telephone encounter Nestor Mckenzie MD Work Phone: Radiation Oncology Comment on above: Orders Start: 10-31-2022 End: 11-01-2022 ambulatory KAE SANDERS Facility:[facility] Start: 10-31-2022 End: 10-31-2022 Patient encounter procedure JERI SANDERS [facility] Start: 10-26-2022 End: 10-26-2022 ambulatory Nestor MCKENZIE Facility:[facility] Start: 10-26-2022 End: 10-26-2022 Patient encounter procedure Nestor Mckenzie MD Work Phone: Radiation Oncology Comment on above: History of prostate cancer (Primary Dx); Obesity, Class I, BMI 30-34.9 Start: 10-16-2022 ambulatory Nestor Layne ty: [facility] Start: 10-13-2022 End: 10-14-[address] NESTOR KAPLAN . Facility:[facility] Start: 09-15-2022 End: 09-16-[address] NESTOR KAPLAN . Facility:[facility] Start: 09-13-2022 End: 09-14-[address] NESTOR KAPLAN . Facility:[facility] Start: 08-15-2022 End: 08-15-2022 ambulatory [facility] Start: 07-31-2022 End: 08-01-[address] NESTOR KAPLAN . Facility:[facility] Start: 07-25-2022 End: 07-26-[address] NESTOR KAPLAN . Facility:[facility] Start: 07-15-2022 Encounter for preprocedural laboratory examination DR NESTOR KAPLAN . [facility] Start: 07-13-2022 End: 07-14-[address] NESTOR [...] preprocedural examination DR NESTOR KAPLAN . [facility] Start: 05-17-2022 Encounter for preprocedural cardiovascular examination DR NESTOR KAPLAN . [facility] Start: 05-15-2022 End: 05-16-[address] NESTOR KAPLAN . Facility: Start: 04-27-2022 End: 04-27-2022 Patient encounter procedure Nestor Mckenzie MD Work Phone: Radiation Oncology Comment on above: Malignant neoplasm o f prostate (HCC) (Primary Dx) Start: 04-25-2022 ambulatory YUNI NORTH [facility] ty:[facility] Start: 04-25-2022 End: 04-25-2022 Subsequent hospital visit by physician Chai Palma MD Work Phone: Procedures Comment on above: Mass of colon [K63.8 9] Start: 04-24-2022 End: 04-24-2022 Patient encounter procedure Nestor KAPLAN [facility] Start: 04-18-2022 Telephone encounter Chai paula MD Work Phone: Colorectal Surgery Comment on above: 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 Start: 04-14-2022 End: 04-14-2022 Admission to establishment Pac Juliette 2 Work Phone: [facility] Start: 04-14-2022 End: 04-14-2022 ambulatory Pac Juliette 2 Work Phone: Pre Anesthesia Comment on above: Preop examination (P rimary Dx); Essential (primary) hypertension; Hyperlipidemia, unspecified hyperlipidemia type; Athscl heart disease of citizen [place] coronary artery w/o ang pctrs; Obstructive sleep apnea; Prostate cancer (HCC) Start: 04-14-2022 End: 04-14-2022 Preprocedural examination done Pac Juliette 2 Work Phone: Pre Anesthesia Start: 04-14-2022 Telephone encounter Chai paula MD Work Phone: Colorectal Surgery Comment on above: 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 Start: 04-06-2022 End: 04-07-2022 [...] encounter procedure Gaetano LUJAN [facility] [place] Start: 02-13-2022 End: 02-14-2022 ambulatory RODRICK BARRERA Facility:[facility] Start: 02-09-2022 End: 02-09-2022 ambulatory AUTOMOTIVE DESIGN LAYOUT DRAFTER ELLEN AICHHOLZ Facility:[facility] Start: 02-08-2022 End: 02-09-2022 ambulatory AUTOMOTIVE DESIGN LAYOUT DRAFTER ELLEN BARRERA Facility:[facility] Start: 12-15-2021 End: 12-16-2021 ambulatory AUTOMOTIVE DESIGN LAYOUT DRAFTER ELLEN BARRERA Facility:[facility] Start: 10-27-2021 End: 10-27-2021 ambulatory Sindy Jass BUTTERFIELDN.AUTOMOTIVE DESIGN LAYOUT DRAFTER Work Phone: Hematology/Oncology Comment on above: Malignant neoplasm o f prostate (HCC) (Primary Dx); Prostate cancer (HCC) Start: 10-27-2021 End: 10-27-2021 Patient encounter procedure Sindy Regan INSTRUMENT MAKER AND REPAIRER.AUTOMOTIVE DESIGN LAYOUT DRAFTER Work Phone: [facility] Comment on above: Malignant neoplasm o f prostate (HCC) (Primary Dx) Start: 04-19-2021 End: 04-24-2021 ambulatory REFERRED SELF Facility:[facility] Start: 06-17-2020 End: 06-17-2020 Emergency department patient visit PHYSICIAN NO [facility] Start: 06-17-2020 End: 06-17-2020 Emergency department patient visit Bree Leslie Work Phone: [facility] Emergency Department Comment on above: COVID-19 (Primary Dx ) Procedures Date Procedure Procedure Detail Performing Clinician Start: 04-26-2023 PSA screening [facility] Provider Start: 10-13-2022 End: 10-13-2022 PSA screening [facility] Provider Comment on above: Performed By: #### PTHINT #### [facility] [address] [place] [address] Dr. Aaron Gloria Start: 07-31-2022 Cystoscopic removal of ureteric [...] Provider Comment on above: Performed By: #### [id number] #### [facility] [address] [place] [address] [address] Aaron Gloria Start: 03-15-2022 Colonoscopy Gaetano OSORIOL Start: 03-15-2022 Esophagogastroduodenoscopy Gaetano OOSRIOL Start: 10-27-2021 Adult depression screening assessment Sindy Regan APRN.CNP Work Phone: Start: 03-10-2021 Brachytherapy JERI DIAZRY Start: 06-25-2020 Catheterization of left heart Gaetano ELIAS Start: 06-17-2020 COVID-19/INFLUENZA A,B MOLECULAR Bree C [place] Kube Work Phone: Start: 03-15-2020 Transrectal biopsy of prostate using ultrasound guidance Gaetano LUJAN Start: 10-17-2013 Colonoscopy Gaetano LUJAN Appendectomy Gaetano OSORIOL Fracture of bone of right hand Gaetano NILL Repair of tendon of hand John hael JOL Repair of umbilical hernia M maria [place] NILL Plan of Treatment Date Care Activity Detail Author Start: 04-26-2028 Prostate Cancer Screening Discussion Prostate Cancer Screening Discussion [facility] Start: 10-14-2027 PROSTATE CANCER SCREENING DISCUSSION PROSTATE CANCER SCREENING DISCUSSION [facility] Start: 04-06-2027 PROSTATE CANCER SCREENING DISCUSSION PROSTATE CANCER SCREENING DISCUSSION [facility] Start: 10-26-2026 PROSTATE CANCER SCREENING DISCUSSION PROSTATE CANCER SCREENING DISCUSSION [facility] Start: 11-01-2023 End: 01-31-2024 Prostate specific Ag [Mass/volume] in Serum or Plasma PSA/PROSTSPECAG DIAG Lab Routine Prostate cancer (HCC) Expected: 11/01/2023, Expires: 01/31/2024 [facility] Work Phone: Comment on above: Expected: 11/01/2023 , Expires: 01/31/2024 Start: 04-25-2023 Colonoscopy COLONOSCOPY [facility] Start: 04-25-2023 COLORECTAL CANCER SCREENING COLORECTAL CANCER SCREENING [facility] Start: 04-25-2023 End: 07-25-2023 Prostate specific Ag [Mass/volume] in Serum or Plasma PSA/PROSTSPECAG DIAG Lab Routine History of prostate cancer Expected: 04/25/2023, Expires: 07/25/2023 [facility] Work Phone: Comment on above: Expected: 04/25/2023 , Expires: 07/25/2023 Start: 04-14-2023 BP CONTROLLED (<130/80) BP CONTROLLE D (<130/80) [facility] Start: 02-23-2023 Covid-19 Vaccine ( season) Covid-19 Vaccine ( season) [facility] Start: 02-23-2023 Covid-19 Vaccine ( season) Covid-19 Vaccine ( season) [facility] Start: 02-23-2023 Influenza vaccination C [facility] Start: 10-27-2022 Adult depression screening assessment DEPRESSION SCREENING [facility] Start: 10-25-2022 End: 12-25-2022 Prostate specific Ag [Mass/volume] in Serum or Plasma PSA/PROSTSPECAG DIAG Lab Routine Malignant neoplasm of prostate (HCC) Expected: 10/25/2022, Expires: 12/25/2022 [facility] Work Phone: Comment on above: Expected: 10/25/2022 , Expires: 12/25/2022 Start: 06-25-2022 ADVANCE DIRECTIVE DISCUSSION ADVANCE DIRECTIVE DISCUSSION [facility] Start: 06-25-2022 DEPRESSION ASSESSMENT DEPRESSION ASS ESSMENT [facility] Start: 02-23-2022 Influenza vaccination C [facility] Start: 06-25-2021 ADVANCE DIRECTIVE DISCUSSION ADVANCE DIRECTIVE DISCUSSION [facility] Start: 06-25-2021 DEPRESSION ASSESSMENT DEPRESSION ASS ESSMENT [facility] Start: 11-24-2020 COVID-19 VACCINE (3 - Booster) COVID-19 VACCINE (3 - Booster) [facility] Start: 09-25-2020 Pneumococcal Vaccine : 65+ (1 - PCV) Pneumococcal Vaccine: 65+ (1 - PCV) [facility] Start: 09-25-2020 PNEUMOCOCCAL: 65+ (1 - PCV) PNEUMOCOCCAL: 65+ (1 - PCV) [facility] Start: 09-25-2020 PNEUMOVAX AGE 65 AND OVER WITH 5YR LOOKBACK (#1) PNEUMOVAX AGE 65 AND OVER WITH 5YR LOOKBACK (#1) [facility] Start: 2015 RSV Vaccine (1 - 1-d ose 60+ series) RSV Vaccine (1 - 1-dose 60+ series) [facility] Start: 09-25-2005 SHINGRIX VACCINE (1 of 2) SHINGRIX VACCINE (1 of 2) [facility] Start: 09-25-2000 COLOGUARD (FIT-DNA) COLOGUARD (FIT-D NA) [facility] Start: 09-25-2000 Colonoscopy COLONOSCOPY [facility] Start: 09-25-2000 COLORECTAL CANCER SCREENING COLORECTAL CANCER SCREENING [facility] Start: 09-25-[address] COLONOGRAPHY [facility] Start: 09-25-2000 DIABETES SCREEN DIABETES SCREEN [facility] Start: 09-25-2000 Diabetes Screening Diabetes Screenin g [facility] Start: 09-25-2000 FECAL OCCULT BLOOD FECAL OCCULT BLOO D [facility] Start: 09-25-2000 SIGMOIDOSCOPY SIGMOIDOSCOPY [facility] Start: 09-25-1990 Lipid 1996 panel - S earlene or Plasma Lipid Screening [facility] Start: 09-25-1990 LIPID SCREEN LIPID SCREEN [facility] Start: 09-25-1974 Urine microalbumin profile [facility] Start: 09-25-1973 ANNUAL PCP TEAM OCCASIONAL BABYSITTER RICKEY DISEASE VISIT ANNUAL PCP TEAM CHRONIC DISEASE VISIT [facility] Start: 09-25-1973 BP CONTROLLED (<130/80) BP CONTROLLE D (<130/80) [facility] Start: 09-25-1973 Hepatitis B surface antibody level LDL CHOLESTEROL [facility] Start: 09-25-1973 HEPATITIS C SCREENING HEPATITIS C SC LIZ [facility] Start: 09-25-1960 COVID-19 VACCINE (#1) COVID-19 VACCI NE (#1) [facility] Start: 09-25-1960 COVID-19 VACCINE (1) COVID-19 VACCIN E (1) [facility] Start: 03-27-1956 COVID-19 VACCINE (#1) COVID-19 VACCI NE (#1) [facility] Start: 1955 ABDOMINAL AORTIC ANEURYSM SCREENING ABDOMINAL AORTIC ANEURYSM SCREENING [facility] Immunizations Immunization Date Immunization Notes Care Provider Vonnie ferrell 09-29-2020 SARS-CoV-2 (COVID-19 ) mRNA-1273 vaccine Gaetano LUJAN [facility] 09-28-2020 SARS-CoV-2 (COVID-19 ) mRNA BNT-162b2 vax JERI SANDERS [facility] 09-07-2020 SARS-CoV-2 (COVID-19 ) mRNA-1273 vaccine Gaetano LUJAN [facility] 09-06-2020 SARS-CoV-2 (COVID-19 ) mRNA BNT-162b2 vax JERI SANDERS [facility] Payers Date Payer Category Payer Medicare MEDICARE MEDICAR E A AND B [id number] 2020-Present [phone] [place] [address] Medicare [id number] 2020 Medicare MEDICARE MEDICAR E A AND B [id number] 2020-Present [phone] [place] [address] Medicare [id number] 2020 Unknown [employer] [place] [employer] [place] MEDIC[place] SUPPLEMENT [id number] 2020-Present [phone] [address] [place] [address] Indemnity [id number] 2020 Unknown [employer] [place] [employer] [place] MEDIC[place] SUPPLE[place] [id number] 2020-Present [phone] [address] [employer] [address] Indemnity [id number] 2020 Unknown [id number] 1959 Medicare [id number] 1959 Unknown [id number] 1955 Unknown [id number] 2.16.840.1.063679.3.579.2.90 2 1955 Unknown [id number] 2.16.840.1.308252.3.579.2.64 7 1955 Unknown [id number] 2.16.840.1.112161.3.579.2.59 3 1955 Unknown [id number] 2.16.840.1.693183.3.579.2.59 3 1955 Unknown [id number] 2.16.840.1.699733.3.579.2.59 3 1955 Unknown [id number] 2.16.840.1.388512.3.579.2.59 3 1955 Unknown [id number] 2.16.840.1.447098.3.579.2.59 3 1955 Unknown [id number] 2.16.840.1.354959.3.579.2.59 3 --1955 Unknown [id number] 2.16.840.1.297569.3.579.2.59 3 1955 Unknown [id number] 2.16.840.1.039669.3.579.2.59 3 1955 Unknown [id number] 2.16.840.1.891533.3.579.2.59 3 1955 Unknown [id number] 2.16.840.1.125487.3.579.2.59 3 1955 Unknown [id number] 2.16.840.1.693588.3.579.2.59 3 1955 Unknown [id number] 2.16.840.1.689574.3.579.2.59 3 1955 Unknown [id number] 2.16.840.1.751862.3.579.2.59 3 1955 Unknown [id number] 2.16.840.1.498842.3.579.2.59 3 1955 Unknown [id number] 2.16.840.1.574085.3.579.2.59 3 1955 Unknown [id number] 2.16.840.1.814539.3.579.2.59 3 1955 Unknown [id number] 2.16.840.1.163157.3.579.2.59 3 1955 Unknown [id number] 2.16.840.1.667603.3.579.2.59 3 1955 Unknown [id number] 2.16.840.1.980247.3.579.2.59 3 1955 Unknown [id number] 2.16.840.1.861894.3.579.2.59 3 1955 Unknown [id number] 2.16.840.1.830755.3.579.2.59 3 1955 Unknown [id number] 2.16.840.1.999688.3.579.2.72 7 1955 Unknown [id number] 2.16.840.1.482718.3.579.2.72 7 1955 Unknown [id number] 2.16.840.1.940918.3.579.2.72 7 1955 Unknown [id number] 2.16.840.1.056537.3.579.2.72 7 1955 Unknown [id number] 2.16.840.1.971071.3.579.2.72 7 1955 Unknown [id number] 2.16.840.1.365894.3.579.2.12 59 Unknown COMMERCIAL COMME RCIAL MISCELLANEOUS [id number] Effective for all dates [id number] [id number]. [id number] Unknown [id number] Social History Date Type Detail Facility Start: 06-17-2020 End: 01-11-2021 Tobacco smoking status NHIS Never smoker [facility] Start: 06-17-2020 End: 04-14-2022 Tobacco use and exposure Never used [facility] Start: 06-17-2020 Alcohol intake Lifetime non-d minna (finding) [facility] Start: 06-17-2020 History SDOH Alcohol Frequency 1 [facility] Start: 1955 Sex Assigned At Not on file [facility] Start: 10-16-2021 End: 04-27-2022 Exposure to SARS-CoV-2 (event) Not sure [facility] Start: 01-11-2021 End: 05-03-2023 Alcohol intake Current drinker of alcohol (finding) [facility] Start: 01-11-2021 History SDOH Alcohol Comment Social [facility] Start: 02-21-2022 End: 04-24-2022 Tobacco smoking status Occasional tobacco smoker (finding) [facility] Tobacco smoking status Former sm okeless tobacco user, quit more than 30 days ago [facility] [place] Start: 04-27-2022 End: 10-26-2022 Sex Assigned At Male [facility] [place] Start: 04-14-2022 End: 10-31-2022 Tobacco smoking status NHIS Ex-smoker [facility] Start: 06-25-2011 End: 06-25-2015 History of tobacco use Current smoker [facility] Start: 06-25-2011 End: 06-25-2015 History of tobacco use Cigar Smoker [facility] Start: 04-14-2022 Alcohol Comment Very rare [facility] Start: 04-27-2022 End: 10-26-2022 History of Social function [facility] Functional Status Date Assessment Result Facility 10-31-2022 Functional Status N/A [facility] 04-24-2022 Functional Status N/A [facility] 02-21-2022 Functional Status N/A [facility] Clinical Notes 10-27-2021 to 05-03-2023 Nestor Mckenzie MD - 05/03/2023 2:30 PM Nafisa Abrams LPN - 05/03/2023 2:12 PM ESTTelephone Encounter - Nafisa Chacon LPN - 04/25/2023 10:38 AM Elis Frederick RN - 10/26/2022 10:45 AM EDT Note Date & Type Note Facility 05-03-2023 Note HNO ID: [id number] Author: Nestor Mckenzie MD Service: ? Author [...] by: Nestor Mckenzie MD cc: Ellen Barrera, AUTOMOTIVE DESIGN LAYOUT DRAFTER ([facility]) [address] [place] [address] [facility] 05-03-2023 History of Presen t illness Narrative Radiation Oncology - Follow Up Note PATIENT NAME: Mark Douglas PATIENT DIAGNOSIS: Prostate adenocarcinoma, initial PSA 5.4, biopsy Pease score 3 + 4 = 7 (grade [...] by: Nestor Mckenzie MD cc: Ellen Barrera, AUTOMOTIVE DESIGN LAYOUT DRAFTER ([facility]) [address] [place] [address] documented in this encounter [facility] 05-03-2023 Nurse Note AUA= 1 documented in this encounter [facility] 04-25-2023 Miscellaneous Notes Please sign pended PSA order for upcoming appt. Fax order to [facility] per patient request. Nafisa Chacon RN documented in this encounter [facility] 10-31-2022 Hospital Discharg e instructions Patient Education 10/31/2022 09:50:06 Kidney Stones, Cmhi-nn-Unsu Kidney Stones Kidney stones are rock-like masses [...] Follow these instructions at home: Medicines Take qpas-krg-cswfwwk and prescription medicines only as told by [...] provider. Document Revised: 02/13/2022 Document Reviewed: 02/13/2022 [employer] Patient Education 2022 [employer] Follow Up Care 10/11/2022 10:56:16 With:JERI SADNERS PA-C, URL Address: [address] [place] [address] Business (1) When:6 months [facility] 10-31-2022 Hospital Discharg e instructions Follow Up Care 10/31/2022 09:35:35 With:JERI SANDERS PA-C, URL Address: [address] [place] [address] [phone] When: Unknown [facility] 10-26-2022 Note HNO ID: [id number] Author: Nestor Mckenzie MD Service: ? Author [...] by: Nestor Mckenzie MD cc: Ellen Barrera, AUTOMOTIVE DESIGN LAYOUT DRAFTER ([facility]) [address] [place] [address] [facility] 10-26-2022 Nurse Note AUA 2 Elisa Frederick RN documented in this encounter [facility] 10-26-2022 History of Presen t illness Narrative Radiation Oncology - Follow Up Note PATIENT NAME: Mark Douglas PATIENT DIAGNOSIS: Prostate adenocarcinoma, initial PSA 5.4, biopsy Pease score 3 + 4 = 7 (grade [...] ASSESSMENT/PLAN: Prostate adenocarcinoma, initial PSA 5.4, biopsy Pease score 3 + 4 = 7 (grade [...] by: Nestor Mckenzie MD cc: Ellen Barrera, AUTOMOTIVE DESIGN LAYOUT DRAFTER ([facility]) [address] [place] [address] documented in this encounter [facility] 08-15-2022 Note Patient here for 1 y ear follow up CAD, hypertension, and hyperlipidemia. Had labs in Jun 2022, and lipid panel in November 2021. His this past Feb 2022. Denies chest pain and SOB. Says he feels good. Review of Systems HENT: Positive for hearing loss. All other systems reviewed and are negative. [facility] 08-15-2022 Note Cardiovascular Medic [facility] SUBJECTIVE Chief Complaint Patient presents with Coronary [...] Problem List Diagnosis Athscl heart disease of citizen [place] coronary artery w/o ang pctrs Carcinoma of [...] Final Atrial Rate 04/28/2021 80 BPM Final [place] Interval 04/28/2021 162 ms Final QRS DURATION 04/28/2021 90 ms Final QT Interval 04/28/2021 384 ms Final QTC CALCULATION(BAZETT) 04/28/2021 442 ms Final P [place] 04/28/2021 30 degrees Final R-[place] 04/28/2021 17 degrees Final T Wave [place] 04/28/2021 64 degrees Final Diagnosis 04/28/2021 Final [...] 04/28/2021 Cardiovascular Laboratory Report FINAL IMPRESSIONS: 1. Xhal-si-hqvqypmo 2-vessel coronary artery disease. 2. Normal global left ventricular systolic function by noninvasive imaging. 3. Ybpdfxze-vf-nuyqrq systemic hypertension. RECOMMENDATIONS: 1. Aggressive cardiovascular risk factor modification. 2. Optimization medical management; aspirin, high-intens (more content not included)... [facility] 07-13-2022 Note OP Note OPERATION DATE: 07/13/2022 PREOPERATIVE DIAGNOSIS: Left ureteral calculus, status post left stent placement. POSTOPERATIVE DIAGNOSIS: Left ureteral calculus, status post left stent placement. PROCEDURE: 1. Cystoscopy. 2. Left stent change to 6-Maltese variable length. 3. Left ureteroscopy. 4. Holmium [...] usual fashion. I started by passing a 22-Maltese Olympus cystoscope per urethra and into the [...] into the bladder, and then slid a 6-Maltese variable length stent, over the wire, up [...] removed. He was then transferred to a [facility] bed and wheeled to PACU in stable condition. [facility] 05-25-2022 Note OP Note OPERATION DATE: 05/25/2022 PREOPERATIVE DIAGNOSIS: Large left ureteral calculus. POSTOPERATIVE DIAGNOSIS: Large left ureteral calculus. PROCEDURE: 1. Left ESWL. 2. Cystoscopy. 3. Left retrograde pyelogram. 4. Rigid left ureteral dilation. 5. Left ureteroscopy. 6. Placement of 7-Maltese variable length left ureteral stent. ANESTHESIA: General [...] usual fashion. I started by passing a 22-Maltese Olympus cystoscope per urethra and into the bladder. The prostatic urethra was long and obstructing. Cano endoscopy in the bladder showed no evidence of any stones or tumors. I then passed an 8-Maltese cone tip catheter and did a left [...] guide wire and then I used an 8-Maltese ureteral dilator and still could not get [...] the scope. I then passed a Dornier 10/12-Maltese ureteral access sheath over the wire and [...] into the bladder. I then slid a 7-Maltese variable length ureteral stent over the wire, up into the kidney. The wire was removed and there were good curls in the kidney and in the bladder. The bladder was drained of its contents and the scope was then removed. He was then transferred [place] [facility] bed and wheeled to PACU in stable condition. [facility] 04-27-2022 Nurse Note AUA= 3 documented in this encounter [facility] 04-27-2022 History of Presen t illness Narrative Radiation Oncology - Follow Up Note PATIENT NAME: Mark Douglas PATIENT DIAGNOSIS: Prostate adenocarcinoma, initial PSA 5.4, biopsy Pease score 3 + 4 = 7 (grade [...] ASSESSMENT/PLAN: Prostate adenocarcinoma, initial PSA 5.4, biopsy Pease score 3 + 4 = 7 (grade [...] by: Nestor Mckenzie MD cc: Ellen Barrera, AUTOMOTIVE DESIGN LAYOUT DRAFTER (Dr) [address] [place] [address] documented in this encounter [facility] 04-25-2022 History and physical note COLORECTAL SURGERY April 13, 2022 Mark Douglas 66 year old This consult was requested by Dr. Lujan and my final recommendations will be communicated to the requesting health care provider by way of the shared medical record for internal providers or letter via the [employer] Postal Service for external providers. Chief Complaint: [...] BIOPSY: TUBULOVILLOUS ADENOMA CT C/A/P 02/13/22 - [facility] LUNGS: No visible pulmonary disease LIVER: No [...] 2022 2:45 PM documented in this encounter [facility] 04-24-2022 Hospital Discharg e instructions Patient Education 04/24/2022 12:42:44 Kidney Stones, Xuag-qj-Wfcj Kidney Stones Kidney stones are rock-like masses [...] Follow these instructions at home: Medicines Take zauo-fvn-fgftmlg and prescription medicines only as told by [...] 11/27/2008 Document Revised: 10/28/2019 Document Reviewed: 10/28/2019 [employer] Patient Education 2020 [employer]. Follow Up Care 02/08/2022 11:26:01 With:EUSEBIO CHRISTINE, Nestor Veras, URL Address: [facility] [address] [place] [address] [phone] When:Within 6 Month(s) Comments:w/ mal [facility] 04-18-2022 Miscellaneous Notes Called patient and told him we had to move his colonoscopy from 04/27 to 04/25. Told him currently he is scheduled at 2:45 and he should arrive by 1:45 but they will call him the day before to confirm this. He said he will stop taking his 81 mg aspirin today then. documented in this encounter [facility] 04-14-2022 History and physical note HISTORY AND PHYSICAL EXAMINATION SERVICE DATE: 04/14/2022 SERVICE TIME: 2:09 PM PRIMARY CARE PHYSICIAN: Ellen Barrera, AUTOMOTIVE DESIGN LAYOUT DRAFTER, AUTOMOTIVE DESIGN LAYOUT DRAFTER REASON FOR VISIT: Mark Douglas is a [...] Essential (Primary) Hypertension Athscl Heart Disease of [place] Coronary Artery W/O Ang Pctrs Subjective CHIEF [...] fevers. Neuro: No history of TIA's, stroke, BOILER ASSISTANT OPERATOR tumor, impaired sensorium, hemiplegia, paraplegia or quadraplegia. [...] M.D. 05/10/2021 09:07 A FINAL IMPRESSIONS: 1. Qvfh-kb-zcxvctbm 2-vessel coronary artery disease. 2. Normal global left ventricular systolic function by noninvasive imaging. 3. Jfylhcku-xd-altywf systemic hypertension. Assessment/Plan Essential (primary) hypertension Assessment: controlled on Carvedilol BP 120/68 Hyperlipidemia, unspecified Assessment: on statin Athscl heart disease of citizen [place] coronary artery w/o ang pctrs Assessment: mild non obstructive disease per cardiac cath 2020 On ASA Obstructive sleep apnea Assessment:sattes has not been using CPAP recently Prostate [...] TIME: 1:51 PM documented in this encounter [facility] 04-14-2022 Instructions Nina Motley APRN.CNP - 04/14/2022 2:10 PM EDT PATIENT PREOPERATIVE INSTRUCTIONS Chai Palma MD has scheduled you for your procedure at this surgery center: [facility]: [phone] --[address] [place] [address]. Please enter through the entrance closest to [...] Procedures: - YOU MUST HAVE A RESPONSIBLE INNOVATION MANAGER TAKE YOU HOME. A CORNETIST OR SUPERINTENDENT AUTOMOTIVE CANNOT BE MADE A RESPONSIBLE INNOVATION MANAGER. - We recommend that a responsible person stays with you overnight to take care of you. - You cannot stay in a hotel alone after outpatient surgery. You will not be permitted to have your surgery, if you do not have someone to take care of you. If you already have an Advance Directive, please fax a copy to [phone] or email to for it to be [...] chart that day. documented in this encounter [facility] 04-14-2022 Miscellaneous Notes Spoke with patient. Confirmed date, time and place Called patient as a follow up to his office visit yesterday. Left voice message notifying him that we have him scheduled for a colonoscopy with Dr. Palma on Apr 27 at 8:45 at [facility]. He will need to arrive by 7:45. Asked him to call back to verify that he got this message and is aware of the date, time and place. documented in this encounter [facility] 03-15-2022 Note OPERATIVE NOTE OPERATION DATE: 03/15/2022 [...] good condition. CC: Patient's family physician [facility] 10-28-2021 History of Presen t illness Narrative Patient was seen and examined by Dr. Mckenzie today. Patient denies any problems with bowel movements. No blood in his stools. Patient denies any problems with urination. No pain, burning or difficulty with urination. Patient was given treatment summary and survivorship care plan for prostate cancer. Sindy Regan APRN.RODRICK documented in this encounter [facility] 10-27-2021 History of Presen t illness Narrative Radiation Oncology - Follow Up Note PATIENT NAME: Mark Douglas PATIENT DIAGNOSIS: Prostate adenocarcinoma, initial PSA 5.4, biopsy Pease score 3 + 4 = 7 (grade [...] ASSESSMENT/PLAN: Prostate adenocarcinoma, initial PSA 5.4, biopsy Pease score 3 + 4 = 7 (grade group 2), clinical stage T1c, N0, M0, stage IIB [T1-T2, N0, M0, PSA <20, GG 2] (AJCC 8th ed.), status post prostate brachytherapy 03/10/2021 Doing well with excellent PSA response. No significant posttreatment problems. Plan to have patient back in 6 months with repeat PSA. Signed by: Nestor Mckenzie MD cc: Ellen Barrera AUTOMOTIVE DESIGN LAYOUT DRAFTER ([facility]) [address] [place] [address] documented in this encounter [facility] 10-27-2021 Nurse Note AUA 2 Elisa Frederick RN documented in this encounter [facility] Evaluation + Plan note Future Appointments Appointment Date:04/24/2022 11:45:00 AM Scheduled Provider:Nestor KAPLAN MD Location:[facility] Appointment Type:URO Office Visit [facility] [place] Evaluation + Plan note Future Appointments Appointment Date:10/16/2022 10:30:00 AM Scheduled Provider:Nestor KAPLAN MD Location:[facility] Appointment Type:URO Office Visit Diagnostic Tests PendingPSA Total 08/23/22 [facility] Evaluation + Plan note Future Appointments Appointment Date:05/08/2023 10:00:00 AM Scheduled Provider:JERI SANDERS PA-C Location:[facility] Appointment Type:URO Office Visit [facility] Evaluation note Diagnosis Malignant neoplasm of prostate (HCC)- Primary Malignant neoplasm of prostate Prostate cancer (HCC) Malignant neoplasm of prostate documented in this encounter [facility] note* Diagnosis Malignant neoplasm of prostate (HCC)- Primary Malignant neoplasm of prostate documented in this encounter [facility] note* Diagnosis Preop examination- Primary Preoperative examination, unspecified Essential (primary) hypertension Unspecified essential hypertension Hyperlipidemia, unspecified hyperlipidemia type Athscl heart disease of citizen [place] coronary artery w/o ang pctrs Obstructive sleep apnea Obstructive sleep apnea (adult) (pediatric) Prostate cancer (HCC) Malignant neoplasm of prostate Polyp of colon, unspecified part of colon, unspecified type documented in this encounter [facility] note* Diagnosis Malignant neoplasm of prostate (HCC)- Primary Malignant neoplasm of prostate documented in this encounter [facility] note* Diagnosis History of prostate cancer- Primary Personal history of malignant neoplasm of prostate Obesity, Class I, BMI 30-34.9 Obesity, unspecified documented in this encounter [facility] note* Diagnosis History of prostate cancer- Primary Personal history of malignant neoplasm of prostate documented in this encounter [facility] note* Diagnosis Mass of colon Other specified disorder of intestines documented in this encounter [facility] note* Diagnosis Prostate cancer (HCC)- Primary Malignant neoplasm of prostate documented in this encounter [facility] course Narrative No data available for this section [facility] [place] [facility] Discharge instructions No data available for this section [facility] note No data available for this section [facility] [place] Recgaf for referral (narrative) Referred by: Gaetano LUJAN MD General [facility] [place] Reqlty for referral (narrative)* Outpatient Procedure (Routine) - Closed Specialty Diagnoses / Procedures Referred By Aminata german Referred To Contact [facility] Diagnoses Mass of colon Procedures COLONOSCOPY SCREENING COLONOSCOPY FLX DX W/[place] [address] [id number] [facility] [place] [address] Referral ID Status Reason Start Date Expiration Date V isits Requested Visits Authorized [id number] Closed Auto-Generate d Referral 04/13/2022 04/13/2023 1 1 [facility] Outpatient Procedure (Routine) - Closed Specialty Diagnoses / Procedures Referred By Contac t Referred To Contact [facility] Diagnoses Mass of colon Procedures COLONOSCOPY SCREENING COLONOSCOPY FLX DX W/COLLJ [place] [address] [place] [address] [facility] [address] [place] [address] Referral ID Status Reason Start Date Expiration Date V isits Requested Visits Authorized [id number] Closed Auto-Generate d Referral 04/13/2022 04/13/2023 1 1 [facility] Discharge Instructions * Instructions* Bree Leslie MD [...] you may find a provider through the [facility] Physician Referral Service by calling [phone]) or by visiting [email or web address]. Return for reevaluation for any worsening of [...] Care Everywhere. 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 Flake Or Shred Roll Operator Expl anation Advance Directives and Livin g Will 06/17/2020 6:45 PM Summary Purpose Family History No Family History Records FoundNo Family History Records FoundNo Family History Records FoundNo Family History Records FoundNo Family History Records FoundNo Family History Records FoundNo Family History Records Found No data available for this section No Family History Records Found Additional Source Comments Reason for Visit (unrecogniz ed section and content) Reason Comments Covid-19 Screening Reason Comments Prostate Cancer 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 ED ATTENDING NOTE [facility] EMERGENCY DEPARTMENT PCP - Physician No Chief [...] currently in town visiting family members for [place]. He denies having any other acute complaints. [...] at the following links: For Healthcare Providers: https://www.fda.gov/media/313153/download For Patients: https://www.fda.gov/media/761479/download Radiographic Imaging (if any) During ED Visit [...] at the following links: For Healthcare Providers: https://www.fda.gov/media/988079/download For Patients: https://www.fda.gov/media/863174/download Imaging Results No orders to display Patient's [...] content) DATE CREATED AUTHOR 07/09/2020 [facility] DATE CREATED AUTHOR AUTHOR'S ORGANIZ ATION 05/11/2021 [facility] DATE CREATED AUTHOR AUTHOR'S ORGANIZ ATION 04/27/2022 [facility] DATE CREATED AUTHOR AUTHOR'S ORGANIZ ATION 11/04/[address] [facility] DATE CREATED AUTHOR AUTHOR'S ORGANIZ ATION 12/02/2022 [facility] DATE CREATED AUTHOR AUTHOR'S ORGANIZ ATION 05/10/2023 [facility] DATE CREATED AUTHOR AUTHOR'S ORGANIZ ATION 06/12/2023 [facility] DATE CREATED AUTHOR AUTHOR'S ORGANIZ ATION 09/19/2023 [facility] EPIC Source Comments (unrecognize d section and content) In the event this informatio n is protected by the Federal Confidentiality of Alcohol and Drug Abuse Patient Records regulations: The Federal rules restrict any use of the information to criminally investigate or prosecute any alcohol or drug abuse patient.[facility] the event this information is protected by the Federal Confidentiality of Alcohol and Drug Abuse Patient Records regulations: The Federal rules restrict any use of the information to criminally investigate or prosecute any alcohol or drug abuse patient.[facility] the event this information is protected by the Federal Confidentiality of Alcohol and Drug Abuse Patient Records regulations: The Federal rules restrict any use of the information to criminally investigate or prosecute any alcohol or drug abuse patient.[facility] the event this information is protected by the Federal Confidentiality of Alcohol and Drug Abuse Patient Records regulations: The Federal rules restrict any use of the information to criminally investigate or prosecute any alcohol or drug abuse patient.[facility] the event this information is protected by the Federal Confidentiality of Alcohol and Drug Abuse Patient Records regulations: The Federal rules restrict any use of the information to criminally investigate or prosecute any alcohol or drug abuse patient.[facility] HospitalIn the event this information is protected by the Federal Confidentiality of Alcohol and Drug Abuse Patient Records regulations: The Federal rules restrict any use of the information to criminally investigate or prosecute any alcohol or drug abuse patient.[facility] Hospital[facility] the event this information is protected by the Federal Confidentiality of Alcohol and Drug Abuse Patient Records regulations: The Federal rules restrict any use of the information to criminally investigate or prosecute any alcohol or drug abuse patient.[facility] Hospital[facility] the event this information is protected by the Federal Confidentiality of Alcohol and Drug Abuse Patient Records regulations: The Federal rules restrict any use of the information to criminally investigate or prosecute any alcohol or drug abuse patient.[facility] HospitalIn the event this information is protected by the Federal Confidentiality of Alcohol and Drug Abuse Patient Records regulations: The Federal rules restrict any use of the information to criminally investigate or prosecute any alcohol or drug abuse patient.[facility] HospitalIn the event this information is protected by the Federal Confidentiality of Alcohol and Drug Abuse Patient Records regulations: The Federal rules restrict any use of the information to criminally investigate or prosecute any alcohol or drug abuse patient.[facility] Care Teams (unrecognized sec tion and content) Sports Physician Relationship Specialty Start Date End Date Ellen Barrera CNP [address] [place] [address] PCP - General Family Practice 11/17/20 Imtiaz Freed Jr. [address] [place] [address] Referring Urology 11/17/20 Sports Physician Relationship Specialty Start Date End Date Ellen Barrera CNP [address] [place] [address] PCP - General Family Practice 11/17/20 Imtiaz Freed Jr. [address] [place] [phone] Referring Urology 11/17/20 Sports Physician Relationship Specialty Start Date End Date Ellen Barrera, AUTOMOTIVE DESIGN LAYOUT DRAFTER [address] [place] [address] PCP - General Family Medicine 11/17/20 Imtiaz Freed Jr. [address] [place] [address] Referring Urology 11/17/20 Sports Physician Relationship Specialty Start Date End Date Ellen Barrera, AUTOMOTIVE DESIGN LAYOUT DRAFTER [address] [place] [address] PCP - General Family Medicine 11/17/20 Imtiaz Freed Jr. [address] [place] [address] Referring Urology 11/17/20 Sports Physician Relationship Specialty Start Date End Date Ellen Barrera, AUTOMOTIVE DESIGN LAYOUT DRAFTER [address] [place] [address] PCP - General Family Medicine 11/17/20 Imtiaz Freed Jr. [address] [place] [address] Referring Urology 11/17/20 Sports Physician Relationship Specialty Start Date End Date Ellen Barrera, AUTOMOTIVE DESIGN LAYOUT DRAFTER [address] [place] [address] PCP - General Family Medicine 11/17/20 Imtiaz Freed Jr. [address] [place] [address] Referring Urology 11/17/20 Sports Physician Relationship Specialty Start Date End Date Ellen Barrera CNP [address] [place] [address] PCP - General Family Medicine 11/17/20 Imtiaz Freed Jr. [address] [place] [address] Referring Urology 11/17/20 Sports Physician Relationship Specialty Start Date End Date Ellen Barrera AUTOMOTIVE DESIGN LAYOUT DRAFTER [address] [place] [address] PCP - General Family Medicine 11/17/20 Imtiaz Freed Jr. [address] [place] [address] Referring Urology 11/17/20 FOR RECORDS PERTAINING TO [...] BE BASED ON THE PRIMARY CLINICAL RECORDS. [facility]. provides no warranty or guarantee of the accuracy or completeness of information in this document.
[2023-11-07 09:34] LABS: Prostate Specific Antigen Dx 0.48 ng/mL (<=4.00)
== END 2023-11-07 07:54 | disposition home or self-care (01) ==
LOC: LAB 07:54
PROVIDERS: PCP Nurse Practitioner; Visit Provider Radiology Radiation Oncology
DX: C61 Malignant neoplasm of prostate (principal)
CPT/HCPCS: 36415; 84153

== ENCOUNTER 2023-11-07 07:57 | Outpatient (OUT) | payer MEDICARE, OTHER, SELFPAY ==
--- OUTSIDE RECORDS SUMMARY | 2023-11-07 08:19 | XMS_ITS | CCD ---
Author Organization [facility] Care Team Providers Care Transformer Builder Name Role Phone No, Physician Primary Care Provider Unavailabl e NO, PHYSICIAN Primary Care Unavailable BREE LESLIE Attending Unavailabl e KUBEBREELOTTE Admitting Unavailabl e SELF, REFERRED Primary Care Unavailable SELF, REFERRED Referring Unavailable MUKUND SCHULER Admitting Unavailable MUKUND SCHULER Attending Unavailable Aichholz RODRICK, Ellen Esquivel Primary Care Provider Imtiaz Freed Jr. Unavailable VICELLEN MICHEL Primary Care Physician [phone] Aicholz Ellen MENSAH Primary Care Provider Imtiaz Freed Jr. Unavailable YUNI NORTH Attending Unavailable VICMARILU, ELLEN SIDNEY Primary Care Unavailable CHAI PALMA Referring Unavailable Aichholz Ellen MENSAH Primary Care Provider [phone] Imtiaz Freed Jr. Unavailable DR NESTOR CATALAN Admitting Unavailable KAPLAN ., DR BAEZ Attending Unavailable AICHHOLZ, GLAZE HANDLER ELLEN Primary Care Unavailable KAPLAN ., DR BAEZ Consulting Unavailable AICHHOLZ, GLAZE HANDLER ELLEN Admitting Unavailable AICHHOLZ, GLAZE HANDLER ELLEN Attending Unavailable AICHHOLZ, GLAZE HANDLER ELLEN Primary Care Unavailable AICHHOLZ, GLAZE HANDLER ELLEN Consulting Unavailable KAPLAN ., DR BAEZ Admitting Unavailable KAPLAN ., DR BAEZ Attending Unavailable AICHHOLZ, GLAZE HANDLER ELLEN Primary Care Unavailable KAPLAN ., DR BAEZ Consulting Unavailable SREE FRASER Consulting Unavailable BRAD FOSS Consulting Unavailable NILL ., DR SALTER Admitting Unavailable NILL ., DR SALTER Attending Unavailable AICHHOLZ, GLAZE HANDLER ELLEN Primary Care Unavailable NILL ., DR SALTER Consulting Unavailable UMA VILLA Consulting Unavailable VIDYA LUNDBERG Consulting Unavailable KAPLAN ., DR BAEZ Admitting Unavailable KAPLAN ., DR BAEZ Attending Unavailable AICHHOLZ, GLAZE HANDLER ELLEN Primary Care Unavailable KAPLAN ., DR BAEZ Consulting Unavailable PENA, ELISA Consulting Unavailable KAPLAN ., DR BAEZ Admitting Unavailable KAPLAN ., DR BAEZ Attending Unavailable AICHHOLZ, GLAZE HANDLER ELLEN Primary Care Unavailable KAPLAN ., DR BAEZ Consulting Unavailable WEST, DR CHAI Gilman Consulting Unavailable AICHHOLZ, GLAZE HANDLER ELLEN Admitting Unavailable AICHHOLZ, GLAZE HANDLER ELLEN Attending Unavailable AICHHOLZ, GLAZE HANDLER ELLEN Primary Care Unavailable AICHHOLZ, GLAZE HANDLER ELLEN Consulting Unavailable KAPLAN ., DR BAEZ Admitting Unavailable KAPLAN ., DR BAEZ Attending Unavailable AICHHOLZ, GLAZE HANDLER ELLEN Primary Care Unavailable KAPLAN ., DR BAEZ Consulting Unavailable ZIEBER, DR JAMIE Veras Consulting Unavailable KAPLAN ., DR BAEZ Admitting Unavailable KAPLAN ., DR BAEZ Attending Unavailable AICHHOLZ, GLAZE HANDLER ELLEN Primary Care Unavailable KAPLAN ., DR BAEZ Consulting Unavailable KAPLAN ., DR BAEZ Admitting Unavailable KAPLAN ., DR BAEZ Attending Unavailable AICHHOLZ, GLAZE HANDLER ELLEN Primary Care Unavailable KAPLAN ., DR BAEZ Consulting Unavailable AICHHOLZ, GLAZE HANDLER ELLEN Admitting Unavailable AICHHOLZ, GLAZE HANDLER ELLEN Attending Unavailable AICHHOLZ, GLAZE HANDLER ELLEN Primary Care Unavailable AICHHOLZ, GLAZE HANDLER ELLEN Consulting Unavailable KAPLAN ., DR BAEZ Admitting Unavailable KAPLAN ., DR BAEZ Attending Unavailable AICHHOLZ, GLAZE HANDLER ELLEN Primary Care Unavailable KAPLAN ., DR BAEZ Consulting Unavailable ZIEBER, DR JAMIE Veras Consulting Unavailable AICHHOLZ, GLAZE HANDLER ELLEN Admitting Unavailable AICHHOLZ, GLAZE HANDLER ELLEN Attending Unavailable AICHHOLZ, GLAZE HANDLER ELLEN Primary Care Unavailable AICHHOLZ, GLAZE HANDLER ELLEN Consulting Unavailable GANGA, MUKUDN Admitting Unavailable GANGAMUKUND Attending Unavailable AICHHOLZ, GLAZE HANDLER ELLEN Primary Care Unavailable GANGA, MUKUND Consulting Unavailable AICHHOLZ, GLAZE HANDLER ELLEN Admitting Unavailable AICHHOLZ, GLAZE HANDLER ELLEN Attending Unavailable AICHHOLZ, GLAZE HANDLER ELLEN Primary Care Unavailable AICHHOLZ, GLAZE HANDLER ELLEN Consulting Unavailable NILL ., DR SALTER Admitting Unavailable NILL ., DR SALTER Attending Unavailable AICHHOLZ, GLAZE HANDLER ELLEN Primary Care Unavailable NILL ., DR SALTER Consulting Unavailable KAPLAN ., DR BAEZ Admitting Unavailable KAPLAN ., DR BAEZ Attending Unavailable AICHHOLZ, GLAZE HANDLER ELLEN Primary Care Unavailable KAPLAN ., DR BAEZ Consulting Unavailable PENA, ELISA Consulting Unavailable KAPLAN ., DR BAEZ Admitting Unavailable KAPLAN ., DR BAEZ Attending Unavailable AICHHOLZ, GLAZE HANDLER ELLEN Primary Care Unavailable KAPLAN ., DR BAEZ Consulting Unavailable KAPLAN ., DR BAEZ Admitting Unavailable KAPLAN ., DR BAZE Attending Unavailable AICHHOLZ, GLAZE HANDLER ELLEN Primary Care Unavailable KAPLAN ., DR BAEZ Consulting Unavailable WEST, DR CHAI Gilman Consulting Unavailable TOBIAS, DELORIS LORENZO Consulting Unava ilable SREE MARKHAM Consulting Unavailable KAPLAN ., DR BAEZ Admitting Unavailable KAPLAN ., DR BAEZ Attending Unavailable AICHHOLZ, GLAZE HANDLER ELLEN Primary Care Unavailable KAPLAN ., DR BAEZ Consulting Unavailable AICHHOLZ, GLAZE HANDLER ELLEN Admitting Unavailable AICHHOLZ, GLAZE HANDLER ELLEN Attending Unavailable AICHHOLZ, GLAZE HANDLER ELLEN Primary Care Unavailable VALLEY STREAM, DR CHAI Gilman Consulting Unavailable AICHHOLZ, GLAZE HANDLER ELLEN Consulting Unavailable MUKUND SCHULER Attending Unavailable [...] Start: 10-31-2022 take 2 tablets by mo [facility] twice daily potassium citrate 15 mEq oral tablet, extended release 30 mEq = 2 tab(s), Oral, BID, # 120 tab(s), Refills(s) 11, Pharmacy: [facility]/pharmacy #[id number], 173, cm, 10/31/22 8:58:00 EDT, Height/Length Dosing, 99, kg, 10/31/22 8:58:00 EDT, Weight Dosing Start Date: 10/31/22 Status: Ordered Comment on above: Take 2 tablets by [facility] every 12 hours. tamsulosin hydrochloride 0.4 mg oral capsule (13 sources) alpha-Adrenergic Alistair Start: 03-25-2021 tamsulosin (FLOMAX) 0.4 mg 0.4 mg once daily. 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) use of aspirin; Translations: [SKILLED NURSING 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] Onset: 07-18-2022 Episodic Other aftercare (1 source) Other [facility] (current) drug therapy; Translations: [OTH OUTSOLE COMPRESSOR CURRENT DRUG THERAPY] Onset: 07-18-2022 Episodic Other [...] Range Facility Consultation Noteon 06-12-20 Consultation Note [id number]#[id number] Normal [facility] Lab Reportson 06-12-2023 Lab Reports [id number]#[id number] Normal [facility] Formson 05-15-2023 Forms [id number]#1.00TIFF [facility] CNOVon 05-03-2023 CNOV Office Visit (RADTSA ) ----- MARK DOUGLAS ([id number]) 1955 M Date Time Provider Department 05/03/23 [...] DIAGNOSIS: Prostate adenocarcinoma, initial PSA 5.4, biopsy Quilcene score 3 + 4 = 7 (grade [...] by: Nestor Mckenzie MD cc: Ellen Barrera, GLAZE HANDLER (Dr) [address] [place] [address] Referring Provider: Nestor MCKENZIE [[id number]] Allergies As of Date: 05/03/2023 (No Known Allergies) Date Reviewed: 05/03/2023 Reviewed by: Nafisa Chacon LPN - Fully Assessed Reason for Visit: Prostate Cancer [590] Primary Visit Diagnosis:Prostate cancer (HCC) [C61] Order(s):PSA (OUTSIDE) [6170842] Order #: [id number] PSA/PROSTSPECAG DIAG [SQPSA] Order #: [id number] FUTURE Prescriptions as of 05/08/2023 - Potassium [...] hypertension [I10] 03/12/2021 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 Follow-up and Disposition History for Encounter Date Provider Department Center 05/03/2023 [id number], G PH (more content not included)... Normal [facility] Kimmy 04-25-2023 KAUSHAL Telephone ([employer]) ----- MARK DOUGLAS ([id number]) 1955 M Date Time Provider Department 04/25/23 Nestor MCKENZIE During your visit today, we recorded the following information about you: Nafisa Chacon LPN 04/25/2023 10:39 AM Signed Please sign pended PSA order for upcoming appt. Fax order to [facility] per patient request. 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 Just need to make sure if he has SL nitroglycerin that he does not take both the same day. Normal [facility] 36 Ellen Barrera CNP (patient's PCP) called wanting to make sure it was ok from a cardiac standpoint that she start him on something for ED, like Cialis or Viagra. Please advise. Thanks. [facility] Ambulatory Visit Summaryon 0 10-31-2022 Ambulatory Visit Summary MARK DOULGAS :1955 Visit Date:10/31/2022 Ambulatory Visit Instructions Your Diagnosis Prostate cancer Kidney stones Hypocitraturia BPH with urinary obstruction Tests Performed Urnls Dip Stick Auto w/o Microscopy POC 27840 KUB -- Results Pending -- Please visit [...] JERI SANDERS PA-C Where: [facility] Pratibha Normal [facility] Patient Educationon 11-01-19 Patient Education Urology [...] these instructions at home: Medicines ? Take ixcg-ngq-ddaazlg and prescription medicines only as told by [...] provider. Document Revised: 02/13/2022 Document Reviewed: 02/13/2022 [employer]un[employer]hisheng Patient Education ? 2022 [employer] [facility] Urology Office/Clinic Noteon 10-31-2022 Urology Office/Clinic [...] BID, # 120 tab(s), Refills(s) 11, [id number], cm, 10/31/22 8:58:00 EDT, Height/Length Dosing, 99, kg, 10/31/22 8:58:00 EDT, Weight Dosing E&M of Est. Patient Moderate 30-39 Min 79289 Urnls Dip Stick Auto w/o Microscopy POC 63640 2. Kidney stones (N20.0: Calculus of kidney) [...] BID, # 120 tab(s), Refills(s) 11, Pharmacy: [facility]/pharmacy #[id number], 173, cm, 10/31/22 8:58:00 EDT, Height/Length Dosing, 99, kg, 10/31/22 8:58:00 EDT, Weight Dosing E&M of Est. Patient Moderate 30-39 Min 75880 XR Abdomen 1 View 3. 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 started supplement. repeat metabolic work-up in 6 mos Ordered: potassium citrate, 30 mEq = 2 tab(s), Oral, BID, # 120 tab(s), Refills(s) 11, [id number] 173, cm, 10/31/22 8:58:00 EDT, Height/Length Dosing, 99, kg, 10/31/22 8:58:00 EDT, Weight Dosing E&M of Est. Patient Moderate 30-39 Min 75082 4. BPH with urinary obstruction (N40.1: Benign [...] BID, # 120 tab(s), Refills(s) 11, [id number] 173, cm, 10/31/22 8:58:00 EDT, Height/Length Dosing, 99, kg, 10/31/22 8:58:00 EDT, Weight Dosing E&M of Est. Patient Moderate 30-39 Min 79366 Orders: cephalexin, 500 mg = 1 cap(s), Oral, Daily, # 30 cap(s), Refills(s) 0, [id number], 173, cm, 04/24/22 12:06:00 EDT, Height/Length Dosing, 104, kg, 04/24/22 12:06:00 EDT, Weight Dosing f/u 6 mos w repeat metabolic workup, KUB, and PSA. Follow-up With When Contact Information JERI SANDERS PA-C, URL Within 6 months [address] [place] [address] Business (1) Additional Instructions: Patient Education Kidney Stones, Ynzx-mq-Mdph Problem List/Past Medical History Ongoing Abnormal kidney [...] data Procedure/Surgic (more content not included)... Normal [facility] Comment on above: Result Comment: Elec tronically Signed By: JERI SANDERS PA-C\Date and Time Signed: 10/31/22 09:50 EDT CNOVon 10-26-2022 CNOV Office Visit (RADTSA ) ----- MARK DOUGLAS ([id number]) 1955 M Date Time Provider Department 10/26/22 [...] by: Nestor Mckenzie MD cc: Ellen Barrera, GLAZE HANDLER ([facility]) [address] [place] [address] Elisa Frederick RN 10/26/2022 11:38 AM Addendum AUA 2 Elisa Frederick RN Referring Provider: Nestor MCKENZIE [[id number]] Allergies As of Date: 10/26/2022 (No Known Allergies) Date Reviewed: 10/26/2022 Reviewed by: Elisa Frederick RN - Fully Assessed Reason for Visit: Prostate Cancer [590] Primary Visit Diagnosis:History of prostate cancer [Z85.46] Other Visit Diagnosis:Obesity, Class I, BMI 30-34.9 [E66.9] Order(s):PSA (OUTSIDE) [7656871] Order #: [id number] Prescriptions as of 11/03/2022 - sertraline (ZOLOFT) [...] hypertension [I10] 03/12/2021 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 October 26, 2022 10:45 AM Status: Addendum AUA 2 Elisa Frederick RN Disposition: Return in about 6 months (around 04/28/2023). (more content not included)... Normal [facility] Lab Reportson 10-16-2022 Lab Reports [id number]#1.00CD:12 7 Normal [facility] Lab Reportson 10-09-2022 Lab Reports [id number]#1.00CD:12 7 Normal [facility] RAD - MISCon 09-19-2022 RAD - MISC [id number]#1.00CD:12 7 Normal [facility] CITRATE URINE 24HRon 023 Citric Acid, U, 24hr 138 mg/24 hr Critically low 320-[address] [facility] Comment on above: Result Comment: This test was developed and its performance characteristics determined by [employer]. It has not been cleared or approved by the Food and Drug Administration. Performed By: #### C ALC24U #### [facility] [address] [place] [address] Dr. Aaron Gloria Citric Acid, Urine 80 mg/L Normal Undefined [facility] Comment on above: Performed By: #### C ALC24U #### [facility] [address] [place] [address] Dr. Aaron Gloria OXALATE 24HR URINEon 023 Oxalates, Urine 19 mg/L Normal Undefined [facility] Comment on above: Performed By: #### O X24HR #### [facility] [address] [place] [address] Dr. Aaron Gloria Oxalates, Urine 24hr 33 mg/24 hr Normal 7-44 [facility] Comment on above: Performed By: #### O X24HR #### [facility] [address] [place] [address] Dr. Aaron Golria MAGNESIUM 24HR URINEon 09-16 Magnesium 24hr Urine 122.5 mg/24 hr Normal 12.0-293.0 [facility] Comment on above: Performed By: #### M AG24 #### [facility] [address] [address] [address] Aaron Gloria Magnesium UR 7.1 mg/dL Normal Not Estab. [facility] Comment on above: Performed By: #### M AG24 #### [facility] [address] [place] [address] Dr. Aaron Gloria PHOSPHORUS 24HR URINEon 08-24 Phosphorus, Urine 66.7 mg/dL Normal Not Estab. [facility] Comment on above: Performed By: #### M AG24 #### [facility] [address] [place] [address] Dr. Aaron Gloria Phosphorus, Urine 24hr 1151 mg/24 hr Normal 390-[address] [facility] Comment on above: Performed By: #### M AG24 #### [facility] [address] [place] [address] Dr. Aaron Gloria PTH INTACTon 09-16-2022 PTH, Intact 35 pg/mL Normal 15-[address] [facility] Comment on above: Performed By: #### P THINT #### [facility] [address] [place] [address] Dr. Aaron Gloria URIC ACID 24 HR URINEon 08-24 Uric Acid, Urine 39.5 mg/dL Normal Not Estab. The [facility] Comment on above: Performed By: #### U ZELDA 24 #### [facility] [address] [place] [address] Dr. Aaron Gloria Uric Acid, Urine 24hr 681.4 mg/24 hr Normal 182.4-936.[address] [facility] Comment on above: Performed By: #### U ZELDA 24 #### [facility] [address] [place] [address] Dr. Aaron Gloria BUNon 09-15-2022 Urea nitrogen [Mass/Vol] 18.0 mg/dL Normal 7.0-18.[address] [facility] Comment on above: Performed By: #### U ZELDA 24 #### [facility] [address] [place] [address] Dr. Aaron Gloria CALCIUMon 09-15-2022 Calcium [Mass/Vol] 9.0 mg/dL Normal 8.5-10.1 [facility] Comment on above: Performed By: #### C BC #### [facility] [address] [place] [address] Dr. Aaron Gloria CALCIUM 24 HR URINEon 2022 CALC, 24 HR UR 131.1 mg/24 hr Normal 100.0-300.[address] [facility] Comment on above: Performed By: #### C ALC24U #### [facility] [address] [place] [address] Dr. Aaron Gloria UR CALCIUM 7.6 mg/dL Normal 5.1-21.0 [facility] Comment on above: Performed By: #### C ALC24U #### [facility] [address] [place] [address] Dr. Aaron Gloria UR TOT VOL 1725 ml/24 HR Normal [facility] Comment on above: Performed By: #### C ALC24U #### [facility] [address] [place] [address] Dr. Aaron Gloria Performed By: #### M AG24 #### [facility] [address] [place] [address] Dr. Aaron Gloria CHLORIDEon 09-15-2022 Chloride [Moles/Vol] 104 mmol/L Normal 98-107 [facility] Comment on above: Performed By: #### U ZELDA 24 #### [facility] [address] [place] [address] Dr. Aaron Gloria CO2on 09-15-2022 CO2 [Moles/Vol] 26.9 mmol/L Normal 21.0-32.0 [facility] Comment on above: Performed By: #### U ZELDA 24 #### [facility] [address] [place] [address] Dr. Aaron Gloria CREA 24 HR URINEon 3 CREA, 24 HR UR 1749.67 mg/24 hr Normal 1,000.00- 2,0 00.00 [facility] Comment on above: Performed By: #### M AG24 #### [facility] [address] [place] [address] Dr. Aaron Gloria URINE CREAT 101.43 mg/dL Normal 20.00-300.00 [facility] Comment on above: Performed By: #### M AG24 #### [facility] [address] [place] [address] Dr. Aaron Glorai CREATININEon 09-15-2022 Creatinine [Mass/Vol] 1.08 mg/dL Normal 0.70-1.30 [facility] Comment on above: Performed By: #### U ZELDA 24 #### [facility] [address] [place] [address] Dr. Aaron Gloria EGFR-AF MICRONESIAN >60 Normal >=60 [facility] Comment on above: Performed By: #### U ZELDA 24 #### [facility] [address] [place] [address] Dr. Aaron Gloria EGFR-NON AF MICRONESIAN >60 Normal >=60 [facility] Comment on above: Performed By: #### U ZELDA 24 #### [facility] [address] [place] [address] Dr. Aaron Gloria NAon 09-15-2022 Sodium [Moles/Vol] 138 mmol/L Normal 136-145 [facility] Comment on above: Performed By: #### C BC #### [facility] [address] [place] [address] Dr. Aaron Gloria POTASSIUMon 09-15-2022 Potassium [Moles/Vol] 4.4 mmol/L Normal 3.5-5.1 [facility] Comment on above: Performed By: #### U ZELDA 24 #### [facility] [address] [place] [address] Dr. Aaron Gloria SODIUM 24 HR URINEon 023 NA, 24 HR UR 217 mmol/24 hr Normal 40-220 [facility] Comment on above: Performed By: #### M AG24 #### [facility] [address] [place] [address] Dr. Aaron Gloria Sodium (U) [Moles/Vol] 126 mmol/L Critically high 30-90 [facility] Comment on above: Performed By: #### M AG24 #### [facility] [address] [address] [address] Aaron Gloria URIC ACID SERUMon 09-15-2022 Urate [Mass/Vol] 7.4 mg/dL Critically high 3.5-7.2 [facility] Comment on above: Performed By: #### C BC #### [facility] [address] [place] [address] Dr. Aarno Gloria LIPID PROFILEon 09-13-2022 CHOL-HDL RATIO NORM SEE BELOW Normal [facility] Comment on above: Result Comment: 3.3 - 4.4 LOW RISK 4.4 - 7.1 AVERAGE RISK 7.1 - 11.0 MODERATE RISK >11.0 HIGH RISK Performed By: #### C ALC24U #### [facility] [address] [place] [address] Dr. Aaron lGoria Cholesterol [Mass/Vol] 149 mg/dL Normal <=200 [facility] Comment on above: Performed By: #### C ALC24U #### [facility] [address] [place] [address] Dr. Aaron Gloria Cholesterol in HDL [Mass/Vol] 44 mg/dL Normal 40-60 [facility] Comment on above: Performed By: #### C ALC24U #### [facility] [address] [place] [address] Dr. Aaron Gloria Cholesterol in LDL [Mass/Vol] 71.8 mg/dL Normal [facility] Comment on above: Performed By: #### C ALC24U #### [facility] [address] [address] [address] Aaron Gloria Cholesterol.total/C holesterol in HDL [Mass ratio] 3.4 {ratio} Normal [facility] Comment on above: Performed By: #### C ALC24U #### [facility] [address] [place] [address] Dr. Aaron Gloria HDL NORMAL > or = 60 mg/dl - LO W CARDIOVASCULAR RISK <40 mg/dl - HIGH CARDIOVASCULAR RISK Normal [facility] Comment on above: Performed By: #### C ALC24U #### [facility] [address] [place] [address] Dr. Aaron Gloria LDL CALC NORMAL SEE BELOW Normal [facility] Comment on above: Result Comment: <100 mg/dl OPTIMAL 100 - 129 mg/dl NEAR OR ABOVE OPTIMAL 130 - 159 mg/dl BORDERLINE HIGH 160 - 189 mg/dl HIGH >190 mg/dl VERY HIGH Performed By: #### C ALC24U #### [facility] [address] [address] [address] Aaron Gloria Triglyceride [Mass/Vol] 166 mg/dL Critically high <=150 [facility] Comment on above: Performed By: #### C ALC24U #### [facility] [address] [address] [address] Aaron Gloria VLDL CALC 33.2 mg/dL Normal [facility] Comment on above: Performed By: #### C ALC24U #### [facility] [address] [place] [address] Dr. Aaron Gloria PROF 14(COMP METB)on 023 Albumin [Mass/Vol] 3.8 g/dL Normal 3.4-5.0 [facility] Comment on above: Performed By: #### C ALC24U #### [facility] [address] [address] [address] Aaron Gloria Albumin/Globulin [Mass ratio] 1.0 {ratio} Normal [facility] Comment on above: Performed By: #### C [id number] #### [facility] [address] [address] [address] Aaron Gloria ALP [Catalytic activity/Vol] 65 U/L Normal 46-[address] [facility] Comment on above: Performed By: #### C [id number] #### [facility] [address] [address] [address] Aaron Gloria ALT [Catalytic activity/Vol] 26 U/L Normal 16-63 [facility] Comment on above: Performed By: #### C [id number] #### [facility] [address] [address] [address] Aaron Gloria Anion gap [Moles/Vol] 14.0 mmol/L Normal [facility] Comment on above: Performed By: #### C [id number] #### [facility] [address] [address] [address] Aaron Gloria AST [Catalytic activity/Vol] 16 U/L Normal 15-37 [facility] Comment on above: Performed By: #### C [id number] #### [facility] [address] [address] [address] Aaron Gloria Bilirubin [Mass/Vol] 0.4 mg/dL Normal 0.2-1.0 [facility] Comment on above: Performed By: #### C [id number] #### [facility] [address] [address] [address] Aaron Gloria Calcium [Mass/Vol] 9.0 mg/dL Normal 8.5-10.1 [facility] Comment on above: Performed By: #### C [id number] #### [facility] [address] [place] [address] Dr. Aaron Gloria Chloride [Moles/Vol] 104 mmol/L Normal 98-107 [facility] Comment on above: Performed By: #### C [id number] #### [facility] [address] [place] [address] Dr. Aaron Gloria CO2 [Moles/Vol] 27.1 mmol/L Normal 21.0-32.0 [facility] [place] Comment on above: Performed By: #### C [id number] #### [facility] [address] [place] [address] Dr. Aaron Gloria Creatinine [Mass/Vol] 1.08 mg/dL Normal 0.70-1.30 [facility] Comment on above: Performed By: #### C [id number] #### [facility] [address] [place] [address] Dr. Aaron Gloria EGFR-AF MICRONESIAN >60 Normal >=60 [facility] [place] Comment on above: Performed By: #### C [id number] #### [facility] [address] [place] [address] Dr. Aaron Gloria EGFR-NON AF MICRONESIAN >60 Normal >=60 [facility] Comment on above: Performed By: #### C [id number] #### [facility] [address] [address] [address] Aaron Gloria Globulin (S) [Mass/Vol] 3.7 g/dL Normal [facility] Comment on above: Performed By: #### C [id number] #### [facility] [address] [address] [address] Aaron Gloria Glucose [Mass/Vol] 121 mg/dL Critically high 74-106 [facility] Comment on above: Performed By: #### C [id number] #### [facility] [address] [place] [address] Dr. Aaron Gloria Potassium [Moles/Vol] 4.1 mmol/L Normal 3.5-5.1 [facility] Comment on above: Performed By: #### C [id number] #### [facility] [address] [place] [address] Dr. Aaron Gloria Protein [Mass/Vol] 7.5 g/dL Normal 6.4-8.2 [facility] Comment on above: Performed By: #### C [id number] #### [facility] [address] [place] [address] Dr. Aaron Gloria Sodium [Moles/Vol] 141 mmol/L Normal 136-145 [facility] Comment on above: Performed By: #### C [id number] #### [facility] [address] [place] [address] Dr. Aaron Gloria Urea nitrogen [Mass/Vol] 17.0 mg/dL Normal 7.0-18.0 [facility] Comment on above: Performed By: #### C [id number] #### [facility] [address] [place] [address] Dr. Aaron Gloria Urea nitrogen/Creatinine [Mass ratio] 15.7 mg/mg Normal [facility] Comment on above: Performed By: #### C [id number] #### [facility] [address] [place] [address] Dr. Aaron Gloria XR KUB 1 VIEWon [...] by: JAMIE TAN Date: 2022-09-13 09:06 Normal [facility] Operative Reporton 3 Operative Report [id number]:12 7 Normal [facility] Office Visiton 08-15-2022 Follow-up visit [id number] Harman Douglas 1955 M Date Provider Department Center 08/15/2022 MUKUND NUNEZ [facility] Family History Problem Relation Age of Onset Heart attack Mother 37 Coronary artery disease Mother Coronary artery disease Father 65 Coronary artery disease Brother Family Status - Relation Status Age at Mother Father Brother Level of Service:92956 AR OFFICE/OUTPATIENT ESTABLISHED LOW MDM 20-29 MIN Reason for Visit and Comments: Coronary Artery Disease [187] Hypertension [357349] Hyperlipidemia [182] Normal [facility] RAD - MISCon 08-08-2022 RAD - MISC [id number]:12 7 Normal [facility] Consent for Procedure/Surger yon 07-31-2022 Consent for Procedure/Surgery [id number]:12 7 Normal [facility] XR KUB 1 VIEWon 07-25-2022 XR [...] by: JAMIE TAN Date: 2022-07-25 08:21 Normal [facility] Reminderson 07-20-2022 Reminders - From: Padma Dunlap To: LAYO Church PA - Results; Sent: 07/20/2022 12:53:49 EST Show up: 07/26/2022 12:53:00 EST Subject: Reminder Message Reminder Message Please Remember to:_ PATIENT RELATED REMINDER:_ ( ) Call Patient ( ) Ask Patient to ( ) Call Relative ( ) Schedule Patient ( X ) Follow up on Results Pt will be having KUB @ [facility] sometime between 07/20/2022 and 07/27/2022 ( ) Other: PROVIDER RELATED REMINDER:_ ( ) Rn Obgyn ( ) Call Pharmacy ( ) Call Lab ( ) Other: Special Instructions:_ Comments:_ Normal [facility] CALCULI, URINARYon 3 2,8 Dihydroxyadenine Normal [facility] Comment on above: Performed By: #### P THINT #### [facility] [address] [address] [address] Aaron Gloria Ammonium Acid Urate Normal [facility] Comment on above: Performed By: #### P THINT #### [facility] [address] [address] [address] Aaron Gloria Bilirubin Ql (U) Normal [facility] Comment on above: Performed By: #### P THINT #### [facility] [address] [address] [address] Aaron Gloria Ca Oxalate Dihydrate Normal [facility] Comment on above: Performed By: #### P THINT #### [facility] [address] [address] [address] Aaron Gloria CaHPO4 (Brushite) Normal [facility] Comment on above: Performed By: #### P THINT #### [facility] [address] [address] [address] Aaron Gloria Calcium Bilirubinate Normal [facility] Comment on above: Performed By: #### P THINT #### [facility] [address] [address] [address] Aaron Gloria Calcium Carbonate Normal [facility] Comment on above: Performed By: #### P THINT #### [facility] [address] [address] [address] Aaron Gloria Calcium Oxalate Monohydrate 60 % [facility] Comment on above: Performed By: #### P THINT #### [facility] [address] [address] [address] Aaron Gloria Calcium Palmitate [facility] Comment on above: Performed By: #### P THINT #### [facility] [address] [address] [address] Aaron Gloria Calcium Phosphate [facility] Comment on above: Performed By: #### P THINT #### [facility] [address] [address] [address] Aaron Gloria Calcium Stearate [facility] Comment on above: Performed By: #### P THINT #### [facility] [address] [address] [address] Aaron Gloria Carbonate Apatite [facility] Comment on above: Performed By: #### P THINT #### [facility] [address] [address] [address] Aaron Gloria Cellular Material [facility] Comment on above: Performed By: #### P THINT #### [facility] [address] [address] [address] Aaron Gloria Cholesterol [facility] Comment on above: Performed By: #### P THINT #### [facility] [address] [address] [address] Aaron Gloria Color (U) Brown Normal [facility] Comment on above: Performed By: #### P THINT #### [facility] [address] [address] [address] Aaron Gloria Comment [place] [facility] Comment on above: Performed By: #### P THINT #### [facility] [address] [address] [address] Aaron Gloria Comment Comment Normal [facility] Comment on above: Result Comment: Calc ulus received wet. Wet calculi must be dried before analysis, which delays reporting of results. Leaving calculi wet (such as water, saline, blood, urine) may lead to changes in composition. Performed By: #### P THINT #### [facility] [address] [address] [address] Aaron Gloria Comment: Comment Normal [facility] Comment on above: Result Comment: Phys guerlinean questions regarding Calculi Analysis [facility] at: [phone]. Performed By: #### P THINT #### [facility] [address] [place] [address] Dr. Aaron Gloria Composition Comment Normal [facility] Comment on above: Result Comment: Perc entage (Represents the % composition) Performed By: #### P THINT #### [facility] [address] [place] [address] Dr. Aaron Gloria Cystine Normal [facility] Comment on above: Performed By: #### P THINT #### [facility] [address] [place] [address] Dr. Aaron Gloria Disclaimer: Comment Normal [facility] Comment on above: Result Comment: This test was developed and its performance characteristics determined by [facility]. It has not been cleared or approved by the Food and Drug Administration. Performed By: #### P THINT #### [facility] [address] [place] [address] Dr. Aaron Gloria Dried Blood Normal [facility] Comment on above: Performed By: #### P THINT #### [facility] [address] [place] [address] Dr. Aaron Gloria Drug or Metabolite Normal [facility] Comment on above: Performed By: #### P THINT #### [facility] [address] [place] [address] Dr. Aaron Gloria Hydroxyapatite Normal [facility] Comment on above: Performed By: #### P THINT #### [facility] [address] [address] [address] Aaron Gloria Mg NH4 PO4 (Struvite) [facility] Comment on above: Performed By: #### P THINT #### [facility] [address] [address] [address] Aaron Gloria MgHPO4 (Newberyite) Normal [facility] Comment on above: Performed By: #### P THINT #### [facility] [address] [address] [address] Aaron Gloria Other component(s) Normal [facility] Comment on above: Performed By: #### P THINT #### [facility] [address] [address] [address] Aaron Gloria PDF . Normal [facility] Comment on above: Performed By: #### P THINT #### [facility] [address] [address] [address] Aaron Gloria Photo Comment [facility] Comment on above: Result Comment: Phot ograph will follow under a separate cover Performed By: #### P THINT #### [facility] [address] [address] [address] Aaron Gloria Please note: Comment Normal [facility] Comment on above: Result Comment: Calc jeffery report will follow via computer, mail or fitting room associate delivery. Performed By: #### P THINT #### [facility] [address] [address] [address] Aaron Gloria Size 3x4 Normal [facility] Comment on above: Result Comment: Mult iple pieces received. Dimensions of the largest piece reported. Performed By: #### P THINT #### [facility] [address] [address] [address] Aaron Gloria Sodium Acid Urate Normal [facility] Comment on above: Performed By: #### P THINT #### [facility] [address] [address] [address] Aaron Gloria Source Comment [facility] Comment on above: Result Comment: Left Ureter Performed By: #### P THINT #### [facility] [address] [address] [address] Aaron Gloria Triamterene Normal [facility] Comment on above: Performed By: #### P THINT #### [facility] [address] [address] [address] Aaron Gloria Uric Acid 40 % Normal [facility] Comment on above: Performed By: #### P THINT #### [facility] [address] [place] [address] Dr. Aaron Gloria Uric Acid Dihydrate Normal [facility] Comment on above: Performed By: #### P THINT #### [facility] [address] [place] [address] Dr. Aaron Gloria Weight 44 mg [facility] Comment on above: Performed By: #### P THINT #### [facility] [address] [place] [address] Dr. Aaron Gloria Xanthine [facility] Comment on above: Performed By: #### P THINT #### [facility] [address] [place] [address] Dr. Aaron Gloria Operative Reporton Operative Report [id number]:12 7 Normal [facility] Lab Reportson 07-13-2022 Lab Reports [id number]:12 7 Normal [facility] Covid-19 PCR (CVDTB)on 06-25 SARS-CoV-2 (COVID-19) RNA LAKISHA+probe Ql (Unsp spec) Not detected Normal NOT DETECTED [facility] Comment on above: Result Comment: This test is not yet approved or cleared by the [place] FDA. When there are no FDA-approved or cleared tests available, and other criteria are met, FDA can make tests available under an emergency access mechanism called an Emergency Use Authorization (EUA). The EUA for this test is supported by the [place] of Health and Human Service's (HHS's) declaration [...] SARS-CoV-2. Performed By: #### C VDTB #### [facility] [address] [place] [address] Dr. Aaron Gloria Lab Reportson 07-10-2022 Lab Reports [id number]:12 7 Normal [facility] CBC AUTO DIFFon 07-03-2022 BASO # 0.1 103/ul Normal 0.0-0.1 [facility] Comment on above: Performed By: #### P THINT #### [facility] [address] [place] [address] Dr. Aaron Gloria Basophils/100 WBC (Bld) 1.2 % Normal 0.2-2.0 [facility] Comment on above: Performed By: #### P THINT #### [facility] [address] [place] [address] Dr. Aaron Gloria EO # 0.2 103/ul Normal 0.0-0.7 [facility] Comment on above: Performed By: #### P THINT #### [facility] [address] [place] [address] Dr. Aaron Gloria Eosinophils/100 WBC (Bld) 1.7 % Normal 0.9-7.0 [facility] Comment on above: Performed By: #### P THINT #### [facility] [address] [place] [address] Dr. Aaron Gloria Erythrocyte distribution width (RBC) [Ratio] 13.5 % Normal 11.0-15.0 [facility] Comment on above: Performed By: #### P THINT #### [facility] [address] [place], [place] [address] Dr. Aaron Gloria Hematocrit (Bld) [Volume fraction] 39.7 % Critically low 42.0-54.0 [facility] Comment on above: Performed By: #### P THINT #### [facility] [address] [place] [address] Dr. Aaron Gloria Hemoglobin (Bld) [Mass/Vol] 13.8 g/dL Critically low 14.0-18.0 [facility] Comment on above: Performed By: #### P THINT #### [facility] [address] [place] [address] Dr. Aaron Gloria IG # 0.22 10e3/ul Critically high 0.00-0.03 [facility] Comment on above: Performed By: #### P THINT #### [facility] [address] [place] [address] Dr. Aaron Gloria IG % 1.9 % Critically high 0.0-0.5 [facility] Comment on above: Performed By: #### P THINT #### [facility] [address] [place] [address] Dr. aAron Gloria LYMPH # 2.8 103/ul Normal 1.2-3.8 [facility] Comment on above: Performed By: #### P THINT #### [facility] [address] [place] [address] Dr. Aaron Gloria Lymphocytes/100 WBC (Bld) 24.4 % Normal 20.5-60.0 [facility] Comment on above: Performed By: #### P THINT #### [facility] [address] [place] [address] Dr. Aaron Gloria MANUAL DIFF REQ NO Normal [facility] Comment on above: Performed By: #### P THINT #### [facility] [address] [place] [address] Dr. Aaron Gloria MCH (RBC) [Entitic mass] 28.4 pg Normal 25.9-34.0 [facility] Comment on above: Performed By: #### P THINT #### [facility] [address] [place] [address] Dr. Aaron Gloria MCHC (RBC) [Mass/Vol] 34.8 g/dL Normal 29.9-35.[address] [facility] Comment on above: Performed By: #### P THINT #### [facility] [address] [address] [address] Aaron Gloria MCV (RBC) [Entitic vol] 81.7 fL Normal 80.0-94.[address] [facility] Comment on above: Performed By: #### P THINT #### [facility] [address] [address] [address] Aaron Gloria MONO # 0.7 103/ul Normal 0.3-0.[address] [facility] Comment on above: Performed By: #### P THINT #### [facility] [address] [place] [address] Dr. Aaron Gloria Monocytes/100 WBC (Bld) 6.2 % Normal 1.7-12.[address] [facility] Comment on above: Performed By: #### P THINT #### [facility] [address] [address] [address] Aaron Gloria NEUT # 7.5 103/ul Critically high 1.4-6.5 [facility] Comment on above: Performed By: #### P THINT #### [facility] [address] [place] [address] Dr. Araon Gloria Neutrophils/100 WBC (Bld) 64.6 % Normal 43.0-75.[address] [facility] Comment on above: Performed By: #### P THINT #### [facility] [address] [address] [address] Aaron Gloria Platelet mean volume (Bld) [Entitic vol] 8.4 fL Critically low 9.5-13.[address] [facility] Comment on above: Performed By: #### P THINT #### [facility] [address] [address] [address] Aaron Gloria PLT 565 103/ul Critically high 150-450 [facility] Comment on above: Performed By: #### P THINT #### [facility] [address] [place] [address] Dr. Aaron Gloria RBC 4.86 106/ul Normal 4.70-6.10 [facility] Comment on above: Performed By: #### P THINT #### [facility] [address] [place] [address] Dr. Aaron Gloria WBC 11.6 103/ul Critically high 4.0-11.0 [facility] Comment on above: Performed By: #### P THINT #### [facility] [address] [place] [address] Dr. Aaron Gloria PROF CHEM 8 (BAS METB)on Anion gap [Moles/Vol] 10.8 mmol/L Normal [facility] Comment on above: Performed By: #### C BC #### [facility] [address] [place] [address] Dr. Aaron Gloria Calcium [Mass/Vol] 9.5 mg/dL Normal 8.5-10.1 [facility] Comment on above: Performed By: #### C BC #### [facility] [address] [place] [address] Dr. Aaron Gloria Chloride [Moles/Vol] 102 mmol/L Normal 98-[address] [facility] Comment on above: Performed By: #### C BC #### [facility] [address] [place] [address] Dr. Aaron Gloria CO2 [Moles/Vol] 30.9 mmol/L Normal 21.0-32.0 [facility] Comment on above: Performed By: #### C BC #### [facility] [address] [place] [address] Dr. Aaron Gloria Creatinine [Mass/Vol] 1.26 mg/dL Normal 0.70-1.[address] [facility] Comment on above: Performed By: #### C BC #### [facility] [address] [place] [address] Dr. Aaron Gloria EGFR-AF MICRONESIAN >60 Normal >=60 [facility] Comment on above: Performed By: #### C BC #### [facility] [address] [place] [address] Dr. Aaron Gloria EGFR-NON AF MICRONESIAN 57 mL/min/1.73m2 Critically low >=60 [facility] Comment on above: Performed By: #### C BC #### [facility] [address] [address] [address] Aaron Gloria Glucose [Mass/Vol] 116 mg/dL Critically high 74-106 [facility] Comment on above: Performed By: #### C BC #### [facility] [address] [address] [address] Aaron Gloria Potassium [Moles/Vol] 4.7 mmol/L Normal 3.5-5.1 [facility] Comment on above: Performed By: #### C BC #### [facility] [address] [address] [address] Aaron Gloria Sodium [Moles/Vol] 139 mmol/L Normal 136-145 [facility] Comment on above: Performed By: #### C BC #### [facility] [address] [address] [address] Aaron Gloria Urea nitrogen [Mass/Vol] 14.0 mg/dL Normal 7.0-18.0 [facility] Comment on above: Performed By: #### C BC #### [facility] [address] [address] [address] Aaron Gloria Urea nitrogen/Creatinine [Mass ratio] 11.1 mg/mg Normal [facility] Comment on above: Performed By: #### C BC #### [facility] [address] [address] [address] Aaron Gloria PROTIMEon 07-03-2022 INR Coag (PPP) [Relative time] 1.01 {INR} Normal [facility] Comment on above: Performed By: #### U ZELDA 24 #### [facility] [address] [address] [address] Aaron Gloria INR GUIDELINES SEE BELOW Normal [facility] Comment on above: Result Comment: JIGAR RED INR: 2.0 - 3.0 CONDITIONS NOT LISTED BELOW 2.5 - 3.5 FOR PROSTHETIC HEART VALVE REPLACEMENT 2.5 - 3.5 RECURRENT THROMBOSIS Performed By: #### U ZELDA 24 #### [facility] [address] [place], [place] [address] Dr. Aaron Gloria PT Coag (PPP) [Time] 10.9 s Normal 9.0-11.[address] [facility] Comment on above: Performed By: #### U ZELDA 24 #### [facility] Laboratory [address], [place] [address] Dr. Aaron Gloria PTTon 07-03-2022 aPTT Coag (Bld) [Time] 28.5 s Normal 22.3-36.[address] [facility] Comment on above: Performed By: #### U ZELDA 24 #### [facility] Laboratory [address] [address] [address] Aaron Gloria Consent for Procedure/Surger yon 06-14-2022 Consent for Procedure/Surgery [id number] Normal [facility] XR KUB 1 VIEWon 05-25-2022 XR [...] CHAI BRAMBILA Date: 2022-05-25 08:22 Normal [address] [facility] Covid-19 PCR (CVDTBH)on 04-26 SARS-CoV-2 (COVID-19) RNA LAKISHA+probe Ql (Unsp spec) Not detected Normal NOT DETECTED [facility] Comment on above: Result Comment: This test is not yet approved or cleared by the [place] FDA. When there are no FDA-approved or cleared tests available, and other criteria are met, FDA can make tests available under an emergency access mechanism called an Emergency Use Authorization (EUA). The EUA for this test is supported by the [place] of Health and Human Service's (HHS's) declaration [...] SARS-CoV-2. Performed By: #### C [id number] #### [facility] Laboratory [address] [place] [address] Dr. Aaron Gloria CBC AUTO DIFFon 05-15-2022 BASO # 0.1 103/ul Normal 0.0-0.1 [facility] Comment on above: Performed By: #### C BC #### [facility] Laboratory [address] [place] [address] Dr. Aaron Gloria Basophils/100 WBC (Bld) 1.3 % Normal 0.2-2.0 [facility] Comment on above: Performed By: #### C BC #### [facility] Laboratory [address] [place] [address] Dr. Aaron Gloria EO # 0.3 103/ul Normal 0.0-0.7 [facility] Comment on above: Performed By: #### C BC #### [facility] Laboratory [address] [place] [address] Dr. Aaron Gloria Eosinophils/100 WBC (Bld) 3.0 % Normal 0.9-7.[address] [facility] Comment on above: Performed By: #### C BC #### [facility] Laboratory [address] [place] [address] Dr. Aaron Gloria Erythrocyte distribution width (RBC) [Ratio] 14.6 % Normal 11.0-15.0 [facility] Comment on above: Performed By: #### C BC #### [facility] Laboratory [address] [place] [address] Dr. Aaron Gloria Hematocrit (Bld) [Volume fraction] 41.3 % Critically low 42.0-54.0 [facility] Comment on above: Performed By: #### C BC #### [facility] Laboratory [address] [place] [address] Dr. Aaron Gloria Hemoglobin (Bld) [Mass/Vol] 13.7 g/dL Critically low 14.0-18.0 [facility] Comment on above: Performed By: #### C BC #### [facility] Laboratory [address] [place] [address] Dr. Aaron Gloria IG # 0.16 10e3/ul Critically high 0.00-0.03 [facility] Comment on above: Performed By: #### C BC #### [facility] Laboratory [address] [place] [address] Dr. Aaron Gloria IG % 1.5 % Critically high 0.0-0.5 [facility] Comment on above: Performed By: #### C BC #### [facility] Laboratory [address] [place] [address] Dr. Aaron Gloria LYMPH # 2.3 103/ul Normal 1.2-3.8 [facility] Comment on above: Performed By: #### C BC #### [facility] Laboratory [address] [place] [address] Dr. Aaron Gloria Lymphocytes/100 WBC (Bld) 21.7 % Normal 20.5-60.0 [facility] Comment on above: Performed By: #### C BC #### [facility] Laboratory [address] [place] [address] Dr. Aaron Gloria MANUAL DIFF REQ NO Normal [facility] Comment on above: Performed By: #### C BC #### [facility] Laboratory [address] [place] [address] Dr. Aaron Gloria MCH (RBC) [Entitic mass] 28.0 pg Normal 25.9-34.0 [facility] Comment on above: Performed By: #### C BC #### [facility] Laboratory [address] [place] [address] Dr. Aaron Gloria MCHC (RBC) [Mass/Vol] 33.2 g/dL Normal 29.9-35.2 [facility] Comment on above: Performed By: #### C BC #### [facility] Laboratory [address] [place] [address] Dr. Aaron Gloria MCV (RBC) [Entitic vol] 84.3 fL Normal 80.0-94.0 [facility] Comment on above: Performed By: #### C BC #### [facility] Laboratory [address] [address] [address] Aaron Gloria MONO # 0.9 103/ul Critically high 0.3-0.8 [facility] Comment on above: Performed By: #### C BC #### [facility] Laboratory [address] [place] [address] Dr. Aaron Gloria Monocytes/100 WBC (Bld) 8.4 % Normal 1.7-12.0 [facility] Comment on above: Performed By: #### C BC #### [facility] Laboratory [address] [place] [address] Dr. Aaron Gloria NEUT # 6.7 103/ul Critically high 1.4-6.5 [facility] Comment on above: Performed By: #### C BC #### [facility] Laboratory [address] [place] [address] Dr. Aaron Gloria Neutrophils/100 WBC (Bld) 64.1 % Normal 43.0-75.0 [facility] Comment on above: Performed By: #### C BC #### [facility] Laboratory [address] [place] [address] Dr. Aaron Gloria Platelet mean volume (Bld) [Entitic vol] 9.2 fL Critically low 9.5-13.5 [facility] Comment on above: Performed By: #### C BC #### [facility] Laboratory [address] [place] [address] Dr. Aaron Gloria PLT 423 103/ul Normal 150-[address] [facility] Comment on above: Performed By: #### C BC #### [facility] Laboratory [address] [place] [address] Dr. Aaron Gloria RBC 4.90 106/ul Normal 4.70-6.10 [facility] Comment on above: Performed By: #### C BC #### [facility] Laboratory [address] [place] [address] Dr. Aaron Gloria WBC 10.4 103/ul Normal 4.0-11.0 [facility] Comment on above: Performed By: #### C BC #### [facility] Laboratory [address] [place] [address] Dr. Aaron Gloria PROF CHEM 8 (BAS METB)on Anion gap [Moles/Vol] 11.3 mmol/L Normal [facility] Comment on above: Performed By: #### B MP #### [facility] Laboratory [address] [place] [address] Dr. Aaron Gloria Calcium [Mass/Vol] 9.2 mg/dL Normal 8.5-10.1 [facility] Comment on above: Performed By: #### B MP #### [facility] Laboratory [address] [place] [address] Dr. Aaron Gloria Chloride [Moles/Vol] 104 mmol/L Normal 98-107 [facility] Comment on above: Performed By: #### B MP #### [facility] Laboratory [address] [place] [address] Dr. Aaron Gloria CO2 [Moles/Vol] 27.9 mmol/L Normal 21.0-32.0 [facility] Comment on above: Performed By: #### B MP #### [facility] Laboratory [address] [place] [address] Dr. Aaron Gloria Creatinine [Mass/Vol] 1.31 mg/dL Critically high 0.70-1.30 [facility] Comment on above: Performed By: #### B MP #### [facility] Laboratory [address] [place] [address] Dr. Aaron Gloria EGFR-AF MICRONESIAN >60 Normal >=60 [facility] Comment on above: Performed By: #### B MP #### [facility] Laboratory [address] [place] [address] Dr. Aaron Gloira EGFR-NON AF MICRONESIAN 55 mL/min/1.73m2 Critically low >=60 [facility] Comment on above: Performed By: #### B MP #### [facility] Laboratory [address] [address] [address] Aaron Gloria Glucose [Mass/Vol] 111 mg/dL Critically high 74-106 [facility] Comment on above: Performed By: #### B MP #### [facility] Laboratory [address] [address] [address] Aaron Gloria Potassium [Moles/Vol] 4.2 mmol/L Normal 3.5-5.1 [facility] Comment on above: Performed By: #### B MP #### [facility] Laboratory [address] [address] [address] Aaron Gloria Sodium [Moles/Vol] 139 mmol/L Normal 136-145 [facility] Comment on above: Performed By: #### B MP #### [facility] Laboratory [address] [address] [address] Aaron Gloria Urea nitrogen [Mass/Vol] 15.0 mg/dL Normal 7.0-18.0 [facility] Comment on above: Performed By: #### B MP #### [facility] Laboratory [address] [address] [address] Aaron Gloria Urea nitrogen/Creatinine [Mass ratio] 11.5 mg/mg Normal [facility] Comment on above: Performed By: #### B MP #### [facility] Laboratory [address] [address] [address] Aaron Gloria PROTIMEon 05-15-2022 INR Coag (PPP) [Relative time] 1.03 {INR} Normal [facility] Comment on above: Performed By: #### M AG24 #### [facility] Laboratory [address] [address] [address] Aaron Gloria INR GUIDELINES SEE BELOW Normal [facility] Comment on above: Result Comment: JIGAR RED INR: 2.0 - 3.0 CONDITIONS NOT LISTED BELOW 2.5 - 3.5 FOR PROSTHETIC HEART VALVE REPLACEMENT 2.5 - 3.5 RECURRENT THROMBOSIS Performed By: #### M AG24 #### [facility] Laboratory [address] [address] [address] Aaron Gloria PT Coag (PPP) [Time] 11.1 s Normal 9.0-11.[address] [facility] Comment on above: Performed By: #### M AG24 #### [facility] Laboratory [address] [place] [address] Dr. Aaron Gloria PTTon 05-15-2022 aPTT Coag (Bld) [Time] 27.5 s Normal 22.3-36.[address] [facility] Comment on above: Performed By: #### M AG24 #### [facility] Laboratory [address] [place] [address] Dr. Aaron Gloria SURGICAL PATHOLOGYon 022 Case Report Surgical Pathology R eport Case: [id number] Authorizing Provider: Chai Palma MD Collected: 04/25/2022 03:25 PM Ordering Location: Procedures Received: 04/25/2022 04:06 PM Pathologist: Sree Shanks MD Specimen: SIGMOID COLON POLYP [facility] FINAL DIAGNOSIS Sigmoid colon, polypectomy: - Tubular adenoma. [facility] Gross Description A. SIGMOID COLON CLIFTON YP Received in formalin is an irregular segment of simeon-red polypoid tissue measuring 1.8 x 1.5 x 0.9 cm. A stalk is present measuring 0.6 cm in length. The specimen is bisected. Totally submitted in one cassette. Gross examination performed at [facility], [address] [place] [address] FFS 04/25/2022 9:02 PM [facility] Performing Lab Diagnostic interpret ation performed at [facility], [address] [place] [address] CLIA# [id number] Multiple Coil Winder: Brain Blank M.D. [facility] ANES POSTPROC EVALon 022 ANES POSTPROC EVAL HNO ID: [id number] Author: Eric Jameson MD Service: ? Author Type: Physician Type: Anesthesia Postprocedure Evaluation Filed: 04/25/2022 4:30 PM Note Text: POST ANESTHESIA EVALUATION NOTE : 1955 Procedure Summary Date: 04/25/22 Room / Location: Procedures Anesthesia Start: 1517 Anesthesia Stop: 1549 Procedure: COLONOSCOPY SCREENING Diagnosis: Mass of colon (Therapy of known colon adenoma) Scheduled Providers: Chai Palma MD; Eric Jameson MD; Lima Green, RN; Yuni North APRN.CAUSTIC CRESYLATE SHIFT SUPERINTENDENT Responsible Provider: Eric Jameson MD Anesthesia Type: [...] April 25, 2022 TIME: 4:29 PM CSN: [id number] [facility] ANES PRE-OPon 04-25-2022 ANES PRE-OP HNO ID: [id number] Author: Eric Jameson MD Service: ? Author Type: Physician Type: Anesthesia Preprocedure Evaluation Filed: 04/25/2022 2:28 PM Note Text: ANESTHESIOLOGY DAY OF SURGERY NOTE : 1955 Procedure Information Date/Time: 04/25/22 1445 Scheduled providers: Chai Palma MD; Eric Jameson MD; Lima Green RN; Yuni North APRN.CAUSTIC CRESYLATE SHIFT SUPERINTENDENT Procedure: COLONOSCOPY SCREENING Location: Procedures Estimated body mass index is 32.69 kg/m? as calculated from the following: Height as of 04/14/22: 172.7 cm (5' 8 ). Weight as of this encounter: 97.5 kg (215 lb). 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 Patient / Responsible [employer] agrees to proceed: yes Patient / [...] April 25, 2022 TIME: 2:27 PM CSN: [id number] Normal [facility] COLONOSCOPY SCREENINGon 11-0 [facility] Colonoscopyon 04-25-2022 Colonoscopy [facility] Gastrointestinal Endoscopy Patient Name: Mark Douglas Procedure Date: 04/25/2022 3:13 PM Date of : 1955 Admit Type: Outpatient Age: 66 Room: [place] [address] Gender: Male Note Status: Finalized Attending MD: [...] the patient. Procedure Code(s): --- Professional --- 33491, 52, Colonoscopy, flexible; with removal of tumor(s), polyp(s), or other lesion(s) by snare technique 93445, 52, Colonoscopy, flexible; with directed submucosal injection(s), any substance CPT copyright 1 [employer]. All rights reserved. The codes documented in this report are preliminary and upon process improvement analyst review may be revised to meet current compliance requirements. Attending Participation: I personally performed the entire procedure. Scope In: 3:22:00 PM Scope Out: 3:41:36 PM MD Chai Sargent MD 04/25/2022 3:45:50 PM This report has been signed electronically by Chai Palma MD Number of Addenda: 0 Note Initiated On: 04/25/2022 3:13 PM Estimated Blood Loss: Estimated blood loss was minimal. Normal [facility] HISTORY PHYSICALon HISTORY PHYSICAL HNO ID: [id number] Author: Chai Palma MD Service: Colorectal Author Type: Physician Type: HANDP Filed: 04/25/2022 2:45 PM Note Text: COLORECTAL SURGERY April 13, 2022 Mrak Douglas 66 year old This consult was requested by Dr. Lujan and my final recommendations will be communicated to the requesting health care provider by way of the shared medical record for internal providers or letter via the [employer] Postal Service for external providers. Chief Complaint: [...] BIOPSY: TUBULOVILLOUS ADENOMA CT C/A/P 02/13/22 - [facility] LUNGS: No visible pulmonary disease LIVER: No [...] morbidity, mortality and/or complications of treatment plan: [facility] Chai Palma MD Colorectal Surgery Above clinic note reviewed. No changes. Cardiac: regular rate Resp: unlabored respirations Proceed with colonoscopy Chai Palma MD April 25, 2022 2:45 PM [facility] SURGICAL PATHOLOGYon 022 CASE REPORT [facility] Comment on above: Order Comment: Speci men Type: TISSUE SPECIMEN Ordering Facility: [facility] Address: [address] [place] [phone] Result Comment: Surg [facility] Pathology Report Case: [id number] Authorizing Provider: Chai Palma MD Collected: 04/25/2022 03:25 PM Ordering Location: Procedures Received: 04/25/2022 04:06 PM Pathologist: Sree Shanks MD Specimen: SIGMOID COLON POLYP Performed By: #### S #### [facility] CLIA [id number] [address] [facility] [place] [address] [place] FINAL DIAGNOSIS Normal [facility] Comment on above: Order Comment: Speci men Type: TISSUE SPECIMEN Ordering Facility: [facility] Address: [address] [place] [address] Result Comment: Sigm oid colon, polypectomy: - Tubular adenoma. Performed By: #### S #### [facility] CLIA [id number] [address] [place] [address] OF [place] FINAL PERFORMING LAB Normal [facility] Comment on above: Order Comment: Speci men Type: TISSUE SPECIMEN Ordering Facility: [facility] Address: [address] [address] Result Comment: Diag nostic interpretation performed at [place] [address] CLIA# [id number] Multiple Coil Winder: Brain Blank M.D. Performed By: #### S #### [facility] CLIA [id number] [address] [place] [address] GROSS DESCRIPTION Normal [facility] Comment on above: Order Comment: Speci men Type: TISSUE SPECIMEN Ordering Facility: [facility] Address: [address] [address] Result Comment: A. S IGMOID COLON POLYP Received in formalin is an irregular segment of simeon-red polypoid tissue measuring 1.8 x 1.5 x 0.9 cm. A stalk is present measuring 0.6 cm in length. The specimen is bisected. Totally submitted in one cassette. Gross examination performed at [facility], [address] [place] [address] FFS 04/25/2022 9:02 PM Performed By: #### S #### [facility] CLIA [id number] [address] [place] [address] OF [place] XR KUB 1 VIEWon 04-06-2022 [...] CHAI BRAMBILA Date: 2022-04-06 19:12 Normal [address] [facility] CRPon 03-13-2022 CRP [Mass/Vol] mg/L Normal <=1.0 [facility] Comment on above: Performed By: #### U ZELDA 24 #### [facility] Laboratory [address] [address] [address] Aaron Gloria PROF CHEM 8 (BAS METB)on Anion gap [Moles/Vol] 11.9 mmol/L Normal [facility] Comment on above: Performed By: #### P THINT #### [facility] Laboratory [address] [place] [address] Dr. Aaron Gloria Calcium [Mass/Vol] 8.9 mg/dL Normal 8.5-10.1 [facility] Comment on above: Performed By: #### P THINT #### [facility] Laboratory [address] [place] [address] Dr. Aaron Gloria Chloride [Moles/Vol] 103 mmol/L Normal 98-[address] [facility] Comment on above: Performed By: #### P THINT #### [facility] Laboratory [address] [place] [address] Dr. Aaron Gloria CO2 [Moles/Vol] 28.1 mmol/L Normal 21.0-32.0 [facility] Comment on above: Performed By: #### P THINT #### [facility] Laboratory [address] [place] [address] Dr. Aaron Gloria Creatinine [Mass/Vol] 0.95 mg/dL Normal 0.70-1.[address] [facility] Comment on above: Performed By: #### P THINT #### [facility] Laboratory [address] [place] [address] Dr. Aaron Gloria EGFR-AF MICRONESIAN >60 Normal >=60 [facility] Comment on above: Performed By: #### P THINT #### [facility] Laboratory [address] [address] [address] Aaron Gloria EGFR-NON AF MICRONESIAN >60 Normal >=60 [facility] Comment on above: Performed By: #### P THINT #### [facility] Laboratory [address] [place] [address] Dr. Aaron Gloria Glucose [Mass/Vol] 117 mg/dL Critically high 74-106 T [facility] Comment on above: Performed By: #### P THINT #### [facility] Laboratory [address] [address] [address] Aaron Gloria Potassium [Moles/Vol] 4.0 mmol/L Normal 3.5-5.1 [facility] Comment on above: Performed By: #### P THINT #### [facility] Laboratory [address] [place] [address] Dr. Aaron Gloria Sodium [Moles/Vol] 139 mmol/L Normal 136-145 [facility] Comment on above: Performed By: #### P THINT #### [facility] Laboratory [address] [place] [address] Dr. Aaron Gloria Urea nitrogen [Mass/Vol] 9.0 mg/dL Normal 7.0-18.0 [facility] Comment on above: Performed By: #### P THINT #### [facility] Laboratory [address] [place] [address] Dr. Aaron Gloria Urea nitrogen/Creatinine [Mass ratio] 9.5 mg/mg Normal [facility] Comment on above: Performed By: #### P THINT #### [facility] Laboratory [address] [place] [address] Dr. Aaron Gloria SED RATE [facility] 2021 SED RATE 12 mm/hr Normal <=20 [facility] Comment on above: Performed By: #### S EDR #### [facility] Laboratory [address] [place] [address] Dr. Aaron Gloria [facility] SARS-CoV-2 (COVID-19) RNA LAKISHA+probe Ql (Unsp spec) Not detected Normal NOT DETECTED [facility] Comment on above: Result Comment: This test is not yet approved or cleared by the [place] FDA. When there are no FDA-approved or cleared tests available, and other criteria are met, FDA can make tests available under an emergency access mechanism called an Emergency Use Authorization (EUA). The EUA for this test is supported by the [place] of Health and Human Service's (HHS's) declaration [...] SARS-CoV-2. Performed By: #### P THINT #### [facility] Laboratory [address] [place] [address] Dr. Aaron Gloria [facility]-25 SARS-CoV-2 (COVID-19) RNA LAKISHA+probe Ql (Unsp spec) Not detected Normal NOT DETECTED [facility] Comment on above: Result Comment: This test is not yet approved or cleared by the [place] FDA. When there are no FDA-approved or cleared tests available, and other criteria are met, FDA can make tests available under an emergency access mechanism called an Emergency Use Authorization (EUA). The EUA for this test is supported by the [place] Watchman of Health and Human Service's (HHS's) declaration [...] SARS-CoV-2. Performed By: #### C BC #### [facility] Laboratory [id number] Aaron Gloria CT CHEST W CONon [...] by: CHAI BRAMBILA Date: 2022-02-14 12:30 Normal [facility] THYROID ANTIBODIESon 022 Thyroglobulin Antibody <1.0 Normal 0.0-0.9 [facility] Comment on above: Result Comment: Thyr oglobulin Antibody measured by Kendra Nia Methodology Performed By: #### C [id number] #### [facility] Laboratory [address] [place] [address] Dr. Aaron Gloria Thyroid Peroxidase (TPO) Ab <8 Normal 0-[address] [facility] Comment on above: Performed By: #### C [id number] #### [facility] Laboratory [address] [place] [address] Dr. Aaron Gloria Covid-19 PCR ([facility])on 01-23 SARS-CoV-2 (COVID-19) RNA LAKISHA+probe Ql (Unsp spec) Not detected Normal NOT DETECTED [facility] Comment on above: Result Comment: This test is not yet approved or cleared by the [place] FDA. When there are no FDA-approved or cleared tests available, and other criteria are met, FDA can make tests available under an emergency access mechanism called an Emergency Use Authorization (EUA). The EUA for this test is supported by the [place] Watchman of Health and Human Service's (HHS's) declaration [...] Performed By: #### U ZELDA 24 #### [facility] Laboratory [address] [place] [address] Dr. Aaron Gloria CBC AUTO DIFFon 02-08-2022 BASO # 0.1 103/ul Normal 0.0-0.[address] [facility] Comment on above: Performed By: #### P THINT #### [facility] Laboratory [address] [place] [address] Dr. Aaron Gloria Basophils/100 WBC (Bld) 0.7 % Normal 0.2-2.[address] [facility] Comment on above: Performed By: #### P THINT #### [facility] [address] [address] [address] Aaron Gloria EO # 0.3 103/ul Normal 0.0-0.7 [facility] Comment on above: Performed By: #### P THINT #### [facility] [address] [address] [address] Aaron Gloria Eosinophils/100 WBC (Bld) 1.9 % Normal 0.9-7.0 [facility] Comment on above: Performed By: #### P THINT #### [facility] [address] [place] [address] Dr. Aaron Gloria Erythrocyte distribution width (RBC) [Ratio] 12.9 % Normal 11.0-15.0 [facility] Comment on above: Performed By: #### P THINT #### [facility] [address] [place] [address] Dr. Aaron Gloria Hematocrit (Bld) [Volume fraction] 39.7 % Critically low 42.0-54.0 [facility] Comment on above: Performed By: #### P THINT #### [facility] [address] [place] [address] Dr. Aaron Gloria Hemoglobin (Bld) [Mass/Vol] 13.1 g/dL Critically low 14.0-18.0 [facility] Comment on above: Performed By: #### P THINT #### [facility] [address] [place] [address] Dr. Aaron Gloria IG # 0.14 10e3/ul Critically high 0.00-0.03 [facility] Comment on above: Performed By: #### P THINT #### [facility] [address] [place] [address] Dr. Aaron Gloria IG % 1.1 % Critically high 0.0-0.5 [facility] Comment on above: Performed By: #### P THINT #### [facility] [address] [place] [address] Dr. Aaron Gloria LYMPH # 1.5 103/ul Normal 1.2-3.[address] [facility] Comment on above: Performed By: #### P THINT #### [facility] [address] [place] [address] Dr. Aaron Gloria Lymphocytes/100 WBC (Bld) 11.8 % Critically low 20.5-60.0 [facility] Comment on above: Performed By: #### P THINT #### [facility] [address] [place] [address] Dr. Aaron Gloria MANUAL DIFF REQ NO Normal [facility] Comment on above: Performed By: #### P THINT #### [facility] [address] [place] [address] Dr. Aaron Gloria MCH (RBC) [Entitic mass] 28.5 pg Normal 25.9-34.[address] [facility] Comment on above: Performed By: #### P THINT #### [facility] [address] [place] [address] Dr. Aaron Gloria MCHC (RBC) [Mass/Vol] 33.0 g/dL Normal 29.9-35.[address] [facility] Comment on above: Performed By: #### P THINT #### [facility] [address] [place] [address] Dr. Aaron Gloria MCV (RBC) [Entitic vol] 86.3 fL Normal 80.0-94.0 [facility] Comment on above: Performed By: #### P THINT #### [facility] [address] [place] [address] Dr. Aaron Gloria MONO # 1.4 103/ul Critically high 0.3-0.8 [facility] Comment on above: Performed By: #### P THINT #### [facility] [address] [place] [address] Dr. Aaron Gloria Monocytes/100 WBC (Bld) 10.5 % Normal 1.7-12.[address] [facility] Comment on above: Performed By: #### P THINT #### [facility] [address] [place] [address] Dr. Aaron Gloria NEUT # 9.6 103/ul Critically high 1.4-6.5 [facility] Comment on above: Performed By: #### P THINT #### [facility] [address] [address] [address] Aaron Gloria Neutrophils/100 WBC (Bld) 74.0 % Normal 43.0-75.0 [facility] Comment on above: Performed By: #### P THINT #### [facility] [address] [address] [address] Aaron Gloria Platelet mean volume (Bld) [Entitic vol] 9.7 fL Normal 9.5-13.5 [facility] Comment on above: Performed By: #### P THINT #### [facility] [address] [address] [address] Aaron Gloria PLT 496 103/ul Critically high 150-450 [facility] Comment on above: Performed By: #### P THINT #### [facility] [address] [address] [address] Aaron Gloria RBC 4.60 106/ul Critically low 4.70-6.10 [facility] Comment on above: Performed By: #### P THINT #### [facility] [address] [address] [address] Aaron Gloria WBC 13.0 103/ul Critically high 4.0-11.0 [facility] Comment on above: Performed By: #### P THINT #### [facility] [address] [address] [address] Aaron Gloria CRPon 02-08-2022 CRP [Mass/Vol] mg/L Critically high <=1.[address] [facility] Comment on above: Performed By: #### P THINT #### [facility] [address] [address] [address] Aaron Gloria FREE T3on 02-08-2022 FREE T3 1.72 pg/mlL Critically low 2.18-3.98 [facility] Comment on above: Performed By: #### P THINT #### [facility] [address] [address] [address] Aaron Gloria FREE T4on 02-08-2022 Free T4 [Mass/Vol] 1.59 ng/dL Critically high 0.76-1.46 T [facility] Comment on above: Performed By: #### M AG24 #### [facility] [address] [place] [address] Dr. Aaron Gloria PROF 14(COMP METB)on 022 Albumin [Mass/Vol] 3.0 g/dL Critically low 3.4-5.0 [facility] Comment on above: Performed By: #### M AG24 #### [facility] [address] [place] [address] Dr. Aaron Gloria Albumin/Globulin [Mass ratio] 0.6 {ratio} Normal [facility] Comment on above: Performed By: #### M AG24 #### [facility] [address] [place] [address] Dr. Aaron Gloria ALP [Catalytic activity/Vol] 117 U/L Critically high 46-116 [facility] Comment on above: Performed By: #### M AG24 #### [facility] [address] [place] [address] Dr. Aaron Gloria ALT [Catalytic activity/Vol] 23 U/L Normal 16-63 [facility] Comment on above: Performed By: #### M AG24 #### [facility] [address] [place] [address] Dr. Aaron Gloria Anion gap [Moles/Vol] 12.9 mmol/L Normal [facility] Comment on above: Performed By: #### M AG24 #### [facility] [address] [place] [address] Dr. Aaron Gloria AST [Catalytic activity/Vol] 23 U/L Normal 15-37 [facility] Comment on above: Performed By: #### M AG24 #### [facility] [address] [place] [address] Dr. Aaron Gloria Bilirubin [Mass/Vol] 0.9 mg/dL Normal 0.2-1.0 [facility] Comment on above: Performed By: #### M AG24 #### [facility] [address] [place] [address] Dr. Aaron Gloria Calcium [Mass/Vol] 9.5 mg/dL Normal 8.5-10.1 [facility] Comment on above: Performed By: #### M AG24 #### [facility] [address] [place] [address] Dr. Aaron Gloria Chloride [Moles/Vol] 99 mmol/L Normal 98-107 [facility] Comment on above: Performed By: #### M AG24 #### [facility] [address] [place] [address] Dr. Aaron Gloria CO2 [Moles/Vol] 28.2 mmol/L Normal 21.0-32.0 [facility] Comment on above: Performed By: #### M AG24 #### [facility] [address] [place] [address] Dr. Aaron Gloria Creatinine [Mass/Vol] 1.65 mg/dL Critically high 0.70-1.30 [facility] Comment on above: Performed By: #### M AG24 #### [facility] [address] [place] [address] Dr. Aaron Gloria EGFR-AF MICRONESIAN 51 mL/min/1.73m2 Critically low >=60 [facility] Comment on above: Performed By: #### M AG24 #### [facility] [address] [place] [address] Dr. Aaron Gloria EGFR-NON AF MICRONESIAN 42 mL/min/1.73m2 Critically low >=60 [facility] Comment on above: Performed By: #### M AG24 #### [facility] [address] [place] [address] Dr. Aaron Gloria Globulin (S) [Mass/Vol] 5.0 g/dL Normal [facility] Comment on above: Performed By: #### M AG24 #### [facility] [address] [place] [address] Dr. Aaron Gloria Glucose [Mass/Vol] 123 mg/dL Critically high 74-106 T [facility] Comment on above: Performed By: #### M AG24 #### [facility] [address] [place] [address] Dr. Aaron Gloria Potassium [Moles/Vol] 4.1 mmol/L Normal 3.5-5.1 [facility] Comment on above: Performed By: #### M AG24 #### [facility] [address] [place] [address] Dr. Aaron Gloria Protein [Mass/Vol] 8.0 g/dL Normal 6.4-8.2 [facility] Comment on above: Performed By: #### M AG24 #### [facility] [address] [place] [address] Dr. Aaron Gloria Sodium [Moles/Vol] 136 mmol/L Normal 136-145 [facility] Comment on above: Performed By: #### M AG24 #### [facility] [address] [place] [address] Dr. Aaron Gloria Urea nitrogen [Mass/Vol] 17.0 mg/dL Normal 7.0-18.0 [facility] Comment on above: Performed By: #### M AG24 #### [facility] [address] [place] [address] Dr. Aaron Gloria Urea nitrogen/Creatinine [Mass ratio] 10.3 mg/mg Normal [facility] Comment on above: Performed By: #### M AG24 #### [facility] [address] [place] [address] Dr. Aaron Gloria SED RATE [facility] 2021 SED RATE 96 mm/hr Critically high <=20 [facility] Comment on above: Performed By: #### C BC #### [facility] [address] [place] [address] Dr. Aaron Gloria TSHon 02-08-2022 TSH 1.004 uIU/mL Normal 0.358-3.740 [facility] Comment on above: Performed By: #### P THINT #### [facility] [address] [place] [address] Dr. Aaron Gloria UA RANDOM W/MICROSCOPICon BACTERIA NONE SEEN Normal NONE SEEN [facility] Comment on above: Performed By: #### C BC #### [facility] [address] [place] [address] Dr. Aaron Gloria Bilirubin Ql (U) SMALL Abnormal NEGATIVE [facility] Comment on above: Performed By: #### C BC #### [facility] [address] [place] [address] Dr. Aaron Gloria CAST NONE SEEN Normal NONE SEEN [facility] Comment on above: Performed By: #### C BC #### [facility] [address] [place] [address] Dr. Aaron Gloria Clarity (U) TURBID Abnormal CLEAR [facility] Comment on above: Performed By: #### C BC #### [facility] [address] [place] [address] Dr. Aaron Gloria Color (U) YELLOW Normal YELLOW [facility] Comment on above: Performed By: #### C BC #### [facility] [address] [place] [address] Dr. Aaron Gloria Crystals LM Nom (Urine sed) NONE SEEN Normal NONE SEEN [facility] Comment on above: Performed By: #### C BC #### [facility] [address] [place] [address] Dr. Aaron Gloria Epithelial cells LM Ql (Urine sed) RARE Normal NONE SEEN /RARE [facility] Comment on above: Performed By: #### C BC #### [facility] [address] [place] [address] Dr. Aaron Gloria Glucose Ql (U) Negative Normal NEGATIVE [facility] Comment on above: Performed By: #### C BC #### [facility] [address] [place] [address] Dr. Aaron Gloria Hemoglobin Ql (U) Negative Normal NEGATIVE [facility] Comment on above: Performed By: #### C BC #### [facility] [address] [place] [address] Dr. Aaron Gloria Ketones Ql (U) Negative Normal NEGATIVE [facility] Comment on above: Performed By: #### C BC #### [facility] [address] [place] [address] Dr. Aaron Gloria LEUKOCYTES Negative Normal NEGATIVE [facility] Comment on above: Performed By: #### C BC #### [facility] [address] [place] [address] Dr. Aaron Gloria MUCOUS NONE SEEN Normal NONE SEEN [facility] Comment on above: Performed By: #### C BC #### [facility] [address] [place] [address] Dr. Aaron Gloria Nitrite Ql (U) Negative Normal NEGATIVE [facility] Comment on above: Performed By: #### C BC #### [facility] [address] [place] [address] Dr. Aaron Gloria pH (U) 6.0 [pH] Normal 5-9 [facility] Comment on above: Performed By: #### C BC #### [facility] [address] [place] [address] Dr. Aaron Gloria RBC NONE SEEN Abnormal 0-2 [facility] Comment on above: Performed By: #### C BC #### [facility] [address] [place] [address] Dr. Aaron Gloria SPEC GRAVITY 1.020 Normal 1.005-<=1.02 5 [facility] Comment on above: Performed By: #### C BC #### [facility] [address] [place] [address] Dr. Aaron Gloria UA PROTEIN 30 mg/dl Abnormal NEGATIVE/ TRACE [facility] Comment on above: Performed By: #### C BC #### [facility] [address] [place] [address] Dr. Aaron Gloria Urobilinogen Qn (U) 2.0 {Cain'U}/dL Abnormal 0.2 - 1. 0 [facility] Comment on above: Performed By: #### C BC #### [facility] [address] [place] [address] Dr. Aaron Gloria WBC NONE SEEN Normal NONE SEEN [facility] Comment on above: Performed By: #### C BC #### [facility] [address] [place] [address] Dr. Aaron Gloria CBC AUTO DIFFon 12-15-2021 BASO # 0.1 103/ul Normal 0.0-0.1 [facility] Comment on above: Performed By: #### U ZELDA 24 #### [facility] [address] [address] [address] Aaron Gloria Basophils/100 WBC (Bld) 0.8 % Normal 0.2-2.0 [facility] Comment on above: Performed By: #### U ZELDA 24 #### [facility] [address] [address] [address] Aaron Gloria EO # 0.3 103/ul Normal 0.0-0.7 [facility] Comment on above: Performed By: #### U ZELDA 24 #### [facility] [address] [address] [address] Aaron Gloria Eosinophils/100 WBC (Bld) 3.1 % Normal 0.9-7.0 [facility] Comment on above: Performed By: #### U ZELDA 24 #### [facility] [address] [place] [address] Dr. Aaron Gloria Erythrocyte distribution width (RBC) [Ratio] 13.2 % Normal 11.0-15.0 [facility] Comment on above: Performed By: #### U ZELDA 24 #### [facility] [address] [place] [address] Dr. Aaron Gloria Hematocrit (Bld) [Volume fraction] 45.6 % Normal 42.0-54.0 [facility] Comment on above: Performed By: #### U ZELDA 24 #### [facility] [address] [place] [address] Dr. Aaron Gloria Hemoglobin (Bld) [Mass/Vol] 15.2 g/dL Normal 14.0-18.0 [facility] Comment on above: Performed By: #### U ZELDA 24 #### [facility] [address] [place] [address] Dr. Aaron Gloria IG # 0.05 10e3/ul Critically high 0.00-0.03 [facility] Comment on above: Performed By: #### U ZELDA 24 #### [facility] [address] [place] [address] Dr. Aaron Gloria IG % 0.5 % Normal 0.0-0.5 [facility] Comment on above: Performed By: #### U ZELDA 24 #### [facility] [address] [place] [address] Dr. Aaron Gloria LYMPH # 2.3 103/ul Normal 1.2-3.8 [facility] Comment on above: Performed By: #### U ZELDA 24 #### [facility] [address] [place] [address] Dr. Aaron Gloria Lymphocytes/100 WBC (Bld) 25.2 % Normal 20.5-60.0 [facility] Comment on above: Performed By: #### U ZELDA 24 #### [facility] [address] [place] [address] Dr. Aaron Gloria MANUAL DIFF REQ NO Normal [facility] Comment on above: Performed By: #### U ZELDA 24 #### [facility] [address] [place] [address] Dr. Aaron Gloria MCH (RBC) [Entitic mass] 29.1 pg Normal 25.9-34.0 [facility] Comment on above: Performed By: #### U ZELDA 24 #### [facility] [address] [place] [address] Dr. Aaron Gloria MCHC (RBC) [Mass/Vol] 33.3 g/dL Normal 29.9-35.2 [facility] Comment on above: Performed By: #### U ZELDA 24 #### [facility] [address] [place] [address] Dr. Aaron Gloria MCV (RBC) [Entitic vol] 87.2 fL Normal 80.0-94.0 [facility] Comment on above: Performed By: #### U ZELDA 24 #### [facility] [address] [place] [address] Dr. Aaron Gloria MONO # 0.8 103/ul Normal 0.3-0.8 [facility] Comment on above: Performed By: #### U ZELDA 24 #### [facility] [address] [place] [address] Dr. Aaron Gloria Monocytes/100 WBC (Bld) 8.4 % Normal 1.7-12.0 [facility] Comment on above: Performed By: #### U ZELDA 24 #### [facility] [address] [address] [address] Aaron Gloria NEUT # 5.7 103/ul Normal 1.4-6.5 [facility] Comment on above: Performed By: #### U ZELDA 24 #### [facility] [address] [address] [address] Aaron Gloria Neutrophils/100 WBC (Bld) 62.0 % Normal 43.0-75.0 [facility] Comment on above: Performed By: #### U ZELDA 24 #### [facility] [address] [place] [address] Dr. Aaron Gloria Platelet mean volume (Bld) [Entitic vol] 9.0 fL Critically low 9.5-13.5 [facility] Comment on above: Performed By: #### U ZELDA 24 #### [facility] [address] [place] [address] Dr. Aaron Gloria PLT 303 103/ul Normal 150-450 [facility] Comment on above: Performed By: #### U ZELDA 24 #### [facility] [address] [place] [address] Dr. Aaron Gloria RBC 5.23 106/ul Normal 4.70-6.10 [facility] Comment on above: Performed By: #### U ZELDA 24 #### [facility] [address] [place] [address] Dr. Aaron Gloria WBC 9.1 103/ul Normal 4.0-11.0 [facility] Comment on above: Performed By: #### U ZELDA 24 #### [facility] [address] [place] [address] Dr. Aaron Gloria CULTURE URINEon 12-15-2021 CULTURE URINE Culture Observations : HEAVY GROWTH OF MIXED SKIN KERWIN. NO POTENTIAL PATHOGENS SEEN. Culture Observations: PLEASE RESUBMIT CLEAN CATCH MID-STREAM URINE IF CLINICALLY INDICATED. Normal [facility] Comment on above: Performed By: #### C [id number] #### [facility] [address] [place] [address] Dr. Aaron Gloria GLYCOHEMOGLOBIN A1Con 2021 ADA RECOMMENDATION SEE BELOW Normal [facility] Comment on above: Result Comment: ADA RECOMMENDED LIMIT 4.0 - 6.0 ADA THERAPEUTIC TARGET < 7.0 ACTION SUGGESTED > 7.0 Performed By: #### P THINT #### [facility] [address] [place] [address] Dr. Aaron Gloria Glucose [Mass/Vol] 134 mg/dL Normal [facility] Comment on above: Performed By: #### P THINT #### [facility] [address] [address] [address] Aaron Gloria HbA1c (Bld) [Mass fraction] 6.3 % Critically high 4.5-6.2 [facility] Comment on above: Performed By: #### P THINT #### [facility] [address] [place] [address] Dr. Aaron Gloria LIPID PROFILEon 12-15-2021 CHOL-HDL RATIO NORM SEE BELOW Normal [facility] Comment on above: Result Comment: 3.3 - 4.4 LOW RISK 4.4 - 7.1 AVERAGE RISK 7.1 - 11.0 MODERATE RISK >11.0 HIGH RISK Performed By: #### M AG24 #### [facility] [address] [place] [address] Dr. Aaron Gloria Cholesterol [Mass/Vol] 152 mg/dL Normal <=200 [facility] Comment on above: Performed By: #### M AG24 #### [facility] [address] [place] [address] Dr. Aaron Gloria Cholesterol in HDL [Mass/Vol] 35 mg/dL Critically low 40-60 [facility] Comment on above: Performed By: #### M AG24 #### [facility] [address] [address] [address] Aaron Gloria Cholesterol in LDL [Mass/Vol] 83.0 mg/dL Normal [facility] Comment on above: Performed By: #### M AG24 #### [facility] [address] [place] [address] Dr. Aaron Gloria Cholesterol.total/C holesterol in HDL [Mass ratio] 4.3 {ratio} Normal [facility] Comment on above: Performed By: #### M AG24 #### [facility] [address] [address] [address] Aaron Gloria HDL NORMAL > or = 60 mg/dl - LO W CARDIOVASCULAR RISK <40 mg/dl - HIGH CARDIOVASCULAR RISK Normal [facility] Comment on above: Performed By: #### M AG24 #### [facility] [address] [address] [address] Aaron Gloria LDL CALC NORMAL SEE BELOW Normal [facility] Comment on above: Result Comment: <100 mg/dl OPTIMAL 100 - 129 mg/dl NEAR OR ABOVE OPTIMAL 130 - 159 mg/dl BORDERLINE HIGH 160 - 189 mg/dl HIGH >190 mg/dl VERY HIGH Performed By: #### M AG24 #### [facility] [address] [place] [address] Dr. Aaron Gloria Triglyceride [Mass/Vol] 170 mg/dL Critically high <=150 [facility] Comment on above: Performed By: #### M AG24 #### [facility] [address] [place] [address] Dr. Aaron Gloria VLDL CALC 34.0 mg/dL Normal [facility] Comment on above: Performed By: #### M AG24 #### [facility] [address] [address] [address] Aaron Gloria PROF 14(COMP METB)on 022 Albumin [Mass/Vol] 4.1 g/dL Normal 3.4-5.0 [facility] Comment on above: Performed By: #### C [id number] #### [facility] [address] [place] [address] Dr. Aaron Gloria Albumin/Globulin [Mass ratio] 1.1 {ratio} Normal [facility] Comment on above: Performed By: #### C [id number] #### [facility] [address] [place] [address] Dr. Aaron Gloria ALP [Catalytic activity/Vol] 61 U/L Normal 46-116 [facility] Comment on above: Performed By: #### C [id number] #### [facility] [address] [place] [address] Dr. Aaron Gloria ALT [Catalytic activity/Vol] 46 U/L Normal 16-63 [facility] Comment on above: Performed By: #### C [id number] #### [facility] [address] [place] [address] Dr. Aaron Gloria Anion gap [Moles/Vol] 13.2 mmol/L Normal [facility] Comment on above: Performed By: #### C [id number] #### [facility] [address] [address] [address] Aaron Gloria AST [Catalytic activity/Vol] 26 U/L Normal 15-37 [facility] Comment on above: Performed By: #### C [id number] #### [facility] [address] [place] [address] Dr. Aaron Gloria Bilirubin [Mass/Vol] 0.4 mg/dL Normal 0.2-1.0 [facility] Comment on above: Performed By: #### C [id number] #### [facility] [address] [place] [address] Dr. Aaron Gloria Calcium [Mass/Vol] 9.0 mg/dL Normal 8.5-10.1 [facility] Comment on above: Performed By: #### C [id number] #### [facility] [address] [place] [address] Dr. Aaron Gloria Chloride [Moles/Vol] 105 mmol/L Normal 98-107 [facility] Comment on above: Performed By: #### C [id number] #### [facility] [address] [place] [address] Dr. Aaron Gloria CO2 [Moles/Vol] 28.0 mmol/L Normal 21.0-32.0 [facility] [place] Comment on above: Performed By: #### C [id number] #### [facility] [address] [place] [address] Dr. Aaron Gloria Creatinine [Mass/Vol] 1.04 mg/dL Normal 0.70-1.30 [facility] Comment on above: Performed By: #### C [id number] #### [facility] [address] [address] [address] Aaron Gloria EGFR-AF MICRONESIAN >60 Normal >=60 [facility] [place] Comment on above: Performed By: #### C [id number] #### [facility] [address] [place] [address] Dr. Aaron Gloria EGFR-NON AF MICRONESIAN >60 Normal >=60 [facility] Comment on above: Performed By: #### C [id number] #### [facility] [address] [place] [address] Dr. Aaron Gloria Globulin (S) [Mass/Vol] 3.6 g/dL Normal [facility] Comment on above: Performed By: #### C [id number] #### [facility] [address] [place] [address] Dr. Aaron Gloria Glucose [Mass/Vol] 124 mg/dL Critically high 74-106 T [facility] Comment on above: Performed By: #### C [id number] #### [facility] [address] [place] [address] Dr. Aaron Gloria Potassium [Moles/Vol] 4.2 mmol/L Normal 3.5-5.1 [facility] Comment on above: Performed By: #### C [id number] #### [facility] [address] [place] [address] Dr. Aaron Gloria Protein [Mass/Vol] 7.7 g/dL Normal 6.4-8.[address] [facility] Comment on above: Performed By: #### C [id number] #### [facility] [address] [place] [address] Dr. Aaron Gloria Sodium [Moles/Vol] 142 mmol/L Normal 136-[address] [facility] Comment on above: Performed By: #### C [id number] #### [facility] [address] [place] [address] Dr. Aaron Gloria Urea nitrogen [Mass/Vol] 9.0 mg/dL Normal 7.0-18.0 [facility] Comment on above: Performed By: #### C [id number] #### [facility] [address] [place] [address] Dr. Aaron Gloria Urea nitrogen/Creatinine [Mass ratio] 8.7 mg/mg Normal [facility] Comment on above: Performed By: #### C [id number] #### [facility] [address] [place] [address] Dr. Aaron Gloria UA RANDOM W/MICROSCOPICon BACTERIA TRACE Abnormal NONE SEEN [facility] Comment on above: Performed By: #### M AG24 #### [facility] [address] [place] [address] Dr. Aaron Gloria Bilirubin Ql (U) Negative Normal NEGATIVE [facility] Comment on above: Performed By: #### M AG24 #### [facility] [address] [place] [address] Dr. Aaron Gloria CAST NONE SEEN Normal NONE SEEN [facility] Comment on above: Performed By: #### M AG24 #### [facility] [address] [place] [address] Dr. Aaron Gloria Clarity (U) CLEAR Normal CLEAR [facility] Comment on above: Performed By: #### M AG24 #### [facility] [address] [place] [address] Dr. Aaron Gloria Color (U) LT. YELLOW Normal YELLOW [facility] Comment on above: Performed By: #### M AG24 #### [facility] [address] [place] [address] Dr. Aaron Gloria Crystals LM Nom (Urine sed) NONE SEEN Normal NONE SEEN [facility] Comment on above: Performed By: #### M AG24 #### [facility] [address] [place] [address] Dr. Aaron Gloria Epithelial cells LM Ql (Urine sed) RARE Normal NONE SEEN /RARE [facility] Comment on above: Performed By: #### M AG24 #### [facility] [address] [place] [address] Dr. Aaron Gloria Glucose Ql (U) Negative Normal NEGATIVE [facility] Comment on above: Performed By: #### M AG24 #### [facility] [address] [place] [address] Dr. Aaron Gloria Hemoglobin Ql (U) Negative Normal NEGATIVE [facility] Comment on above: Performed By: #### M AG24 #### [facility] [address] [place] [address] Dr. Aaron Gloria Ketones Ql (U) Negative Normal NEGATIVE [facility] Comment on above: Performed By: #### M AG24 #### [facility] [address] [place] [address] Dr. Aaron Gloria LEUKOCYTES Negative Normal NEGATIVE [facility] Comment on above: Performed By: #### M AG24 #### [facility] [address] [place] [address] Dr. Aaron Gloria MUCOUS NONE SEEN Normal NONE SEEN [facility] Comment on above: Performed By: #### M AG24 #### [facility] [address] [place] [address] Dr. Aaron Gloria Nitrite Ql (U) Positive Abnormal NEGATIVE [facility] Comment on above: Performed By: #### M AG24 #### [facility] [address] [place] [address] Dr. Aaron Gloria pH (U) 6.0 [pH] Normal 5-[address] [facility] Comment on above: Performed By: #### M AG24 #### [facility] [address] [place] [address] Dr. Aaron Gloria RBC 0-2 Normal 0-2 [facility] Comment on above: Performed By: #### M AG24 #### [facility] [address] [place] [address] Dr. Aaron Gloria SPEC GRAVITY 1.030 Abnormal 1.005-<=1.02 5 [facility] Comment on above: Performed By: #### M AG24 #### [facility] [address] [place] [address] Dr. Aaron Gloria UA PROTEIN TRACE Normal NEGATIVE/ TRACE [facility] Comment on above: Performed By: #### M AG24 #### [facility] [address] [place] [address] Dr. Aaron Gloria Urobilinogen Qn (U) 0.2 {Cain'U}/dL Normal 0.2 - 1. [address] [facility] Comment on above: Performed By: #### M AG24 #### [facility] [address] [place], [place] [address] Dr. Aaron Gloria WBC 5-10 Abnormal NONE SEEN [facility] Comment on above: Performed By: #### M AG24 #### [facility] [address] [place], [place] [address] Dr[address] Aaron Gloria URIC ACID SERUMon 12-15-2021 Urate [Mass/Vol] 6.7 mg/dL Normal 3.5-7.2 [facility] Comment on above: Performed By: #### M AG24 #### [facility] [address] [address] [address] Aaron Gloria Cardiovascular Lab Reporton 04-29-2021 Cardiovascular Lab Report [facility] Patient Name: [facility] MR #: [id number] Physician: Jes Hoang Department of M.D. Medicine Service Date: 04/28/2021 Division of Birthdate: 1955 Cardiology Room #: Adult Cardiovascular Services [place] [address] Cardiovascular Laboratory Report FINAL IMPRESSIONS: 1. Hgqy-sh-wpjoizcc 2-vessel coronary artery disease. 2. Normal global left ventricular systolic function by noninvasive imaging. 3. Wlwyvbdr-vl-bsqfmg systemic hypertension. RECOMMENDATIONS: 1. Aggressive cardiovascular risk [...] the left radial artery was obtained. A 6-Angolan glide sheath was inserted without difficulty. Bilateral [...] Hoang M.D. Date Trans: 04/29/2021 05:18 A/tarsha [id number] Normal [facility] COVID-19/INFLUENZA A,B BOAZ Morrissey 06-17-2020 COVID-19/INFLUENZA A,B MOLECULAR SARS-COV-2 (SWAPNA): Detected INFLUENZA A (SWAPNA): Not Detected INFLUENZA B (SWAPNA): Not Detected Normal Not Detected [facility] Comment on above: Order Comment: This test [...] at the following links: For Healthcare Providers: https://www.fda.gov/media/527068/download For Patients: https://www.fda.gov/media/819073/download Performed By: #### L [id number] #### [facility] [address] [address] Laura Pichardo M.D. [id number] COVID-19/Influenza A,B [facility] 06-17-2020 Influenza A Not Detected [facility] Influ[facility] B Not Detected Not Detect[facility] Interpretation and review of laboratory results Abnormal [facility] SARS-CoV-2 Detected Abnormal Not Detected [facility] This test was perfor med under the [...] the following links: For Healthcare Providers: https://www.fda.gov/media /084015/download For Patients: https://www.fda.gov/media /863018/download [facility] Vital Signs Date Time Vital Sign Value Performing Clinician Facility 05-03-2023 14:050 Body temperature 97.59 [degF] SOPHIA Mckenzie MD Work Phone: [facility] 05-03-2023 14:11-050 Body weight 104.33 kg SOPHIA Mckenzie MD Work Phone: [facility] 05-03-2023 14:11-0500 Diastolic blood pressure 70 mm[Hg] SOPHIA Mckenzie MD Work Phone: [facility] 05-03-2023 14:11-0500 Heart rate 78 /min SOPHIA Mckenzie MD Work Phone: [facility] 05-03-2023 14:11-0500 Respiratory rate 16 /min SOPHIA Mckenzie MD Work Phone: [facility] 05-03-2023 14:11-0500 SaO2% (BldA) [Mass fraction] 95 % SOPHIA Mckenzie MD Work Phone: [facility] 05-03-2023 14:11-0500 Systolic blood pressure 131 mm[Hg] SOPHIA Mckenzie MD Work Phone: [facility] 10-31-2022 08:56-0400 Blood Pressure Location JERI SANDERS [facility] 10-31-2022 08:56-0400 Diastolic blood pressure 76 mm[Hg] JERI MARILYN [facility] 10-31-2022 08:56-0400 Heart rate 68 /min JERI MARILYN [facility] 10-31-2022 08:56-0400 Respiratory rate 16 /min JERI MARILYN [facility] 10-31-2022 08:56-0400 Systolic blood pressure 132 mm[Hg] JERI MARILYN [facility] 10-26-2022 10:43-0400 Body temperature 97.39 [degF] SOPHIA Mckenzie MD Work Phone: [facility] 10-26-2022 10:43-0400 Body weight 98.88 kg SOPHIA Mckenzie MD Work Phone: [facility] 10-26-2022 10:43-0400 Diastolic blood pressure 86 mm[Hg] SOPHIA Mckenzie MD Work Phone: [facility] 10-26-2022 10:43-0400 Heart rate 63 /min SOPHIA Mckenzie MD Work Phone: [facility] 10-26-2022 10:43-0400 Respiratory rate 18 /min SOPHIA Mckenzie MD Work Phone: [facility] 10-26-2022 10:43-0400 SaO2% (BldA) [Mass fraction] 97 % SOPHIA Mckenzie MD Work Phone: [facility] 10-26-2022 10:43-0400 Systolic blood pressure 144 mm[Hg] SOPHIA Mckenzie MD Work Phone: [facility] 04-27-2022 10:20-0400 Body temperature 96.91 [degF] SOPHIA Mckenzie MD Work Phone: [facility] 04-27-2022 10:20-0400 Body weight 97.52 kg SOPHIA Mckenzie MD Work Phone: [facility] 04-27-2022 10:20-0400 Diastolic blood pressure 78 mm[Hg] SOPHIA Mckenzie MD Work Phone: [facility] 04-27-2022 10:20-0400 Heart rate 63 /min SOPHIA Mckenzie MD Work Phone: [facility] 04-27-2022 10:20-0400 Respiratory rate 16 /min SOPHIA Mckenzie MD Work Phone: [facility] 04-27-2022 10:20-0400 SaO2% (BldA) [Mass fraction] 99 % SOPHIA Mckenzie MD Work Phone: [facility] 04-27-2022 10:20-0400 Systolic blood pressure 130 mm[Hg] SOPHIA Mckenzie MD Work Phone: [facility] 04-25-2022 16:10-0400 Diastolic blood pressure 91 mm[Hg] Chai Palma MD Work Phone: [facility] 04-25-2022 16:10-0400 Heart rate 72 /min Chai Palma MD Work Phone: [facility] 04-25-2022 16:10-0400 Respiratory rate 21 /min Chai Palma MD Work Phone: [facility] 04-25-2022 16:10-0400 SaO2% (BldA) [Mass fraction] 99 % Chai Palma MD Work Phone: [facility] 04-25-2022 16:10-0400 Systolic blood pressure 154 mm[Hg] Chai Palma MD Work Phone: [facility] 04-25-2022 15:48-0400 Body temperature 97 [degF] Chai Palma MD Work Phone: [facility] 04-25-2022 14:27-0400 Body weight 97.52 kg Chai Palma MD Work Phone: [facility] 04-24-2022 12:04-0400 Blood Pressure Location Nestor KAPLAN [facility] 04-24-2022 12:04-0400 Diastolic blood pressure 78 mm[Hg] Nestor KAPLAN [facility] 04-24-2022 12:04-0400 Heart rate 76 /min Nestor KAPLAN [facility] 04-24-2022 12:04-0400 Respiratory rate 16 /min Nestor KAPLAN [facility] 04-24-2022 12:04-0400 Systolic blood pressure 136 mm[Hg] Nestor KAPLAN [facility] 04-14-2022 13:57-0400 Body height 172.7 cm Pac 2 Work Phone: [facility] 04-14-2022 13:57-0400 Body temperature 97 [degF] Pacc 2 Work Phone: [facility] 04-14-2022 13:57-0400 Body weight 96.62 kg Pacc 2 Work Phone: [facility] 04-14-2022 13:57-0400 Diastolic blood pressure 68 mm[Hg] Pacc 2 Work Phone: [facility] 04-14-2022 13:57-0400 Heart rate 77 /min Pacc 2 Work Phone: [facility] 04-14-2022 13:57-0400 Respiratory rate 16 /min Pacc 2 Work Phone: [facility] 04-14-2022 13:57-0400 SaO2% (BldA) [Mass fraction] 98 % Pacc 2 Work Phone: [facility] 04-14-2022 13:57-0400 Systolic blood pressure 120 mm[Hg] Pacc 2 Work Phone: [facility] 02-21-2022 14:19-0400 Blood Pressure Location Gaetano LUJAN [facility] [place] 02-21-2022 14:19-0400 Diastolic blood pressure 66 mm[Hg] Gaetano LUJAN [facility] [place] 02-21-2022 14:19-0400 Heart rate 72 /min Gaetano LUJAN [facility] [place] 02-21-2022 14:19-0400 Respiratory rate 16 /min Gaetano LUJAN [facility] [place] 02-21-2022 14:19-0400 Systolic blood pressure 118 mm[Hg] Gaetano LUJAN [facility] [place] 10-27-2021 10:35-0400 Body temperature 97.7 [degF] SOPHIA Mckenzie MD Work Phone: [facility] 10-27-2021 10:35-0400 Body weight 109.77 kg SOPHIA Mckenzie MD Work Phone: [facility] 10-27-2021 10:35-0400 Diastolic blood pressure 90 mm[Hg] SOPHIA Mckenzie MD Work Phone: [facility] 10-27-2021 10:35-0400 Heart rate 71 /min SOPHIA Mckenzie MD Work Phone: [facility] 10-27-2021 10:35-0400 Respiratory rate 20 /min SOPHIA Mckenzie MD Work Phone: [facility] 10-27-2021 10:35-0400 SaO2% (BldA) [Mass fraction] 96 % SOPHIA Mckenzie MD Work Phone: [facility] 10-27-2021 10:35-0400 Systolic blood pressure 151 mm[Hg] SOPHIA Mckenzie MD Work Phone: [facility] 06-17-2020 17:20-0500 BMI (Body Mass Index) 34.19 kg/m2 [facility] 06-17-2020 17:20-0500 Body Temperature 98.91 [degF] [facility] 06-17-2020 17:20-0500 Body weight 102 kg [facility] 06-17-2020 17:20-0500 BP Diastolic 84 mm[Hg] [facility] 06-17-2020 17:20-0500 BP Systolic 147 mm[Hg] [facility] 06-17-2020 17:20-0500 Height 172.7 cm [facility] 06-17-2020 17:20-0500 Pulse (Heart Rate) 85 /min [facility] 06-17-2020 17:20-0500 Pulse Oximetry 94 % [facility] 06-17-2020 17:20-0500 Respiratory Rate 16 /min [facility] Encounters Encounter Date Encounter Type Care Provider Facility Start: 09-18-2023 End: 09-18-2023 ambulatory ELLEN BARRERA Not Available Start: 06-12-2023 ambulatory PA-C JERI SANDERS [facility] Start: 06-12-2023 End: 06-12-2023 Patient encounter procedure JERI SANDERS [facility] Start: 05-03-2023 End: 05-03-2023 ambulatory Nestor MCKENZIE Facility:[facility] Start: 05-03-2023 End: 05-03-2023 Patient encounter procedure Nestor Mckenzie MD Work Phone: Radiation Oncology Comment on above: Prostate cancer (HCC ) (Primary Dx) Start: 04-25-2023 Telephone encounter Nestor Mckenzie MD Work Phone: Radiation Oncology Comment on above: Orders Start: 10-31-2022 End: 11-01-2022 ambulatory KAE SANDERS Facility:[facility] Start: 10-31-2022 End: 10-31-2022 Patient encounter procedure JERI SANDERS [facility] Start: 10-26-2022 End: 10-26-2022 ambulatory Nestor MCKENZIE Facility:[facility] Start: 10-26-2022 End: 10-26-2022 Patient encounter [...] Facility:[facility] Start: 08-15-2022 End: 08-15-2022 ambulatory [facility] Start: 07-31-2022 End: 08-01-[address] NESTOR KAPLAN . Facility:[facility] Start: 07-25-2022 End: 07-26-[address] NESTOR KAPLAN . Facility:[facility] Start: 07-15-2022 Encounter for preprocedural laboratory examination DR NESTOR KAPLAN . [facility] Start: 07-13-2022 End: 07-14-[address] NESTOR [...] preprocedural examination DR NESTOR KAPLAN . [facility] Start: 05-17-2022 Encounter for preprocedural cardiovascular examination DR NESTOR KAPLAN . [facility] Start: 05-15-2022 End: 05-16-[address] NESTOR KAPLAN . Facility: Start: 04-27-2022 End: 04-27-2022 Patient encounter procedure Nestor Mckenzie MD Work Phone: Radiation Oncology Comment on above: Malignant neoplasm o f prostate (HCC) (Primary Dx) Start: 04-25-2022 ambulatory YUNI NORTH [facility] ty:[facility] Start: 04-25-2022 End: 04-25-2022 Subsequent hospital visit by physician Chai Palma MD Work Phone: Procedures Comment on above: Mass of colon [K63.8 9] Start: 04-24-2022 End: 04-24-2022 Patient encounter procedure Nestor KAPLAN [facility] Start: 04-18-2022 Telephone encounter Chai paula MD Work Phone: Colorectal Surgery Comment on above: [employer] - [employer]r Start: 04-14-2022 End: 04-14-2022 Admission to establishment [facility] [place] [facility] Work Phone: [facility] Start: 04-14-2022 End: 04-14-2022 ambulatory [facility] [place] [facility] Work Phone: Pre Anesthesia Comment on above: Preop examination (P rimary Dx); Essential (primary) hypertension; Hyperlipidemia, unspecified hyperlipidemia type; 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; Obstructive sleep apnea; Prostate cancer (HCC) Start: 04-14-2022 End: 04-14-2022 Preprocedural examination done [facility] [place] [facility] Work Phone: Pre Anesthesia Start: 04-14-2022 Telephone encounter Chai paula MD Work Phone: Colorectal Surgery Comment on above: [employer] - [employer] Start: 04-06-2022 End: 04-07-2022 [...] encounter procedure Gaetano LUJAN [facility] [place] Start: 02-13-2022 End: 02-14-2022 ambulatory RODRICK BARRERA Facility:[facility] Start: 02-09-2022 End: 02-09-2022 ambulatory GLAZE HANDLER ELLEN AICHHOLZ Facility:[facility] Start: 02-08-2022 End: 02-09-2022 ambulatory GLAZE HANDLER ELLEN BARRERA Facility:[facility] Start: 12-15-2021 End: 12-16-2021 ambulatory GLAZE HANDLER ELLEN BARRERA Facility:[facility] Start: 10-27-2021 End: 10-27-2021 ambulatory Sindy Jass BUTTERFIELDN.GLAZE HANDLER Work Phone: Hematology/Oncology Comment on above: Malignant neoplasm o f prostate (HCC) (Primary Dx); Prostate cancer (HCC) Start: 10-27-2021 End: 10-27-2021 Patient encounter procedure Sindy Regan AOC [employer]ADC OPERATIONS STAFF OFFICER.GLAZE HANDLER Work Phone: [facility] Comment on above: Malignant neoplasm o f prostate (HCC) (Primary Dx) Start: 04-19-2021 End: 04-24-2021 ambulatory REFERRED SELF Facility:[facility] Start: 06-17-2020 End: 06-17-2020 Emergency department patient visit PHYSICIAN NO [facility] Start: 06-17-2020 End: 06-17-2020 Emergency department patient visit Bree Leslie Work Phone: [facility] Emergency Department Comment on above: COVID-19 (Primary Dx ) Procedures Date Procedure Procedure Detail Performing Clinician Start: 04-26-2023 PSA screening [facility] Provider Start: 10-13-2022 End: 10-13-2022 PSA screening [facility] Provider Comment on above: Performed By: #### PTHINT #### [facility] [address] [place] [address] Dr. Aaron Gloria Start: 07-31-2022 Cystoscopic removal [...] Provider Comment on above: Performed By: #### [id number] #### [facility] [address] [address] [address] Aaron Gloria Start: 03-15-2022 Colonoscopy Gaetano OSORIOL Start: 03-15-2022 Esophagogastroduodenoscopy Gaetano OSORIOL Start: 10-27-2021 Adult depression screening assessment Sindy [...] Cancer Screening Discussion Prostate Cancer Screening Discussion [facility] Start: 10-14-2027 PROSTATE CANCER SCREENING DISCUSSION PROSTATE CANCER SCREENING DISCUSSION [facility] Start: 04-06-2027 PROSTATE CANCER SCREENING DISCUSSION PROSTATE CANCER SCREENING DISCUSSION [facility] Start: 10-26-2026 PROSTATE CANCER SCREENING DISCUSSION PROSTATE CANCER SCREENING DISCUSSION [facility] Start: 11-01-2023 End: 01-31-2024 Prostate specific Ag [Mass/volume] in Serum or Plasma PSA/PROSTSPECAG DIAG Lab Routine Prostate cancer (HCC) Expected: 11/01/2023, Expires: 01/31/2024 [facility] Work Phone: Comment on above: Expected: 11/01/2023 , Expires: 01/31/2024 Start: 04-25-2023 Colonoscopy COLONOSCOPY [facility] Start: 04-25-2023 COLORECTAL CANCER SCREENING COLORECTAL CANCER SCREENING [facility] Start: 04-25-2023 End: 07-25-2023 Prostate specific Ag [Mass/volume] in Serum or Plasma PSA/PROSTSPECAG DIAG Lab Routine History of prostate cancer Expected: 04/25/2023, Expires: 07/25/2023 [facility] Work Phone: Comment on above: Expected: 04/25/2023 , Expires: 07/25/2023 Start: 04-14-2023 BP CONTROLLED (<130/80) BP CONTROLLE D (<130/80) [facility] Start: 02-23-2023 Covid-19 Vaccine ( season) Covid-19 Vaccine ( season) [facility] Start: 02-23-2023 Covid-19 Vaccine ( season) Covid-19 Vaccine ( season) [facility] Start: 02-23-2023 Influenza vaccination C [facility] Start: 10-27-2022 Adult depression screening assessment DEPRESSION SCREENING [facility] Start: 10-25-2022 End: 12-25-2022 Prostate specific Ag [Mass/volume] in Serum or Plasma PSA/PROSTSPECAG DIAG Lab Routine Malignant neoplasm of prostate (HCC) Expected: 10/25/2022, Expires: 12/25/2022 [facility] Work Phone: Comment on above: Expected: 10/25/2022 , Expires: 12/25/2022 Start: 06-25-2022 ADVANCE DIRECTIVE DISCUSSION ADVANCE DIRECTIVE DISCUSSION [facility] Start: 06-25-2022 DEPRESSION ASSESSMENT DEPRESSION ASS ESSMENT [facility] Start: 02-23-2022 Influenza vaccination C [facility] Start: 06-25-2021 ADVANCE DIRECTIVE DISCUSSION ADVANCE DIRECTIVE DISCUSSION [facility] Start: 06-25-2021 DEPRESSION ASSESSMENT DEPRESSION ASS ESSMENT [facility] Start: 11-24-2020 COVID-19 VACCINE (3 - Booster) COVID-19 VACCINE (3 - Booster) [facility] Start: 09-25-2020 Pneumococcal Vaccine : 65+ (1 - PCV) Pneumococcal Vaccine: 65+ (1 - PCV) [facility] Start: 09-25-2020 PNEUMOCOCCAL: 65+ (1 - PCV) PNEUMOCOCCAL: 65+ (1 - PCV) [facility] Start: 09-25-2020 PNEUMOVAX AGE 65 AND OVER WITH 5YR LOOKBACK (#1) PNEUMOVAX AGE 65 AND OVER WITH 5YR LOOKBACK (#1) [facility] Start: 2015 RSV Vaccine (1 - 1-d ose 60+ series) RSV Vaccine (1 - 1-dose 60+ series) [facility] Start: 09-25-2005 SHINGRIX VACCINE (1 of 2) SHINGRIX VACCINE (1 of 2) [facility] Start: 09-25-2000 COLOGUARD (FIT-DNA) COLOGUARD (FIT-D NA) [facility] Start: 09-25-2000 Colonoscopy COLONOSCOPY [facility] Start: 09-25-2000 COLORECTAL CANCER SCREENING COLORECTAL CANCER SCREENING [facility] Start: 09-25-[address] COLONOGRAPHY [facility] Start: 09-25-2000 DIABETES SCREEN DIABETES SCREEN [facility] Start: 09-25-2000 Diabetes Screening Diabetes Screenin g [facility] Start: 09-25-2000 FECAL OCCULT BLOOD FECAL OCCULT BLOO D [facility] Start: 09-25-2000 SIGMOIDOSCOPY SIGMOIDOSCOPY [facility] Start: 09-25-1990 Lipid 1996 panel - S earlene or Plasma Lipid Screening [facility] Start: 09-25-1990 LIPID SCREEN LIPID SCREEN [facility] Start: 09-25-1974 Urine microalbumin profile [facility] Start: 09-25-1973 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 RICKEY DISEASE VISIT ANNUAL PCP TEAM CHRONIC DISEASE VISIT [facility] Start: 09-25-1973 BP CONTROLLED (<130/80) BP CONTROLLE D (<130/80) [facility] Start: 09-25-1973 Hepatitis B surface antibody level LDL CHOLESTEROL [facility] Start: 09-25-1973 HEPATITIS C SCREENING HEPATITIS C SC LIZ [facility] Start: 09-25-1960 COVID-19 VACCINE (#1) COVID-19 VACCI NE (#1) [facility] Start: 09-25-1960 COVID-19 VACCINE (1) COVID-19 VACCIN E (1) [facility] Start: 03-27-1956 COVID-19 VACCINE (#1) COVID-19 VACCI NE (#1) [facility] Start: 1955 ABDOMINAL AORTIC ANEURYSM SCREENING ABDOMINAL AORTIC [facility]YSM [facility]CRE[facility]ING [facility] Immunizations Immunization Date Immunization Notes Care Provider Vonnie ferrell 09-29-2020 SARS-CoV-2 (COVID-19 ) mRNA-1273 vaccine Gaetano LUJAN [facility] 09-28-2020 SARS-CoV-2 (COVID-19 ) mRNA BNT-162b2 vax JERI SANDERS [facility] 09-07-2020 SARS-CoV-2 (COVID-19 ) mRNA-1273 vaccine Gaetano LUJAN [facility] 09-06-2020 SARS-CoV-2 (COVID-19 ) mRNA BNT-162b2 vax JERI SANDERS [facility] Payers Date Payer Category Payer Medicare MEDICARE MEDICAR E A AND B [id number] 2020-Present [phone] [place] [address] Medicare [id number] 2020 Medicare MEDICARE MEDICAR E A AND B [id number] 2020-Present [phone] [place] [address] Medicare [id number] 2020 Unknown [employer] [place] [employer] [place] MEDIC[place] SUPPLEMENT [id number] 2020-Present [phone] [address] [place] [address] Indemnity [id number] 2020 Unknown [employer] [place] [employer] [place] MEDICARE SUPPLEMENT [id number] 2020-Present [phone] [address] [place] [address] Indemnity [id number] 2020 Unknown [id number] 1959 Medicare [id number] 1959 Unknown [id number] 1955 Unknown [id number] 2.16.840.1.805797.3.579.2.90 2 1955 Unknown [id number] 2.16.840.1.751883.3.579.2.64 7 1955 Unknown [id number] 2.16.840.1.804846.3.579.2.59 3 1955 Unknown [id number] 2.16.840.1.626644.3.579.2.59 3 1955 Unknown [id number] 2.16.840.1.793899.3.579.2.59 3 1955 Unknown [id number] 2.16.840.1.529627.3.579.2.59 3 1955 Unknown [id number] 2.16.840.1.824125.3.579.2.59 3 1955 Unknown [id number] 2.16.840.1.368375.3.579.2.59 3 --1955 Unknown [id number] 2.16.840.1.450203.3.579.2.59 3 1955 Unknown [id number] 2.16.840.1.833554.3.579.2.59 3 1955 Unknown [id number] 2.16.840.1.970346.3.579.2.59 3 1955 Unknown [id number] 2.16.840.1.921932.3.579.2.59 3 1955 Unknown [id number] 2.16.840.1.741026.3.579.2.59 3 1955 Unknown [id number] 2.16.840.1.306021.3.579.2.59 3 1955 Unknown [id number] 2.16.840.1.324886.3.579.2.59 3 1955 Unknown [id number] 2.16.840.1.383779.3.579.2.59 3 1955 Unknown [id number] 2.16.840.1.318921.3.579.2.59 3 1955 Unknown [id number] 2.16.840.1.745505.3.579.2.59 3 1955 Unknown [id number] 2.16.840.1.778939.3.579.2.59 3 1955 Unknown [id number] 2.16.840.1.807910.3.579.2.59 3 1955 Unknown [id number] 2.16.840.1.161815.3.579.2.59 3 1955 Unknown [id number] 2.16.840.1.396561.3.579.2.59 3 1955 Unknown [id number] 2.16.840.1.414215.3.579.2.59 3 1955 Unknown [id number] 2.16.840.1.395330.3.579.2.72 7 1955 Unknown [id number] 2.16.840.1.367558.3.579.2.72 7 1955 Unknown [id number] 2.16.840.1.176350.3.579.2.72 7 1955 Unknown [id number] 2.16.840.1.048808.3.579.2.72 7 1955 Unknown [id number] 2.16.840.1.838501.3.579.2.72 7 1955 Unknown [id number] 2.16.840.1.771524.3.579.2.12 59 Unknown COMMERCIAL COMME RCIAL MISCELLANEOUS [id number] Effective for all dates [id number] [id number]. [id number] Unknown [id number] Social History Date Type Detail Facility Start: 06-17-2020 End: 01-11-2021 Tobacco smoking status NHIS Never smoker [facility] Start: 06-17-2020 End: 04-14-2022 Tobacco use and exposure Never used [facility] Start: 06-17-2020 Alcohol intake Lifetime non-d minna (finding) [facility] Start: 06-17-2020 History SDOH Alcohol Frequency 1 [facility] Start: 1955 Sex Assigned At Not on file [facility] Start: 10-16-2021 End: 04-27-2022 Exposure to SARS-CoV-2 (event) Not sure [facility] Start: 01-11-2021 End: 05-03-2023 Alcohol intake Current drinker of alcohol (finding) [facility] Start: 01-11-2021 History SDOH Alcohol Comment Social [facility] Start: 02-21-2022 End: 04-24-2022 Tobacco smoking status Occasional tobacco smoker (finding) [facility] Tobacco smoking status Former sm okeless tobacco user, quit more than 30 days ago [facility] [place] Start: 04-27-2022 End: 10-26-2022 Sex Assigned At Male [facility] [place] Start: 04-14-2022 End: 10-31-2022 Tobacco smoking status NHIS Ex-smoker [facility] Start: 06-25-2011 End: 06-25-2015 History of tobacco use Current smoker [facility] Start: 06-25-2011 End: 06-25-2015 History of tobacco use Cigar Smoker [facility] Start: 04-14-2022 Alcohol Comment Very rare [facility] Start: 04-27-2022 End: 10-26-2022 History of Social function [facility] Functional Status Date Assessment Result Facility 10-31-2022 Functional Status N/A [facility] 04-24-2022 Functional Status N/A [facility] 02-21-2022 Functional Status N/A [facility] Clinical Notes 10-27-2021 to 05-03-2023 Nestor Mckenzie MD - 05/03/2023 2:30 PM Nafisa Abrams LPN - 05/03/2023 2:12 PM ESTTelephone Encounter - Nafisa Chacon LPN - 04/25/2023 10:38 AM Elis Frederick RN - 10/26/2022 10:45 AM EDT Note Date & Type Note Facility 05-03-2023 Note HNO ID: [id number] Author: Nestor Mckenzie MD Service: ? Author [...] by: Nestor Mckenzie MD cc: Ellen Barrera, GLAZE HANDLER ([facility]) [address] [place] [address] [facility] 05-03-2023 History of Presen t illness Narrative Radiation Oncology - Follow Up Note PATIENT NAME: Mark Douglas PATIENT DIAGNOSIS: Prostate adenocarcinoma, initial PSA 5.4, biopsy Quilcene score 3 + 4 = 7 (grade [...] by: Nestor Mckenzie MD cc: Ellen Barrera, GLAZE HANDLER ([facility]) [address] [place] [address] documented in this encounter [facility] 05-03-2023 Nurse Note AUA= 1 documented in this encounter [facility] 04-25-2023 Miscellaneous Notes Please sign pended PSA order for upcoming appt. Fax order to [facility] per patient request. Nafisa Chacon RN documented in this encounter [facility] 10-31-2022 Hospital Discharg e instructions Patient Education 10/31/2022 09:50:06 Kidney Stones, Umca-ts-Eudy Kidney Stones Kidney stones are rock-like masses [...] Follow these instructions at home: Medicines Take qahj-gls-xzevvve and prescription medicines only as told by [...] provider. Document Revised: 02/13/2022 Document Reviewed: 02/13/2022 [employer] Patient Education 2022 [employer] Follow Up Care 10/11/2022 10:56:16 With:JERI SANDERS PA-C, URL Address: [address] [place] [address] Business (1) When:6 months [facility] 10-31-2022 Hospital Discharg e instructions Follow Up Care 10/31/2022 09:35:35 With:JERI SANDERS PA-C, URL Address: [address] [place] [address] [id number] When: Unknown [facility] 10-26-2022 Note HNO ID: [id number] Author: Nestor Mckenzie MD Service: ? Author [...] biopsy. RADIATION SUMMARY:Prostate brachytherapy 03/10/2021, I-125, [address], 85 sources, 32.30 mCi INTERVAL HISTORY: Doing [...] by: Nestor Mckenzie MD cc: Ellen Barrera, GLAZE HANDLER ([facility]) [address] [place] [address] [facility] 10-26-2022 Nurse Note AUA 2 Elisa Frederick RN documented in this encounter [facility] 10-26-2022 History of Presen t illness Narrative Radiation Oncology - Follow Up Note PATIENT NAME: Mark Douglas PATIENT DIAGNOSIS: Prostate adenocarcinoma, initial PSA 5.4, biopsy Quilcene score 3 + 4 = 7 (grade [...] ASSESSMENT/PLAN: Prostate adenocarcinoma, initial PSA 5.4, biopsy Quilcene score 3 + 4 = 7 (grade [...] by: Nestor Mckenzie MD cc: Ellen Barrera, GLAZE HANDLER ([facility]) [address] [place] [address] documented in this encounter [facility] 08-15-2022 Note Patient here for 1 y ear follow up CAD, hypertension, and hyperlipidemia. Had labs in Jun 2022, and lipid panel in November 2021. His this past Feb 2022. Denies chest pain and SOB. Says he feels good. Review of Systems HENT: Positive for hearing loss. All other systems reviewed and are negative. [facility] 08-15-2022 Note Cardiovascular Medic [facility] SUBJECTIVE Chief Complaint Patient presents with [...] Problem List Diagnosis 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 Carcinoma of [...] Final Atrial Rate 04/28/2021 80 BPM Final AR Interval 04/28/2021 162 ms Final QRS DURATION 04/28/2021 90 ms Final QT Interval 04/28/2021 384 ms Final QTC CALCULATION(BAZETT) 04/28/2021 442 ms Final P [place] 04/28/2021 30 degrees Final R-[place] 04/28/2021 17 degrees Final T Wave [place] 04/28/2021 64 degrees Final Diagnosis 04/28/2021 Final [...] 04/28/2021 Cardiovascular Laboratory Report FINAL IMPRESSIONS: 1. Cqgl-ng-pkleedse 2-vessel coronary artery disease. 2. Normal global left ventricular systolic function by noninvasive imaging. 3. Nsltlkwg-gn-sxqsen systemic hypertension. RECOMMENDATIONS: 1. Aggressive cardiovascular risk factor modification. 2. Optimization medical management; aspirin, high-intens (more content not included)... [facility] 07-13-2022 Note OP Note OPERATION DATE: 07/13/2022 PREOPERATIVE DIAGNOSIS: Left ureteral calculus, status post left stent placement. POSTOPERATIVE DIAGNOSIS: Left ureteral calculus, status post left stent placement. PROCEDURE: 1. Cystoscopy. 2. Left stent change to 6-Angolan variable length. 3. Left ureteroscopy. 4. Holmium [...] usual fashion. I started by passing a 22-Angolan Olympus cystoscope per urethra and into the [...] into the bladder, and then slid a 6-Angolan variable length stent, over the wire, up [...] removed. [facility] and [facility]ed to PACU in stable condition. [facility] 05-25-2022 Note OP Note OPERATION DATE: 05/25/2022 PREOPERATIVE DIAGNOSIS: Large left ureteral calculus. POSTOPERATIVE DIAGNOSIS: Large left ureteral calculus. PROCEDURE: 1. Left ESWL. 2. Cystoscopy. 3. Left retrograde pyelogram. 4. Rigid left ureteral dilation. 5. Left ureteroscopy. 6. Placement of 7-Angolan variable length left ureteral stent. ANESTHESIA: General [...] usual fashion. I started by passing a 22-Angolan Olympus cystoscope per urethra and into the bladder. The prostatic urethra was long and obstructing. Cano endoscopy in the bladder showed no evidence of any stones or tumors. I then passed an 8-Angolan cone tip catheter and did a left [...] guide wire and then I used an 8-Angolan ureteral dilator and still could not get [...] the scope. I then passed a Dornier 10/12-Angolan ureteral access sheath over the wire and [...] into the bladder. I then slid a 7-Angolan variable length ureteral stent over the wire, up into the kidney. The wire was removed and there were good curls in the kidney and in the bladder. The bladder was drained of its contents and the scope was then removed. He was then transferred to a rfelton bed and wheeled to PACU in stable condition. [facility] 04-27-2022 Nurse Note AUA= 3 documented in this encounter [facility] 04-27-2022 History of Presen t illness Narrative Radiation Oncology - Follow Up Note PATIENT NAME: Mark Douglas PATIENT DIAGNOSIS: Prostate adenocarcinoma, initial PSA 5.4, biopsy Quilcene score 3 + 4 = 7 (grade [...] ASSESSMENT/PLAN: Prostate adenocarcinoma, initial PSA 5.4, biopsy Quilcene score 3 + 4 = 7 (grade [...] by: Nestor Mckenzie MD cc: Ellen Barrera, GLAZE HANDLER (Dr) [address] [place] [address] documented in this encounter [facility] 04-25-2022 History and physical note COLORECTAL SURGERY April 13, 2022 Mark Douglas 66 year old This consult was requested by Dr. Lujan and my final recommendations will be communicated to the requesting health care provider by way of the shared medical record for internal providers or letter via the [employer] Postal Service for external providers. Chief Complaint: [...] BIOPSY: TUBULOVILLOUS ADENOMA CT C/A/P 02/13/22 - [facility] LUNGS: No visible pulmonary disease LIVER: No [...] 2022 2:45 PM documented in this encounter [facility] 04-24-2022 Hospital Discharg e instructions Patient Education 04/24/2022 12:42:44 Kidney Stones, Wgiz-bp-Sayk Kidney Stones Kidney stones are rock-like masses [...] Follow these instructions at home: Medicines Take csmr-boa-nmupjbi and prescription medicines only as told by [...] 11/27/2008 Document Revised: 10/28/2019 Document Reviewed: 10/28/2019 [employer] Patient Education 2020 [employer]. Follow Up Care 02/08/2022 11:26:01 With:EUSEBIO CHRISTINE, Nestor Veras, URL Address: [facility] [address] [place] [address]- [phone] When:Within 6 Month(s) Comments:w/ mal [facility] 04-18-2022 Miscellaneous Notes Called patient and told him we had to move his colonoscopy from 04/27 to 04/25. Told him currently he is scheduled at 2:45 and he should arrive by 1:45 but they will call him the day before to confirm this. He said he will stop taking his 81 mg aspirin today then. documented in this encounter [facility] 04-14-2022 History and physical note HISTORY AND PHYSICAL EXAMINATION SERVICE DATE: 04/14/2022 SERVICE TIME: 2:09 PM PRIMARY CARE PHYSICIAN: Ellen Barrera, GLAZE HANDLER, [facility] REASON FOR VISIT: Mark Douglas is a [...] Essential (Primary) Hypertension Athscl Heart Disease of [place] Coronary Artery W/O Ang Pctrs Subjective CHIEF [...] fevers. Neuro: No history of TIA's, stroke, LIFE ENRICHMENT ASSISTANT tumor, impaired sensorium, hemiplegia, paraplegia or quadraplegia. [...] M.D. 05/10/2021 09:07 A FINAL IMPRESSIONS: 1. Ocjd-za-qkwkroyy 2-vessel coronary artery disease. 2. Normal global left ventricular systolic function by noninvasive imaging. 3. Ilhwuahm-gr-zipfxh systemic hypertension. Assessment/Plan Essential (primary) hypertension Assessment: controlled on Carvedilol BP 120/68 Hyperlipidemia, unspecified Assessment: on statin 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 Assessment: mild [...] TIME: 1:51 PM documented in this encounter [facility] 04-14-2022 Instructions Nina Motley APRN.CNP - 04/14/2022 2:10 PM EDT PATIENT PREOPERATIVE INSTRUCTIONS Chai Palma MD has scheduled you for your procedure at this surgery center: [facility]: [phone] --[address] [place] [address]. Please enter through the entrance closest to [...] Procedures: - YOU MUST HAVE A RESPONSIBLE CELL EFFICIENCY SUPERVISOR TAKE YOU HOME. A HAT FORMING MACHINE FEEDER OR MAKE UP EDITOR CANNOT BE MADE A RESPONSIBLE CELL EFFICIENCY SUPERVISOR. - We recommend that a responsible person stays with you overnight to take care of you. - You cannot stay in a hotel alone after outpatient surgery. You will not be permitted to have your surgery, if you do not have someone to take care of you. If you already have an Advance Directive, please fax a copy to [phone] or email to for it to be [...] chart that day. documented in this encounter [facility] 04-14-2022 Miscellaneous Notes Spoke with patient. Confirmed date, time and place Called patient as a follow up to his office visit yesterday. Left voice message notifying him that we have him scheduled for a colonoscopy with Dr. Palma on Apr 27 at 8:45 at [place]. He will need to arrive by 7:45. Asked him to call back to verify that he got this message and is aware of the date, time and place. documented in this encounter [facility] 03-15-2022 Note OPERATIVE NOTE OPERATION [...] good condition. CC: Patient's family physician [facility] 10-28-2021 History of Presen t illness Narrative Patient was seen and examined by Dr. Mckenzie today. Patient denies any problems with bowel movements. No blood in his stools. Patient denies any problems with urination. No pain, burning or difficulty with urination. Patient was given treatment summary and survivorship care plan for prostate cancer. Sindy Regan APRN.RODRICK documented in this encounter [facility] 10-27-2021 History of Presen t illness Narrative Radiation Oncology - Follow Up Note PATIENT NAME: Mark Douglas PATIENT DIAGNOSIS: Prostate adenocarcinoma, initial PSA 5.4, biopsy Quilcene score 3 + 4 = 7 (grade [...] ASSESSMENT/PLAN: Prostate adenocarcinoma, initial PSA 5.4, biopsy Quilcene score 3 + 4 = 7 (grade group 2), clinical stage T1c, N0, M0, stage IIB [T1-T2, N0, M0, PSA <20, GG 2] (AJCC 8th ed.), status post prostate brachytherapy 03/10/2021 Doing well with excellent PSA response. No significant posttreatment problems. Plan to have patient back in 6 months with repeat PSA. Signed by: Nestor Mckenzie MD cc: Ellen Barrera GLAZE HANDLER ([facility]) [address] [place] [address] documented in this encounter [facility] 10-27-2021 Nurse Note AUA 2 Elisa Frederick RN documented in this encounter [facility] Evaluation + Plan note Future Appointments Appointment Date:04/24/2022 11:45:00 AM Scheduled Provider:Nestor KAPLAN MD Location:[facility] Appointment Type:URO Office Visit [facility] [place] Evaluation + Plan note Future Appointments Appointment Date:10/16/2022 10:30:00 AM Scheduled Provider:Nestor KAPLAN MD Location:[facility] Appointment Type:URO Office Visit Diagnostic Tests PendingPSA Total 08/23/22 [facility] Evaluation + Plan note Future Appointments Appointment Date:05/08/2023 10:00:00 AM Scheduled Provider:JERI SANDERS PA-C Location:[facility] Appointment Type:URO Office Visit [facility] Evaluation note Diagnosis Malignant neoplasm of prostate (HCC)- Primary Malignant neoplasm of prostate Prostate cancer (HCC) Malignant neoplasm of prostate documented in this encounter [facility] note* Diagnosis Malignant neoplasm of prostate (HCC)- Primary Malignant neoplasm of prostate documented in this encounter [facility] note* Diagnosis Preop examination- Primary Preoperative examination, unspecified Essential (primary) hypertension Unspecified essential hypertension Hyperlipidemia, unspecified hyperlipidemia type 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 Obstructive sleep apnea Obstructive sleep apnea (adult) (pediatric) Prostate cancer (HCC) Malignant neoplasm of prostate Polyp of colon, unspecified part of colon, unspecified type documented in this encounter [facility] note* Diagnosis Malignant neoplasm of prostate (HCC)- Primary Malignant neoplasm of prostate documented in this encounter [facility] note* Diagnosis History of prostate cancer- Primary Personal history of malignant neoplasm of prostate Obesity, Class I, BMI 30-34.9 Obesity, unspecified documented in this encounter [facility] note* Diagnosis History of prostate cancer- Primary Personal history of malignant neoplasm of prostate documented in this encounter [facility] note* Diagnosis Mass of colon Other specified disorder of intestines documented in this encounter [facility] note* Diagnosis Prostate cancer (HCC)- Primary Malignant neoplasm of prostate documented in this encounter [facility] course Narrative No data available for this section [facility] [place] [facility] Discharge instructions No data available for this section General Surgery [employer] note No data available for this section [facility] [place] Revxya for referral (narrative) Referred by: Gaetano LUJAN MD [facility] [place] Refqae for referral (narrative)* Outpatient Procedure (Routine) - Closed Specialty Diagnoses / Procedures Referred By Aminata german Referred To Contact [facility] Diagnoses Mass of colon Procedures COLONOSCOPY SCREENING COLONOSCOPY FLX DX W/[place] [address] [id number] [facility] [place] [place] [address] Referral ID Status Reason Start Date Expiration Date V isits Requested Visits Authorized [id number] Closed Auto-Generate d Referral 04/13/2022 04/13/2023 1 [facility] Out[facility] Procedure (Routine) - Closed Specialty Diagnoses / Procedures Referred By Contac t Referred To Contact [facility] Diagnoses Mass of colon Procedures COLONOSCOPY SCREENING COLONOSCOPY FLX DX W/COLLJ [place] [address] [place] [address] [facility] [address] [place] [address] Referral ID Status Reason Start Date Expiration Date V isits Requested Visits Authorized [id number] Closed Auto-Generate d Referral 04/13/2022 04/13/2023 1 1 [facility] Discharge Instructions * Instructions* Bree [...] you may find a provider through the [facility] Physician Referral Service by calling [phone]) or by visiting [email or web address]. Return for reevaluation for any worsening of [...] Care Everywhere. * Coronavirus Disease (COVID-19): Isolation (Guinean) * COVID-19 Viral Test ([place]) * [place] COVID-19 DISCHARGE INSTRUCTIONS documented in this encounter Assessments Diagnosis COVID-19- Primary Advance Directives No Advanced Directives Records FoundDocuments on File Type Date Recorded Patient Carding Utility Tender Expl anation Advance Directives and Livin g [...] Screening Reason Comments Prostate Cancer Reason Comments Motion Picture Critic - Other Reason Comments Orders Jeri May [...] concerns voiced on departure. ED ATTENDING NOTE [facility] EMERGENCY DE[facility]MENT PCP - Physician [...] currently in town visiting family members for [employer]. He denies having any other acute complaints. [...] at the following links: For Healthcare Providers: https://www.fda.gov/media/797352/download For Patients: https://www.fda.gov/media/663498/download Radiographic Imaging (if any) During ED Visit [...] at the following links: For Healthcare Providers: https://www.fda.gov/media/467746/download For Patients: https://www.fda.gov/media/113954/download Imaging Results No orders to display Patient's [...] section and content) DATE CREATED AUTHOR 07/09/2020 [facility] DATE CREATED AUTHOR AUTHOR'S ORGANIZ ATION 05/11/[address] [facility] DATE CREATED AUTHOR AUTHOR'S ORGANIZ ATION 04/27/2022 [facility] DATE CREATED AUTHOR AUTHOR'S ORGANIZ ATION 11/04/2022 [facility] DATE CREATED AUTHOR AUTHOR'S ORGANIZ ATION 12/02/2022 [facility] DATE CREATED AUTHOR AUTHOR'S ORGANIZ ATION 05/10/2023 [facility] DATE CREATED AUTHOR AUTHOR'S ORGANIZ ATION 06/12/2023 [facility] DATE CREATED AUTHOR AUTHOR'S ORGANIZ ATION 09/19/2023 [facility] EPIC Source Comments (unrecognize d section and content) In the event this informatio n is protected by the Federal Confidentiality of Alcohol and Drug Abuse Patient Records regulations: The Federal rules restrict any use of the information to criminally investigate or prosecute any alcohol or drug abuse patient.[facility] Hospital[facility] the event this information is protected by the Federal Confidentiality of Alcohol and Drug Abuse Patient Records regulations: The Federal rules restrict any use of the information to criminally investigate or prosecute any alcohol or drug abuse patient.[facility] HospitalIn the event this information is protected by the Federal Confidentiality of Alcohol and Drug Abuse Patient Records regulations: The Federal rules restrict any use of the information to criminally investigate or prosecute any alcohol or drug abuse patient.[facility] HospitalIn the event this information is protected by the Federal Confidentiality of Alcohol and Drug Abuse Patient Records regulations: The Federal rules restrict any use of the information to criminally investigate or prosecute any alcohol or drug abuse patient.[facility] HospitalIn the event this information is protected by the Federal Confidentiality of Alcohol and Drug Abuse Patient Records regulations: The Federal rules restrict any use of the information to criminally investigate or prosecute any alcohol or drug abuse patient.[facility] HospitalIn the event this information is protected by the Federal Confidentiality of Alcohol and Drug Abuse Patient Records regulations: The Federal rules restrict any use of the information to criminally investigate or prosecute any alcohol or drug abuse patient.[facility] HospitalIn the event this information is protected by the Federal Confidentiality of Alcohol and Drug Abuse Patient Records regulations: The Federal rules restrict any use of the information to criminally investigate or prosecute any alcohol or drug abuse patient.[facility] HospitalIn the event this information is protected by the Federal Confidentiality of Alcohol and Drug Abuse Patient Records regulations: The Federal rules restrict any use of the information to criminally investigate or prosecute any alcohol or drug abuse patient.[facility] HospitalIn the event this information is protected by the Federal Confidentiality of Alcohol and Drug Abuse Patient Records regulations: The Federal rules restrict any use of the information to criminally investigate or prosecute any alcohol or drug abuse patient.[facility] HospitalIn the event this information is protected by the Federal Confidentiality of Alcohol and Drug Abuse Patient Records regulations: The Federal rules restrict any use of the information to criminally investigate or prosecute any alcohol or drug abuse patient.[facility] Care Teams (unrecognized sec tion and content) Transformer Builder Relationship Specialty Start Date End Date Ellen Barrera CNP [address] [place] [address] PCP - General Family Practice 11/17/20 Imtiaz Freed Jr. [address] [place] [address] Referring Urology 11/17/20 Transformer Builder Relationship Specialty Start Date End Date Ellen Barrera CNP [address] [place] [address] PCP - General Family Practice 11/17/20 Imtiaz Freed Jr. [address] [place] [id number] Referring Urology 11/17/20 Transformer Builder Relationship Specialty Start Date End Date Ellen Barrera, GLAZE HANDLER [address] [place] [address] PCP - General Family Medicine 11/17/20 Imtiaz Freed Jr. [address] [place] [address] Referring Urology 11/17/20 Transformer Builder Relationship Specialty Start Date End Date Ellen Barrera, GLAZE HANDLER [address] [place] [address] PCP - General Family Medicine 11/17/20 Imtiaz Freed Jr. [address] [place] [address] Referring Urology 11/17/20 Transformer Builder Relationship Specialty Start Date End Date Ellen Barrera, GLAZE HANDLER [address] [place] [address] PCP - General Family Medicine 11/17/20 Imtiaz Freed Jr. [address] [place] [phone] Referring Urology 11/17/20 Transformer Builder Relationship Specialty Start Date End Date Ellen Barrera, GLAZE HANDLER [address] [place] [address] PCP - General Family Medicine 11/17/20 Imtiaz Freed Jr. [address] [place] [address] Referring Urology 11/17/20 Transformer Builder Relationship Specialty Start Date End Date Ellen Barrera CNP [address] [place] [address] PCP - General Family Medicine 11/17/20 Imtiaz Freed Jr. [address] [place] [address] Referring Urology 11/17/20 Transformer Builder Relationship Specialty Start Date End Date Ellen Barrera GLAZE HANDLER [address] [place] [address] PCP - General Family Medicine 11/17/20 Imtiaz Freed Jr. [address] [place] [address] Referring Urology 11/17/20 FOR RECORDS PERTAINING TO [...] BE BASED ON THE PRIMARY CLINICAL RECORDS. [facility] [employer] [facility] provides no warranty or guarantee of the accuracy or completeness of information in this document.
[2023-11-07 09:14] LABS: Estimated Average Glucose 126 mg/dL
[2023-11-07 09:22] LABS: Anion Gap 10.6; BUN Creatinine Ratio 16.8; Calcium 9.3 mg/dL (8.5-10.1); Carbon Dioxide 30.9 mmol/L (21.0-32.0); Chloride 103 mmol/L (98-107); Estimated GFR (African America >60 (>=60); Estimated GFR (Non-African Ame >60 (>=60); Glucose 120 mg/dL (74-106); Potassium 4.5 mmol/L (3.5-5.1); Sodium 140 mmol/L (136-145); Uric Acid 7.7 mg/dL (3.5-7.2)
== END 2023-11-07 07:58 | disposition home or self-care (01) ==
LOC: LAB 08:00
PROVIDERS: PCP Nurse Practitioner; Visit Provider Nurse Practitioner
DX: C61 Malignant neoplasm of prostate (principal); M10.9 Gout, unspecified; I10 Essential (primary) hypertension; R73.03 Prediabetes
CPT/HCPCS: 36415; 80048; 83036; 84153; 84550

== ENCOUNTER 2024-03-20 13:41 | Outpatient (OUT) | payer MEDICARE, OTHER, SELFPAY ==
--- NOTE | 2024-03-20 13:46 | US_ITS ---
The [address] [address] Patient Name: MARK ALARCON MRN: [id number] date: 1955 Sex: M Assigned Patient Location: US Current Patient Location: US Accession/Order Number: [id number] Exam Date: 03/20/2024 14:00 Report Date: 03/20/2024 15:03 At the request of: ZOE RANGEL Procedure: US venous doppler LE RT CLINICAL DATA: Calf pain PROCEDURE: Right lower extremity venous duplex ultrasound. TECHNIQUE: Brennan-scale, color flow, and waveform spectral analysis was performed of the right lower extremity. FINDINGS: The right common femoral, profunda femoral, femoral, and popliteal veins were compressible. The saphenous vein was compressible. No venous thrombosis was seen. The veins fill with color Doppler. Augmentation was normal. Note is made of a complex appearing popliteal fossa fluid collection extending into the calf measuring 9.5 x 10.6 x 2.5 cm. US/US venous doppler LE RT IMPRESSION: 1. No acute lower extremity deep venous thrombosis. 2. No superficial venous thrombosis. 3. Complex appearing popliteal fossa collection extending in the calf. This may represent a complex synovial cyst versus calf hematoma. Electronically authenticated by: Edward ARCHER Date: 03/20/2024 15:03
--- OUTSIDE RECORDS SUMMARY | 2024-03-20 13:52 | XMS_ITS | CCD ---
Author Organization [facility] Care Team Providers Care Crab Steamer Name Role Phone No, Physician Primary Care Provider Unavailabl e NO, PHYSICIAN Primary Care Unavailable BREE LESLIE Attending Unavailabl e BREE LESLIE Admitting Unavailabl e SELF, REFERRED Primary Care Unavailable SELF, REFERRED Referring Unavailable MUKUND SCHULER Admitting Unavailable MUKUND SCHULER Attending Unavailable Aichholz RODRICK, Ellen Esquivel Primary Care Provider Imtiaz Freed Jr. Unavailable ELLEN BARRERA Primary Care Physician [phone] Aichholz Ellen MENSAH Primary Care Provider Imtiaz Freed Jr. Unavailable YUNI NORTH Attending Unavailable CLAIRE, ELLEN SIERRA Primary Care Unavailable CHAI PALMA Referring Unavailable Aichholz Ellen MENSAH Primary Care Provider [phone] Imtiaz Freed Jr. Unavailable EUSEBIO ., DR BAEZ Admitting Unavailable KAPLAN ., DR BAEZ Attending Unavailable AICHHOLZ, LEAN MANUFACTURING SPECIALIST ELLEN Primary Care Unavailable KAPLAN ., DR BAEZ Consulting Unavailable AICHHOLZ, LEAN MANUFACTURING SPECIALIST ELLEN Admitting Unavailable AICHHOLZ, LEAN MANUFACTURING SPECIALIST ELLEN Attending Unavailable AICHHOLZ, LEAN MANUFACTURING SPECIALIST ELLEN Primary Care Unavailable AICHHOLZ, LEAN MANUFACTURING SPECIALIST ELLEN Consulting Unavailable KAPLAN ., DR BAEZ Admitting Unavailable KAPLAN ., DR BAEZ Attending Unavailable AICHHOLZ, LEAN MANUFACTURING SPECIALIST ELLEN Primary Care Unavailable KAPLAN ., DR BAEZ Consulting Unavailable SREE FRASER Consulting Unavailable BRAD FOSS Consulting Unavailable NILL ., DR SALTER Admitting Unavailable NILL ., DR SALTER Attending Unavailable AICHHOLZ, LEAN MANUFACTURING SPECIALIST ELLEN Primary Care Unavailable NILL ., DR SALTER Consulting Unavailable UMA VILLA Consulting Unavailable VIDYA LUNDBERG Consulting Unavailable KAPLAN ., DR BAEZ Admitting Unavailable KAPLAN ., DR BAEZ Attending Unavailable AICHHOLZ, LEAN MANUFACTURING SPECIALIST ELLEN Primary Care Unavailable KAPLAN ., DR BAEZ Consulting Unavailable PENA, ELISA Consulting Unavailable KAPLAN ., DR BAEZ Admitting Unavailable KAPLAN ., DR BAEZ Attending Unavailable AICHHOLZ, LEAN MANUFACTURING SPECIALIST ELLEN Primary Care Unavailable KAPLAN ., DR BAEZ Consulting Unavailable WEST, DR CHAI Gilman Consulting Unavailable AICHHOLZ, LEAN MANUFACTURING SPECIALIST ELLEN Admitting Unavailable AICHHOLZ, LEAN MANUFACTURING SPECIALIST ELLEN Attending Unavailable AICHHOLZ, LEAN MANUFACTURING SPECIALIST ELLEN Primary Care Unavailable AICHHOLZ, LEAN MANUFACTURING SPECIALIST ELLEN Consulting Unavailable KAPLAN ., DR BAEZ Admitting Unavailable KAPLAN ., DR BAEZ Attending Unavailable AICHHOLZ, LEAN MANUFACTURING SPECIALIST ELLEN Primary Care Unavailable KAPLAN ., DR BAEZ Consulting Unavailable ZIEBER, DR JAMIE Veras Consulting Unavailable KAPLAN ., DR BAEZ Admitting Unavailable KAPLAN ., DR BAEZ Attending Unavailable AICHHOLZ, LEAN MANUFACTURING SPECIALIST ELLEN Primary Care Unavailable KAPLAN ., DR BAEZ Consulting Unavailable KAPLAN ., DR BAEZ Admitting Unavailable KAPLAN ., DR BAEZ Attending Unavailable AICHHOLZ, LEAN MANUFACTURING SPECIALIST ELLEN Primary Care Unavailable KAPLAN ., DR BAEZ Consulting Unavailable AICHHOLZ, LEAN MANUFACTURING SPECIALIST ELLEN Admitting Unavailable AICHHOLZ, LEAN MANUFACTURING SPECIALIST ELLEN Attending Unavailable AICHHOLZ, LEAN MANUFACTURING SPECIALIST ELLEN Primary Care Unavailable AICHHOLZ, LEAN MANUFACTURING SPECIALIST ELLEN Consulting Unavailable KAPLAN ., DR BAEZ Admitting Unavailable KAPLAN ., DR BAEZ Attending Unavailable AICHHOLZ, LEAN MANUFACTURING SPECIALIST ELLEN Primary Care Unavailable KAPLAN ., DR BAEZ Consulting Unavailable ZIEBER, DR JAMIE Veras Consulting Unavailable AICHHOLZ, LEAN MANUFACTURING SPECIALIST ELLEN Admitting Unavailable AICHHOLZ, LEAN MANUFACTURING SPECIALIST ELLEN Attending Unavailable AICHHOLZ, LEAN MANUFACTURING SPECIALIST ELLEN Primary Care Unavailable AICHHOLZ, LEAN MANUFACTURING SPECIALIST ELLEN Consulting Unavailable GANGA, MUKUND Admitting Unavailable GANGA, MUKUND Attending Unavailable AICHHOLZ, LEAN MANUFACTURING SPECIALIST ELLEN Primary Care Unavailable GANGA, MUKUND Consulting Unavailable AICHHOLZ, LEAN MANUFACTURING SPECIALIST ELLEN Admitting Unavailable AICHHOLZ, LEAN MANUFACTURING SPECIALIST ELLEN Attending Unavailable AICHHOLZ, LEAN MANUFACTURING SPECIALIST ELLEN Primary Care Unavailable AICHHOLZ, LEAN MANUFACTURING SPECIALIST ELLEN Consulting Unavailable NILL ., DR SALTER Admitting Unavailable NILL ., DR SALTER Attending Unavailable AICHHOLZ, LEAN MANUFACTURING SPECIALIST ELLEN Primary Care Unavailable NILL ., DR SALTER Consulting Unavailable KAPLAN ., DR BAEZ Admitting Unavailable KAPLAN ., DR ABEZ Attending Unavailable AICHHOLZ, LEAN MANUFACTURING SPECIALIST ELLEN Primary Care Unavailable KAPLAN ., DR BAEZ Consulting Unavailable PENAELISA MOCK Consulting Unavailable KAPLAN ., DR BAEZ Admitting Unavailable KAPLAN ., DR BAEZ Attending Unavailable AICHHOLZ, LEAN MANUFACTURING SPECIALIST ELLEN Primary Care Unavailable KAPLAN ., DR BAEZ Consulting Unavailable KAPLAN ., DR BAEZ Admitting Unavailable KAPLAN ., DR BAEZ Attending Unavailable AICHHOLZ, LEAN MANUFACTURING SPECIALIST ELLEN Primary Care Unavailable KAPLAN ., DR BAEZ Consulting Unavailable [place], DR CHAI Gilman Consulting Unavailable DELORIS COLLADO Consulting Unava ilable SREE MARKHAM Consulting Unavailable KAPLAN ., DR BAEZ Admitting Unavailable KAPLAN ., DR BAEZ Attending Unavailable AICHHOLZ, LEAN MANUFACTURING SPECIALIST ELLEN Primary Care Unavailable KAPLAN ., DR BAEZ Consulting Unavailable AICHHOLZ, LEAN MANUFACTURING SPECIALIST ELLEN Admitting Unavailable AICHHOLZ, LEAN MANUFACTURING SPECIALIST ELLEN Attending Unavailable AICHHOLZ, LEAN MANUFACTURING SPECIALIST ELLEN Primary Care Unavailable [place], DR CHAI Gilman Consulting Unavailable AICHHOLZ, LEAN MANUFACTURING SPECIALIST ELLEN Consulting Unavailable MUKUND SCHULER Attending Unavailable Nestor KAPLAN Attending Unavailable KAE SANDERS Attending Unavailab le KAPLANNestor Attending Unavailable KAPLANNestor Attending Unavailable KAE SANDERS Attending Unavailab le AICHHOLZ, ELLEN Attending Unavailable AICHHOLZ, ELLEN Attending Unavailable Aichholz RODRICK Ellen Sierra Primary Care Provider Nestor MCKENZIE Attending Unavailable AICHHOLZ, ELLEN SIERRA Primary Care Unavailable Nestor MCKENZIE Referring Unavailable AICHHOLZ, ELLEN SIERRA Primary Care Unavailable Nestor MCKENZIE Referring Unavailable Nestor MCKENZIE Attending Unavailable Medications Current Medications Medication Drug Class(es) Dates Sig (Normalized) Sig (Original) allopurinol 100 mg oral tablet (16 sources) Xanthine Oxidase Inhibitor Start: 03-04-2020 take 1 tablet by mouth once daily allopurinol (ZYLOPRIM) 100 mg tablet Take 100 mg by mouth once daily. 0 09/24/2020 Active Comment on above: Take 100 mg by mouth once daily. aspirin 81 mg chewable tablet (16 sources) Platelet Aggregation Inhibitor, Nonsteroidal Anti-inflammatory Drug [...] EVERY DAY atorvastatin 80 mg oral tablet (16 sources) HMG-CoA Reductase Inhibitor Start: 02-14-20 take [...] at bedtime. carvedilol 6.25 mg oral tablet (16 sources) alpha-Adrenergic Alistair, beta-Adrenergic Alistair Start: 02-21-2022 take 1 tablet by mouth twice daily carvedilol 6.25 mg Tab 6.25 mg = 1 tab(s), Oral, BID, Refills(s) 0 Start Date: 02/21/22 Status: Ordered carvedilol (CORE G) 12.5 mg tablet 12.5 mg. 0 Active Comment on above: carvedilol 6.25 mg t ablet TAKE 1 TABLET BY MOUTH TWICE A DAY potassium citrate 15 meq extended release oral tablet (4 sources) Start: 03-03-2023 take 2 tablets by mouth every twelve hours Potassium Citrate 15 mEq TbER Take 2 tablets by mouth every 12 hours. 0 03/03/2023 Active Start: 10-31-2022 take 2 tablets by mo [facility] twice daily potassium citrate 15 mEq oral tablet, extended release 30 mEq = 2 tab(s), Oral, BID, # 120 tab(s), Refills(s) 11, Pharmacy: [facility]/pharmacy #[id number], 173, cm, 10/31/22 8:58:00 EDT, Height/Length Dosing, 99, kg, 05/09/23 8:58:00 EDT, Weight Dosing Start Date: 10/31/22 Status: Ordered Comment on above: Take 2 tablets by [facility] every 12 hours. sertraline 50 mg oral tablet (13 sources) Serotonin Reuptake Inhibitor Start: 2 take 1 tablet by mouth once daily sertraline (ZOLOFT) 50 mg tablet Take 50 mg by mouth once daily. 0 04/02/2022 Active Comment on above: Take 50 mg by mouth once daily. tamsulosin hydrochloride 0.4 mg oral capsule (14 sources) alpha-Adrenergic Alistair Start: 1 tamsulosin (FLOMAX) 0.4 mg 0.4 mg once daily. 0 03/25/2021 Active Start: 03-25-2021 take 1 capsule by [facility] twice daily tamsulosin 0.4 mg Cap 0.4 mg = 1 cap(s), Oral, BID, # 60 cap(s), Refills(s) 11, Pharmacy: [facility]/pharmacy #[id number], 173, cm, 07/11/21 10:47:00 EST, Height/Length [...] Translations: [Malignant neoplasm of prostate] Onset: 10-27-2021 Resolved: 11-13-2023 Chronic Cancer of prostate (3 sources) History of malignant neoplasm of prostate; Translations: [Personal history of malignant neoplasm of prostate] Onset: 04-08-2022 Episodic Coronary atherosclerosis and other heart disease (20 sources) Coronary arteriosclerosis; Translations: [Coronary atherosclerosis] Onset: 04-28-2021 02-13-2022 Chronic Diabetes mellitus without complication (6 sources) Prediabetes; Translations: [Prediabetes] Onset: 07-18-2022 02-13-2022 Episodic Disorders of lipid metabolism (16 sources) Hyperlipidemia; Translations: [Hyperlipidemia, unspecified] Onset: 03-12-2021 02-13-2022 Chronic Diverticulosis and diverticulitis (6 sources) Diverticula of intestine; Translations: [Diverticulosis of large intestine without perforation or abscess without bleeding] Onset: 03-20-2022 Chronic Essential hypertension (16 sources) Hypertensive disorder; Translations: [Essential hypertension] Onset: [...] Chronic Other nutritional; endocrine; and metabolic disorders (5 sources) Obese class I; Translations: [Obesity, unspecified] Onset: 11-03-2022 Chronic Other nutritional; endocrine; and metabolic disorders (4 sources) Unintentional weight loss 02-27-2022 Episodic Other screening for suspected conditions (not mental disorders or infectious disease) (16 sources) Abnormal renal function; Translations: [Raised prostate specific antigen] Onset: 02-08-2022 02-13-2022 Episodic Residual codes; unclassified (15 sources) Obstructive sleep apnea syndrome; Translations: [Obstructive [...] Onset: 03-20-2022 Episodic Other aftercare (1 source) group home (current) use of anticoagulants; Translations: [LONGTERM CURRNT USE ANTICOAGULANTS] Onset: 07-18-2022 Episodic Other aftercare (1 source) group home (current) use of aspirin; Translations: [INSIDE SALES 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9 kg Nestor Mckenzie MD 11/20/2023 1:37 PM Signed Radiation Oncology - Follow Up [...] cath. PSA HISTORY: PSA (ng/mL) Date Value 01/11/2021 1.80 PSA. (no units) Date Value 11/07/2023 0.48 04/26/2023 1.11 10/13/2022 1.03 04/06/2022 1.60 ALLERGIES No Known Allergies Potassium Citrate 15 mEq TbER Take 2 tablets by mouth every 12 hours. sertraline (ZOLOFT) 50 mg tablet Take 50 mg by mouth once daily. carvedilol (COREG) 12.5 mg tablet 12.5 mg. aspirin, enteric coated (ASPIRIN, ENTERIC COATED) 81 [...] Blood per rectum: none PHYSICAL EXAM: BP 128/79 Pulse 66 Resp 16 Wt 104.9 kg (231 lb 4.2 oz) SpO2 95% BMI 35.16 kg/m? KPS: 100 General appearance: Alert and oriented. No acute distress. Rectal exam def Extremities: No deformities, edema, skin discoloration, clubbing or cyanosis. 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 PSA stable. Plan to see patient back in one year. Patient has continued urologic follow-up with Dr. Kaplan. Signed by: Nestor Mckenzie MD cc: Ellen Barrera, LEAN MANUFACTURING SPECIALIST ([facility]) [address] [place] [address] Nafisa Chacon LPN 11/20/2023 1:37 PM Signed AUA=1 Referring Provider: Nestor MCKENZIE [[id number]] Allergies As of Date: 11/13/2023 (No Known Allergies) Date Reviewed: 11/13/2023 Reviewed by: Nafisa Chacon LPN - Fully Assessed Reason for Visit: Prostate Cancer [590] Primary Visit Diagnosis:Prostate cancer (HCC) [C61] Order(s):PSA (OUTSIDE) [5805375] Order #: [id number] PROSTATE-SPECIFIC ANTIGEN DIAGNOSTIC [SQPSA] Order #: [id number] FUTURE Prescriptions as of 11/20/2023 - Potassium Citrate 15 mEq TbER Take 2 tablets by mouth every 12 hours. - sertraline (ZOLOFT) 50 mg tablet Take 50 mg by mouth once daily. - carvedilol (COREG) 12.5 mg tablet 12.5 mg. - aspirin, enteric coated (ASPIRIN, ENTERIC COATED) [...] once daily. Problem List As Of Date 11/13/2023 Noted Resolved Prostate cancer (HCC) [C61] 10/27/2021 11/13/2023 Obstructive sleep apnea [G47.33] 02/07/2021 Hyperlipidemia, unspecified [E78.5] 03/12/2021 Essential (primary) hypertension [I10] 03/12/2021 Athscl heart disease of [place] coronary artery *04/28/2021 Obesity, Class I, BMI 30-34.9 [E66.9] 11/03/2022 Visit Notes: >> Nafisa ChaconJOSELUIS November 13, 2023 1:02 PM Status: Signed AUA=1 Disposition: Return in about 1 year (around 11/12/2024). Follow-up and Disposition History for Encounter Date Provider Department Center 11/13/2023 [id number] MCKENZIE Encounter Status:Closed by Nestor MCKENZIE on 11/20/23 Normal [facility] [place] PSA (OUTSIDE)on 11-07-2023 [facility] Consultation Noteon 06-12-20 Consultation Note [id number]#1.00TIFF Normal [facility] Lab Reportson 06-12-2023 Lab Reports [id number]#1.00TIFF Normal [facility] Formson 05-15-2023 Forms [id number]#1.00TIFF Normal [facility] CNOVon 05-03-2023 CNOV Office Visit (RADTSA ) ----- MARK DOUGLAS ([id number]) 1955 M Date Time Provider Department 05/03/23 [...] DIAGNOSIS: Prostate adenocarcinoma, initial PSA 5.4, biopsy Phillips score 3 + 4 = 7 (grade [...] ASSESSMENT/PLAN: Prostate adenocarcinoma, initial PSA 5.4, biopsy Phillips score 3 + 4 = 7 (grade [...] by: Nestor Mckenzie MD cc: Ellen Barrera, LEAN MANUFACTURING SPECIALIST ([facility]) [address] [place] [address] Referring Provider: Nestor MCKENZIE [[id number]] Allergies As of Date: 05/03/2023 (No Known Allergies) Date Reviewed: 05/03/2023 Reviewed by: Nafisa Chacon LPN - Fully Assessed Reason for Visit: Prostate Cancer [590] Primary Visit Diagnosis:Prostate cancer (HCC) [C61] Order(s):PSA (OUTSIDE) [0423022] Order #: [id number] PSA/PROSTSPECAG DIAG [SQPSA] Order #: [id number] FUTURE Prescriptions as of 05/08/2023 - Potassium [...] hypertension [I10] 03/12/2021 Athscl heart disease of [place] coronary artery *04/28/2021 Obesity, Class I, BMI 30-34.9 [E66.9] 11/03/2022 Visit Notes: >> Nafisa Chacon LPN [facility] May 03, 2023 2:12 PM Status: Signed AUA= 1 Disposition: Return in about 6 months (around 11/01/2023). Follow-up and Disposition History for Encounter Date Provider Department Center 05/03/2023 [id number], G PH (more content not included)... Normal [facility] Kimmy 04-25-2023 RODRICK Telephone (RADTSA) ----- MARK DOUGLAS ([id number]) 1955 M Date Time Provider Department 04/25/23 Nestor MCKENZIE During your visit today, we recorded the following information about you: Nafisa Chacon LPN 04/25/2023 10:39 AM Signed Please sign pended PSA order for upcoming appt. Fax order to [facility] per patient request. Nafisa Chacon RN Allergies As of Date: 04/25/2023 (No Known Allergies) Date Reviewed: 10/26/2022 Reviewed by: Elisa Frederick RN - Fully Assessed Reason for Visit: Orders [681] Primary Visit Diagnosis:History of prostate cancer [Z85.46] Order(s):PSA/PROSTSPECAG DIAG [SQPSA] Order #: [id number] FUTURE Prescriptions as of 04/25/2023 - sertraline [...] hypertension [I10] 03/12/2021 Athscl heart disease of [place] coronary artery *04/28/2021 Obesity, Class I, BMI 30-34.9 [E66.9] 11/03/2022 Encounter Status:Closed by Nestor MCKENZIE on 04/25/23 Normal [facility] 36on 11-27-2022 36 Okay from cardiology standpoint. Just need to make sure if he has SL nitroglycerin that he does not take both the same day. Normal [facility] 36 Ellen Barrera CNP (patient's PCP) called wanting to make sure it was ok from a cardiac standpoint that she start him on something for ED, like Cialis or Viagra. Please advise. Thanks. Normal [facility] Ambulatory Visit Summaryon 0 10-31-2022 Ambulatory Visit Summary MARK DOUGLAS :1955 Visit Date:10/31/2022 Ambulatory Visit Instructions Your Diagnosis Prostate cancer Kidney stones Hypocitraturia BPH with urinary obstruction Tests Performed Urnls Dip Stick Auto w/o Microscopy POC 09154 KUB -- Results Pending -- Please visit [...] JERI SANDERS PA-C Where: [facility] Patient Educationon 11-01-19 23 Patient Education Urology Kidney Stones Kidney stones [...] these instructions at home: Medicines ? Take ikec-iqh-hgausgw and prescription medicines only as told by [...] provider. Document Revised: 02/13/2022 Document Reviewed: 02/13/2022 [employer] Patient Education ? 2022 [employer] Chaim Chiu [facility] Urology Office/Clinic Noteon 10-31-2022 Urology Office/Clinic Note [...] BID, # 120 tab(s), Refills(s) 11, Pharmacy: [facility]/pharmacy #[id number], 173, cm, 10/31/22 8:58:00 EDT, Height/Length Dosing, 99, kg, 10/31/22 8:58:00 EDT, Weight Dosing E&M of Est. Patient Moderate 30-39 Min 91342 Urnls Dip Stick Auto w/o Microscopy POC 27862 2. Kidney stones (N20.0: Calculus of kidney) [...] BID, # 120 tab(s), Refills(s) 11, Pharmacy: [facility]/pharmacy #[id number], 173, cm, 10/31/22 8:58:00 EDT, Height/Length Dosing, 99, kg, 10/31/22 8:58:00 EDT, Weight Dosing E&M of Est. Patient Moderate 30-39 Min 89123 XR Abdomen 1 View 3. 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 started supplement. repeat metabolic work-up in 6 mos Ordered: potassium citrate, 30 mEq = 2 tab(s), Oral, BID, # 120 tab(s), Refills(s) 11, Pharmacy: [facility]/pharmacy #[id number], 173, cm, 10/31/22 8:58:00 EDT, Height/Length Dosing, 99, kg, 10/31/22 8:58:00 EDT, Weight Dosing E&M of Est. Patient Moderate 30-39 Min 10304 4. BPH with urinary obstruction (N40.1: Benign [...] BID, # 120 tab(s), Refills(s) 11, Pharmacy: [facility]/pharmacy #[id number], 173, cm, 10/31/22 8:58:00 EDT, Height/Length Dosing, 99, kg, 10/31/22 8:58:00 EDT, Weight Dosing E&M of Est. Patient Moderate 30-39 Min 20362 Orders: cephalexin, 500 mg = 1 cap(s), Oral, Daily, # 30 cap(s), Refills(s) 0, [id number], 173, cm, 04/24/22 12:06:00 EDT, Height/Length Dosing, 104, kg, 04/24/22 12:06:00 EDT, Weight Dosing f/u 6 mos w repeat metabolic workup, KUB, and PSA. Follow-up With When Contact Information MARILYN PAL, JERI Stone, URL Within 6 months [address] [place] [address] Business (1) Additional Instructions: Patient Education Kidney Stones, Rreh-eg-Mgrq Problem List/Past Medical History Ongoing Abnormal kidney [...] data Procedure/Surgic (more content not included)... Normal [facility] Comment on above: Result Comment: Elec tronically Signed By: MARILYN PAL, JERI Stone\.christina\Date and Time Signed: 10/31/22 09:50 EDT Lab Reportson 10-16-2022 Lab Reports [id number]#1.00CD:12 7 Normal [facility] Lab Reportson 10-09-2022 Lab Reports [id number]#1.00CD:12 7 Normal [facility] RAD - MISCon 09-19-2022 RAD - MISC [id number]#1.00CD:12 7 Normal [facility] CITRATE URINE 24HRon 023 Citric Acid, U, 24hr 138 mg/24 hr Critically low 320-1240 [facility] Comment on above: Result Comment: This test was developed and its performance characteristics determined by [employer]. It has not been cleared or approved by the Food and Drug Administration. Performed By: #### C [id number] #### [facility] [address] [address] [address] Aaron Gloria Citric Acid, Urine 80 mg/L Normal Undefined [facility] Comment on above: Performed By: #### C [id number] #### [facility] [address] [place], [place] [address] Dr. Aaron Gloria OXALATE 24HR URINEon 023 Oxalates, Urine 19 mg/L Normal Undefined [facility] Comment on above: Performed By: #### O X24HR #### [facility] [id number] Aaron Gloria Oxalates, Urine 24hr 33 mg/24 hr Normal 7-44 [facility] Comment on above: Performed By: #### O X24HR #### [facility] [address] [address] [address] Aaron Gloria MAGNESIUM 24HR URINEon 09-16 Magnesium 24hr Urine 122.5 mg/24 hr Normal 12.0-293.0 [facility] Comment on above: Performed By: #### M AG24 #### [facility] [address] [place] [address] Dr. Aaron Gloria Magnesium UR 7.1 mg/dL Normal Not Estab. The [facility] Comment on above: Performed By: #### M AG24 #### [facility] [address] [place] [address] Dr. Aaron Gloria PHOSPHORUS 24HR URINEon 08-24 Phosphorus, Urine 66.7 mg/dL Normal Not Estab. The [facility] Comment on above: Performed By: #### M AG24 #### [facility] [address] [place] [address] Dr. Aaron Gloria Phosphorus, Urine 24hr 1151 mg/24 hr Normal 390-1425 [facility] Comment on above: Performed By: #### M AG24 #### [facility] [address] [place] [address] Dr. Aaron Gloria PTH INTACTon 09-16-2022 PTH, Intact 35 pg/mL Normal 15-65 [facility] Comment on above: Performed By: #### P THINT #### [facility] [address] [place] [address] Dr. Aaron Gloria URIC ACID 24 HR URINEon 08-24 Uric Acid, Urine 39.5 mg/dL Normal Not Estab. The [facility] Comment on above: Performed By: #### U ZELDA 24 #### [facility] [address] [place] [address] Dr. Aaron Gloria Uric Acid, Urine 24hr 681.4 mg/24 hr Normal 182.4-936.8 [facility] Comment on above: Performed By: #### U ZELDA 24 #### [facility] [address] [place] [address] Dr. Aaron Gloria BUNon 09-15-2022 Urea nitrogen [Mass/Vol] 18.0 mg/dL Normal 7.0-18.0 [facility] Comment on above: Performed By: #### U ZELDA 24 #### [facility] [address] [place], [place] [address] Dr. Aaron Gloria CALCIUMon 09-15-2022 Calcium [Mass/Vol] 9.0 mg/dL Normal 8.5-10.1 [facility] Comment on above: Performed By: #### C BC #### [facility] [address] [place] [address] Dr. Aaron Gloria CALCIUM 24 HR URINEon 2022 CALC, 24 HR UR 131.1 mg/24 hr Normal 100.0-300.0 [facility] Comment on above: Performed By: #### C [id number] #### [facility] [address] [place] [address] Dr. Aaron Gloria UR CALCIUM 7.6 mg/dL Normal 5.1-21.0 [facility] Comment on above: Performed By: #### C [id number] #### [facility] [address] [place] [address] Dr. Aaron Gloria UR TOT VOL 1725 ml/24 HR Normal [facility] Comment on above: Performed By: #### C [id number] #### [facility] [address] [place] [address] Dr. Aaron Gloria Performed By: #### M AG24 #### [facility] [address] [place] [address] Dr. Aaron Gloria CHLORIDEon 09-15-2022 Chloride [Moles/Vol] 104 mmol/L Normal 98-107 [facility] Comment on above: Performed By: #### U ZELDA 24 #### [facility] [address] [place] [address] Dr. Aaron Gloria CO2on 09-15-2022 CO2 [Moles/Vol] 26.9 mmol/L Normal 21.0-32.0 [facility] Comment on above: Performed By: #### U ZELDA 24 #### [facility] [address] [place] [address] Dr. Aaron Gloria CREA 24 HR URINEon CREA, 24 HR UR 1749.67 mg/24 hr Normal 1,000.00- 2,0 00.00 [facility] Comment on above: Performed By: #### M AG24 #### [facility] [address] [address] [address] Aaron Gloria URINE CREAT 101.43 mg/dL Normal 20.00-300.00 [facility] Comment on above: Performed By: #### M AG24 #### [facility] [address] [address] [address] Aaron Gloria CREATININEon 09-15-2022 Creatinine [Mass/Vol] 1.08 mg/dL Normal 0.70-1.30 [facility] Comment on above: Performed By: #### U ZELDA 24 #### [facility] [address] [address] [address] Aaron Gloria EGFR-AF [place]LANDER >60 Normal >=60 [facility] Comment on above: Performed By: #### U ZELDA 24 #### [facility] [address] [address] [address] Aaron Gloria EGFR-NON AF [place] >60 Normal >=60 [facility] Comment on above: Performed By: #### U ZELDA 24 #### [facility] [address] [address] [address] Aaron Gloria NAon 09-15-2022 Sodium [Moles/Vol] 138 mmol/L Normal 136-145 [facility] Comment on above: Performed By: #### C BC #### [facility] [address] [address] [address] Aaron Gloria POTASSIUMon 09-15-2022 Potassium [Moles/Vol] 4.4 mmol/L Normal 3.5-5.1 [facility] Comment on above: Performed By: #### U ZELDA 24 #### [facility] [address] [address] [address] Aaron Gloria SODIUM 24 HR URINEon 023 NA, 24 HR UR 217 mmol/24 hr Normal 40-220 [facility] Comment on above: Performed By: #### M AG24 #### [facility] [address] [address] [address] Aaron Gloria Sodium (U) [Moles/Vol] 126 mmol/L Critically high 30-90 [facility] Comment on above: Performed By: #### M AG24 #### [facility] [address] [address] [address] Aaron Gloria URIC ACID SERUMon 09-15-2022 Urate [Mass/Vol] 7.4 mg/dL Critically high 3.5-7.2 [facility] Comment on above: Performed By: #### C BC #### [facility] [address] [address] [address] Aaron Gloria LIPID PROFILEon 09-13-2022 CHOL-HDL RATIO NORM SEE BELOW Normal [facility] Comment on above: Result Comment: 3.3 - 4.4 LOW RISK 4.4 - 7.1 AVERAGE RISK 7.1 - 11.0 MODERATE RISK >11.0 HIGH RISK Performed By: #### C [id number] #### [facility] [address] [place] [address] Dr. Aaron Gloria Cholesterol [Mass/Vol] 149 mg/dL Normal <=200 [facility] Comment on above: Performed By: #### C [id number] #### [facility] [address] [address] [address] Aaron Gloria Cholesterol in HDL [Mass/Vol] 44 mg/dL Normal 40-60 [facility] Comment on above: Performed By: #### C [id number] #### [facility] [address] [address] [address] Aaron Gloria Cholesterol in LDL [Mass/Vol] 71.8 mg/dL Normal [facility] Comment on above: Performed By: #### C [id number] #### [facility] [address] [address] [address] Aaron Gloria Cholesterol.total/C holesterol in HDL [Mass ratio] 3.4 {ratio} Normal [facility] Comment on above: Performed By: #### C [id number] #### [facility] [address] [address] [address] Aaron Gloria HDL NORMAL > or = 60 mg/dl - LO W CARDIOVASCULAR RISK <40 mg/dl - HIGH CARDIOVASCULAR RISK Normal [facility] Comment on above: Performed By: #### C [id number] #### [facility] [address] [place] [address] Dr. Aaron Gloria LDL CALC NORMAL SEE BELOW Normal [facility] Comment on above: Result Comment: <100 mg/dl OPTIMAL 100 - 129 mg/dl NEAR OR ABOVE OPTIMAL 130 - 159 mg/dl BORDERLINE HIGH 160 - 189 mg/dl HIGH >190 mg/dl VERY HIGH Performed By: #### C [id number] #### [facility] [address] [address] [address] Aaron Gloria Triglyceride [Mass/Vol] 166 mg/dL Critically high <=150 [facility] Comment on above: Performed By: #### C [id number] #### [facility] [address] [place] [address] Dr. Aaron Gloria VLDL CALC 33.2 mg/dL Normal [facility] Comment on above: Performed By: #### C [id number] #### [facility] [address] [place] [address] Dr. Aaron Gloria PROF 14(COMP METB)on 023 Albumin [Mass/Vol] 3.8 g/dL Normal 3.4-5.0 [facility] Comment on above: Performed By: #### C [id number] #### [facility] [address] [place] [address] Dr. Aaron Gloria Albumin/Globulin [Mass ratio] 1.0 {ratio} Normal [facility] Comment on above: Performed By: #### C [id number] #### [facility] [address] [place] [address] Dr. Aaron Gloria ALP [Catalytic activity/Vol] 65 U/L Normal 46-116 [facility] Comment on above: Performed By: #### C [id number] #### [facility] [address] [place] [address] Dr. Aaron Gloria ALT [Catalytic activity/Vol] 26 U/L Normal 16-63 [facility] Comment on above: Performed By: #### C [id number] #### [facility] [address] [place] [address] Dr. Aaron Gloria Anion gap [Moles/Vol] 14.0 mmol/L Normal [facility] Comment on above: Performed By: #### C [id number] #### [facility] [address] [place] [address] Dr. Aaron Gloria AST [Catalytic activity/Vol] 16 U/L Normal 15-37 [facility] Comment on above: Performed By: #### C [id number] #### [facility] [address] [place] [address] Dr. Aaron Gloria Bilirubin [Mass/Vol] 0.4 mg/dL Normal 0.2-1.0 [facility] Comment on above: Performed By: #### C [id number] #### [facility] [address] [place] [address] Dr. Aaron Gloria Calcium [Mass/Vol] 9.0 mg/dL Normal 8.5-10.1 [facility] Comment on above: Performed By: #### C [id number] #### [facility] [address] [place] [address] Dr. Aaron Gloria Chloride [Moles/Vol] 104 mmol/L Normal 98-107 [facility] Comment on above: Performed By: #### C [id number] #### [facility] [address] [place] [address] Dr. Aaron Gloria CO2 [Moles/Vol] 27.1 mmol/L Normal 21.0-32.0 [facility] Comment on above: Performed By: #### C [id number] #### [facility] [address] [place] [address] Dr. Aaron Gloria Creatinine [Mass/Vol] 1.08 mg/dL Normal 0.70-1.30 [facility] Comment on above: Performed By: #### C [id number] #### [facility] [address] [place] [address] Dr. Aaron Gloria EGFR-AF [place] >60 Normal >=60 [facility] Comment on above: Performed By: #### C [id number] #### [facility] [address] [place] [address] Dr. Aaron Gloria EGFR-NON AF [place] >60 Normal >=60 [facility] Comment on above: Performed By: #### C [id number] #### [facility] [address] [place] [address] Dr. Aaron Gloria Globulin (S) [Mass/Vol] 3.7 g/dL Normal [facility] Comment on above: Performed By: #### C [id number] #### [facility] [address] [place] [address] Dr. Aaron Gloria Glucose [Mass/Vol] 121 mg/dL Critically high 74-106 [facility] Comment on above: Performed By: #### C [id number] #### [facility] [address] [place] [address] Dr. Aaron Gloria Potassium [Moles/Vol] 4.1 mmol/L Normal 3.5-5.1 [facility] Comment on above: Performed By: #### C [id number] #### [facility] [address] [place] [address] Dr. Aaron Gloria Protein [Mass/Vol] 7.5 g/dL Normal 6.4-8.2 [facility] Comment on above: Performed By: #### C [id number] #### [facility] [address] [place] [address] Dr. Aaron Gloria Sodium [Moles/Vol] 141 mmol/L Normal 136-145 [facility] Comment on above: Performed By: #### C [id number] #### [facility] [address] [place] [address] Dr. Aaron Gloria Urea nitrogen [Mass/Vol] 17.0 mg/dL Normal 7.0-18.0 [facility] Comment on above: Performed By: #### C [id number] #### [facility] [address] [place] [address] Dr. Aaron Gloria Urea nitrogen/Creatinine [Mass ratio] 15.7 mg/mg Normal [facility] Comment on above: Performed By: #### C [id number] #### [facility] [address] [place] [address] Dr. Aaron Gloria XR KUB 1 VIEWon 03-22-2023 XR KUB 1 VIEW EXAMINATION: XR KUB [...] TAN Date: 2022-09-13 09:06 Normal [facility] Operative Reporton Operative Report [id number]:12 7 Normal [facility] Office Visiton 08-15-2022 Follow-up visit [id number] Harman Douglas 1955 M Date Provider Department Center 08/15/2022 MUKUND NUNEZ [facility] Family History Problem Relation Age of Onset Heart attack Mother 37 Coronary artery disease Mother Coronary artery disease Father 65 Coronary artery disease Brother Family Status - Relation Status Age at Mother Father Brother Level of Service:06067 ME OFFICE/OUTPATIENT ESTABLISHED LOW MDM 20-29 MIN Reason for Visit and Comments: Coronary Artery Disease [187] Hypertension [410078] Hyperlipidemia [182] Normal [facility] RAD - MISCon 08-08-2022 RAD - MISC [id number]:12 7 Normal [facility] Consent for Procedure/Surger yon 07-31-2022 Consent for Procedure/Surgery [id number]:12 7 Normal [facility] XR KUB 1 VIEWon 07-25-2022 XR KUB [...] TAN Date: 2022-07-25 08:21 Normal [facility] Reminderson 07-20-2022 Reminders - From: [...] Results Pt will be having KUB @ [facility] sometime between 07/20/2022 and 07/27/2022 ( ) Other: PROVIDER RELATED 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 Aaron Gloria Ammonium Acid Urate Normal [facility] Comment on above: Performed By: #### P THINT #### [facility] [address] [address] [address] Aaron Gloria Bilirubin Ql (U) Normal [facility] Comment on above: Performed By: #### P THINT #### [facility] [address] [address] [address] Aaron Gloria Ca Oxalate Dihydrate Normal [facility] Comment on above: Performed By: #### P THINT #### [facility] [address] [address] [address] Aaron Gloria CaHPO4 (Brushite) Normal [facility] Comment on above: Performed By: #### P THINT #### [facility] [address] [address] [address] Aaron Gloria Calcium Bilirubinate Normal [facility] Comment on above: Performed By: #### P THINT #### [facility] [address] [address] [address] Aaron Gloria Calcium Carbonate Normal [facility] Comment on above: Performed By: #### P THINT #### [facility] [address] [address] [address] Aaron Gloria Calcium Oxalate Monohydrate 60 % [facility] Comment on above: Performed By: #### P THINT #### [facility] [address] [address] [address] Aaron Gloria Calcium Palmitate [facility] Comment on above: Performed By: #### P THINT #### [facility] [address] [address] [address] Aaron Gloria Calcium Phosphate [facility] Comment on above: Performed By: #### P THINT #### [facility] [address] [address] [address] Aaron Gloria Calcium Stearate [facility] Comment on above: Performed By: #### P THINT #### [facility] [address] [address] [address] Aaron Gloria Carbonate Apatite [facility] Comment on above: Performed By: #### P THINT #### [facility] [address] [address] [address] Aaron Gloria Cellular Material [facility] Comment on above: Performed By: #### P THINT #### [facility] [address] [address] [address] Aaron Gloria Cholesterol [facility] Comment on above: Performed By: #### P THINT #### [facility] [address] [address] [address] Aaron Gloria Color (U) Brown Normal [facility] Comment on above: Performed By: #### P THINT #### [facility] [address] [address] [address] Aaron Gloria Comment Normal [facility] Comment on above: Performed By: #### P THINT #### [facility] [address] [address] [address] Aaron Gloria Comment Comment Normal [facility] Comment on above: Result Comment: Calc ulus received wet. Wet calculi must be dried before analysis, which delays reporting of results. Leaving calculi wet (such as water, saline, blood, urine) may lead to changes in composition. Performed By: #### P THINT #### [facility] [address] [address] [address] Aaron Gloria Comment: Comment Normal [facility] Comment on above: Result Comment: Zurdo cunhaan questions regarding Calculi Analysis contact [employer] at: [phone]. Performed By: #### P THINT #### [facility] [address] [place] [address] Dr. Aaron Gloria Composition Comment [facility] Comment on above: Result Comment: Perc entage (Represents the % composition) Performed By: #### P THINT #### [facility] [address] [address] [address] Aaron Gloria Cystine Normal [facility] Comment on above: Performed By: #### P THINT #### [facility] [address] [address] [address] Aaron Gloria Disclaimer: Comment Normal [facility] Comment on above: Result Comment: This test was developed and its performance characteristics determined by [facility]. It has not been cleared or approved by the Food and Drug Administration. Performed By: #### P THINT #### [facility] [address] [address] [address] Aaron Gloria Dried Blood Normal [facility] Comment on above: Performed By: #### P THINT #### [facility] [address] [place] [address] Dr. Aaron Gloria Drug or Metabolite Normal [facility] Comment on above: Performed By: #### P THINT #### [facility] [address] [address] [address] Aaron Gloria Hydroxyapatite Normal [facility] Comment on above: Performed By: #### P THINT #### [facility] [address] [address] [address] Aaron Gloria Mg NH4 PO4 (Struvite) [facility] Comment on above: Performed By: #### P THINT #### [facility] [address] [address] [address] Aaron Gloria MgHPO4 (Newberyite) Normal [facility] Comment on above: Performed By: #### P THINT #### [facility] [address] [address] [address] Aaron Gloria Other component(s) Normal [facility] Comment on above: Performed By: #### P THINT #### [facility] [address] [address] [address] Aaron Gloria PDF . Normal [facility] Comment on above: Performed By: #### P THINT #### [facility] [address] [address] [address] Aaron Gloria Photo Comment [facility] Comment on above: Result Comment: Phot ograph will follow under a separate cover Performed By: #### P THINT #### [facility] [address] [address] [address] Aaron Gloria Please note: Comment Normal [facility] Comment on above: Result Comment: Calc jeffery report will follow via computer, mail or slabber light delivery. Performed By: #### P THINT #### [facility] [address] [address] [address] Aaron Gloria Size 3x4 [facility] Comment on above: Result Comment: Mult iple pieces received. Dimensions of the largest piece reported. Performed By: #### P THINT #### [facility] [address] [address] [address] Aaron Gloria Sodium Acid Urate Normal [facility] Comment on above: Performed By: #### P THINT #### [facility] [address] [address] [address] Aaron Gloria Source Comment Normal [facility] Comment on above: Result Comment: Left Ureter Performed By: #### P THINT #### [facility] [address] [address] [address] Aaron Glroia Triamterene [facility] Comment on above: Performed By: #### P THINT #### [facility] [address] [address] [address] Aaron Gloria Uric Acid 40 % Normal [facility] Comment on above: Performed By: #### P THINT #### [facility] [address] [address] [address] Aaron Gloria Uric Acid Dihydrate Normal [facility] Comment on above: Performed By: #### P THINT #### [facility] [address] [place] [address] Dr. Aaron Gloria Weight 44 mg [facility] Comment on above: Performed By: #### P THINT #### [facility] [address] [address] [address] Aaron Gloria Xanthine [facility] Comment on above: Performed By: #### P THINT #### [facility] [address] [address] [address] Aaron Gloria Operative Reporton Operative Report [id number]:12 7 Normal [facility] Lab Reportson 07-13-2022 Lab Reports [id number]:12 7 Normal [facility] Covid-19 PCR (CVDTBH)on 06-25 SARS-CoV-2 (COVID-19) RNA LAKISHA+probe Ql (Unsp spec) Not detected Normal NOT DETECTED [facility] Comment on above: Result Comment: This test is not yet approved or cleared by the [place] FDA. When there are no FDA-approved or cleared tests available, and other criteria are met, FDA can make tests available under an emergency access mechanism called an Emergency Use Authorization (EUA). The EUA for this test is supported by the [place] of Health and Human Service's (HHS's) declaration [...] SARS-CoV-2. Performed By: #### C VDTB #### [facility] [address] [place] [address] Dr. Aaron Gloria Lab Reportson 07-10-2022 Lab Reports [id number]:12 7 Normal [facility] CBC AUTO DIFFon 07-03-2022 BASO # 0.1 103/ul Normal 0.0-0.1 [facility] Comment on above: Performed By: #### P THINT #### [facility] [address] [place] [address] Dr. Aaron Gloria Basophils/100 WBC (Bld) 1.2 % Normal 0.2-2.0 [facility] Comment on above: Performed By: #### P THINT #### [facility] [address] [place] [address] Dr. Aaron Gloria EO # 0.2 103/ul Normal 0.0-0.7 [facility] Comment on above: Performed By: #### P THINT #### [facility] [address] [place] [address] Dr. Aaron Gloria Eosinophils/100 WBC (Bld) 1.7 % Normal 0.9-7.0 [facility] Comment on above: Performed By: #### P THINT #### [facility] [address] [place] [address] Dr. Aaron Gloria Erythrocyte distribution width (RBC) [Ratio] 13.5 % Normal 11.0-15.0 [facility] Comment on above: Performed By: #### P THINT #### [facility] [address] [address] [address] Aaron Gloria Hematocrit (Bld) [Volume fraction] 39.7 % Critically low 42.0-54.0 [facility] Comment on above: Performed By: #### P THINT #### [facility] [address] [place] [address] Dr. Aaron Gloria Hemoglobin (Bld) [Mass/Vol] 13.8 g/dL Critically low 14.0-18.0 [facility] Comment on above: Performed By: #### P THINT #### [facility] [address] [place] [address] Dr. Aaron Gloria IG # 0.22 10e3/ul Critically high 0.00-0.03 [facility] Comment on above: Performed By: #### P THINT #### [facility] [address] [place] [address] Dr. Aaron Gloria IG % 1.9 % Critically high 0.0-0.5 [facility] Comment on above: Performed By: #### P THINT #### [facility] [address] [place] [address] Dr. Aaron Gloria LYMPH # 2.8 103/ul Normal 1.2-3.8 [facility] Comment on above: Performed By: #### P THINT #### [facility] [address] [place] [address] Dr. Aaron Gloria Lymphocytes/100 WBC (Bld) 24.4 % Normal 20.5-60.0 [facility] Comment on above: Performed By: #### P THINT #### [facility] [address] [place] [address] Dr. Aaron Gloria MANUAL DIFF REQ NO Normal [facility] Comment on above: Performed By: #### P THINT #### [facility] [address] [place] [address] Dr. Aaron Gloria MCH (RBC) [Entitic mass] 28.4 pg Normal 25.9-34.0 [facility] Comment on above: Performed By: #### P THINT #### [facility] [address] [address] [address] Aaron Gloria MCHC (RBC) [Mass/Vol] 34.8 g/dL Normal 29.9-35.2 [facility] Comment on above: Performed By: #### P THINT #### [facility] [address] [address] [address] Aaron Gloria MCV (RBC) [Entitic vol] 81.7 fL Normal 80.0-94.0 [facility] Comment on above: Performed By: #### P THINT #### [facility] [address] [address] [address] Araon Gloria MONO # 0.7 103/ul Normal 0.3-0.8 [facility] Comment on above: Performed By: #### P THINT #### [facility] [address] [address] [address] Aaron Gloria Monocytes/100 WBC (Bld) 6.2 % Normal 1.7-12.0 [facility] Comment on above: Performed By: #### P THINT #### [facility] [address] [place] [address] Dr. Aaron Gloria NEUT # 7.5 103/ul Critically high 1.4-6.5 [facility] Comment on above: Performed By: #### P THINT #### [facility] [address] [address] [address] Aaron Gloria Neutrophils/100 WBC (Bld) 64.6 % Normal 43.0-75.0 [facility] Comment on above: Performed By: #### P THINT #### [facility] [address] [address] [address] Aaron Gloria Platelet mean volume (Bld) [Entitic vol] 8.4 fL Critically low 9.5-13.5 [facility] Comment on above: Performed By: #### P THINT #### [facility] [address] [address] [address] Aaron Gloria PLT 565 103/ul Critically high 150-450 [facility] Comment on above: Performed By: #### P THINT #### [facility] [address] [address] [address] Aaron Gloria RBC 4.86 106/ul Normal 4.70-6.10 [facility] Comment on above: Performed By: #### P THINT #### [facility] [address] [address] [address] Aaron Gloria WBC 11.6 103/ul Critically high 4.0-11.0 [facility] Comment on above: Performed By: #### P THINT #### [facility] [address] [address] [address] Aaron Gloria PROF CHEM 8 (BAS METB)on Anion gap [Moles/Vol] 10.8 mmol/L Normal [facility] Comment on above: Performed By: #### C BC #### [facility] [address] [place] [address] Dr. Aaron Gloria Calcium [Mass/Vol] 9.5 mg/dL Normal 8.5-10.1 [facility] Comment on above: Performed By: #### C BC #### [facility] [address] [place] [address] Dr. Aaron Gloria Chloride [Moles/Vol] 102 mmol/L Normal 98-107 [facility] Comment on above: Performed By: #### C BC #### [facility] [address] [address] [address] Aaron Gloria CO2 [Moles/Vol] 30.9 mmol/L Normal 21.0-32.0 [facility] Comment on above: Performed By: #### C BC #### [facility] [address] [place] [address] Dr. Aaron Gloria Creatinine [Mass/Vol] 1.26 mg/dL Normal 0.70-1.30 [facility] Comment on above: Performed By: #### C BC #### [facility] [address] [place] [address] Dr. Aaron Gloria EGFR-AF [place] >60 Normal >=60 [facility] Comment on above: Performed By: #### C BC #### [facility] [address] [address] [address] Aaron Gloria EGFR-NON AF [place] 57 mL/min/1.73m2 Critically low >=60 [facility] Comment on above: Performed By: #### C BC #### [facility] [address] [address] [address] Aaron Gloria Glucose [Mass/Vol] 116 mg/dL Critically high 74-106 [facility] Comment on above: Performed By: #### C BC #### [facility] [address] [address] [address] Aaron Gloria Potassium [Moles/Vol] 4.7 mmol/L Normal 3.5-5.1 [facility] Comment on above: Performed By: #### C BC #### [facility] [address] [address] [address] Aaron Gloria Sodium [Moles/Vol] 139 mmol/L Normal 136-145 [facility] Comment on above: Performed By: #### C BC #### [facility] [address] [address] [address] Aaron Gloria Urea nitrogen [Mass/Vol] 14.0 mg/dL Normal 7.0-18.0 [facility] Comment on above: Performed By: #### C BC #### [facility] [address] [address] [address] Aaron Gloria Urea nitrogen/Creatinine [Mass ratio] 11.1 mg/mg Normal [facility] Comment on above: Performed By: #### C BC #### [facility] [address] [address] [address] Aaron Gloria PROTIMEon 07-03-2022 INR Coag (PPP) [Relative time] 1.01 {INR} Normal [facility] Comment on above: Performed By: #### U ZELDA 24 #### [facility] [address] [address] [address] Aaron Gloria INR GUIDELINES SEE BELOW Normal [facility] Comment on above: Result Comment: JIGAR RED INR: 2.0 - 3.0 CONDITIONS NOT LISTED BELOW 2.5 - 3.5 FOR PROSTHETIC HEART VALVE REPLACEMENT 2.5 - 3.5 RECURRENT THROMBOSIS Performed By: #### U ZELDA 24 #### [facility] [address] [place] [address] Dr. Aaron Gloria PT Coag (PPP) [Time] 10.9 s Normal 9.0-11.6 [facility] Comment on above: Performed By: #### U ZELDA 24 #### [facility] [address] [place] [address] Dr. Aaron Gloria PTTon 07-03-2022 aPTT Coag (Bld) [Time] 28.5 s Normal 22.3-36.2 [facility] Comment on above: Performed By: #### U ZELDA 24 #### [facility] [address] [place] [address] Dr. Aaron Gloria Consent for Procedure/Surger yon 06-14-2022 Consent for Procedure/Surgery [id number] Normal [facility] XR KUB 1 VIEWon 05-25-2022 XR KUB [...] CHAI BRAMBILA Date: 2022-05-25 08:22 Normal [facility] Covid-19 PCR (CVDTBH)on 04-26 SARS-CoV-2 (COVID-19) RNA LAKISHA+probe Ql (Unsp spec) Not detected Normal NOT DETECTED [facility] Comment on above: Result Comment: This test is not yet approved or cleared by the [place] FDA. When there are no FDA-approved or cleared tests available, and other criteria are met, FDA can make tests available under an emergency access mechanism called an Emergency Use Authorization (EUA). The EUA for this test is supported by the [place] of Health and Human Service's (HHS's) declaration [...] SARS-CoV-2. Performed By: #### C [id number] #### [facility] [address] [place] [address] Dr. Aaron Gloria CBC AUTO DIFFon 05-15-2022 BASO # 0.1 103/ul Normal 0.0-0.1 [facility] Comment on above: Performed By: #### C BC #### [facility] [address] [place] [address] Dr. Aaron Gloria Basophils/100 WBC (Bld) 1.3 % Normal 0.2-2.0 [facility] Comment on above: Performed By: #### C BC #### [facility] [address] [place] [address] Dr. Aaron Gloria EO # 0.3 103/ul Normal 0.0-0.7 [facility] Comment on above: Performed By: #### C BC #### [facility] [address] [place] [address] Dr. Aaron Gloria Eosinophils/100 WBC (Bld) 3.0 % Normal 0.9-7.0 [facility] Comment on above: Performed By: #### C BC #### [facility] [address] [place] [address] Dr. Aaron Gloria Erythrocyte distribution width (RBC) [Ratio] 14.6 % Normal 11.0-15.0 [facility] Comment on above: Performed By: #### C BC #### [facility] [address] [address] [address] Aaron Gloria Hematocrit (Bld) [Volume fraction] 41.3 % Critically low 42.0-54.0 [facility] Comment on above: Performed By: #### C BC #### [facility] [address] [place] [address] Dr. Aaron Gloria Hemoglobin (Bld) [Mass/Vol] 13.7 g/dL Critically low 14.0-18.0 [facility] Comment on above: Performed By: #### C BC #### [facility] [address] [place] [address] Dr. Aaron Gloria IG # 0.16 10e3/ul Critically high 0.00-0.03 [facility] Comment on above: Performed By: #### C BC #### [facility] [address] [place] [address] Dr. Aaron Gloria IG % 1.5 % Critically high 0.0-0.5 [facility] Comment on above: Performed By: #### C BC #### [facility] [address] [place] [address] Dr. Aaron Gloria LYMPH # 2.3 103/ul Normal 1.2-3.8 [facility] Comment on above: Performed By: #### C BC #### [facility] [address] [place] [address] Dr. Aaron Gloria Lymphocytes/100 WBC (Bld) 21.7 % Normal 20.5-60.0 [facility] Comment on above: Performed By: #### C BC #### [facility] [address] [place] [address] Dr. Aaron Gloria MANUAL DIFF REQ NO Normal [facility] Comment on above: Performed By: #### C BC #### [facility] [address] [place] [address] Dr. Aaron Gloria MCH (RBC) [Entitic mass] 28.0 pg Normal 25.9-34.0 [facility] Comment on above: Performed By: #### C BC #### [facility] [address] [address] [address] Aaron Gloria MCHC (RBC) [Mass/Vol] 33.2 g/dL Normal 29.9-35.2 [facility] Comment on above: Performed By: #### C BC #### [facility] [address] [address] [address] Aaron Gloria MCV (RBC) [Entitic vol] 84.3 fL Normal 80.0-94.0 [facility] Comment on above: Performed By: #### C BC #### [facility] [address] [address] [address] Aaron Gloria MONO # 0.9 103/ul Critically high 0.3-0.8 [facility] Comment on above: Performed By: #### C BC #### [facility] [address] [place] [address] Dr. Aaron Gloria Monocytes/100 WBC (Bld) 8.4 % Normal 1.7-12.0 [facility] Comment on above: Performed By: #### C BC #### [facility] [address] [place] [address] Dr. Aaron Gloria NEUT # 6.7 103/ul Critically high 1.4-6.5 [facility] Comment on above: Performed By: #### C BC #### [facility] [address] [place] [address] Dr. Aaron Gloria Neutrophils/100 WBC (Bld) 64.1 % Normal 43.0-75.0 [facility] Comment on above: Performed By: #### C BC #### [facility] [address] [address] [address] Aaron Gloria Platelet mean volume (Bld) [Entitic vol] 9.2 fL Critically low 9.5-13.5 [facility] Comment on above: Performed By: #### C BC #### [facility] [address] [place] [address] Dr. Aaron Gloria PLT 423 103/ul Normal 150-450 [facility] Comment on above: Performed By: #### C BC #### [facility] [address] [address] [address] Aaron Gloria RBC 4.90 106/ul Normal 4.70-6.10 [facility] Comment on above: Performed By: #### C BC #### [facility] [address] [address] [address] Aaron Gloria WBC 10.4 103/ul Normal 4.0-11.0 [facility] Comment on above: Performed By: #### C BC #### [facility] [address] [place] [address] Dr. Aaron Gloria PROF CHEM 8 (BAS METB)on Anion gap [Moles/Vol] 11.3 mmol/L Normal [facility] Comment on above: Performed By: #### B MP #### [facility] [address] [place] [address] Dr. Aaron Gloria Calcium [Mass/Vol] 9.2 mg/dL Normal 8.5-10.1 [facility] Comment on above: Performed By: #### B MP #### [facility] [address] [place] [address] Dr. Aaron Gloria Chloride [Moles/Vol] 104 mmol/L Normal 98-107 [facility] Comment on above: Performed By: #### B MP #### [facility] [address] [place] [address] Dr. Aaron Gloria CO2 [Moles/Vol] 27.9 mmol/L Normal 21.0-32.0 [facility] Comment on above: Performed By: #### B MP #### [facility] [address] [place] [address] Dr. Aaron Gloria Creatinine [Mass/Vol] 1.31 mg/dL Critically high 0.70-1.30 [facility] Comment on above: Performed By: #### B MP #### [facility] [address] [place] [address] Dr. Aaron Gloria EGFR-AF [place] >60 Normal >=60 [facility] Comment on above: Performed By: #### B MP #### [facility] [address] [address] [address] Aaron Gloria EGFR-NON AF [place] 55 mL/min/1.73m2 Critically low >=60 [facility] Comment on above: Performed By: #### B MP #### [facility] [address] [address] [address] Aaron Gloria Glucose [Mass/Vol] 111 mg/dL Critically high 74-106 [facility] Comment on above: Performed By: #### B MP #### [facility] [address] [address] [address] Aaron Gloria Potassium [Moles/Vol] 4.2 mmol/L Normal 3.5-5.1 [facility] Comment on above: Performed By: #### B MP #### [facility] [address] [address] [address] Aaron Gloria Sodium [Moles/Vol] 139 mmol/L Normal 136-145 [facility] Comment on above: Performed By: #### B MP #### [facility] [address] [address] [address] Aaron Gloria Urea nitrogen [Mass/Vol] 15.0 mg/dL Normal 7.0-18.0 [facility] Comment on above: Performed By: #### B MP #### [facility] [address] [address] [address] Aaron Gloria Urea nitrogen/Creatinine [Mass ratio] 11.5 mg/mg Normal [facility] Comment on above: Performed By: #### B MP #### [facility] [address] [address] [address] Aaron Gloria PROTIMEon 05-15-2022 INR Coag (PPP) [Relative time] 1.03 {INR} Normal [facility] Comment on above: Performed By: #### M AG24 #### [facility] [address] [address] [address] Aaron Gloria INR GUIDELINES SEE BELOW Normal [facility] Comment on above: Result Comment: JIGAR RED INR: 2.0 - 3.0 CONDITIONS NOT LISTED BELOW 2.5 - 3.5 FOR PROSTHETIC HEART VALVE REPLACEMENT 2.5 - 3.5 RECURRENT THROMBOSIS Performed By: #### M AG24 #### [facility] [address] [address] [address] Aaron Gloria PT Coag (PPP) [Time] 11.1 s Normal 9.0-11.6 [facility] Comment on above: Performed By: #### M AG24 #### [facility] [id number] Aaron Gloria PTTon 05-15-2022 aPTT Coag (Bld) [Time] 27.5 s Normal 22.3-36.2 [facility] Comment on above: Performed By: #### M AG24 #### [facility] [address] [address] [address] Aaron Gloria SURGICAL PATHOLOGYon Case Report Surgical Pathology R eport Case: [id number] Authorizing Provider: Chai Palma MD Collected: 04/25/2022 03:25 PM Ordering Location: Procedures Received: 04/25/2022 04:06 PM Pathologist: Sree Shanks MD Specimen: SIGMOID COLON POLYP [facility] FINAL DIAGNOSIS Sigmoid colon, polypectomy: - Tubular adenoma. [facility] Gross Description A. SIGMOID COLON CLIFTON YP Received in formalin is an irregular segment of simeon-red polypoid tissue measuring 1.8 x 1.5 x 0.9 cm. A stalk is present measuring 0.6 cm in length. The specimen is bisected. Totally submitted in one cassette. Gross examination performed at [facility], [facility] [id number] FFS 04/25/2022 9:02 PM [facility] Performing Lab Diagnostic interpret ation performed at [facility], [address] [id number] CLIA# [id number] Autographer: Brain Blank M.D. [facility] ANES POSTPROC EVALon ANES POSTPROC EVAL HNO ID: [id number] Author: Eric Jameson MD Service: ? Author [...] Jameson MD; Lima Green, RN; [place] APRN.SENIOR WINDOWS ENGINEER Responsible Provider: Eric Jameson MD Anesthesia [...] April 25, 2022 TIME: 4:29 PM CSN: [id number] [facility] ANES PRE-OPon 04-25-2022 ANES PRE-OP HNO ID: [id number] Author: Eric Jameson MD Service: ? Author Type: Physician Type: Anesthesia Preprocedure Evaluation Filed: 04/25/2022 2:28 PM Note Text: ANESTHESIOLOGY DAY OF SURGERY NOTE : 1955 Procedure Information Date/Time: 04/25/22 1445 Scheduled providers: Chai Palma MD; Eric Jameson MD; Lima Green, ANNA; [place] APRN.SENIOR WINDOWS ENGINEER Procedure: COLONOSCOPY SCREENING Location: Procedures Estimated body mass index is 32.69 kg/m? as calculated from the following: Height as of 04/14/22: 172.7 cm (5' 8 ). Weight as of this encounter: 97.5 kg (215 lb). Most recent hematocrit and potassium results: No results found for this basename: HCT,HEMATOCRIT,K,POTASSIU M Relevant Problems ANESTHESIA (+) Obstructive sleep apnea CARDIO (+) Athscl heart disease of [place] coronary artery w/o ang pctrs (+) Essential [...] and consent discussed: yes. Patient / Responsible Alliance Party agrees to proceed: yes Patient / [...] April 25, 2022 TIME: 2:27 PM CSN: [id number] Normal [facility] COLONOSCOPY SCREENINGon [facility] Colonoscopyon 04-25-2022 Colonoscopy [facility] Gastrointestinal Endoscopy Patient Name: Mark Douglas Procedure Date: 04/25/2022 3:13 PM Date of : 1955 Admit Type: Outpatient Age: 66 Room: [address] [address] Gender: Male Note Status: Finalized Attending MD: [...] the patient. Procedure Code(s): --- Professional --- 26100, 52, Colonoscopy, flexible; with removal of tumor(s), polyp(s), or other lesion(s) by snare technique 04300, 52, Colonoscopy, flexible; with directed submucosal injection(s), any substance CPT copyright 2020 [employer]. All rights reserved. The codes documented in this report are preliminary and upon guide cruise review may be revised to meet current compliance requirements. Attending Participation: I personally performed the entire procedure. Scope In: 3:22:00 PM Scope Out: 3:41:36 PM MD Chai Sargent MD 04/25/2022 3:45:50 PM This report has been signed electronically by Chai Palma MD Number of Addenda: 0 Note Initiated On: 04/25/2022 3:13 PM Estimated Blood Loss: Estimated blood loss was minimal. Normal [facility] HISTORY PHYSICALon 2 HISTORY PHYSICAL HNO ID: [id number] Author: Chai Palma MD Service: Colorectal Author Type: Physician Type: HANDP Filed: 04/25/2022 2:45 PM Note Text: COLORECTAL SURGERY April 13, 2022 Mark Douglas 66 year old This consult was requested by Dr. Lujan and my final recommendations will be communicated to the requesting health care provider by way of the shared medical record for internal providers or letter via the [employer] for external providers. Chief Complaint: [...] BIOPSY: TUBULOVILLOUS ADENOMA CT C/A/P 02/13/22 - [facility] LUNGS: No visible pulmonary disease LIVER: No [...] Palma MD April 25, 2022 2:45 PM [facility] SURGICAL PATHOLOGYon CASE REPORT [facility] Comment on above: Order Comment: Speci men Type: TISSUE SPECIMEN Ordering Facility: [facility] Address: [address] [place] [address] Result Comment: Surg [facility] Pathology Report Case: [id number] Authorizing Provider: Chai Palma MD Collected: 04/25/2022 03:25 PM Ordering Location: Procedures Received: 04/25/2022 04:06 PM Pathologist: Sree Shanks MD Specimen: SIGMOID COLON POLYP Performed By: #### S #### [facility] CLIA [id number] [address] [facility] [address] [place] FINAL DIAGNOSIS Normal [facility] ital Comment on above: Order Comment: Speci men Type: TISSUE SPECIMEN Ordering Facility: [facility] Address: [address] [place] [address] Result Comment: Sigm oid colon, polypectomy: - Tubular adenoma. Performed By: #### S #### [facility] CLIA [id number] [address] [place] [address] [place] FINAL PERFORMING LAB [facility] Comment on above: Order Comment: Speci men Type: TISSUE SPECIMEN Ordering Facility: [facility] Address: [address] [place] [address] Result Comment: Diag nostic interpretation performed at [facility], [address] [place] [address] CLIA# [id number] Autographer: Brain Blank M.D. Performed By: #### S #### [facility] CLIA [id number] [address] [place] [address] GROSS DESCRIPTION Normal [facility] Comment on above: Order Comment: Speci men Type: TISSUE SPECIMEN Ordering Facility: [facility] Address: [address] [place] [address] Result Comment: A. S IGMOID COLON POLYP Received in formalin is an irregular segment of simeon-red polypoid tissue measuring 1.8 x 1.5 x 0.9 cm. A stalk is present measuring 0.6 cm in length. The specimen is bisected. Totally submitted in one cassette. Gross examination performed at [facility], [address] [place] [address] FFS 04/25/2022 9:02 PM Performed By: #### S #### [facility] CLIA [id number] [address] [place] [address] OF [place] XR KUB 1 VIEWon 04-06-2022 [...] BRAMBILA Date: 2022-04-06 19:12 Normal [facility] CRPon 03-13-2022 CRP [Mass/Vol] mg/L Normal <=1.0 [facility] Comment on above: Performed By: #### U ZELDA 24 #### [facility] [address] [address] [address] Aaron Gloria PROF CHEM 8 (BAS METB)on Anion gap [Moles/Vol] 11.9 mmol/L Normal [facility] Comment on above: Performed By: #### P THINT #### [facility] [address] [address] [address] Aaron Gloria Calcium [Mass/Vol] 8.9 mg/dL Normal 8.5-10.1 [facility] Comment on above: Performed By: #### P THINT #### [facility] [address] [address] [address] Aaron Gloria Chloride [Moles/Vol] 103 mmol/L Normal 98-107 [facility] Comment on above: Performed By: #### P THINT #### [facility] [address] [address] [address] Aaron Gloria CO2 [Moles/Vol] 28.1 mmol/L Normal 21.0-32.0 [facility] Comment on above: Performed By: #### P THINT #### [facility] [address] [address] [address] Aaron Gloria Creatinine [Mass/Vol] 0.95 mg/dL Normal 0.70-1.30 [facility] Comment on above: Performed By: #### P THINT #### [facility] [address] [address] [address] Aaron Gloria EGFR-AF [place] >60 Normal >=60 [facility] Comment on above: Performed By: #### P THINT #### [facility] [address] [address] [address] Aaron Gloria EGFR-NON AF [place] >60 Normal >=60 [facility] Comment on above: Performed By: #### P THINT #### [facility] [address] [address] [address] Aaron Gloria Glucose [Mass/Vol] 117 mg/dL Critically high 74-106 T [facility] Comment on above: Performed By: #### P THINT #### [facility] [address] [address] [address] Aaron Gloria Potassium [Moles/Vol] 4.0 mmol/L Normal 3.5-5.1 [facility] Comment on above: Performed By: #### P THINT #### [facility] [address] [place] [address] Dr. Aaron Gloria Sodium [Moles/Vol] 139 mmol/L Normal 136-145 [facility] Comment on above: Performed By: #### P THINT #### [facility] [address] [address] [address] Aaron Gloria Urea nitrogen [Mass/Vol] 9.0 mg/dL Normal 7.0-18.0 [facility] Comment on above: Performed By: #### P THINT #### [facility] [address] [place] [address] Dr. Aaron Gloria Urea nitrogen/Creatinine [Mass ratio] 9.5 mg/mg Normal [facility] Comment on above: Performed By: #### P THINT #### [facility] [address] [address] [address] Aaorn Gloria SED RATE [facility] 2021 SED RATE 12 mm/hr Normal <=20 [facility] Comment on above: Performed By: #### S EDR #### [facility] [address] [address] [address] Aaron Gloria Covid-19 PCR (CVDTB)on 02-23 SARS-CoV-2 (COVID-19) RNA LAKISHA+probe Ql (Unsp spec) Not detected Normal NOT DETECTED [facility] Comment on above: Result Comment: This test is not yet approved or cleared by the [place] FDA. When there are no FDA-approved or cleared tests available, and other criteria are met, FDA can make tests available under an emergency access mechanism called an Emergency Use Authorization (EUA). The EUA for this test is supported by the [place] [employer] of Health and Human Service's (HHS's) declaration [...] SARS-CoV-2. Performed By: #### P THINT #### [facility] [address] [place] [address] Dr. Aaron Gloria [facility]25 SARS-CoV-2 (COVID-19) RNA LAKISHA+probe Ql (Unsp spec) Not detected Normal NOT DETECTED [facility] Comment on above: Result Comment: This test is not yet approved or cleared by the [place] FDA. When there are no FDA-approved or cleared tests available, and other criteria are met, FDA can make tests available under an emergency access mechanism called an Emergency Use Authorization (EUA). The EUA for this test is supported by the [place] of Health and Human Service's (HHS's) declaration [...] consistent with SARS-CoV-2. Performed By: #### C #### [facility] [address] [address] [address] CHEST W CONon [...] BRAMBILA Date: 2022-02-14 12:30 Normal [facility] THYROID ANTIBODIESon 022 Thyroglobulin Antibody <1.0 Normal 0.0-0.9 [facility] Comment on above: Result Comment: Thyr oglobulin Antibody measured by [employer] Methodology Performed By: #### C [id number] #### [facility] [address] [place] [address] Dr. Aaron Gloria Thyroid Peroxidase (TPO) Ab <8 Normal 0-34 [facility] Comment on above: Performed By: #### C [id number] #### [facility] [address] [address] [address] Aaron Gloria [facility]on 01-23 SARS-CoV-2 (COVID-19) RNA LAKISHA+probe Ql (Unsp spec) Not detected Normal NOT DETECTED [facility] Comment on above: Result Comment: This test is not yet approved or cleared by the [place] FDA. When there are no FDA-approved or cleared tests available, and other criteria are met, FDA can make tests available under an emergency access mechanism called an Emergency Use Authorization (EUA). The EUA for this test is supported by the [place] [employer] of Health and Human Service's (HHS's) declaration [...] Performed By: #### U ZELDA 24 #### [facility] [address] [place] [address] Dr. Aaron Gloria CBC AUTO DIFFon 02-08-2022 BASO # 0.1 103/ul Normal 0.0-0.1 [facility] Comment on above: Performed By: #### P THINT #### [facility] [address] [place] [address] Dr. Aaron Gloria Basophils/100 WBC (Bld) 0.7 % Normal 0.2-2.0 [facility] Comment on above: Performed By: #### P THINT #### [facility] [address] [place] [address] Dr. Aaron Gloria EO # 0.3 103/ul Normal 0.0-0.7 [facility] Comment on above: Performed By: #### P THINT #### [facility] [address] [place] [address] Dr. Aaron Gloria Eosinophils/100 WBC (Bld) 1.9 % Normal 0.9-7.0 [facility] Comment on above: Performed By: #### P THINT #### [facility] [address] [place] [address] Dr. Aaron Gloria Erythrocyte distribution width (RBC) [Ratio] 12.9 % Normal 11.0-15.0 [facility] Comment on above: Performed By: #### P THINT #### [facility] [address] [place] [address] Dr. Aaron Gloria Hematocrit (Bld) [Volume fraction] 39.7 % Critically low 42.0-54.0 [facility] Comment on above: Performed By: #### P THINT #### [facility] [address] [place] [address] Dr. Aaron Gloria Hemoglobin (Bld) [Mass/Vol] 13.1 g/dL Critically low 14.0-18.0 [facility] Comment on above: Performed By: #### P THINT #### [facility] [address] [place] [address] Dr. Aaron Gloria IG # 0.14 10e3/ul Critically high 0.00-0.03 [facility] Comment on above: Performed By: #### P THINT #### [facility] [address] [place] [address] Dr. Aaron Gloria IG % 1.1 % Critically high 0.0-0.5 [facility] Comment on above: Performed By: #### P THINT #### [facility] [address] [place] [address] Dr. Aaron Gloria LYMPH # 1.5 103/ul Normal 1.2-3.8 [facility] Comment on above: Performed By: #### P THINT #### [facility] [address] [place] [address] Dr. Aaron Gloria Lymphocytes/100 WBC (Bld) 11.8 % Critically low 20.5-60.0 [facility] Comment on above: Performed By: #### P THINT #### [facility] [address] [place] [address] Dr. Aaron Gloria MANUAL DIFF REQ NO Normal [facility] Comment on above: Performed By: #### P THINT #### [facility] [address] [place] [address] Dr. Aaron Gloria MCH (RBC) [Entitic mass] 28.5 pg Normal 25.9-34.0 [facility] Comment on above: Performed By: #### P THINT #### [facility] [address] [place] [address] Dr. Aaron Gloria MCHC (RBC) [Mass/Vol] 33.0 g/dL Normal 29.9-35.2 [facility] Comment on above: Performed By: #### P THINT #### [facility] [address] [place] [address] Dr. Aaron Gloria MCV (RBC) [Entitic vol] 86.3 fL Normal 80.0-94.0 [facility] Comment on above: Performed By: #### P THINT #### [facility] [address] [place] [address] Dr. Aaron Gloria MONO # 1.4 103/ul Critically high 0.3-0.8 [facility] Comment on above: Performed By: #### P THINT #### [facility] [address] [place] [address] Dr. Aaron Gloria Monocytes/100 WBC (Bld) 10.5 % Normal 1.7-12.0 [facility] Comment on above: Performed By: #### P THINT #### [facility] [address] [place] [address] Dr. Aaron Gloria NEUT # 9.6 103/ul Critically high 1.4-6.5 [facility] Comment on above: Performed By: #### P THINT #### [facility] [address] [address] [address] Aaron Gloria Neutrophils/100 WBC (Bld) 74.0 % Normal 43.0-75.0 [facility] Comment on above: Performed By: #### P THINT #### [facility] [address] [address] [address] Aaron Gloria Platelet mean volume (Bld) [Entitic vol] 9.7 fL Normal 9.5-13.5 [facility] Comment on above: Performed By: #### P THINT #### [facility] [address] [address] [address] Aaron Gloria PLT 496 103/ul Critically high 150-450 [facility] Comment on above: Performed By: #### P THINT #### [facility] [address] [address] [address] Aaron Gloria RBC 4.60 106/ul Critically low 4.70-6.10 [facility] Comment on above: Performed By: #### P THINT #### [facility] [address] [address] [address] Aaron Gloria WBC 13.0 103/ul Critically high 4.0-11.0 [facility] Comment on above: Performed By: #### P THINT #### [facility] [address] [address] [address] Aaron Gloria CRPon 02-08-2022 CRP [Mass/Vol] mg/L Critically high <=1.0 [facility] Comment on above: Performed By: #### P THINT #### [facility] [address] [address] [address] Aaron Gloria FREE T3on 02-08-2022 FREE T3 1.72 pg/mlL Critically low 2.18-3.98 [facility] Comment on above: Performed By: #### P THINT #### [facility] [address] [address] [address] Aaron Gloria FREE T4on 02-08-2022 Free T4 [Mass/Vol] 1.59 ng/dL Critically high 0.76-1.46 [facility] Comment on above: Performed By: #### M AG24 #### [facility] [address] [place] [address] Dr. Aaron Gloria PROF 14(COMP METB)on 022 Albumin [Mass/Vol] 3.0 g/dL Critically low 3.4-5.0 [facility] Comment on above: Performed By: #### M AG24 #### [facility] [address] [place] [address] Dr. Aaron Golria Albumin/Globulin [Mass ratio] 0.6 {ratio} Normal [facility] Comment on above: Performed By: #### M AG24 #### [facility] [address] [place] [address] Dr. Aaron Gloria ALP [Catalytic activity/Vol] 117 U/L Critically high 46-116 [facility] Comment on above: Performed By: #### M AG24 #### [facility] [address] [place] [address] Dr. Aaron Gloria ALT [Catalytic activity/Vol] 23 U/L Normal 16-63 [facility] Comment on above: Performed By: #### M AG24 #### [facility] [address] [place] [address] Dr. Aaron Gloria Anion gap [Moles/Vol] 12.9 mmol/L Normal [facility] Comment on above: Performed By: #### M AG24 #### [facility] [address] [place] [address] Dr. Aaron Gloria AST [Catalytic activity/Vol] 23 U/L Normal 15-37 [facility] Comment on above: Performed By: #### M AG24 #### [facility] [address] [place] [address] Dr. Aaron Gloria Bilirubin [Mass/Vol] 0.9 mg/dL Normal 0.2-1.0 [facility] Comment on above: Performed By: #### M AG24 #### [facility] [address] [address] [address] Aaron Gloria Calcium [Mass/Vol] 9.5 mg/dL Normal 8.5-10.1 [facility] Comment on above: Performed By: #### M AG24 #### [facility] [address] [address] [address] Aaron Gloria Chloride [Moles/Vol] 99 mmol/L Normal 98-107 [facility] Comment on above: Performed By: #### M AG24 #### [facility] [address] [address] [address] Aaron Gloria CO2 [Moles/Vol] 28.2 mmol/L Normal 21.0-32.0 [facility] Comment on above: Performed By: #### M AG24 #### [facility] [address] [place] [address] Dr. Aaron Gloria Creatinine [Mass/Vol] 1.65 mg/dL Critically high 0.70-1.30 [facility] Comment on above: Performed By: #### M AG24 #### [facility] [address] [place] [address] Dr. Aaron Gloria EGFR-AF [place] 51 mL/min/1.73m2 Critically low >=60 [facility] Comment on above: Performed By: #### M AG24 #### [facility] [address] [place] [address] Dr. Aaron Gloria EGFR-NON AF [place] 42 mL/min/1.73m2 Critically low >=60 [facility] Comment on above: Performed By: #### M AG24 #### [facility] [address] [place] [address] Dr. Aaron Gloria Globulin (S) [Mass/Vol] 5.0 g/dL Normal [facility] Comment on above: Performed By: #### M AG24 #### [facility] [address] [place] [address] Dr. Aaron Gloria Glucose [Mass/Vol] 123 mg/dL Critically high 74-106 [facility] Comment on above: Performed By: #### M AG24 #### [facility] [address] [address] [address] Aaron Gloria Potassium [Moles/Vol] 4.1 mmol/L Normal 3.5-5.1 [facility] Comment on above: Performed By: #### M AG24 #### [facility] [address] [address] [address] Aaron Gloria Protein [Mass/Vol] 8.0 g/dL Normal 6.4-8.2 [facility] Comment on above: Performed By: #### M AG24 #### [facility] [address] [address] [address] Aaron Gloria Sodium [Moles/Vol] 136 mmol/L Normal 136-145 [facility] Comment on above: Performed By: #### M AG24 #### [facility] [address] [place] [address] Dr. Aaron Gloria Urea nitrogen [Mass/Vol] 17.0 mg/dL Normal 7.0-18.0 [facility] Comment on above: Performed By: #### M AG24 #### [facility] [address] [place] [address] Dr. Aaron Gloria Urea nitrogen/Creatinine [Mass ratio] 10.3 mg/mg Normal [facility] Comment on above: Performed By: #### M AG24 #### [facility] [address] [place] [address] Dr. [facility] mm/hr Critically high <=20 [facility] Comment on above: Performed By: #### C BC #### [facility] [address] [place] [address] Dr. Aaron Gloria TSHon 02-08-2022 TSH 1.004 uIU/mL Normal 0.358-3.740 [facility] Comment on above: Performed By: #### P THINT #### [facility] [address] [place] [address] Dr. Aaron Gloria UA RANDOM W/MICROSCOPICon BACTERIA NONE SEEN Normal NONE SEEN [facility] Comment on above: Performed By: #### C BC #### [facility] [address] [place] [address] Dr. Aaron Gloria Bilirubin Ql (U) SMALL Abnormal NEGATIVE [facility] Comment on above: Performed By: #### C BC #### [facility] [address] [place] [address] Dr. Aaron Gloria CAST NONE SEEN Normal NONE SEEN [facility] Comment on above: Performed By: #### C BC #### [facility] [address] [place] [address] Dr. Aaron Gloria Clarity (U) TURBID Abnormal CLEAR [facility] Comment on above: Performed By: #### C BC #### [facility] [address] [place] [address] Dr. Aaron Gloria Color (U) YELLOW Normal YELLOW [facility] Comment on above: Performed By: #### C BC #### [facility] [address] [place] [address] Dr. Aaron Gloria Crystals LM Nom (Urine sed) NONE SEEN Normal NONE SEEN [facility] Comment on above: Performed By: #### C BC #### [facility] [address] [place] [address] Dr. Aaron Gloria Epithelial cells LM Ql (Urine sed) RARE Normal NONE SEEN /RARE [facility] Comment on above: Performed By: #### C BC #### [facility] [address] [place] [address] Dr. Aaron Gloria Glucose Ql (U) Negative Normal NEGATIVE [facility] Comment on above: Performed By: #### C BC #### [facility] [address] [place] [address] Dr. Aaron Gloria Hemoglobin Ql (U) Negative Normal NEGATIVE [facility] Comment on above: Performed By: #### C BC #### [facility] [address] [place] [address] Dr. Aaron Gloria Ketones Ql (U) Negative Normal NEGATIVE [facility] Comment on above: Performed By: #### C BC #### [facility] [address] [place] [address] Dr. Aaron Gloria LEUKOCYTES Negative Normal NEGATIVE [facility] Comment on above: Performed By: #### C BC #### [facility] [address] [place] [address] Dr. Aaron Gloria MUCOUS NONE SEEN Normal NONE SEEN [facility] Comment on above: Performed By: #### C BC #### [facility] [address] [place] [address] Dr. Aaron Gloria Nitrite Ql (U) Negative Normal NEGATIVE [facility] Comment on above: Performed By: #### C BC #### [facility] [address] [place] [address] Dr. Aaron Gloria pH (U) 6.0 [pH] Normal 5-9 [facility] Comment on above: Performed By: #### C BC #### [facility] [address] [place] [address] Dr. Aaron Gloria RBC NONE SEEN Abnormal 0-2 [facility] Comment on above: Performed By: #### C BC #### [facility] [address] [place] [address] Dr. Aaron Gloria SPEC GRAVITY 1.020 Normal 1.005-<=1.02 5 [facility] Comment on above: Performed By: #### C BC #### [facility] [address] [place] [address] Dr. Aaron Gloria UA PROTEIN 30 mg/dl Abnormal NEGATIVE/ TRACE [facility] Comment on above: Performed By: #### C BC #### [facility] [address] [place] [address] Dr. Aaron Gloria Urobilinogen Qn (U) 2.0 {Cain'U}/dL Abnormal 0.2 - 1. 0 [facility] Comment on above: Performed By: #### C BC #### [facility] [address] [place] [address] Dr. Aaron Gloria WBC NONE SEEN Normal NONE SEEN [facility] Comment on above: Performed By: #### C BC #### [facility] [address] [place] [address] Dr. Aaron Gloria CBC AUTO DIFFon 12-15-2021 BASO # 0.1 103/ul Normal 0.0-0.1 [facility] Comment on above: Performed By: #### U ZELDA 24 #### [facility] [address] [place] [address] Dr. Aaron Gloria Basophils/100 WBC (Bld) 0.8 % Normal 0.2-2.0 [facility] Comment on above: Performed By: #### U ZELDA 24 #### [facility] [address] [address] [address] Aaron Gloria EO # 0.3 103/ul Normal 0.0-0.7 [facility] Comment on above: Performed By: #### U ZELDA 24 #### [facility] [address] [place] [address] Dr. Aaron Gloria Eosinophils/100 WBC (Bld) 3.1 % Normal 0.9-7.0 [facility] Comment on above: Performed By: #### U ZELDA 24 #### [facility] [address] [place] [address] Dr. Aaron Gloria Erythrocyte distribution width (RBC) [Ratio] 13.2 % Normal 11.0-15.0 [facility] Comment on above: Performed By: #### U ZELDA 24 #### [facility] [address] [place] [address] Dr. Aaron Gloria Hematocrit (Bld) [Volume fraction] 45.6 % Normal 42.0-54.0 [facility] Comment on above: Performed By: #### U ZELDA 24 #### [facility] [address] [place] [address] Dr. Aaron Gloria Hemoglobin (Bld) [Mass/Vol] 15.2 g/dL Normal 14.0-18.0 [facility] Comment on above: Performed By: #### U ZELDA 24 #### [facility] [address] [place] [address] Dr. Aaron Gloria IG # 0.05 10e3/ul Critically high 0.00-0.03 [facility] Comment on above: Performed By: #### U ZELDA 24 #### [facility] [address] [place] [address] Dr. Aaron Gloria IG % 0.5 % Normal 0.0-0.5 [facility] Comment on above: Performed By: #### U ZELDA 24 #### [facility] [address] [place] [address] Dr. Aaron Gloria LYMPH # 2.3 103/ul Normal 1.2-3.8 [facility] Comment on above: Performed By: #### U ZELDA 24 #### [facility] [address] [place] [address] Dr. Aaron Gloria Lymphocytes/100 WBC (Bld) 25.2 % Normal 20.5-60.0 [facility] Comment on above: Performed By: #### U ZELDA 24 #### [facility] [address] [place] [address] Dr. Aaron Gloria MANUAL DIFF REQ NO Normal [facility] Comment on above: Performed By: #### U ZELDA 24 #### [facility] [address] [place] [address] Dr. Aaron Gloria MCH (RBC) [Entitic mass] 29.1 pg Normal 25.9-34.0 [facility] Comment on above: Performed By: #### U ZELDA 24 #### [facility] [address] [place] [address] Dr. Aaron Gloria MCHC (RBC) [Mass/Vol] 33.3 g/dL Normal 29.9-35.2 [facility] Comment on above: Performed By: #### U ZELDA 24 #### [facility] [address] [place] [address] Dr. Aaron Gloria MCV (RBC) [Entitic vol] 87.2 fL Normal 80.0-94.0 [facility] Comment on above: Performed By: #### U ZELDA 24 #### [facility] [address] [place] [address] Dr. Aaron Gloria MONO # 0.8 103/ul Normal 0.3-0.8 [facility] Comment on above: Performed By: #### U ZELDA 24 #### [facility] [address] [place] [address] Dr. Aaron Gloria Monocytes/100 WBC (Bld) 8.4 % Normal 1.7-12.0 [facility] Comment on above: Performed By: #### U ZELDA 24 #### [facility] [address] [place] [address] Dr. Aaron Gloria NEUT # 5.7 103/ul Normal 1.4-6.5 [facility] Comment on above: Performed By: #### U ZELDA 24 #### [facility] [address] [place] [address] Dr. Aaron Gloria Neutrophils/100 WBC (Bld) 62.0 % Normal 43.0-75.0 [facility] Comment on above: Performed By: #### U ZELDA 24 #### [facility] [address] [place] [address] Dr. Aaron Gloria Platelet mean volume (Bld) [Entitic vol] 9.0 fL Critically low 9.5-13.5 [facility] Comment on above: Performed By: #### U ZELDA 24 #### [facility] [address] [place] [address] Dr. Aaron Gloria PLT 303 103/ul Normal 150-450 [facility] Comment on above: Performed By: #### U ZELDA 24 #### [facility] [address] [place] [address] Dr. Aaron Gloria RBC 5.23 106/ul Normal 4.70-6.10 [facility] Comment on above: Performed By: #### U ZELDA 24 #### [facility] [address] [place] [address] Dr. Aaron Gloria WBC 9.1 103/ul Normal 4.0-11.0 [facility] Comment on above: Performed By: #### U ZELDA 24 #### [facility] [address] [place] [address] Dr. Aaron Gloria CULTURE URINEon 12-15-2021 CULTURE URINE Culture Observations : HEAVY GROWTH OF MIXED SKIN KERWIN. NO POTENTIAL PATHOGENS SEEN. Culture Observations: PLEASE RESUBMIT CLEAN CATCH MID-STREAM URINE IF CLINICALLY INDICATED. Normal [facility] Comment on above: Performed By: #### C [id number] #### [facility] [address] [address] [address] Aaron Gloria GLYCOHEMOGLOBIN A1Con 2021 ADA RECOMMENDATION SEE BELOW Normal [facility] Comment on above: Result Comment: ADA RECOMMENDED LIMIT 4.0 - 6.0 ADA THERAPEUTIC TARGET < 7.0 ACTION SUGGESTED > 7.0 Performed By: #### P THINT #### [facility] [address] [address] [address] Aaron Gloria Glucose [Mass/Vol] 134 mg/dL Normal [facility] Comment on above: Performed By: #### P THINT #### [facility] [address] [place] [address] Dr. Aaron Gloria HbA1c (Bld) [Mass fraction] 6.3 % Critically high 4.5-6.2 [facility] Comment on above: Performed By: #### P THINT #### [facility] [address] [place] [address] Dr. Aaron Gloria LIPID PROFILEon 12-15-2021 CHOL-HDL RATIO NORM SEE BELOW Normal [facility] Comment on above: Result Comment: 3.3 - 4.4 LOW RISK 4.4 - 7.1 AVERAGE RISK 7.1 - 11.0 MODERATE RISK >11.0 HIGH RISK Performed By: #### M AG24 #### [facility] [address] [place] [address] Dr. Aaron Gloria Cholesterol [Mass/Vol] 152 mg/dL Normal <=200 [facility] Comment on above: Performed By: #### M AG24 #### [facility] [address] [place] [address] Dr. Aaron Gloria Cholesterol in HDL [Mass/Vol] 35 mg/dL Critically low 40-60 [facility] Comment on above: Performed By: #### M AG24 #### [facility] [address] [place] [address] Dr. Aaron Gloria Cholesterol in LDL [Mass/Vol] 83.0 mg/dL Normal [facility] Comment on above: Performed By: #### M AG24 #### [facility] [address] [place] [address] Dr. Aaron Gloria Cholesterol.total/C holesterol in HDL [Mass ratio] 4.3 {ratio} Normal [facility] Comment on above: Performed By: #### M AG24 #### [facility] [address] [address] [address] Aaron Gloria HDL NORMAL > or = 60 mg/dl - LO W CARDIOVASCULAR RISK <40 mg/dl - HIGH CARDIOVASCULAR RISK Normal [facility] Comment on above: Performed By: #### M AG24 #### [facility] [address] [address] [address] Aaron Gloria LDL CALC NORMAL SEE BELOW Normal [facility] Comment on above: Result Comment: <100 mg/dl OPTIMAL 100 - 129 mg/dl NEAR OR ABOVE OPTIMAL 130 - 159 mg/dl BORDERLINE HIGH 160 - 189 mg/dl HIGH >190 mg/dl VERY HIGH Performed By: #### M AG24 #### [facility] [address] [address] [address] Aaron Gloria Triglyceride [Mass/Vol] 170 mg/dL Critically high <=150 [facility] Comment on above: Performed By: #### M AG24 #### [facility] [address] [address] [address] Aaron Gloria VLDL CALC 34.0 mg/dL Normal [facility] Comment on above: Performed By: #### M AG24 #### [facility] [address] [place] [address] Dr. Aaron Gloria PROF 14(COMP METB)on 022 Albumin [Mass/Vol] 4.1 g/dL Normal 3.4-5.0 [facility] Comment on above: Performed By: #### C [id number] #### [facility] [address] [address] [address] Aaron Gloria Albumin/Globulin [Mass ratio] 1.1 {ratio} Normal [facility] Comment on above: Performed By: #### C [id number] #### [facility] [address] [address] [address] Aaron Gloria ALP [Catalytic activity/Vol] 61 U/L Normal 46-116 [facility] Comment on above: Performed By: #### C [id number] #### [facility] [address] [address] [address] Aaron Gloria ALT [Catalytic activity/Vol] 46 U/L Normal 16-63 [facility] Comment on above: Performed By: #### C [id number] #### [facility] [address] [address] [address] Aaron Gloria Anion gap [Moles/Vol] 13.2 mmol/L Normal [facility] Comment on above: Performed By: #### C [id number] #### [facility] [address] [address] [address] Aaron Gloria AST [Catalytic activity/Vol] 26 U/L Normal 15-37 [facility] Comment on above: Performed By: #### C [id number] #### [facility] [address] [address] [address] Aaron Gloria Bilirubin [Mass/Vol] 0.4 mg/dL Normal 0.2-1.0 [facility] Comment on above: Performed By: #### C [id number] #### [facility] [address] [address] [address] Aaron Gloria Calcium [Mass/Vol] 9.0 mg/dL Normal 8.5-10.1 [facility] Comment on above: Performed By: #### C [id number] #### [facility] [address] [address] [address] Aaron Gloria Chloride [Moles/Vol] 105 mmol/L Normal 98-107 [facility] Comment on above: Performed By: #### C [id number] #### [facility] [address] [address] [address] Aaron Gloria CO2 [Moles/Vol] 28.0 mmol/L Normal 21.0-32.0 [facility] Comment on above: Performed By: #### C [id number] #### [facility] [address] [address] [address] Aaron Gloria Creatinine [Mass/Vol] 1.04 mg/dL Normal 0.70-1.30 [facility] Comment on above: Performed By: #### C [id number] #### [facility] [address] [address] [address] Aaron Gloria EGFR-AF [place] >60 Normal >=60 [facility] Comment on above: Performed By: #### C [id number] #### [facility] [address] [place] [address] Dr. Aaron Gloria EGFR-NON AF [place] >60 Normal >=60 [facility] Comment on above: Performed By: #### C [id number] #### [facility] [address] [address] [address] Aaron Gloria Globulin (S) [Mass/Vol] 3.6 g/dL Normal [facility] Comment on above: Performed By: #### C [id number] #### [facility] [address] [place] [address] Dr. Aaron Gloria Glucose [Mass/Vol] 124 mg/dL Critically high 74-106 [facility] Comment on above: Performed By: #### C [id number] #### [facility] [address] [place] [address] Dr. Aaron Gloria Potassium [Moles/Vol] 4.2 mmol/L Normal 3.5-5.1 [facility] Comment on above: Performed By: #### C [id number] #### [facility] [address] [place] [address] Dr. Aaron Golria Protein [Mass/Vol] 7.7 g/dL Normal 6.4-8.2 [facility] Comment on above: Performed By: #### C [id number] #### [facility] [address] [place] [address] Dr. Aaron Gloria Sodium [Moles/Vol] 142 mmol/L Normal 136-145 [facility] Comment on above: Performed By: #### C [id number] #### [facility] [address] [place] [address] Dr. Aaron Gloria Urea nitrogen [Mass/Vol] 9.0 mg/dL Normal 7.0-18.0 [facility] Comment on above: Performed By: #### C [id number] #### [facility] [address] [place] [address] Dr. Aaron Gloria Urea nitrogen/Creatinine [Mass ratio] 8.7 mg/mg Normal [facility] Comment on above: Performed By: #### C [id number] #### [facility] [address] [place] [address] Dr. Aaron Gloria UA RANDOM W/MICROSCOPICon BACTERIA TRACE Abnormal NONE SEEN [facility] Comment on above: Performed By: #### M AG24 #### [facility] [address] [place] [address] Dr. Aaron Gloria Bilirubin Ql (U) Negative Normal NEGATIVE [facility] Comment on above: Performed By: #### M AG24 #### [facility] [address] [place] [address] Dr. Aaron Gloria CAST NONE SEEN Normal NONE SEEN [facility] Comment on above: Performed By: #### M AG24 #### [facility] [address] [place] [address] Dr. Aaron Gloria Clarity (U) CLEAR Normal CLEAR [facility] Comment on above: Performed By: #### M AG24 #### [facility] [address] [place] [address] Dr. Aaron Gloria Color (U) LT. YELLOW Normal YELLOW [facility] Comment on above: Performed By: #### M AG24 #### [facility] [address] [place] [address] Dr. Aaron Gloria Crystals LM Nom (Urine sed) NONE SEEN Normal NONE SEEN [facility] Comment on above: Performed By: #### M AG24 #### [facility] [address] [place] [address] Dr. Aaron Gloria Epithelial cells LM Ql (Urine sed) RARE Normal NONE SEEN /RARE [facility] Comment on above: Performed By: #### M AG24 #### [facility] [address] [place] [address] Dr. Aaron Gloria Glucose Ql (U) Negative Normal NEGATIVE [facility] Comment on above: Performed By: #### M AG24 #### [facility] [address] [place] [address] Dr. Aaron Gloria Hemoglobin Ql (U) Negative Normal NEGATIVE [facility] Comment on above: Performed By: #### M AG24 #### [facility] [address] [place] [address] Dr. Aaron Gloria Ketones Ql (U) Negative Normal NEGATIVE [facility] Comment on above: Performed By: #### M AG24 #### [facility] [address] [place] [address] Dr. Aaron Gloria LEUKOCYTES Negative Normal NEGATIVE [facility] Comment on above: Performed By: #### M AG24 #### [facility] [address] [place] [address] Dr. Aaron Gloria MUCOUS NONE SEEN Normal NONE SEEN [facility] Comment on above: Performed By: #### M AG24 #### [facility] [address] [place] [address] Dr. Aaron Gloria Nitrite Ql (U) Positive Abnormal NEGATIVE [facility] Comment on above: Performed By: #### M AG24 #### [facility] [address] [place] [address] Dr. Aaron Gloria pH (U) 6.0 [pH] Normal 5-9 [facility] Comment on above: Performed By: #### M AG24 #### [facility] [address] [place] [address] Dr. Aaron Gloria RBC 0-2 Normal 0-2 [facility] Comment on above: Performed By: #### M AG24 #### [facility] [address] [place] [address] Dr. Aaron Gloria SPEC GRAVITY 1.030 Abnormal 1.005-<=1.02 5 [facility] Comment on above: Performed By: #### M AG24 #### [facility] [address] [place] [address] Dr. Aaron Gloria UA PROTEIN TRACE Normal NEGATIVE/ TRACE [facility] Comment on above: Performed By: #### M AG24 #### [facility] [address] [place] [address] Dr. Aaron Gloria Urobilinogen Qn (U) 0.2 {Cain'U}/dL Normal 0.2 - 1. 0 [facility] Comment on above: Performed By: #### M AG24 #### [facility] [address] [address] [address] Aaron Gloria WBC 5-10 Abnormal NONE SEEN [facility] Comment on above: Performed By: #### M AG24 #### [facility] [id number] Aaron Gloria URIC ACID SERUMon 12-15-2021 Urate [Mass/Vol] 6.7 mg/dL Normal 3.5-7.2 [facility] Comment on above: Performed By: #### M AG24 #### [facility] [address] [address] [address] Aaron Gloria Cardiovascular Lab Reporton 04-29-2021 Cardiovascular Lab Report [facility] Patient Name: [facility] MR #: [id number] Physician: Jes Hoang Department of M.D. Medicine Service Date: 04/28/2021 Division of Birthdate: 1955 Cardiology Room #: Adult Cardiovascular Services [place] [id number] Cardiovascular Laboratory Report FINAL IMPRESSIONS: 1. Mljr-lz-jxuazrkm 2-vessel coronary artery disease. 2. Normal global left ventricular systolic function by noninvasive imaging. 3. Typowfsi-yl-vwjmdb systemic hypertension. RECOMMENDATIONS: 1. Aggressive cardiovascular risk [...] the left radial artery was obtained. A 6-Niuean glide sheath was inserted without difficulty. Bilateral [...] A Jes Hoang M.D. Date Dict: 04/28/2021/12:03 Joni/Jes Hoang M.D. Date Trans: 04/29/2021 05:18 A/tarsha [id number] Normal [facility] COVID-19/INFLUENZA A,B BOAZ Morrissey 06-17-2020 COVID-19/INFLUENZA A,B MOLECULAR SARS-COV-2 (SWAPNA): Detected INFLUENZA A (SWAPNA): Not Detected INFLUENZA B (SWAPNA): Not Detected Normal Not Detected [facility] Comment on above: Order Comment: This [...] at the following links: For Healthcare Providers: https://www.fda.gov/media/445858/download For Patients: https://www.fda.gov/media/690850/download Performed By: #### L [id number] #### [facility] [address] [place] [id number] Laura Pichardo M.D. [id number] COVID-19/Influenza A,B [facility] 06-17-2020 Influenza A Not Detected Not Detected [facility] Influenza B Not Detected Not Detected [facility] Interpretation and review of laboratory results Abnormal [facility] SARS-CoV-2 Detected Abnormal [facility] This test was perfor med under [...] the following links: For Healthcare Providers: https://www.fda.gov/media /712153/download For Patients: https://www.fda.gov/media /908110/download [facility] Vital Signs Date Time Vital Sign Value Performing Clinician Facility 11-13-2023 13:00-0400 Body mass index (BMI) [Ratio] 35.16 kg/m2 SOPHIA Mckenzie MD Work Phone: [facility] 11-13-2023 13:00-0400 Body weight 104.9 kg SOPHIA Mckenzie MD Work Phone: [facility] 11-13-2023 13:00-0400 Diastolic blood pressure 79 mm[Hg] SOPHIA Mckenzie MD Work Phone: [facility] 11-13-2023 13:00-0400 Heart rate 66 /min SOPHIA Mckenzie MD Work Phone: [facility] 11-13-2023 13:00-0400 Respiratory rate 16 /min SOPHIA Mckenzie MD Work Phone: [facility] 11-13-2023 13:00-0400 SaO2% (BldA) [Mass fraction] 95 % SOPHIA Mckenzie MD Work Phone: [facility] 11-13-2023 13:00-0400 Systolic blood pressure 128 mm[Hg] SOPHIA Mckenzie MD Work Phone: [facility] 05-03-2023 14:11-0500 Body temperature 97.59 [degF] SOPHIA Mckenzie MD Work Phone: [facility] 05-03-2023 14:11-0500 Body weight 104.33 kg SOPHIA Mckenzie MD Work Phone: [facility] 05-03-2023 14:11-0500 Diastolic blood pressure 70 mm[Hg] SOPHIA Mckenzie MD Work Phone: [facility] 05-03-2023 14:11-0500 Heart rate 78 /min SOPHIA Mckenzie MD Work Phone: [facility] 05-03-2023 14:11-0500 Respiratory rate 16 /min SOPHIA Mckenzie MD Work Phone: [facility] 05-03-2023 14:11-0500 SaO2% (BldA) [Mass fraction] 95 % SOPHIA Mckenzie MD Work Phone: [facility] 05-03-2023 14:11-0500 Systolic blood pressure 131 mm[Hg] SOPHIA Mckenzie MD Work Phone: [facility] 10-31-2022 08:56-0400 Blood Pressure Location JERI SANDERS [facility] 10-31-2022 08:56-0400 Diastolic blood pressure 76 mm[Hg] JERI SANDERS [facility] 10-31-2022 08:56-0400 Heart rate 68 /min JERI SANDERS [facility] 10-31-2022 08:56-0400 Respiratory rate 16 /min JERI SANDERS [facility] 10-31-2022 08:56-0400 Systolic blood pressure 132 mm[Hg] JERI SANDERS [facility] 10-26-2022 10:43-0400 Body temperature 97.39 [degF] SOPHIA Mckenzie MD Work Phone: [facility] 10-26-2022 10:43-0400 Body weight 98.88 kg SOPHIA Mckenzie MD Work Phone: [facility] 10-26-2022 10:43-0400 Diastolic blood pressure 86 mm[Hg] SOPHIA Mckenzie MD Work Phone: [facility] 10-26-2022 10:43-0400 Heart rate 63 /min SOPHIA Mckenzie MD Work Phone: [facility] 10-26-2022 10:43-0400 Respiratory rate 18 /min SOPHIA Mckenzie MD Work Phone: [facility] 10-26-2022 10:43-0400 SaO2% (BldA) [Mass fraction] 97 % SOPHIA Mckenzie MD Work Phone: [facility] 10-26-2022 10:43-0400 Systolic blood pressure 144 mm[Hg] SOPHIA Mckenzie MD Work Phone: [facility] 04-27-2022 10:20-0400 Body temperature 96.91 [degF] SOPHIA Mckenzie MD Work Phone: [facility] 04-27-2022 10:20-0400 Body weight 97.52 kg SOPHIA Mckenzie MD Work Phone: [facility] 04-27-2022 10:20-0400 Diastolic blood pressure 78 mm[Hg] SOPHIA Mckenzie MD Work Phone: [facility] 04-27-2022 10:20-0400 Heart rate 63 /min SOPHIA Mckenzie MD Work Phone: [facility] 04-27-2022 10:20-0400 Respiratory rate 16 /min SOPHIA Mckenzie MD Work Phone: [facility] 04-27-2022 10:20-0400 SaO2% (BldA) [Mass fraction] 99 % SOPHIA Mckenzie MD Work Phone: [facility] 04-27-2022 10:20-0400 Systolic blood pressure 130 mm[Hg] SOPHIA Mckenzie MD Work Phone: [facility] 04-25-2022 16:10-0400 Diastolic blood pressure 91 mm[Hg] Chai Palma MD Work Phone: [facility] 04-25-2022 16:10-0400 Heart rate 72 /min Chai Palma MD Work Phone: [facility] 04-25-2022 16:10-0400 Respiratory rate 21 /min Chai Palma MD Work Phone: [facility] 04-25-2022 16:10-0400 SaO2% (BldA) [Mass fraction] 99 % Chai Palma MD Work Phone: [facility] 04-25-2022 16:10-0400 Systolic blood pressure 154 mm[Hg] Chai Palma MD Work Phone: [facility] 04-25-2022 15:48-0400 Body temperature 97 [degF] Chai Palma MD Work Phone: [facility] 04-25-2022 14:27-0400 Body weight 97.52 kg Chai Palma MD Work Phone: [facility] 04-24-2022 12:04-0400 Blood Pressure Location Nestor KAPLAN [facility] 04-24-2022 12:04-0400 Diastolic blood pressure 78 mm[Hg] Nestor KAPLAN [facility] 04-24-2022 12:04-0400 Heart rate 76 /min Nestor KAPLAN [facility] 04-24-2022 12:04-0400 Respiratory rate 16 /min Nestorfaith KAPLAN [facility] 04-24-2022 12:04-0400 Systolic blood pressure 136 mm[Hg] Nestor KAPLAN [facility] 04-14-2022 13:57-0400 Body height 172.7 cm Pacc 2 Work Phone: [facility] 04-14-2022 13:57-0400 Body temperature 97 [degF] Pacc 2 Work Phone: [facility] 04-14-2022 13:57-0400 Body weight 96.62 kg Pacc 2 Work Phone: [facility] 04-14-2022 13:57-0400 Diastolic blood pressure 68 mm[Hg] Pacc 2 Work Phone: [facility] 04-14-2022 13:57-0400 Heart rate 77 /min Pacc 2 Work Phone: [facility] 04-14-2022 13:57-0400 Respiratory rate 16 /min Pacc 2 Work Phone: [facility] 04-14-2022 13:57-0400 SaO2% (BldA) [Mass fraction] 98 % Pac 2 Work Phone: [facility] 04-14-2022 13:57-0400 Systolic blood pressure 120 mm[Hg] Pac 2 Work Phone: [facility] 02-21-2022 14:19-0400 Blood Pressure Location Gaetano LUJAN [facility] 02-21-2022 14:19-0400 Diastolic blood pressure 66 mm[Hg] Gaetano OSORIOL [facility] 02-21-2022 14:19-0400 Heart rate 72 /min Gaetano LUJAN [facility] 02-21-2022 14:19-0400 Respiratory rate 16 /min Gaetano LUJAN [facility] 02-21-2022 14:19-0400 Systolic blood pressure 118 mm[Hg] Gaetano OSORIOLeah [facility] 10-27-2021 10:35-0400 Body temperature 97.7 [degF] SOPHIA Mckenzie MD Work Phone: [facility] 10-27-2021 10:35-0400 Body weight 109.77 kg SOPHIA Mckenzie MD Work Phone: [facility] 10-27-2021 10:35-0400 Diastolic blood pressure 90 mm[Hg] SOPHIA Mckenzie MD Work Phone: [facility] 10-27-2021 10:35-0400 Heart rate 71 /min SOPHIA Mckenzie MD Work Phone: [facility] 10-27-2021 10:35-0400 Respiratory rate 20 /min SOPHIA Mckenzie MD Work Phone: [facility] 10-27-2021 10:35-0400 SaO2% (BldA) [Mass fraction] 96 % SOPHIA Mckenzie MD Work Phone: [facility] 10-27-2021 10:35-0400 Systolic blood pressure 151 mm[Hg] SOPHIA Mckenzie MD Work Phone: [facility] 06-17-2020 17:20-0500 BMI (Body Mass Index) 34.19 kg/m2 [facility] 17:20-0500 Body Temperature 98.91 [degF] [facility] 06-17-2020 17:20-0500 Body weight [address] [facility] 06-17-2020 17:20-0500 BP Diastolic 84 mm[Hg] [facility] 06-17-2020 17:20-0500 BP Systolic 147 mm[Hg] [facility] 06-17-2020 17:20-0500 Height 172.[address] [facility] 06-17-2020 17:20-0500 Pulse (Heart Rate) 85 /min [facility] 06-17-2020 17:20-0500 Pulse Oximetry 94 % [facility] 06-17-2020 17:20-0500 Respiratory Rate 16 /min [facility] Encounters Encounter Date Encounter Type Care Provider Facility Start: 11-13-2023 End: 11-13-2023 ambulatory Nestor MCKENZIE Facility:[facility] Start: 11-13-2023 End: 11-13-2023 Patient encounter procedure Nestor Mckenzie MD Work Phone: [facility] Comment on above: Prostate cancer (HCC ) (Primary Dx) Start: 11-06-2023 End: 11-06-2023 ambulatory ELLEN VICHHOLZ Not Available Start: 09-18-2023 End: 09-18-2023 ambulatory ELLEN AICHHOLZ Not Available Start: 06-12-2023 ambulatory KAE SANDERS Facility:[facility] Start: 06-12-2023 End: 06-12-2023 Patient encounter procedure JERI SANDERS [facility] Start: 05-03-2023 End: 05-03-2023 ambulatory ELLEN SIERRA BARRERA Facility:[facility] Start: 05-03-2023 End: 05-03-2023 Patient encounter procedure Nestor Mckenzie MD Work Phone: [facility] Comment on above: Prostate cancer (HCC ) (Primary Dx) Start: 04-25-2023 Telephone encounter G Mark Mckenzie MD Work Phone: [facility] Comment on above: Orders Start: 10-31-2022 End: 11-01-2022 ambulatory KAE SANDERS Facility:[facility] Start: 10-31-2022 End: 10-31-2022 Patient encounter procedure JERI SANDERS [facility] Start: 10-26-2022 End: 10-26-2022 Patient encounter procedure Nestor Mckenzie MD Work Phone: [facility] Comment on above: History of prostate cancer (Primary Dx); Obesity, Class I, BMI 30-34.9 Start: 10-16-2022 ambulatory Nestor Layne ty:[facility] Start: 10-13-2022 End: 10-14-[address] NESTOR KAPLAN . Facility:[facility] Start: 09-15-2022 End: 09-16-[address] NESTOR KAPLAN . Facility:[facility] Start: 09-13-2022 End: 09-14-[address] NESTOR KAPLAN . Facility:[facility] Start: 08-15-2022 End: 08-15-2022 ambulatory [facility] Start: 07-31-2022 End: 08-01-[address] NESTOR KAPLAN . Facility:[facility] Start: 07-25-2022 End: 07-26-[address] NESTOR KAPLAN . Facility:[facility] Start: 07-15-2022 Encounter for preprocedural laboratory examination DR NESTOR KAPLAN . [facility] Start: 07-13-2022 End: 07-14-[address] NESTOR KAPLAN . Facility:[facility] Start: 07-10-2022 End: 07-11-[address] NESTOR KAPLAN . Facility:[facility] Start: 07-10-2022 End: 07-11-2022 Encounter for preprocedural laboratory examination DR NESTOR KAPLAN . Facility: Start: 07-03-2022 End: 07-04-[address] NESTOR KAPLAN . Facility: Start: 05-25-2022 End: 05-25-[address] NESTOR KAPLAN . Facility: Start: 05-22-2022 End: 05-23-[address] NESTOR KAPLAN . Facility: Start: 05-17-2022 Encounter for other preprocedural examination DR NESTOR KAPLAN . [facility] Start: 05-17-2022 Encounter for preprocedural cardiovascular examination DR NESTOR KAPLAN . [facility] Start: 05-15-2022 End: 05-16-[address] NESTOR KAPLAN . Facility: Start: 04-27-2022 End: 04-27-2022 Patient encounter procedure Nestor Mckenzie MD Work Phone: Radiation Oncology Comment on above: Malignant neoplasm o f prostate (HCC) (Primary Dx) Start: 04-25-2022 ambulatory YUNIBRAN NORTH [facility] ty:[facility] Start: 04-25-2022 End: 04-25-2022 Subsequent hospital visit by physician Chai Palma MD Work Phone: Procedures Comment on above: Mass of colon [K63.8 9] Start: 04-24-2022 End: 04-24-2022 Patient encounter procedure Nestor KAPLAN [facility] Start: 04-18-2022 Telephone encounter Chai paula MD Work Phone: Colorectal Surgery Comment on above: [facility] [employer] - [facility] ther Start: 04-14-2022 End: 04-14-2022 [facility] Work Phone: [facility] Start: 04-14-2022 End: 04-14-2022 [facility] Work Phone: Pre Anesthesia Comment on above: Preop examination (P rimary Dx); Essential (primary) hypertension; Hyperlipidemia, unspecified hyperlipidemia type; Athscl heart disease of [place] coronary artery w/o ang pctrs; Obstructive sleep apnea; Prostate cancer (HCC) Start: 04-14-2022 End: 04-14-2022 Preprocedural examination done [facility] 2 Work Phone: Pre Anesthesia Start: 04-14-2022 Telephone encounter Chai paula MD Work Phone: Colorectal Surgery Comment on above: 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 Facility:[facility] Start: 03-28-2022 End: 03-28-2022 Patient encounter procedure Gaetano LUJAN General Surgery Nill/Said Pratibha Start: 03-15-2022 End: 03-15-[address] GAETANO LUJAN . Facility:[facility] Start: 03-13-2022 End: 03-14-2022 ambulatory RODRICK BARRERA Facility:[facility] Start: 03-09-2022 End: 03-10-[address] GAETANO LUJAN . Facility:[facility] Start: 02-22-2022 End: 02-22-2022 ambulatory RODRICK BARRREA Facility:[facility] Start: 02-21-2022 End: 02-21-2022 Patient encounter procedure Gaetano LUJAN General Surgery Nill/Said Pratibha Start: 02-13-2022 End: 02-14-2022 ambulatory RODRICK ELLEN CLAIRE Facility:[facility] Start: 02-09-2022 End: 02-09-2022 ambulatory LEAN MANUFACTURING SPECIALIST ELLEN CLAIRE Facility:[facility] Start: 02-08-2022 End: 02-09-2022 ambulatory LEAN MANUFACTURING SPECIALIST ELLEN VICKeriMARILU Facility:[facility] Start: 12-15-2021 End: 12-16-2021 ambulatory LEAN MANUFACTURING SPECIALIST ELLEN CLAIRE Facility:[facility] Start: 10-27-2021 End: 10-27-2021 ambulatory Sindy Regan APRN.CNP Work Phone: Hematology/Oncology Comment on above: Malignant neoplasm o f prostate (HCC) (Primary Dx); Prostate cancer (HCC) Start: 10-27-2021 End: 10-27-2021 Patient encounter procedure Sindy Regan APRN.CNP Work Phone: TACOS Comment on above: Malignant neoplasm o f prostate (HCC) (Primary Dx) Start: 04-19-2021 End: 04-24-2021 ambulatory REFERRED SELF Facility:[facility] Start: 06-17-2020 End: 06-17-2020 Emergency department patient visit PHYSICIAN NO [facility] Start: 06-17-2020 End: 06-17-2020 Emergency department patient visit Bree Leslie Work Phone: [facility] Emergency Department Comment on above: COVID-19 (Primary Dx ) Procedures Date Procedure Procedure Detail Performing Clinician Start: 11-07-2023 PSA screening [facility] Provider Start: 04-26-2023 PSA screening [facility] Provider Start: 10-13-2022 End: 10-13-2022 PSA screening [facility] Provider Comment on above: Performed By: #### PTHINT #### [facility] [address] [place] [address] Dr. Aaron Gloria Start: 07-31-2022 Cystoscopic removal of ureteric stent JERI MARILYN Start: 07-13-2022 Cystoscopic laser lithotripsy of ureteric calculus JERI DIAZRY Start: 05-25-2022 Extracorporeal shockwave lithotripsy of calculus of kidney JERI DIAZRY Start: 04-25-2022 Level iv surg pathology gross&microscopic exam Chai Palma MD Work Phone: Start: 04-25-2022 Colonoscopy flx dx w/collj spec when pfrmd Chai Palma MD Work Phone: Start: 04-25-2022 Colonoscopy SOPHIA Mckenzie MD Work Phone: Start: 04-06-2022 End: 04-06-2022 PSA screening [facility] Provider Comment on above: Performed By: #### [id number] #### [facility] [address] [address] [address] Aaron Gloria Start: 03-15-2022 Colonoscopy Gaetano LUJAN Start: 03-15-2022 Esophagogastroduodenoscopy Gaetano LUJAN Start: 10-27-2021 Adult depression screening assessment Sindycindi Regan APRN.CNP Work Phone: Start: 03-10-2021 Brachytherapy JERI SANDERS Start: 06-25-2020 Catheterization of left heart Gaetano SCHROEDER JADA Start: 06-17-2020 COVID-19/INFLUENZA A,B MOLECULAR Bree C harchinedu Samaniegobe Work Phone: Start: 03-15-2020 Transrectal biopsy of prostate using ultrasound guidance Gaetano OSORIOLeah Start: 10-17-2013 Colonoscopy Gaetano OSORIOL Appendectomy Gaetano OSORIOL Fracture of bone of right hand Gaetano NILL Repair of tendon of hand John hael EL Repair of umbilical hernia Bettye LUJAN Plan of Treatment Date Care Activity Detail Author Start: 11-06-2028 Prostate specific antigen measurement Prostate Cancer Screening Discussion [facility] Start: 04-26-2028 Prostate Cancer Screening Discussion Prostate Cancer Screening Discussion [facility] Start: 10-14-2027 PROSTATE CANCER SCREENING DISCUSSION PROSTATE CANCER SCREENING DISCUSSION [facility] Start: 04-06-2027 PROSTATE CANCER SCREENING DISCUSSION PROSTATE CANCER SCREENING DISCUSSION [facility] Start: 10-26-2026 PROSTATE CANCER SCREENING DISCUSSION PROSTATE CANCER SCREENING DISCUSSION [facility] Start: 11-12-2024 BP Controlled (<130/80) BP Controlle d (<130/80) [facility] Start: 11-12-2024 End: 02-11-2025 Prostate specific Ag [Mass/volume] in Serum or Plasma PROSTATE-SPECIFIC ANTIGEN DIAGNOSTIC Lab Routine Prostate cancer (HCC) Expected: 11/12/2024, Expires: 02/11/2025 [facility] Work Phone: Comment on above: Expected: 11/12/2024 , Expires: 02/11/2025 Start: 11-11-2024 End: 11-11-2024 Patient encounter procedure 11/11/2024 1:00 PM EDT Office Visit Radiation Oncology [address] [place] [address] [place] [address] Nestor Mckenzie MD [address] [address] 1 Year rv Radiation Oncology Comment on above: 1 Year rv Start: 02-24-2024 Influenza vaccination Influenz a Vaccine (Season Ended) [facility] Start: 11-01-2023 End: 01-31-2024 Prostate specific Ag [Mass/volume] in Serum or Plasma PSA/PROSTSPECAG DIAG Lab Routine Prostate cancer (HCC) Expected: 11/01/2023, Expires: 01/31/2024 [facility] Work Phone: Comment on above: Expected: 11/01/2023 , Expires: 01/31/2024 Start: 06-25-2023 Advance Directive Discussion Advance Directive Discussion [facility] Start: 06-25-2023 Behavioral Health Screening Behavioral Health Screening [facility] Start: 05-16-2023 Shingrix Vaccine (2 of 2) Shingrix Vaccine (2 of 2) [facility] Start: 04-25-2023 Colonoscopy COLONOSCOPY [facility] Start: 04-25-2023 COLORECTAL CANCER SCREENING COLORECTAL CANCER SCREENING [facility] Start: 04-25-2023 End: 07-25-2023 Prostate specific Ag [Mass/volume] in Serum or Plasma PSA/PROSTSPECAG DIAG Lab Routine History of prostate cancer Expected: 04/25/2023, Expires: 07/25/2023 [facility] Work Phone: Comment on above: Expected: 04/25/2023 , Expires: 07/25/2023 Start: 04-25-2023 Screening for malign ant neoplasm of colon [facility] Start: 04-14-2023 BP CONTROLLED (<130/80) BP CONTROLLE D (<130/80) [facility] Start: 02-23-2023 Covid-19 Vaccine ( season) Covid-19 Vaccine ( season) [facility] Start: 02-23-2023 Covid-19 Vaccine ( season) Covid-19 Vaccine ( season) [facility] Start: 02-23-2023 Influenza vaccination C [facility] Start: 10-27-2022 Adult depression screening assessment DEPRESSION SCREENING [facility] Start: 10-25-2022 End: 12-25-2022 Prostate specific Ag [Mass/volume] in Serum or Plasma PSA/PROSTSPECAG DIAG Lab Routine Malignant neoplasm of prostate (HCC) Expected: 10/25/2022, Expires: 12/25/2022 [facility] Work Phone: Comment on above: Expected: 10/25/2022 , Expires: 12/25/2022 Start: 06-25-2022 ADVANCE DIRECTIVE DISCUSSION ADVANCE DIRECTIVE DISCUSSION [facility] Start: 06-25-2022 DEPRESSION ASSESSMENT DEPRESSION ASS ESSMENT [facility] Start: 02-23-2022 Influenza vaccination C [facility] Start: 06-25-2021 ADVANCE DIRECTIVE DISCUSSION ADVANCE DIRECTIVE DISCUSSION [facility] Start: 06-25-2021 DEPRESSION ASSESSMENT DEPRESSION ASS ESSMENT [facility] Start: 11-24-2020 COVID-19 VACCINE (3 - Booster) COVID-19 VACCINE (3 - Booster) [facility] Start: 09-25-2020 Pneumococcal Vaccine : 65+ (1 - PCV) Pneumococcal Vaccine: 65+ (1 - PCV) [facility] Start: 09-25-2020 Pneumococcal Vaccine : 65+ (1 of 1 - PCV) Pneumococcal Vaccine: 65+ (1 of 1 - PCV) [facility] Start: 09-25-2020 PNEUMOCOCCAL: 65+ (1 - PCV) PNEUMOCOCCAL: 65+ (1 - PCV) [facility] Start: 09-25-2020 PNEUMOVAX AGE 65 AND OVER WITH 5YR LOOKBACK (#1) PNEUMOVAX AGE 65 AND OVER WITH 5YR LOOKBACK (#1) [facility] Start: 2015 RSV Vaccine (1 - 1-d ose 60+ series) RSV Vaccine (1 - 1-dose 60+ series) [facility] Start: 09-25-2005 SHINGRIX VACCINE (1 of 2) SHINGRIX VACCINE (1 of 2) [facility] Start: 09-25-2000 COLOGUARD (FIT-DNA) COLOGUARD (FIT-D NA) [facility] Start: 09-25-2000 Colonoscopy COLONOSCOPY [facility] Start: 09-25-2000 COLORECTAL CANCER SCREENING COLORECTAL CANCER SCREENING [facility] Start: 09-25-[address] COLONOGRAPHY [facility] Start: 09-25-2000 DIABETES SCREEN DIABETES SCREEN [facility] Start: 09-25-2000 Diabetes Screening Diabetes Screenin g [facility] Start: 09-25-2000 FECAL OCCULT BLOOD FECAL OCCULT BLOO D [facility] Start: 09-25-2000 Screening for malign ant neoplasm of colon [facility] Start: 09-25-2000 SIGMOIDOSCOPY SIGMOIDOSCOPY [facility] Start: 09-25-1990 Lipid 1996 panel - S earlene or Plasma Lipid Screening [facility] Start: 09-25-1990 Lipid panel Lipid Screening [facility] Start: 09-25-1990 LIPID SCREEN LIPID SCREEN [facility] Start: 09-25-1974 Urine microalbumin profile [facility] Start: 09-25-1973 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 RICKEY DISEASE VISIT ANNUAL PCP TEAM CHRONIC DISEASE VISIT [facility] Start: 09-25-1973 BP CONTROLLED (<130/80) BP CONTROLLE D (<130/80) [facility] Start: 09-25-1973 Hepatitis B surface antibody level LDL CHOLESTEROL [facility] Start: 09-25-1973 HEPATITIS C SCREENING HEPATITIS C [facility] Start: 09-25-1973 Hepatitis C screening Hepatitis C [facility] Start: 09-25-1960 COVID-19 VACCINE (#1) COVID-19 VACCI NE (#1) [facility] Start: 09-25-1960 COVID-19 VACCINE (1) COVID-19 VACCIN E (1) [facility] Start: 03-27-1956 COVID-19 VACCINE (#1) COVID-19 VACCI NE (#1) [facility] Start: 1955 ABDOMINAL AORTIC ANEURYSM SCREENING ABDOMINAL AORTIC ANEURYSM SCREENING [facility] Start: 1955 Abdominal aortic aneurysm screening Abdominal Aortic Aneurysm Screening [facility] c [facility] c [facility] c [facility] Immunizations Immunization Date Immunization Notes Care Provider Fa cility 09-29-2020 SARS-CoV-2 (COVID-19 ) mRNA-1273 vaccine Gaetano NILL [facility] 09-28-2020 SARS-CoV-2 (COVID-19 ) mRNA BNT-162b2 vax JERI SANDERS [facility] 09-07-2020 SARS-CoV-2 (COVID-19 ) mRNA-1273 vaccine Gaetano NILL [facility] 09-06-2020 SARS-CoV-2 (COVID-19 ) mRNA BNT-162b2 vax JERI SANDERS [facility] Payers Date Payer Category Payer Medicare MEDICARE MEDICAR E A AND B [id number] 2020-Present [phone] [place] [address] Medicare [id number] 2020 Medicare MEDICARE MEDICAR E A AND B [id number] 2020-Present [phone] [place] [address] Medicare [id number] 2020 Unknown [employer] [employer] MEDICARE SUPPLEMENT [id number] 2020-Present [phone] [address] [employer] [address] Indemnity [id number] 2020 Unknown [employer] [facility] MEDICARE SUPPLEMENT [id number] 2020-Present [phone] [address] [place] [address] Indemnity [id number] 2020 Unknown [id number] 1959 Medicare [id number] 1959 Unknown [id number] 1955 Unknown [id number] 2.16.840.1.685481.3.579.2.90 2 1955 Unknown [id number] 2.16.840.1.696531.3.579.2.64 7 1955 Unknown [id number] 2.16.840.1.431175.3.579.2.59 3 1955 Unknown [id number] 2.16.840.1.918069.3.579.2.59 3 1955 Unknown [id number] 2.16.840.1.048611.3.579.2.59 3 1955 Unknown [id number] 2.16.840.1.064184.3.579.2.59 3 1955 Unknown [id number] 2.16.840.1.721405.3.579.2.59 3 1955 Unknown [id number] 2.16.840.1.943225.3.579.2.59 3 1955 Unknown [id number] 2.16.840.1.431802.3.579.2.59 3 1955 Unknown [id number] 2.16.840.1.589836.3.579.2.59 3 1955 Unknown [id number] 2.16.840.1.591001.3.579.2.59 3 1955 Unknown [id number] 2.16.840.1.135952.3.579.2.59 3 Unknown [id number] 2.16.840.1.011563.3.579.2.59 3 1955 Unknown [id number] 2.16.840.1.049491.3.579.2.59 3 1955 Unknown [id number] 2.16.840.1.027630.3.579.2.59 3 1955 Unknown [id number] 2.16.840.1.969423.3.579.2.59 3 1955 Unknown [id number] 2.16.840.1.916069.3.579.2.59 3 1955 Unknown [id number] 2.16.840.1.905626.3.579.2.59 3 1955 Unknown [id number] 2.16.840.1.365399.3.579.2.59 3 1955 Unknown [id number] 2.16.840.1.657530.3.579.2.59 3 1955 Unknown [id number] 2.16.840.1.346348.3.579.2.59 3 1955 Unknown [id number] 2.16.840.1.145740.3.579.2.59 3 1955 Unknown [id number] 2.16.840.1.006145.3.579.2.59 3 1955 Unknown [id number] 2.16.840.1.123734.3.579.2.72 7 1955 Unknown [id number] 2.16.840.1.063900.3.579.2.72 7 1955 Unknown [id number] 2.16.840.1.557411.3.579.2.72 7 1955 Unknown [id number] 2.16.840.1.222037.3.579.2.72 7 1955 Unknown [id number] 2.16.840.1.443544.3.579.2.72 7 1955 Unknown [id number] 2.16.840.1.260686.3.579.2.12 59 1955 Unknown [id number] 2.16.840.1.909738.3.579.2.12 59 Unknown COMMERCIAL COMME RCIAL MISCELLANEOUS [id number] Effective for all dates [id number]. [id number] Unknown [id number] Social History Date Type Detail Facility Start: 06-17-2020 End: 01-11-2021 Tobacco smoking status SCIS Never smoker [facility] Start: 06-17-2020 End: 04-14-2022 Tobacco use and exposure Never used [facility] Start: 06-17-2020 Alcohol intake Lifetime non-d minna (finding) [facility] Start: 06-17-2020 History SDOH Alcohol Frequency 1 [facility] Start: 1955 Sex Assigned At Not on file [facility] Start: 10-16-2021 End: 04-27-2022 Exposure to SARS-CoV-2 (event) Not sure [facility] Start: 01-11-2021 End: 11-13-2023 Alcohol intake Current drinker of alcohol (finding) [facility] Start: 01-11-2021 History SDOH Alcohol Comment Social [facility] Start: 02-21-2022 End: 04-24-2022 Tobacco smoking status Occasional tobacco smoker (finding) [facility] Tobacco smoking status Former sm okeless tobacco user, quit more than 30 days ago [facility] Start: 04-27-2022 End: 10-26-2022 Sex Assigned At Male [facility] Start: 04-14-2022 End: 10-31-2022 Tobacco smoking status NHIS Ex-smoker [facility] Start: 06-25-2011 End: 06-25-2015 History of tobacco use Current smoker [facility] Start: 06-25-2011 End: 06-25-2015 History of tobacco use Cigar Smoker [facility] Start: 04-14-2022 Alcohol Comment Very rare [facility] Start: 04-27-2022 End: 10-26-2022 History of Social function [facility] Functional Status Date Assessment Result Facility 10-31-2022 Functional Status N/A [facility] 04-24-2022 Functional Status N/A [facility] 02-21-2022 Functional Status N/A [facility] Clinical Notes 10-27-2021 to 11-13-2023 Nafisa Chacon, JOSELUIS - 11/13/2023 1:02 PM Nafisa Beckwith LPN - 11/13/2023 1:02 PM Nestor Malin MD - 11/13/2023 12:52 PM Nestor Malin MD - 05/03/2023 2:30 PM EST Note Date & Type Note Facility 11-13-2023 Note HNO ID: [id number] Author: Nestor MCKENZIE MD Service: ? Author Type: Physician Type: Progress Notes Filed: 11/20/2023 13:37 Note Text: Radiation Oncology - Follow Up [...] cath. PSA HISTORY: PSA (ng/mL) Date Value 01/11/2021 1.80 PSA. (no units) Date Value 11/07/2023 0.48 04/26/2023 1.11 10/13/2022 1.03 04/06/2022 1.60 ALLERGIES No Known Allergies Potassium Citrate 15 mEq TbER Take 2 tablets by mouth every 12 hours. sertraline (ZOLOFT) 50 mg tablet Take 50 mg by mouth once daily. carvedilol (COREG) 12.5 mg tablet 12.5 mg. aspirin, enteric coated (ASPIRIN, ENTERIC COATED) 81 [...] Blood per rectum: none PHYSICAL EXAM: BP 128/79 Pulse 66 Resp 16 Wt 104.9 kg (231 lb 4.2 oz) SpO2 95% BMI 35.16 kg/m? KPS: 100 General appearance: Alert and [...] brachytherapy 03/10/2021 Overall doing well. PSA stable. Plan to see patient back in one year. Patient has continued urologic follow-up with Dr. Kaplan. Signed by: Nestor Mckenzie MD cc: Ellen Barrera, LEAN MANUFACTURING SPECIALIST (Dr) [address] [place] [address] [facility] 11-13-2023 Nurse Note AUA=1 [facility] 11-13-2023 Nurse Note AUA=1 documented in this encounter [facility] 11-13-2023 History of Presen t illness Narrative Radiation Oncology - Follow Up Note PATIENT NAME: Mark Douglas PATIENT DIAGNOSIS: Prostate adenocarcinoma, initial PSA 5.4, biopsy Phillips score 3 + 4 = 7 (grade [...] cath. PSA HISTORY: PSA (ng/mL) Date Value 01/11/2021 1.80 PSA. (no units) Date Value 11/07/2023 0.48 04/26/2023 1.11 10/13/2022 1.03 04/06/2022 1.60 ALLERGIES No Known Allergies Potassium Citrate 15 mEq TbER Take 2 tablets by mouth every 12 hours. sertraline (ZOLOFT) 50 mg tablet Take 50 mg by mouth once daily. carvedilol (COREG) 12.5 mg tablet 12.5 mg. aspirin, enteric coated (ASPIRIN, ENTERIC COATED) 81 [...] Blood per rectum: none PHYSICAL EXAM: BP 128/79 Pulse 66 Resp 16 Wt 104.9 kg (231 lb 4.2 oz) SpO2 95% BMI 35.16 kg/m KPS: 100 General appearance: Alert and oriented. No acute distress. Rectal exam def Extremities: No deformities, edema, skin discoloration, clubbing or cyanosis. 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 PSA stable. Plan to see patient back in one year. Patient has continued urologic follow-up with Dr. Kaplan. Signed by: Nestor Mckenzie MD cc: Ellen Barrera, LEAN MANUFACTURING SPECIALIST ([facility]) [address] [place] [address] documented in this encounter [facility] 05-03-2023 Note HNO ID: [id number] Author: Nestor Mckenzie MD Service: ? Author [...] by: Nestor Mckenzie MD cc: Ellen Barrera, LEAN MANUFACTURING SPECIALIST ([facility]) [address] [place] [address] [facility] 05-03-2023 History of Presen t illness Narrative Radiation Oncology - Follow Up Note PATIENT NAME: Mark Douglas PATIENT DIAGNOSIS: Prostate adenocarcinoma, initial PSA 5.4, biopsy Phillips score 3 + 4 = 7 (grade [...] ASSESSMENT/PLAN: Prostate adenocarcinoma, initial PSA 5.4, biopsy Phillips score 3 + 4 = 7 (grade [...] by: Nestor Mckenzie MD cc: Ellen Barrera, LEAN MANUFACTURING SPECIALIST ([facility]) [address] [place] [address] documented in this encounter [facility] 05-03-2023 Nurse Note AUA= 1 documented in this encounter [facility] 04-25-2023 Miscellaneous Notes Please sign pended PSA order for upcoming appt. Fax order to [facility] per patient request. Nafisa Chacon RN documented in this encounter [facility] 10-31-2022 Hospital Discharg e instructions Patient Education 10/31/2022 09:50:06 Kidney Stones, Nzms-ph-Zudb Kidney Stones Kidney stones are rock-like masses [...] Follow these instructions at home: Medicines Take fwjy-znz-dlpsocl and prescription medicines only as told by [...] provider. Document Revised: 02/13/2022 Document Reviewed: 02/13/2022 [employer] Patient Education 2022 [employer] Follow Up Care 10/11/2022 10:56:16 With:JERI SANDERS PA-C, URL Address: [address] [place] [address] Business (1) When:6 months [facility] 10-31-2022 Hospital Discharg e instructions Follow Up Care 10/31/2022 09:35:35 With:JERI SANDERS PA-C, URL Address: [address] [place] [address] [phone] When: Unknown [facility] 10-26-2022 Nurse Note AUA 2 Elisa Frederick RN documented in this encounter [facility] 10-26-2022 History of Presen t illness Narrative [...] ASSESSMENT/PLAN: Prostate adenocarcinoma, initial PSA 5.4, biopsy Phillips score 3 + 4 = 7 (grade [...] by: Nestor Mckenzie MD cc: Ellen Barrera, LEAN MANUFACTURING SPECIALIST ([facility]) [address] [place] [address] documented in this encounter [facility] 08-15-2022 Note Patient here for 1 y ear follow up CAD, hypertension, and hyperlipidemia. Had labs in Jun 2022, and lipid panel in November 2021. His this past Feb 2022. Denies chest pain and SOB. Says he feels good. Review of Systems HENT: Positive for hearing loss. All other systems reviewed and are negative. [facility] 08-15-2022 Note Cardiovascular Medic [facility] Clinic SUBJECTIVE Chief Complaint Patient presents with [...] Problem List Diagnosis Athscl heart disease of [place] coronary artery w/o ang pctrs Carcinoma of [...] Final Atrial Rate 04/28/2021 80 BPM Final ME Interval 04/28/2021 162 ms Final QRS DURATION 04/28/2021 90 ms Final QT Interval 04/28/2021 384 ms Final QTC CALCULATION(BAZETT) 04/28/2021 442 ms Final P Trinity 04/28/2021 30 degrees Final R-Trinity 04/28/2021 17 degrees Final T Wave Trinity 04/28/2021 64 degrees Final Diagnosis 04/28/2021 Final [...] 04/28/2021 Cardiovascular Laboratory Report FINAL IMPRESSIONS: 1. Dmfc-br-jxqeikxy 2-vessel coronary artery disease. 2. Normal global left ventricular systolic function by noninvasive imaging. 3. Dcvdbolq-hi-pxchxp systemic hypertension. RECOMMENDATIONS: 1. Aggressive cardiovascular risk factor modification. 2. Optimization medical management; aspirin, high-intens (more content not included)... [facility] 07-13-2022 Note OP Note OPERATION DATE: 07/13/2022 PREOPERATIVE DIAGNOSIS: Left ureteral calculus, status post left stent placement. POSTOPERATIVE DIAGNOSIS: Left ureteral calculus, status post left stent placement. PROCEDURE: 1. Cystoscopy. 2. Left stent change to 6-Niuean variable length. 3. Left ureteroscopy. 4. Holmium [...] usual fashion. I started by passing a 22-Niuean [employer] cystoscope per urethra and into the [...] into the bladder, and then slid a 6-Niuean variable length stent, over the wire, up [...] removed. He was then [facility] and wheeled to PACU in stable condition. [facility] 05-25-2022 Note OP Note OPERATION DATE: 05/25/2022 PREOPERATIVE DIAGNOSIS: Large left ureteral calculus. POSTOPERATIVE DIAGNOSIS: Large left ureteral calculus. PROCEDURE: 1. Left ESWL. 2. Cystoscopy. 3. Left retrograde pyelogram. 4. Rigid left ureteral dilation. 5. Left ureteroscopy. 6. Placement of 7-Niuean variable length left ureteral stent. ANESTHESIA: General [...] usual fashion. I started by passing a 22-Niuean Olympus cystoscope per urethra and into the bladder. The prostatic urethra was long and obstructing. Cano endoscopy in the bladder showed no evidence of any stones or tumors. I then passed an 8-Niuean cone tip catheter and did a left [...] guide wire and then I used an 8-Niuean ureteral dilator and still could not get [...] the scope. I then passed a Dornier 10/12-Niuean ureteral access sheath over the wire and [...] into the bladder. I then slid a 7-Niuean variable length ureteral stent over the wire, up into the kidney. The wire was removed and there were good curls in the kidney and in the bladder. The bladder was drained of its contents and the scope was then removed. He was then transferred to a [place] bed and wheeled to PACU in stable condition. [facility] 04-27-2022 Nurse Note AUA= 3 documented in this encounter [facility] 04-27-2022 History of Presen t illness Narrative [...] ASSESSMENT/PLAN: Prostate adenocarcinoma, initial PSA 5.4, biopsy Phillips score 3 + 4 = 7 (grade [...] by: Nestor Mckenzie MD cc: Ellen Barrera, LEAN MANUFACTURING SPECIALIST ([facility]) [address] [place] [address] documented in this encounter [facility] 04-25-2022 History and physical note COLORECTAL SURGERY April 13, 2022 Mark Douglas 66 year old This consult was requested by Dr. Lujan and my final recommendations will be communicated to the requesting health care provider by way of the shared medical record for internal providers or letter via the [employer] for external providers. Chief Complaint: [...] BIOPSY: TUBULOVILLOUS ADENOMA CT C/A/P 02/13/22 - [facility] LUNGS: No visible pulmonary disease LIVER: No [...] PM documented in this encounter [facility] 04-24-2022 Hospital Discharg e instructions Patient Education 04/24/2022 12:42:44 Kidney Stones, Rsdg-wr-Nnjq Kidney Stones Kidney stones are rock-like masses [...] Follow these instructions at home: Medicines Take byjm-nzb-oejtfut and prescription medicines only as told by [...] 11/27/2008 Document Revised: 10/28/2019 Document Reviewed: 10/28/2019 [employer] Patient Education 2019 [employer]. Follow Up Care 02/08/2022 11:26:01 With:EUSEBIO CHRISTINE, Nestor Veras, URL Address: [facility] [address], [place] [address]- [phone] When:Within 6 Month(s) Comments:w/ mal [facility] [place] 04-18-2022 Miscellaneous Notes Called patient and told him we had to move his colonoscopy from 04/27 to 04/25. Told him currently he is scheduled at 2:45 and he should arrive by 1:45 but they will call him the day before to confirm this. He said he will stop taking his 81 mg aspirin today then. documented in this encounter [facility] 04-14-2022 History and physical note HISTORY AND PHYSICAL EXAMINATION SERVICE DATE: 04/14/2022 SERVICE TIME: 2:09 PM PRIMARY CARE PHYSICIAN: Ellen Barrera, LEAN MANUFACTURING SPECIALIST, LEAN MANUFACTURING SPECIALIST REASON FOR VISIT: Mark Douglas is a [...] Essential (Primary) Hypertension Athscl Heart Disease of [place] Coronary Artery W/O Ang Pctrs Subjective CHIEF [...] fevers. Neuro: No history of TIA's, stroke, SHIP CAPTAIN tumor, impaired sensorium, hemiplegia, paraplegia or quadraplegia. [...] M.D. 05/10/2021 09:07 A FINAL IMPRESSIONS: 1. Xifw-yr-uarxxkzy 2-vessel coronary artery disease. 2. Normal global left ventricular systolic function by noninvasive imaging. 3. Gboejumi-vy-ncapqt systemic hypertension. Assessment/Plan Essential (primary) hypertension Assessment: controlled on Carvedilol BP 120/68 Hyperlipidemia, unspecified Assessment: on statin Athscl heart disease of [place] coronary artery w/o ang pctrs Assessment: mild [...] PM documented in this encounter [facility] 04-14-2022 Instructions Nina Motley APRN.CNP - 04/14/2022 2:10 PM EDT PATIENT PREOPERATIVE INSTRUCTIONS Chai Palma MD has scheduled you for your procedure at this surgery center: [facility]: [phone] --[address] [place] [address]. Please enter through the entrance closest to [...] Procedures: - YOU MUST HAVE A RESPONSIBLE STATISTICAL REPORTING ANALYST TAKE YOU HOME. A CAM MILLING MACHINE OPERATOR OR PLAN CONSULTANT CANNOT BE MADE A RESPONSIBLE STATISTICAL REPORTING ANALYST. - We recommend that a responsible person stays with you overnight to take care of you. - You cannot stay in a hotel alone after outpatient surgery. You will not be permitted to have your surgery, if you do not have someone to take care of you. If you already have an Advance Directive, please fax a copy to [phone] or email to for it to be [...] day. documented in this encounter [facility] 04-14-2022 Miscellaneous Notes Spoke with patient. Confirmed date, time and place Called patient as a follow up to his office visit yesterday. Left voice message notifying him that we have him scheduled for a colonoscopy with Dr. Palma on Apr 27 at 8:45 at [facility]. He will need to arrive by 7:45. Asked him to call back to verify that he got this message and is aware of the date, time and place. documented in this encounter [facility] 03-15-2022 Note OPERATIVE NOTE OPERATION DATE: 03/15/2022 [...] good condition. CC: Patient's family physician [facility] 10-28-2021 History of Presen t illness Narrative Patient was seen and examined by Dr. Mckenzie today. Patient denies any problems with bowel movements. No blood in his stools. Patient denies any problems with urination. No pain, burning or difficulty with urination. Patient was given treatment summary and survivorship care plan for prostate cancer. Sindy Regan APRN.RODRICK documented in this encounter [facility] 10-27-2021 History of Presen t illness Narrative [...] ASSESSMENT/PLAN: Prostate adenocarcinoma, initial PSA 5.4, biopsy Phillips score 3 + 4 = 7 (grade group 2), clinical stage T1c, N0, M0, stage IIB [T1-T2, N0, M0, PSA <20, GG 2] (AJCC 8th ed.), status post prostate brachytherapy 03/10/2021 Doing well with excellent PSA response. No significant posttreatment problems. Plan to have patient back in 6 months with repeat PSA. Signed by: Nestor Mckenzie MD cc: Ellen Barrera, LEAN MANUFACTURING SPECIALIST ([facility]) [address] [place] [address] documented in this encounter [facility] 10-27-2021 Nurse Note AUA 2 Elisa Frederick RN documented in this encounter [facility] Evaluation + Plan note Future Appointments Appointment Date:04/24/2022 11:45:00 AM Scheduled Provider:Nestor KALPAN MD Location:[facility] Appointment Type:URO Office Visit General Surgery [place] Evaluation + Plan note Future Appointments Appointment Date:10/16/2022 10:30:00 AM Scheduled Provider:Nestor KAPLAN MD Location:[facility] [place] Appointment Type:URO Office Visit Diagnostic Tests PendingPSA Total 08/23/22 [facility] Evaluation + Plan note Future Appointments Appointment Date:05/08/2023 10:00:00 AM Scheduled Provider:JERI SANDERS PA-C Location:[facility] [place] Appointment Type:URO Office Visit [facility] Evaluation note Diagnosis Malignant neoplasm of prostate (HCC)- Primary Malignant neoplasm of prostate Prostate cancer (HCC) Malignant neoplasm of prostate documented in this encounter [facility] note* Diagnosis Malignant neoplasm of prostate (HCC)- Primary Malignant neoplasm of prostate documented in this encounter [facility] note* Diagnosis Preop examination- Primary Preoperative examination, unspecified Essential (primary) hypertension Unspecified essential hypertension Hyperlipidemia, unspecified hyperlipidemia type Athscl heart disease of [place] coronary artery w/o ang pctrs Obstructive sleep apnea Obstructive sleep apnea (adult) (pediatric) Prostate cancer (HCC) Malignant neoplasm of prostate Polyp of colon, unspecified part of colon, unspecified type documented in this encounter [facility] note* Diagnosis Malignant neoplasm of prostate (HCC)- Primary Malignant neoplasm of prostate [facility] Diagnosis History of prostate cancer- Primary Personal history of malignant neoplasm of prostate Obesity, Class I, BMI 30-34.9 Obesity, unspecified [facility] Diagnosis History of prostate cancer- Primary Personal history of malignant neoplasm of prostate [facility] Diagnosis Mass of colon Other specified disorder of intestines [facility]* Diagnosis Prostate cancer (HCC)- Primary Malignant neoplasm of prostate documented in this encounter [facility] Narrative No data available for this section General [facility] Discharge instructions No data available for this section General Surgery [place] [facility] note No data available for this section General Surgery [place] Reason for referral (narrative) Referred by: Gaetano LUJAN MD General Surgery [place] [facility] for referral (narrative)* Outpatient Procedure (Routine) - Closed Specialty Diagnoses / Procedures Referred By Aminata german Referred To Contact [facility] Diagnoses Mass of colon Procedures COLONOSCOPY SCREENING COLONOSCOPY FLX DX W/[place] [address] [place] [address] [address] Referral ID Status Reason Start Date Expiration Date V isits Requested Visits Authorized [id number] Closed Auto-Generate d Referral 04/13/2022 04/13/2023 1 1 [facility] for visit Narrative* Outpatient Procedure (Routine) - Closed Specialty Diagnoses / Procedures Referred By Aminata german Referred To Contact [facility] Diagnoses Mass of colon Procedures COLONOSCOPY SCREENING COLONOSCOPY FLX DX W/[place] [address] [place] [address] [facility] [address] [place] [address] Referral ID Status Reason Start Date Expiration Date V isits Requested Visits Authorized [id number] Closed Auto-Generate d Referral 04/13/2022 04/13/2023 1 1 [facility] Discharge Instructions * Instructions* Bree Leslie MD [...] you may find a provider through the [facility] Physician Referral Service by calling [phone] ([phone]) or by visiting [email or web address]. Return for reevaluation for any worsening of [...] Care Everywhere. * Coronavirus Disease (COVID-19): Isolation (Zambian) * COVID-19 Viral Test ([place]) * [place] COVID-19 DISCHARGE INSTRUCTIONS documented in this encounter Assessments Diagnosis COVID-19- Primary Advance Directives No Advanced Directives Records FoundDocuments on File Type Date Recorded Patient Superintendent Circus Expl anation Advance Directives and Livin g Will 06/17/2020 6:45 PM Summary Purpose Family History No Family History Records FoundNo Family History Records FoundNo Family History Records FoundNo Family History Records FoundNo Family History Records FoundNo Family History Records Found No data available for this section No Family History Records FoundNo Family History Records Found Additional Source Comments Reason for Visit (unrecogniz ed section and content) Reason Comments Covid-19 Screening Reason Comments Prostate Cancer 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 ED ATTENDING NOTE [facility] EMERGENCY DEPARTMENT PCP - Physician No Chief [...] currently in town visiting family members for [employer]. He denies having any other acute complaints. [...] at the following links: For Healthcare Providers: https://www.fda.gov/media/091643/download For Patients: https://www.fda.gov/media/860872/download Radiographic Imaging (if any) During ED Visit [...] at the following links: For Healthcare Providers: https://www.fda.gov/media/889824/download For Patients: https://www.fda.gov/media/621451/download Imaging Results No orders to display Patient's [...] section and content) DATE CREATED AUTHOR 07/09/2020 [facility] DATE CREATED AUTHOR AUTHOR'S ORGANIZ ATION 05/11/2021 [facility] DATE CREATED AUTHOR AUTHOR'S ORGANIZ ATION 04/27/2022 [facility] DATE CREATED AUTHOR AUTHOR'S ORGANIZ ATION 11/04/2022 [facility] DATE CREATED AUTHOR AUTHOR'S ORGANIZ ATION 12/02/2022 [facility] DATE CREATED AUTHOR AUTHOR'S ORGANIZ ATION 06/12/2023 [facility] DATE CREATED AUTHOR AUTHOR'S ORGANIZ ATION 11/07/2023 [facility] DATE CREATED AUTHOR AUTHOR'S ORGANIZ ATION 11/21/2023 [facility] Source Comments (unrecognize d section and content) In the event this informatio n is protected by the Federal Confidentiality of Alcohol and Drug Abuse Patient Records regulations: The Federal rules restrict any use of the information to criminally investigate or prosecute any alcohol or drug abuse patient.[facility] the event this information is protected by the Federal Confidentiality of Alcohol and Drug Abuse Patient Records regulations: The Federal rules restrict any use of the information to criminally investigate or prosecute any alcohol or drug abuse patient.[facility] the event this information is protected by the Federal Confidentiality of Alcohol and Drug Abuse Patient Records regulations: The Federal rules restrict any use of the information to criminally investigate or prosecute any alcohol or drug abuse patient.[facility] the event this information is protected by the Federal Confidentiality of Alcohol and Drug Abuse Patient Records regulations: The Federal rules restrict any use of the information to criminally investigate or prosecute any alcohol or drug abuse patient.[facility] the event this information is protected by the Federal Confidentiality of Alcohol and Drug Abuse Patient Records regulations: The Federal rules restrict any use of the information to criminally investigate or prosecute any alcohol or drug abuse patient.[facility] the event this information is protected by the Federal Confidentiality of Alcohol and Drug Abuse Patient Records regulations: The Federal rules restrict any use of the information to criminally investigate or prosecute any alcohol or drug abuse patient.[facility] the event this information is protected by the Federal Confidentiality of Alcohol and Drug Abuse Patient Records regulations: The Federal rules restrict any use of the information to criminally investigate or prosecute any alcohol or drug abuse patient.[facility] Health[facility] the event this information is protected by the Federal Confidentiality of Alcohol and Drug Abuse Patient Records regulations: The Federal rules restrict any use of the information to criminally investigate or prosecute any alcohol or drug abuse patient.[facility] the event this information is protected by the Federal Confidentiality of Alcohol and Drug Abuse Patient Records regulations: The Federal rules restrict any use of the information to criminally investigate or prosecute any alcohol or drug abuse patient.[facility] the event this information is protected by the Federal Confidentiality of Alcohol and Drug Abuse Patient Records regulations: The Federal rules restrict any use of the information to criminally investigate or prosecute any alcohol or drug abuse patient.[facility] Health[facility] the event this information is protected by the Federal Confidentiality of Alcohol and Drug Abuse Patient Records regulations: The Federal rules restrict any use of the information to criminally investigate or prosecute any alcohol or drug abuse patient.[facility] Care Teams (unrecognized sec tion and content) Crab Steamer Relationship Specialty Start Date End Date Ellen Barrera, LEAN MANUFACTURING SPECIALIST [address] [place] [address] PCP - General Family Practice 11/17/20 Imtiaz Freed Jr. [address] [place] [phone] Referring Urology 11/17/20 Crab Steamer Relationship Specialty Start Date End Date Ellen Barrera, LEAN MANUFACTURING SPECIALIST [address] [place] [address] PCP - General Family Practice 11/17/20 Imtiaz Freed Jr. [address] [place] [address] Referring Urology 11/17/20 Crab Steamer Relationship Specialty Start Date End Date Ellen Barrera, LEAN MANUFACTURING SPECIALIST [address] [place] [address] PCP - General Family Medicine 11/17/20 Imtiaz Freed Jr. [address] [place] [phone] Referring Urology 11/17/20 Crab Steamer Relationship Specialty Start Date End Date Ellen Barrera, LEAN MANUFACTURING SPECIALIST [address] [place] [address] PCP - General Family Medicine 11/17/20 Imtiaz Freed Jr. [address] [place] [phone] Referring Urology 11/17/20 Crab Steamer Relationship Specialty Start Date End Date Ellen Barrera, LEAN MANUFACTURING SPECIALIST [address] [place] [address] PCP - General Family Medicine 11/17/20 Imtiaz Freed Jr. [address] [place] [phone] Referring Urology 11/17/20 Crab Steamer Relationship Specialty Start Date End Date Ellen Barrera, LEAN MANUFACTURING SPECIALIST [address] [place] [address] PCP - General Family Medicine 11/17/20 Imtiaz Freed Jr. [address] [place] [phone] Referring Urology 11/17/20 Crab Steamer Relationship Specialty Start Date End Date Ellen Barrera, LEAN MANUFACTURING SPECIALIST [address] [place] [address] PCP - General Family Medicine 11/17/20 Imtiaz Freed Jr. [address] [place] [address] Referring Urology 11/17/20 Crab Steamer Relationship Specialty Start Date End Date Ellen Barrera CNP [address] [place] [address] PCP - General Family Medicine 11/17/20 Imtiaz Freed Jr. [address] [place] [phone] Referring Urology 11/17/20 FOR RECORDS PERTAINING TO [...] BE BASED ON THE PRIMARY CLINICAL RECORDS. [employer] provides no warranty or guarantee of the accuracy or completeness of information in this document.
== END 2024-03-20 13:42 | disposition home or self-care (01) ==
LOC: US 13:42
PROVIDERS: PCP Nurse Practitioner; Visit Provider Nurse Practitioner
DX: M79.661 Pain in right lower leg (principal); M79.89 Other specified soft tissue disorders
CPT/HCPCS: 93971

== ENCOUNTER 2024-08-25 07:34 | Outpatient (OUT) | payer MEDICARE, OTHER, SELFPAY ==
[2024-08-25 08:19] LABS: Chol HDL Ratio 3.2; Cholesterol 149 mg/dL (<=200); HDL Cholesterol 47 mg/dL (40-60); LDL Cholesterol Calculated 77.8 mg/dL; Triglycerides 121 mg/dL (<=150); VLDL CHOLESTEROL 24.2 mg/dL
== END 2024-08-25 07:35 | disposition home or self-care (01) ==
LOC: LAB 07:35
PROVIDERS: PCP Nurse Practitioner
DX: I25.10 Atherosclerotic heart disease of native coronary artery without angina pectoris (principal); E78.2 Mixed hyperlipidemia
CPT/HCPCS: 36415; 80061

== ENCOUNTER 2024-11-03 10:35 | Outpatient (OUT) | payer MEDICARE, OTHER, SELFPAY ==
[2024-11-03 12:27] LABS: Prostate Specific Antigen Dx 0.26 ng/mL (<=4.00)
== END 2024-11-03 10:36 | disposition home or self-care (01) ==
PROVIDERS: PCP Nurse Practitioner; Visit Provider Radiology Radiation Oncology
DX: C61 Malignant neoplasm of prostate (principal)
CPT/HCPCS: 36415; 84153

== ENCOUNTER 2025-05-26 09:01 | Outpatient (OUT) | payer MEDICARE, OTHER, SELFPAY ==
--- OUTSIDE RECORDS SUMMARY | 2025-05-26 09:08 | XMS_ITS | Clinical Summary ---
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 Name Role Phone Ellen Barrera MD Primary Care Provider [phone] Allergies No known active allergies Medications MedicationSigDispense QuantityRefillsLast FilledStart DateEnd DateStatus sertraline (Zoloft) 50 mg tablet Take 50 mg by mouth in the morning.07/31/2022ctive aspirin 81 mg EC tablet Take 81 mg by mouth in the morning.01/19/2022ctive atorvastatin (Lipitor) 80 mg tablet Take 1 tablet by mouth at bedtime.Active allopurinol (Zyloprim) 100 mg tablet Take 100 mg by mouth in the morning.05/21/2022ctive carvedilol (Coreg) 6.25 mg tablet Indications:Essential (primary) hypertensionTAKE 1 TABLET BY MOUTH TWICE A DAY 180 tablet ctive losartan (Cozaar) 25 mg tablet Take 25 mg by mouth in the morning.5Active sildenafil (Viagra) 50 mg tablet Take 50 mg by mouth if needed each day.5Active Active Problems ProblemNoted DateDiagnosed DateAbnormal kidney ipqpscfr06/21/2025PH with urinary svklxqzdfxy25/21/2025Diverticulosis of large /21/2025Elevated PSA08/15/2024History of basal cell wfcjnlioe50/21/2025History of colonic polyps 08/15/2024Kidney etndko5508/15/2024Personal history of fall08/15/2024Pre-diabetes 08/15/2024Urinary cddqevmfe63/21/2025Weight loss, shrqouvacnpyj03/21/2025 Erectile dysfunction due to diseases classified wkmivlpwc65/06/2025Encounter for subsequent annual wellness visit (AWV) in Medicare eqapwna6605/06/2024Morbid (severe) obesity due to excess pnjwglik23/26/2024ain and swelling of right lower leg03/20/2024nxiety and ooybajvhho84/19/202402/Gout of multiple sites/Obesity, Class I, BMI 30-34.90// Prostate opbeec9110/27/2021 Overview (08/15/2022): Last Assessment & Plan: Assessment: s/p brachytherapy Athscl heart disease of [place] coronary artery w/o ang /28/2021 Overview (08/15/2022): Last Assessment & Plan: Assessment: mild non obstructive disease per cardiac cath 2020 On ASA Carcinoma of cyzhrdrv63/21/6301Eeui67/21/2021ssential (primary) hypertension 03/12/2021 Overview (08/15/2022): Last Assessment & Plan: Assessment: controlled on Carvedilol BP 120/68 Hyperlipidemia, hwkohszddct67/18/2021 Overview (08/15/2022): Last Assessment & Plan: Assessment: on statin Obstructive sleep apnea02/07/2021 Overview (08/15/2022): Last Assessment & Plan: Assessment:gina has not been using CPAP recently Family History Medical HistoryRelationNameCommentsCoronary artery diseaseBrotherCoronary artery diseaseFatherCoronary artery diseaseMotherHeart attackMotherRelationNameStatus CommentsBrotherFatherMotherDeceased Social History Tobacco UseTypesPacks/DayYears UsedDateSmoking Tobacco: FormerCigarettes Smokeless Tobacco: Never Tobacco Cessation:Counseling Given: Not Answered Alcohol UseStandard Drinks/WeekCommentsYes0 (1 standard drink = 0.6 oz pure alcohol)occasionalUT Safety & EnvironmentAnswerDate RecordedFear of Current or Ex-PartnerNot on file08/16/2023Emotionally AbusedNot on file08/16/2023hysically AbusedNot on file08/16/2023Sexually AbusedNot on file08/16/2023hysically or Sexually AbusedNot on file08/16/2023Sex and Gender InformationValueDate Recorded Sex Assigned at BirthNot on fileLegal TptTwfk2312/21/2021 10:00 PM EDTGender IdentityNot on fileSexual OrientationNot on file Last Filed Vital Signs Vital SignReadingTime TakenCommentsBlood Moocnkud499/60008/15/2024 11:30 AM EST Yfqrg377708/15/2024 11:30 AM ESTTemperature--Respiratory Rate--Oxygen Saturation 96%08/15/2024 11:30 AM ESTInhaled Oxygen Concentration--Fldzlh394 kg (227 lb) 08/15/2024 11:30 AM SSPGpybfo094.7 cm (5' 8 )08/15/2024 11:30 AM ESTBody Mass Index34.52008/15/2024 11:30 AM EST Plan of Treatment Health MaintenanceDue DateLast DoneCommentsCT Vyqqcazeeblu56/03/1956FIT-DNA 1955FIT1955FOBT1955Medicare Annual Wellness (AWV)1955 Nsqhwwmqkimgx99/03/1956Depression Ewzkfarem01/03/1968Pneumococcal Vaccine: 50+ Years (1 of 2 - PCV)09/25/1974Adult Tfksdqk4409/25/1977Fall Risk Screening 09/25/2020Zoster Vaccines (2 of 2)/3COVID-19 Vaccine (5 - 2024- season)5009/29/2020, 09/28/2020, 09/07/2020, Additional history existsInfluenza Vaccine (#1)02/23/20255141Usdhmbhflts30, 03/15/2022, 10/17/2013Colorectal Cancer Ubealxvmh51/01/2032HIB VaccinesAged Out No longer eligible based on patient's age to complete this topicHPV VaccinesAged OutNo longer eligible based on patient's age to complete this topicIPV Vaccines Aged OutNo longer eligible based on patient's age to complete this topic Meningococcal B VaccineAged OutNo longer eligible based on patient's age to complete this topicMeningococcal VaccineAged OutNo longer eligible based on patient's age to complete this topicRotavirus VaccinesAged OutNo longer eligible based on patient's age to complete this topic Insurance * Guarantor: Slava Douglas TypeRelation to PatientDate of BirthPhone Billing AddressPersonal/GanrmbQdew07[birth year][address] [address] [place], [place] [address] Care Teams Team MemberRelationshipSpecialtyStart DateEnd Date Ellen Barrera MD [facility] [place] [address] PCP - General08/15/22
--- OUTSIDE RECORDS SUMMARY | 2025-05-26 09:08 | XMS_ITS | Clinical Summary ---
Author Organization [facility] Address [address] [place] [address] Care Team Providers Care Communications Senior Associate Name Role Phone Ellen Barrera NP Unavailable [phone] Isak Levy MD Primary Care Provider [phone] Ellen Barrera TRAILER RENTAL CLERK Unavailable [phone] Ellen Barrera TRAILER RENTAL CLERK Unavailable [phone] Allergies No known active allergies Medications MedicationSigDispense QuantityRefillsLast FilledStart DateEnd DateStatus sildenafil (Viagra) 50 MG tablet Indications:Carcinoma of prostate (HCC),Erectile dysfunction due to diseases classified elsewhereTake 1 tablet (50 mg) by mouth Daily as needed for erectile dysfunction 15 tablet 5Active atorvastatin (Lipitor) 80 MG tablet Indications:Athscl heart disease of [place] coronary artery w/o ang pctrs,Mixed hyperlipidemiaTake 1 tablet (80 mg) by mouth at bedtime 90 tablet 5Active carvedilol (Coreg) 12.5 MG tablet Indications:Essential (primary) hypertensionTake 1 tablet (12.5 mg) by mouth in the morning and 1 tablet (12.5 mg) in the evening. Take with meals. 180 tablet 5Active losartan (Cozaar) 25 MG tablet Indications:Essential (primary) hypertensionTake 1 tablet (25 mg) by mouth Daily 90 tablet 5Active sertraline (Zoloft) 50 MG tablet Indications:Anxiety and depressionTake 1 tablet (50 mg) by mouth Daily 90 tablet 5Active Active Problems ProblemNoted DateDiagnosed DateErectile dysfunction due to diseases classified tvksdwcbi86/06/2025 Assessment & Plan (12/01/2024 6:18 AM EDT): Started as as result of brachy therapy . No stents placed CAD puente Prescribed sildenafil Assessment & Plan (06/30/2024 9:42 AM EST): Started as as result of brachy therapy . No stents placed CAD puente Will trial generic viagra Advised of side effects Encounter for subsequent annual wellness visit (AWV) in Medicare patient 05/06/2024 Assessment & Plan (05/06/2024 6:51 AM EST): Reviewed Ht/Wt/BMI Recommend eye exam yearly Recommend dental exams twice a year Balance work/leisure activities Exercises is recommended most days of the week (appropriate as chronic conditions allow) Follow up yearly and prn Morbid (severe) obesity due to excess ljahdyxn92/26/2024 Assessment & Plan (12/01/2024 6:18 AM EDT): Discussed with patient their BMI (actual, verses recommended). We have also discussed lifestyle modifications: attempts to perform physical activity as chronic conditions allow, also to monitor dietary intake: increasing protein/fruits/veggies and lowering carb intake (unless contraindicated). Limit sodas, juices, and sugary drinks. Assessment & Plan (06/30/2024 9:35 AM EST): Discussed with patient their BMI (actual, verses recommended). We have also discussed lifestyle modifications: attempts to perform physical activity as chronic conditions allow, also to monitor dietary intake: increasing protein/fruits/veggies and lowering carb intake (unless contraindicated). Limit sodas, juices, and sugary drinks. Has lost about 11 pounds since last visit is trying to make better decisions with food Pain and swelling of right lower leg03/20/2024 Assessment & Plan (06/30/2024 6:45 AM EST): resolved Assessment & Plan (03/20/2024 5:07 PM EDT): Suspect DVT, has US scheduled for 2:00pm Advised of suspected diagnosis If sudden onset chest pain or dyspnea go to ER No clot noted, on US, does appear to be possible complex cyst or hematoma Will send to ortho Add NSAID, ice and modify activity Ehkgxnwweqq45/14/2024 Assessment & Plan (12/01/2024 9:47 AM EDT): Watch for increase in thirst, urination, or appetite. Inspect feet frequently monitoring for open wounds , and also recommend yearly eye exam. Pt should attempt to remain as physically active as chronic conditions allow, as well as trying to follow a diet low in carbohydrates, and simple sugars. A1c: 5.7 12/01/24, 5.9 (05/19) Assessment & Plan (05/06/2024 11:41 AM EST): Watch for increase in thirst, urination, or appetite. Inspect feet frequently monitoring for open wounds , and also recommend yearly eye exam. Pt should attempt to remain as physically active as chronic conditions allow, as well as trying to follow a diet low in carbohydrates, and simple sugars. 5.9 Body mass index (BMI) 36.0-36.9, adult4Anxiety and rachgyriqg88/19/2024 Assessment & Plan (12/01/2024 6:19 AM EDT): Continues to take sertaline at 50mg daily Is doing well with this dose and wishes to continue this Assessment & Plan (06/30/2024 6:46 AM EST): Continues to take sertaline at 50mg daily Is doing well with this dose and wishes to continue this Assessment & Plan (05/06/2024 6:49 AM EST): Continue with use of sertraline Is doing well fu in 6 months Assessment & Plan (09/18/2023 11:24 AM EDT): Doing well no changes in med dose Athscl heart disease of [place] coronary artery w/o ang /28/2021 Overview (08/13/2023): Last Assessment & Plan: Assessment: mild non obstructive disease per cardiac cath 2020 On ASA Last Assessment & Plan: Assessment: mild non obstructive disease per cardiac cath 2020 On ASA Assessment & Plan (12/01/2024 6:17 AM EDT): Cont ASA, statin, and b alistair No current symptoms noted Assessment & Plan (06/30/2024 6:44 AM EST): Cont ASA, statin, and b alistair No current symptoms noted Assessment & Plan (05/06/2024 6:47 AM EST): Cont ASA, statin, and b alistair No current symptoms noted Carcinoma of kqcbypcf14/21/2021 Overview (08/13/2023): Last Assessment & Plan: Assessment: s/p brachytherapy Last Assessment & Plan: Assessment: s/p brachytherapy Assessment & Plan (12/01/2024 6:17 AM EDT): Continue with urology and oncology Assessment & Plan (06/30/2024 6:45 AM EST): Continue with urology and oncology Assessment & Plan (05/06/2024 6:48 AM EST): Continue with urology and oncology Assessment & Plan (09/18/2023 11:24 AM EDT): Continue with urology and radiation oncology Gout04/14/2021 Assessment & Plan (12/01/2024 6:19 AM EDT): Is taking allopurinol Check labs yearly and prn Assessment & Plan (06/30/2024 6:46 AM EST): Is taking allopurinol Check labs yearly and prn Assessment & Plan (05/06/2024 6:49 AM EST): Continue with allopurinol Essential (primary) rkidfakaqqqu69/18/2021 Overview (08/13/2023): Last Assessment & Plan: Assessment: controlled on Carvedilol BP 120/68 Last Assessment & Plan: Assessment: controlled on Carvedilol BP 120/68 Assessment & Plan (12/01/2024 6:17 AM EDT): Please check blood pressure daily and record DASH diet Limit caffeine Take medication as directed Contact office if chest pain, pressure, dizziness, shortness of breath, swelling legs Recommend slow position changes Current meds: losartan, carvedilol, Assessment & Plan (06/30/2024 6:44 AM EST): Please check blood pressure daily and record DASH diet Limit caffeine Take medication as directed Contact office if chest pain, pressure, dizziness, shortness of breath, swelling legs Recommend slow position changes Current meds: losartan, carvedilol, Assessment & Plan (05/06/2024 6:47 AM EST): Please check blood pressure daily and record DASH diet Limit caffeine Take medication as directed Contact office if chest pain, pressure, dizziness, shortness of breath, swelling legs Recommend slow position changes Assessment & Plan (11/06/2023 9:40 AM EDT): Continue carvedilol at 12.5mg BID Fu in 4 months Assessment & Plan (09/18/2023 11:23 AM EDT): Will increase the dose on his carvedilol to 12.5mg BID Fu in 6 weeks for recheck Recommend weight loss, increase in physical activity Hyperlipidemia, cbqevebpnte83/18/2021 Overview (08/13/2023): Last Assessment & Plan: Assessment: on statin Last Assessment & Plan: Assessment: on statin Assessment & Plan (12/01/2024 6:20 AM EDT): Is taking statin Check labs yearly and prn dose changes Assessment & Plan (06/30/2024 6:46 AM EST): Is taking statin Check labs yearly and prn dose changes Assessment & Plan (05/06/2024 6:50 AM EST): Continue with statin, as well as recommend lower fat food choices Exercise most days of the week if chronic conditions allow Obstructive sleep apnea02/07/2021 Overview (08/13/2023): Last Assessment & Plan: Assessment:gina has not been using CPAP recently Last Assessment & Plan: Assessment:gina has not been using CPAP recently Assessment & Plan (12/01/2024 6:17 AM EDT): You have a diagnosis of obstructive sleep apnea. It is recommended that you wear your PAP device any time while in bed sleeping. Not using the PAP device can increase your risk of elevated/uncontrolled high blood pressure, atrial fibrillation, heart attack, stroke, or sudden . Is not complaint with use of PAP Assessment & Plan (06/30/2024 6:44 AM EST): You have a diagnosis of obstructive sleep apnea. It is recommended that you wear your PAP device any time while in bed sleeping. Not using the PAP device can increase your risk of elevated/uncontrolled high blood pressure, atrial fibrillation, heart attack, stroke, or sudden . Is not complaint with use of PAP Assessment & Plan (05/06/2024 11:13 AM EST): Does have CPAP, does not wear this Does not like it Advised of side effects of not wearing Risk: stroke, [place], Assessment & Plan (09/18/2023 11:23 AM EDT): Does not use PAP, he cannot tolerate this Resolved Problems ProblemNoted DateDiagnosed DateResolved DateGout of multiple sites07/02/2023 05/06/2024 Assessment & Plan (05/06/2024 6:48 AM EST): No current symptoms, and continue w allopurinol Obesity, Class I, BMI 30-34.90 Immunizations ImmunizationAdministration DatesNext DueZoster, Iqinmnobmri13/27/2023 Social History Tobacco UseTypesPacks/DayYears UsedDateSmoking Tobacco: NeverSmokeless Tobacco: Never Tobacco Cessation:Counseling Given: Not Answered Alcohol UseStandard Drinks/WeekCommentsYes0 (1 standard drink = 0.6 oz pure alcohol)caffine: coffee 1 cup dailyPHQ-2AnswerDate RecordedPatient Health Questionnaire-2 Veirq488Sex and Gender InformationValueDate RecordedSex Assigned at BirthNot on fileLegal VnjFidk8009/06/2022 6:40 PM EDTGender Identity Not on fileSexual OrientationNot on file Last Filed Vital Signs Vital SignReadingTime TakenCommentsBlood Lhfxhrzb298/78012/01/2024 9:29 AM EDT Arwrc407512/01/2024 9:29 AM RHFGrwrzhvaoke77.6 ??C (97.8 ??F)12/01/2024 9:29 AM EDTRespiratory Qwvr169212/01/2024 9:29 AM EDTOxygen Nmoejnhjah24%12/01/2024 9:29 AM EDTInhaled Oxygen Concentration--Bugbmr687 kg (233 lb)12/01/2024 9:29 AM EDT Clfbah146.7 cm (5' 8 )06/30/2024 9:20 AM ESTBody Mass Index35.43006/30/2024 9:20 AM EST Plan of Treatment Health MaintenanceDue DateLast DoneCommentsCT Vfmaxdeyjoat46/03/1956FIT-DNA 1955FIT1955FOBT1955 6129Ghyjkzshktvzs88/03/1956Pneumococcal Vaccine: 65+ Years (1 of 2 - PCV)09/25/1974COVID-19 Vaccine (1 - season) 2025Influenza Vaccine (#1)2025Medicare Annual Wellness (AWV) 5107/06/2023, 05/06/20248284Flitpnqpyzx68, 04/25/2022 Colorectal Cancer Igxhyiayq10/01/[address] [place] [address] Care Teams Team MemberRelationshipSpecialtyStart DateEnd Date Isak Levy MD PCP - GeneralFamily Medicine09/18/23 Ellen Barrera NP [address] [place] [phone] PCP - ACO Reach08/01/24 Ellen Barrera NP Nurse PractitionerFaSt. [facility]02/23/23 Ellen Barrera NP Nurse PractitionerWell[facility]09/18/23
[2025-05-26 09:24] LABS: Hematocrit 42.3 % (42.0-54.0); Hemoglobin 14.1 g/dL (14.0-18.0); Immature Granulocytes Abs Auto 0.10 10^3/uL (0.00-0.03); Immature Granulocytes Pct Auto 1.1 % (0.0-0.5); Lymphocytes Absolute Auto 1.8 10^3/uL (1.2-3.8); Mean Corpuscular HGB Conc 33.3 g/dL (29.9-35.2); Mean Corpuscular Hemoglobin 29.9 pg (25.9-34.0); Mean Corpuscular Volume 89.6 fL (80.0-94.0); Platelet Count 272 10^3/uL (150-450); Red Blood Count 4.72 10^6/uL (4.70-6.10); White Blood Count 8.7 10^3/uL (4.0-11.0)
[2025-05-26 09:30] LABS: Glucose Urine UA NEGATIVE (NEGATIVE)
[2025-05-26 09:58] LABS: Cast Seen? SEEN #/LPF (NONE SEEN); Crystals Seen? None Seen #/HPF (None Seen)
[2025-05-26 10:10] LABS: Microalbum Creatinine Ratio Ur 85.4 mg/g (0.0-29.9)
[2025-05-26 10:21] LABS: Alanine Aminotransferase 38 U/L (16-63); Albumin Globulin Ratio 1.0; Albumin Level 3.7 g/dL (3.4-5.0); Alkaline Phosphatase 62 U/L (46-116); Anion Gap 11.2; Aspartate Amino Transferase 23 U/L (15-37); Blood Urea Nitrogen 22.0 mg/dL (7.0-18.0); Calcium 9.0 mg/dL (8.5-10.1); Carbon Dioxide 26.9 mmol/L (21.0-32.0); Chloride 105 mmol/L (98-107); Cholesterol 156 mg/dL (<=200); Estimated GFR (African America >60 (>=60 mL/min/1.73m^2); Estimated GFR (Non-African Ame 50 (>=60 mL/min/1.73m^2); Globulin 3.8 g/dL; Glucose 119 mg/dL (74-106); HDL Cholesterol 46 mg/dL (40-60); Potassium 4.1 mmol/L (3.5-5.1); Sodium 139 mmol/L (136-145); Total Protein 7.5 g/dL (6.4-8.2); Triglycerides 214 mg/dL (<=150); Uric Acid 6.1 mg/dL (3.5-7.2); VLDL CHOLESTEROL 42.8 mg/dL
== END 2025-05-26 09:02 | disposition home or self-care (01) ==
LOC: LAB 09:04
PROVIDERS: PCP Nurse Practitioner; Visit Provider Nurse Practitioner
DX: R73.03 Prediabetes (principal); G47.33 Obstructive sleep apnea (adult) (pediatric); M10.9 Gout, unspecified; I10 Essential (primary) hypertension; F41.9 Anxiety disorder, unspecified; F32.A Depression, unspecified
CPT/HCPCS: 36415; 80053; 80061; 81001; 82043; 82570; 83036; 84550; 85025